=== PATIENT | female | born 1960 | race Caucasian/White ===

== ENCOUNTER → 2021-09-27 15:21 | Outpatient (BNVA) | payer OTHER, SELFPAY | PROVIDERS: Visit Provider Nurse Practitioner Family ==

== ENCOUNTER → 2021-10-31 11:00 | Outpatient (BNVA) | payer MEDICAID, SELFPAY | PROVIDERS: PCP Nurse Practitioner Adult Health; Visit Provider Nurse Practitioner Family | DX: G43.009 Migraine without aura, not intractable, without status migrainosus (principal); G50.1 Atypical facial pain; G47.33 Obstructive sleep apnea (adult) (pediatric); R56.9 Unspecified convulsions | CPT/HCPCS: 99212 ==

== ENCOUNTER → 2021-12-10 08:11 | Outpatient (BNVA) | payer MEDICAID, SELFPAY | PROVIDERS: PCP Nurse Practitioner Adult Health; Visit Provider Nurse Practitioner Family | DX: Z13.89 Encounter for screening for other disorder (principal) ==

== ENCOUNTER → 2022-05-30 07:57 | Outpatient (BNVA) | payer MEDICAID, SELFPAY | PROVIDERS: PCP Nurse Practitioner Adult Health; Visit Provider Psychiatry & Neurology Neurology | DX: G43.709 Chronic migraine without aura, not intractable, without status migrainosus (principal); G43.119 Migraine with aura, intractable, without status migrainosus; G50.1 Atypical facial pain | CPT/HCPCS: 64615; 99211; J0585 ==

== ENCOUNTER → 2022-07-25 15:08 | Outpatient (BNVA) | payer MEDICAID, SELFPAY | PROVIDERS: PCP Nurse Practitioner Adult Health; Visit Provider Nurse Practitioner Family | DX: G43.709 Chronic migraine without aura, not intractable, without status migrainosus (principal); G50.1 Atypical facial pain; G47.33 Obstructive sleep apnea (adult) (pediatric); R56.9 Unspecified convulsions; R76.8 Other specified abnormal immunological findings in serum | CPT/HCPCS: 99212; Q3014 ==

== ENCOUNTER → 2022-09-04 08:55 | Outpatient (BNVA) | payer MEDICAID, SELFPAY | PROVIDERS: PCP Nurse Practitioner Adult Health; Visit Provider Psychiatry & Neurology Neurology | DX: G43.109 Migraine with aura, not intractable, without status migrainosus (principal); G50.1 Atypical facial pain | CPT/HCPCS: 64615; 99211; J0585 ==

== ENCOUNTER → 2022-11-07 15:04 | Outpatient (REF) | payer MEDICAID, SELFPAY | LOC: HO.SL 15:04 | PROVIDERS: PCP Nurse Practitioner Adult Health; Visit Provider Nurse Practitioner Family | DX: G47.33 Obstructive sleep apnea (adult) (pediatric) (principal) | CPT/HCPCS: 95806 ==

== ENCOUNTER → 2022-12-01 10:30 | Outpatient (BNVA) | payer MEDICAID, SELFPAY | PROVIDERS: PCP Nurse Practitioner Adult Health; Visit Provider Psychiatry & Neurology Neurology | DX: G43.709 Chronic migraine without aura, not intractable, without status migrainosus (principal); G50.1 Atypical facial pain | CPT/HCPCS: 64615; 99211; J0585 ==

== ENCOUNTER → 2022-12-08 14:50 | Outpatient (BNVA) | payer MEDICAID, SELFPAY | PROVIDERS: PCP Nurse Practitioner Adult Health; Visit Provider Internal Medicine | DX: G50.1 Atypical facial pain (principal) | CPT/HCPCS: 99202 ==

== ENCOUNTER → 2023-01-16 10:56 | Outpatient (BNVA) | payer OTHER, SELFPAY | PROVIDERS: PCP Nurse Practitioner Adult Health; Visit Provider Internal Medicine | DX: G50.1 Atypical facial pain (principal) | CPT/HCPCS: 99212 ==

== ENCOUNTER → 2023-03-02 13:53 | Outpatient (BNVA) | payer OTHER, SELFPAY | PROVIDERS: PCP Nurse Practitioner Adult Health; Visit Provider Psychiatry & Neurology Neurology | DX: G43.709 Chronic migraine without aura, not intractable, without status migrainosus (principal); G50.1 Atypical facial pain; G43.119 Migraine with aura, intractable, without status migrainosus | CPT/HCPCS: 64615; 99211; J0585 ==

== ENCOUNTER → 2023-03-20 09:39 | Outpatient (BNVA) | payer MEDICAID, SELFPAY | PROVIDERS: PCP Nurse Practitioner Adult Health; Visit Provider Internal Medicine | DX: G43.119 Migraine with aura, intractable, without status migrainosus (principal); R63.4 Abnormal weight loss; G50.1 Atypical facial pain | CPT/HCPCS: 99212 ==

== ENCOUNTER 2023-04-03 11:29 | Outpatient (AMB) | payer MEDICAID, SELFPAY ==
--- NOTE | 2023-04-03 11:29 | MHC.OFFVIS ---
Intake Intake Visit Reasons: discuss options Allergies erythromycin base [ERYTHROMYCIN BASE] Allergy (Unknown, Verified 03/20/23 09:46) SWELLING From COMPAZINE Allergy (Unknown, Uncoded 03/20/23 09:46) EXTREME ANXIETY From WELLBUTRIN Allergy (Unknown, Uncoded 03/20/23 09:46) MOOD CHANGE (RAGE) HPI discuss options HPI Details 62-year-old female presenting today on tele-health visit.. She is going on vacation to the [place] with her sisters. She reports pain in her tooth, cheek bone, and evangelical, which radiates to her head. She states that her pain is triggering her migraine/headache. The patient is currently taking Advil every day with no significant relief. She has had Botox therapy in the past for migraines. She is currently on carbamazepine. She had taken oxycodone, which was prescribed by Dr. Harvey after surgery. She has not tried Tramadol in the past. she is interested in having a backup option for treating pain during her travel should she experience episodes of excruciating pain. She has her SPG block scheduled later this month afte she returns. REPLACED BY [facility] Medical History Abdominal pain, epigastric Anterior neck pain At high risk for breast cancer Attention deficit hyperactivity disorder (ADHD) Benign essential hypertension Bipolar 2 disorder Body dysmorphic disorder Cold sore Facial pain Family history of breast cancer JASMINE (generalized anxiety disorder) Hyperlipidemia Migraines Osteopenia Pain of right hip joint Seizure disorder TMJ arthralgia Urinary hesitancy Surgical History H/O tooth extraction Family History Mother Cancer Breast cancer Family/Other No problems noted. Sister Breast cancer Sister Breast cancer Social History Alcohol intake: current Alcohol intake frequency: holidays/special occasions only Patient Tobacco Use Status: Never used Tobacco Review of Systems Const All systems reviewed & are unremarkable except as noted in HPI and below Results Reviewed Results Reviewed: No imaging is available for review. Assessment & Plan Assessment & Plan (1) Atypical facial pain: Comment: left sided V1, V2 distribution Code(s): G50.1 - Atypical facial pain Plan 1. A one-week script of oxycodone 5 milligrams P.R.N was provided to the patient for her vacation #14. 2. Patient is scheduled for left +/- right sphenopalatine ganglion block in the office once she returns from vacation. Scribed for Dr. Castillo by João Singh, medical library assistant, on 04/03/2023. I, Dr. Castillo, have personally reviewed and agree with the information entered by the scribe. Medications: New oxycodone Partial Fill upon patient request. 5 mg PO BID PRN 14 tabs 0RF pain Telehealth Telehealth Location of provider rendering services: practice address Location of patient: address on file Patient Identification confirmed using: Name, : Yes Telehealth method: voice only Patient verbally consented to treatment: Yes Patient verbally consented to billing insurance company: Yes Patient informed of any privacy concerns related to visit: Yes Minutes spent on Phone/Video with Pt.: 10 Coding Level of Care Code Tele Est Pt Level 3 (97652) Diagnoses Atypical facial pain G50.1
== END 2023-04-03 11:29 | disposition home or self-care (01) ==
LOC: HO.PMC 11:29
PROVIDERS: PCP Nurse Practitioner Adult Health; Visit Provider Internal Medicine
DX: G50.1 Atypical facial pain (principal)
CPT/HCPCS: 99441

== ENCOUNTER → 2023-04-03 11:29 | Outpatient (BNVA) | payer MEDICAID, SELFPAY | PROVIDERS: PCP Nurse Practitioner Adult Health; Visit Provider Internal Medicine ==

== ENCOUNTER 2023-04-17 11:39 | Outpatient (AMB) | payer MEDICAID, OTHER, SELFPAY ==
--- NOTE | 2023-04-17 11:44 | MHC.OFFVIS ---
Intake Vital Signs 04/17/23 11:45 Height 5 ft 3 in Weight 108 lb BMI 19.1 BP 130/60 Blood Pressure Location Lt brachial Position Sitting Respiration 12 Pulse 75 Pulse Source Palpation Pulse Oximetry (%) 97 Oxygen Delivery Method Room Air Intake Visit Reasons: left sphenopalatine ganglion block Allergies erythromycin base [ERYTHROMYCIN BASE] Allergy (Unknown, Verified 04/17/23 11:45) SWELLING From COMPAZINE Allergy (Unknown, Uncoded 04/17/23 11:45) EXTREME ANXIETY From WELLBUTRIN Allergy (Unknown, Uncoded 04/17/23 11:45) MOOD CHANGE (RAGE) Medication List - Last Reconciled 04/17/23 by Araceli Loomis, DRAWER IN STITCH BONDING MACHINE atorvastatin 40 mg PO DAILY carbamazepine ER (Tegretol XR) 200 mg PO BID 90 days clonazepam 0.25 mg PO BEDTIME cyclosporine 0.05% (Restasis) drps ophthalmic (eye) duloxetine (Cymbalta) 30 mg PO .qd famotidine 40 mg PO BEDTIME lamotrigine 200 mg PO BID 90 days onabotulinumtoxinA (Botox) Inject 155 units across forehead scalp and neck; 12 weeks oxycodone 5 mg PO BID PRN sumatriptan succinate 100 mg PO Q2H PRN 21 days sumatriptan succinate 6 mg (0.5 mL) subcut ONCE PRN 30 days verapamil ER 180 mg PO DAILY 90 days HPI left sphenopalatine ganglion block HPI Details 62-year-old female presenting today for a bilateral sphenopalatine ganglion block. Denies any recent cough, cold, infection, fever or other significant changes in medical history since last office visit. [facility] Medical History Abdominal pain, epigastric Anterior neck pain At high risk for breast cancer Attention deficit hyperactivity disorder (ADHD) Benign essential hypertension Bipolar 2 disorder Body dysmorphic disorder Cold sore Facial pain Family history of breast cancer JASMINE (generalized anxiety disorder) Hyperlipidemia Migraines Osteopenia Pain of right hip joint Seizure disorder TMJ arthralgia Urinary hesitancy Surgical History H/O tooth extraction Family History Mother Cancer Breast cancer Family/Other No problems noted. Sister Breast cancer Sister Breast cancer Social History Alcohol intake: current Alcohol intake frequency: holidays/special occasions only Patient Tobacco Use Status: Never used Tobacco Review of Systems Const All systems reviewed & are unremarkable except as noted in HPI and below Physical Exam Vital Signs: Last Vital Signs Pulse 75 04/17/23 11:45 Resp 12 04/17/23 11:45 BP 130/60 04/17/23 11:45 Pulse Ox 97 04/17/23 11:45 Oxygen Delivery Method Room Air 04/17/23 11:45 BMI result Body Mass Index 19.1 General: Appears afebrile. Alert and oriented. Mood and affect appropriate. Follows and participates in conversation appropriately. Respiratory effort is unlabored. Able to transition from sit to stand unassisted. Ambulates with bilaterally normal heel strike and toe off. Office Procedures Nerve Block Details: Sphenopalatine ganglion block, bilateral After obtaining written consent, pre-procedure blood pressure and heart rate were stable and recorded in the nursing record. Standard monitors were applied. The patient was placed in the supine position. We then placed a hollow shaft cotton tipped applicator into the nare. This was advanced posteriorly until contact with the posterior nasopharynx was made. We then injected 1cc of topical lidocaine 4% through the shaft to soak the tip and diffuse to the ganglion. We then left the applicator in place for 20 minutes. The applicator was then removed. The patient tolerated the procedure well and no complications were encountered. Following the procedure the patient's vital signs were stable. The patient was discharged home in good condition with post-procedural instructions. Time Out: Immediately prior to the procedure, the following was verbally confirmed that there is a signed consent form and that the correct patient, planned procedure, site and side are consistent with documentation and that necessary equipment and/or blood products are available prior to the start of the case. Complications: none EBL: none Procedure code (CPT) selection complete Results Reviewed Results Reviewed: No imaging is available for review. Assessment & Plan Assessment & Plan (1) Migraine with aura, intractable, without status migrainosus: Code(s): G43.119 - Migraine with aura, intractable, without status migrainosus (2) Atypical facial pain: Comment: left sided V1, V2 distribution Code(s): G50.1 - Atypical facial pain Plan Patient is status post bilateral sphenopalatine ganglion block. Patient tolerated procedure well and was discharged home in stable condition with discharge instructions. All questions were answered. We will follow-up via telephone or in clinic to assess response to therapy. A follow-up appointment was made during today's visit. Scribed for Dr. Castillo by João Singh, medical data entry clerk, on 04/17/2023. I, Dr. Castillo, have personally reviewed and agree with the information entered by the scribe. Coding Level of Care Code Procedure Only Diagnoses Migraine with aura, intractable, without status migrainosus G43.119 Atypical facial pain G50.1
[2023-04-17 11:45] VITALS: BP 130/60; PULSE 75; RESP 12; O2SAT 97; BMI 19.1
== END 2023-04-17 12:01 | disposition home or self-care (01) ==
PROVIDERS: PCP Nurse Practitioner Adult Health; Visit Provider Internal Medicine
DX: G43.119 Migraine with aura, intractable, without status migrainosus (principal); G50.1 Atypical facial pain
CPT/HCPCS: 64405

== ENCOUNTER → 2023-04-17 11:39 | Outpatient (BNVA) | payer MEDICAID, SELFPAY | PROVIDERS: PCP Nurse Practitioner Adult Health; Visit Provider Internal Medicine | DX: G43.119 Migraine with aura, intractable, without status migrainosus (principal); G50.1 Atypical facial pain | CPT/HCPCS: 64405 ==

== ENCOUNTER 2023-05-15 09:33 | Outpatient (AMB) | payer OTHER, SELFPAY ==
[2023-05-15 09:42] VITALS: BP 128/86; PULSE 82; RESP 14; O2SAT 99; BMI 19.1
--- NOTE | 2023-05-15 09:42 | MHC.OFFVIS ---
Intake Vital Signs 05/15/23 09:42 Height 5 ft 3 in Weight 108 lb BMI 19.1 BP 128/86 Blood Pressure Location Lt brachial Position Sitting Respiration 14 Pulse 82 Pulse Source Pulse Oximeter Pulse Oximetry (%) 99 Oxygen Delivery Method Room Air Intake Visit Reasons: PROCEDURE DISCUSSION Allergies erythromycin base [ERYTHROMYCIN BASE] Allergy (Unknown, Verified 05/15/23 09:44) SWELLING From COMPAZINE Allergy (Unknown, Uncoded 05/15/23 09:44) EXTREME ANXIETY From WELLBUTRIN Allergy (Unknown, Uncoded 05/15/23 09:44) MOOD CHANGE (RAGE) Medication List - Last Reconciled 05/15/23 by Dinorah Lowry LPN atorvastatin 40 mg PO DAILY carbamazepine ER (Tegretol XR) 200 mg PO BID 90 days clonazepam 0.25 mg PO BEDTIME cyclosporine 0.05% (Restasis) drps ophthalmic (eye) duloxetine (Cymbalta) 30 mg PO .qd famotidine 40 mg PO BEDTIME lamotrigine 200 mg PO BID 90 days onabotulinumtoxinA (Botox) Inject 155 units across forehead scalp and neck; 12 weeks oxycodone 5 mg PO BID PRN sumatriptan succinate 100 mg PO Q2H PRN 21 days sumatriptan succinate 6 mg (0.5 mL) subcut ONCE PRN 30 days verapamil ER 180 mg PO DAILY 90 days HPI PROCEDURE DISCUSSION HPI Details 63-year-old female is presenting today for a procedure discussion. She reports multiple episodes of sinus pain and pressure. She also reports pain over the top of her head and occasionally in left side of the face. She is not able to move, work, sleep, sit, or stand because of pain. She is currently taking Advil, which provides relief from odontalgia. She denies lacrimation or rhinorrhea. She was taking half a tab of oxycodone for pain management during vacation. She requests a 1 time script of oxycodone to continue taking well she explores further therapeutic options. Past procedure: 04/17/23: Sphenopalatine ganglion block, bilateral: No relief. [facility] Medical History Abdominal pain, epigastric Anterior neck pain At high risk for breast cancer Attention deficit hyperactivity disorder (ADHD) Benign essential hypertension Bipolar 2 disorder Body dysmorphic disorder Cold sore Facial pain Family history of breast cancer JASMINE (generalized anxiety disorder) Hyperlipidemia Migraines Osteopenia Pain of right hip joint Seizure disorder TMJ arthralgia Urinary hesitancy Surgical History H/O tooth extraction Family History Mother Cancer Breast cancer Family/Other No problems noted. Sister Breast cancer Sister Breast cancer Social History Alcohol intake: current Alcohol intake frequency: holidays/special occasions only Patient Tobacco Use Status: Never used Tobacco Review of Systems Const All systems reviewed & are unremarkable except as noted in HPI and below Physical Exam Vital Signs: Last Vital Signs Pulse 82 05/15/23 09:42 Resp 14 05/15/23 09:42 BP 128/86 05/15/23 09:42 Pulse Ox 99 05/15/23 09:42 Oxygen Delivery Method Room Air 05/15/23 09:42 BMI result Body Mass Index 19.1 General: Appears afebrile. Alert and oriented. Mood and affect appropriate. Visible distress secondary to facial pain. Follows and participates in conversation appropriately. Respiratory effort is unlabored. Able to transition from sit to stand unassisted. Ambulates with bilaterally normal heel strike and toe off. Results Reviewed Results Reviewed: No imaging is available for review. Assessment & Plan Assessment & Plan (1) Trigeminal neuralgia of left side of face: Code(s): G50.0 - Trigeminal neuralgia Plan 63-year-old female with a complex history of facial pain that has not been responsive to conservative management including multiple medications, removal of impacted wisdom teeth in the left upper jaw as well as a trial of sphenopalatine ganglion block. Her pain is mostly in the distribution of V1 and V2, likely secondary to trigeminal neuralgia. I recommended that she seek a consultation with Dr. uRth at [facility]. I provided a referral to her for the same. ? A partial refill of oxycodone 5mg #30 was provided to the patient for pain management.? Scribed for Dr. Castillo by João Singh, medical affairs specialist, on 05/15/2023. I, Dr. Castillo, have personally reviewed and agree with the information entered by the scribe. Orders: Referrals Neurosurgery Referral G50.0 - Trigeminal neuralgia Medications: New oxycodone Partial Fill upon patient request. 5 mg PO BID PRN 30 tabs 0RF pain Coding Level of Care Code Est Pt Level 3 (53916) Diagnoses Trigeminal neuralgia of left side of face G50.0
== END 2023-05-15 09:59 | disposition home or self-care (01) ==
PROVIDERS: PCP Nurse Practitioner Adult Health; Visit Provider Internal Medicine
DX: G50.0 Trigeminal neuralgia (principal)
CPT/HCPCS: 99214

== ENCOUNTER → 2023-05-15 09:33 | Outpatient (BNVA) | payer MEDICAID, SELFPAY | PROVIDERS: PCP Nurse Practitioner Adult Health; Visit Provider Internal Medicine ==

== ENCOUNTER 2023-06-16 14:37 | Outpatient (AMB) | payer OTHER, SELFPAY ==
--- NOTE | 2023-06-16 14:42 | MHC.OFFVIS ---
Intake Vital Signs 06/16/23 14:44 Weight 107 lb 8 oz BP 110/68 Blood Pressure Location Rt brachial Position Sitting Pulse 68 Pulse Source Pulse Oximeter Pulse Oximetry (%) 98 Intake Visit Reasons: Botox (B&B)-confirmed Allergies erythromycin base [ERYTHROMYCIN BASE] Allergy (Unknown, Verified 06/16/23 14:48) SWELLING From COMPAZINE Allergy (Unknown, Uncoded 05/15/23 09:44) EXTREME ANXIETY From WELLBUTRIN Allergy (Unknown, Uncoded 05/15/23 09:44) MOOD CHANGE (RAGE) Medication List - Last Reconciled 06/16/23 by Cally Moody MD atorvastatin 40 mg PO DAILY carbamazepine ER (Tegretol XR) 200 mg PO BID 90 days clonazepam 0.25 mg PO BEDTIME cyclosporine 0.05% (Restasis) drps ophthalmic (eye) duloxetine (Cymbalta) 30 mg PO .qd lamotrigine 200 mg PO BID 90 days onabotulinumtoxinA (Botox) Inject 155 units across forehead scalp and neck; 12 weeks sumatriptan succinate 100 mg PO Q2H PRN 21 days sumatriptan succinate 6 mg (0.5 mL) subcut ONCE PRN 30 days verapamil ER 180 mg PO DAILY 90 days HPI HPI Comments History of Present Illness Details ? 63y/o female comes for treatment of migraines and torticollis with botox. After her botox last time sh ehad head drop. I will avoid injecting cervical paraspinals . ??? Most frequent reported adverse reactions following injection of botox for chronic migraine include neck pain (9%), headache(5%), eyelid ptosis(4%), migraine(4%), muscular weakness(4%), musculuskeletal stiffness(4%), bronchitis(3%), injection site pain (3%), musculoskeletal pain(3%), myalgia(3%), facial paresis(2%), HTN(2%) and muscle spasms(2%) were discussed in detail. ??? Botulinum toxin typeA 200units Lot no [id number] expiration Oct 2025 was diluted with 4 cc of normal saline . ??? Muscles injected- ? Temporalis- 8 sites- 20 units each?? Fronatlis 4 sites Left trapezius- 30 units Right Trapezius 10 units Left levator 50 units Left splenius 25 units Left TMJ Masseter - 25 units ? Total use- 200units ??? PFSH Medical History Anterior neck pain At high risk for breast cancer Abdominal pain, epigastric Facial pain JASMINE (generalized anxiety disorder) Benign essential hypertension Urinary hesitancy Body dysmorphic disorder Cold sore Attention deficit hyperactivity disorder (ADHD) Family history of breast cancer Pain of right hip joint TMJ arthralgia Seizure disorder Osteopenia Migraines Bipolar 2 disorder Hyperlipidemia Surgical History H/O tooth extraction Family History Mother Cancer Breast cancer Family/Other No problems noted. Sister Breast cancer Sister Breast cancer Social History Alcohol intake: current Alcohol intake frequency: holidays/special occasions only Patient Tobacco Use Status: Never used Tobacco Physical Exam Vital Signs: Last Vital Signs Pulse 68 06/16/23 14:44 BP 110/68 06/16/23 14:44 Pulse Ox 98 06/16/23 14:44 Const General: cooperative and no acute distress Orientation/consciousness: patient oriented x3 HEENT Head: Yes normocephalic Resp Effort & Inspection: normal respiratory effort and able to speak in complete sentences Neuro General: patient oriented x3 Cognition (Neuro): normal cognition Psych Appearance: grossly normal Mental Status: mental status grossly normal Speech and movement: Normal speech and movement present Affect: normal affect Attitude: cooperative Thought process: Normal thought process present Thought content: Normal thought content present Insight: Good insight present (Psych) Judgement: Good judgement present (Psych) Office Procedures Botulinum toxin Injection 71691 - Migraine Procedure code (CPT) selection complete Office Meds onabotulinumtoxinA 200 unit solution for injection Performing Provider: Cally Moody MD Performing Location: [facility] Administered by: Cally Moody MD on 06/16/23 15:14 Dose Route Admin Location Dispensed Lot Number Expiration Date [facility] Technical Artist 200 unit subcut 200 units [id number] 10/22/25 1026-9964-11 [employer]OTOX Comments: see hpi Assessment & Plan Assessment & Plan (1) Chronic migraine without aura: Code(s): G43.709 - Chronic migraine without aura, not intractable, without status migrainosus (2) Atypical facial pain: Comment: left sided V1, V2 distribution Code(s): G50.1 - Atypical facial pain (3) Migraine with aura, intractable, without status migrainosus: Code(s): G43.119 - Migraine with aura, intractable, without status migrainosus Plan Patient tolerated the procedure well she will call with any side effects Increase tegretol XR 300mg bid Orders: Orders AMB Botulinum toxin Injection Today G43.709 - Chronic migraine without aura, not intractable, without status migrainosus Coding Level of Care Code Est Pt Level 1 (44365) Diagnoses Chronic migraine without aura G43.709 Atypical facial pain G50.1 Migraine with aura, intractable, without status migrainosus G43.119 CPT Codes Botox Injection - Botox 3: 21894 - Migraine ([id number])
[2023-06-16 14:44] VITALS: BP 110/68; PULSE 68; O2SAT 98
== END 2023-06-16 15:25 | disposition home or self-care (01) ==
PROVIDERS: PCP Nurse Practitioner Adult Health; Visit Provider Psychiatry & Neurology Neurology
DX: G43.709 Chronic migraine without aura, not intractable, without status migrainosus (principal)
CPT/HCPCS: 64615

== ENCOUNTER → 2023-06-16 14:37 | Outpatient (BNVA) | payer OTHER, SELFPAY | PROVIDERS: PCP Nurse Practitioner Adult Health; Visit Provider Psychiatry & Neurology Neurology | DX: G43.709 Chronic migraine without aura, not intractable, without status migrainosus (principal); G43.119 Migraine with aura, intractable, without status migrainosus; G50.1 Atypical facial pain | CPT/HCPCS: 64615; 99211; J0585 ==

== ENCOUNTER 2023-06-20 09:47 | Outpatient (REF) | payer OTHER, SELFPAY ==
[2023-06-20 10:12] LABS: MANUAL DIFF FLAG NO
[2023-06-20 11:02] LABS: Basophils Percent Auto 0.8 % (0-2); Eosinophils Absolute Auto 0.2 X10*3/uL (0.0-0.4); Eosinophils Percent Auto 4.5 % (0-4); Hematocrit 32.8 % (37.0-47.0); Hemoglobin 10.6 g/dl (12.0-16.0); Imm Gran Abs Auto 0.01 X10*3/uL (0.00-0.03); Imm Gran Pct Auto 0.3 % (0.0-0.4); Lymphocytes Absolute Auto 1.7 X10*3/uL (1.2-4.9); Lymphocytes Percent Auto 42.4 % (20-40); Mean Corpuscular HGB Conc 32.3 g/dl (31.0-35.0); Mean Corpuscular Hemoglobin 28.6 pg (27.0-33.0); Mean Corpuscular Volume 88.6 fL (80.0-98.0); Mean Platelet Volume 9.6 fL (9.4-12.3); Monocytes Absolute Auto 0.4 X10*3/uL (0.1-1.2); Neutrophils Absolute Auto 1.6 x10*3/uL (2.0-8.3); Platelet Count 279 X10*3/uL (160-400)
[2023-06-20 11:35] LABS: Rheumatoid Factor < 13.0 IU/mL (<15.0)
[2023-06-20 11:37] LABS: Alanine Aminotransferase 20 U/L (0-31); Albumin Level 4.4 g/dL (3.5-5.0); Alkaline Phosphatase 67 U/L (39-117); Anion Gap 13 (12-20); Aspartate Amino Transferase 19 U/L (5-31); Bilirubin Total 0.3 mg/dL (0.0-1.0); Blood Urea Nitrogen 12 mg/dL (9-16); Calcium 9.1 mg/dL (8.4-10.2); Carbon Dioxide 28 mmol/L (22-29); Chloride 106 mmol/L (96-108); Estimated Glomerular Filt Rate > 60; Glucose Random 75 mg/dL (60-115); Potassium 4.1 mmol/L (3.3-5.1); Sodium 143 mmol/L (135-145); Total Protein 6.7 g/dL (6.5-8.0)
[2023-06-20 13:22] LABS: Carbamazepine Tegretol 5.9 mcg/mL (5.0-12.0)
[2023-06-24 09:12] LABS: Lamotrigine Lamictal 4.1 mcg/mL (2.5-15.0)
[2023-06-24 13:54] LABS: Anti Nuclear Antibody Pattern Nuclear, Nucleolar; Anti Nuclear Antibody Screen POSITIVE (NEGATIVE)
== END 2023-06-20 09:48 | disposition home or self-care (01) ==
LOC: HO.LAB 09:47
PROVIDERS: Visit Provider Nurse Practitioner Family
DX: R76.8 Other specified abnormal immunological findings in serum (principal); G40.909 Epilepsy, unspecified, not intractable, without status epilepticus; Z79.899 Other long term (current) drug therapy
CPT/HCPCS: 36415; 80053; 80156; 80175; 85025; 86038; 86039; 86431

== ENCOUNTER 2023-07-02 14:03 | Outpatient (AMB) | payer OTHER, SELFPAY ==
[2023-07-02 14:14] VITALS: BMI 19.6
--- NOTE | 2023-07-02 14:14 | MHC.AMNUTRGE ---
Intake VS Expanded 07/02/23 14:14 07/06/23 12:23 Height 5 ft 3 in 5 ft 3 in Weight 110 lb 10.753 oz 111 lb BMI 19.6 19.7 Intake Visit Reasons: Abnormal weight loss Allergies erythromycin base [ERYTHROMYCIN BASE] Allergy (Unknown, Verified 06/16/23 14:48) SWELLING From COMPAZINE Allergy (Unknown, Uncoded 05/15/23 09:44) EXTREME ANXIETY From WELLBUTRIN Allergy (Unknown, Uncoded 05/15/23 09:44) MOOD CHANGE (RAGE) HPI Nutrition Presentation Details Pt presents for MNT for abnormal weight loss Pt reports gradual weight loss , wt in 10/2021 at 128 lbs , today at 110 lbs Pt reports she is choosing soft foods /pureed consistency the majority of the time related to having pain when chewing. Pt is followed by neurologist and by pain management. Pt reports most of her protein is mainly from cheese/dairy. She reports not including meat/poultry in the past and would like to continue this pattern. Pt reports being ok with including eggs and fish Pt reports lacking cooking skills, looking for fast meal ideas. Pt acknowledges importance of weight gain. Pt agrees to gradual wt gain, does not want to gain greater than 130 lbs. reports currently choosing soft foods coffee or tea sugar light cream B: cream of wheat with water and heavy cream and adds micronesian yogurt , cinnamon , nothing to drink L: cottage cheese and yogurt , may add a fruit D: madra lentils and quinoa snack : ice cream , smoothies not taking MVI COW-Ypkhyov-Um.Jeor Equation Height 5 ft 3 in Weight 111 lb Resting Metabolic Rate 1022.31 Calculated Activity Level Sedentary Calories Needed to Maintain Weight 1226.77 Diagnosis Nutrition problem #1 underweight As related to (etiology) #1 increased energy needs As evidenced by (sign/symptom) #1 weight loss (17 lbs in 10 months (related to reduced caloric intake from change in diet consistency (solid to puree)) Most Recent Diabetes Results: Creatinine 0.68 mg/dL (0.5-1.4) 06/20/23 Blood Urea Nitrogen 12 mg/dL (9-16) 06/20/23 Sodium 143 mmol/L (135-145) 06/20/23 Potassium 4.1 mmol/L (3.3-5.1) 06/20/23 Chloride 106 mmol/L (96-108) 06/20/23 Carbon Dioxide 28 mmol/L (22-29) 06/20/23 Calcium 9.1 mg/dL (8.4-10.2) 06/20/23 AST 19 U/L (5-31) 06/20/23 ALT 20 U/L (0-31) 06/20/23 Total Protein 6.7 g/dL (6.5-8.0) 06/20/23 Albumin 4.4 g/dL (3.5-5.0) 06/20/23 [facility] Medical History Anterior neck pain At high risk for breast cancer Abdominal pain, epigastric Facial pain JASMINE (generalized anxiety disorder) Benign essential hypertension Urinary hesitancy Body dysmorphic disorder Cold sore Attention deficit hyperactivity disorder (ADHD) Family history of breast cancer Pain of right hip joint TMJ arthralgia Seizure disorder Osteopenia Migraines Bipolar 2 disorder Hyperlipidemia Surgical History H/O tooth extraction Family History Mother Cancer Breast cancer Family/Other No problems noted. Sister Breast cancer Sister Breast cancer Social History Alcohol intake: current Alcohol intake frequency: holidays/special occasions only Patient Tobacco Use Status: Never used Tobacco Assessment & Plan Assessment & Plan (1) Weight loss, unintentional: Code(s): R63.4 - Abnormal weight loss Plan: wt 50 kg Est kcal needs as per MSJ: 1200 + 6927-8980 = 2200- 3200 (40% carb, 30% protein/fat) Est fluid needs as per 25-30 ml/d: 1250 - 1500 Est prot per day as per 1 g/kg bw: 50 Recommend fiber intake : 8-10 g per day and gradually increase to 25-28 g per day for women and 35-38 g for men or as tolerated Recommend sodium intake per day : 2000 mg Educated patient on: ( R = reviewed V = verbalizes understanding N/R = needs review N/A = not applicable Food sources of protein and it role in health : R, V Increasing calories by 250-500 gradually to prevent further weight loss and promote weight gain : R Vitamins and minerals: R Patient Instructions: Increase calories by 250-500 per day by adding protein,healthy fats and complex carbohydrates example : 1 cup of whole milk = 150 calories, 8 g protein 1 tbsp of peanut butter = 100 calories 4 g prot 1/2 cup of soft tofu = 60 calories 5 g of protein 1/2 cup of cottage cheese , 110 shayy , 13 g protein see meal plan ideas emailed Coding Level of Care Code Nutr Indiv Intake (15182) Diagnoses Weight loss, unintentional R63.4 Time Spent (min) 30
[2023-07-06 12:23] VITALS: BMI 19.7
== END 2023-07-02 14:50 | disposition home or self-care (01) ==
PROVIDERS: PCP Nurse Practitioner Adult Health; Visit Provider Dietitian, Registered
DX: R63.4 Abnormal weight loss (principal)

== ENCOUNTER → 2023-07-02 14:03 | Outpatient (BNVA) | payer OTHER, SELFPAY | PROVIDERS: PCP Nurse Practitioner Adult Health; Visit Provider Dietitian, Registered | DX: R63.4 Abnormal weight loss (principal); Z68.1 Body mass index [BMI] 19.9 or less, adult; Z71.3 Dietary counseling and surveillance | CPT/HCPCS: 97802 ==

== ENCOUNTER 2023-07-30 08:29 | Outpatient (AMB) | payer OTHER, SELFPAY ==
--- NOTE | 2023-07-30 08:30 | MHC.OFFVIS ---
Intake Vital Signs 07/30/23 08:31 Height 5 ft 3 in Weight 109 lb 2 oz BMI 19.3 Intake Visit Reasons: follow up/Lvm Intake Note: Patient presents for follow up. Patient states ' been a patient for a along time and I haven't seen her, I have sleep apnea so i need to be revaluted and get a new machine I haven't used 2 years. Allergies erythromycin base [ERYTHROMYCIN BASE] Allergy (Unknown, Verified 07/30/23 08:38) SWELLING From COMPAZINE Allergy (Unknown, Uncoded 07/30/23 08:38) EXTREME ANXIETY From WELLBUTRIN Allergy (Unknown, Uncoded 07/30/23 08:38) MOOD CHANGE (RAGE) [facility] Medical History Anterior neck pain At high risk for breast cancer Abdominal pain, epigastric Facial pain JASMINE (generalized anxiety disorder) Benign essential hypertension Urinary hesitancy Body dysmorphic disorder Cold sore Attention deficit hyperactivity disorder (ADHD) Family history of breast cancer Pain of right hip joint TMJ arthralgia Seizure disorder Osteopenia Migraines Bipolar 2 disorder Hyperlipidemia Surgical History H/O tooth extraction Family History Mother Cancer Breast cancer Family/Other No problems noted. Sister Breast cancer Sister Breast cancer Social History Alcohol intake: current Alcohol intake frequency: holidays/special occasions only Patient Tobacco Use Status: Never used Tobacco Coding
[2023-07-30 08:31] VITALS: BP 118/78; PULSE 94; O2SAT 98; BMI 19.3
--- NOTE | 2023-07-30 08:40 | A.OFFVIS_ITS ---
Intake Vital Signs 07/30/23 08:31 07/30/23 08:42 Height 5 ft 3 in Weight 109 lb 2 oz BMI 19.3 19.3 BP 118/78 Blood Pressure Location Rt brachial Position Sitting Pulse 94 Pulse Source Pulse Oximeter Pulse Oximetry (%) 98 Oxygen Delivery Method Room Air Intake Visit Reasons: follow up/Lvm Intake Note: Patient presents for follow up. Patient states I haven't seen her in 2 years. I have sleep apnea but have not used a machine in 2 years due to a recall on my mac machine. I've lost a lot of weight but I'm seeing a airline transport pilot for it. Allergies erythromycin base [ERYTHROMYCIN BASE] Allergy (Unknown, Verified 07/30/23 08:38) SWELLING From COMPAZINE Allergy (Unknown, Uncoded 07/30/23 08:38) EXTREME ANXIETY From WELLBUTRIN Allergy (Unknown, Uncoded 07/30/23 08:38) MOOD CHANGE (RAGE) Medication List - Last Reconciled 07/30/23 by VINICIUS Crump atorvastatin 40 mg PO DAILY carbamazepine ER (Tegretol XR) 200 mg PO BID 90 days clonazepam 0.25 mg PO BEDTIME cyclosporine 0.05% (Restasis) drps ophthalmic (eye) duloxetine (Cymbalta) 30 mg PO .qd lamotrigine 200 mg PO BID 90 days onabotulinumtoxinA (Botox) Inject 155 units across forehead scalp and neck; 12 weeks sumatriptan succinate 100 mg PO Q2H PRN 21 days sumatriptan succinate 6 mg (0.5 mL) subcut ONCE PRN 30 days verapamil ER 180 mg PO DAILY 90 days HPI HPI Comments History of Present Illness Details 63-yr-old female presents for f/u visit. Pt denies any interval seizure activity. She is compliant w/ Tegretol (now 200mg qam and 300mg qpm) and Lamotrigine. Last Tegretol and Lamotrigine levels were NL. Pt continues to have left facial pain Pt has had a wisdom tooth extraction- in hopes it would lessen the facial pain, but this was not helpful. She also had a sphenopalantine ganglion block which was not helpful. She recently increased her tegretol from 200mg bid to 200mg in am and 300mg qpm with added celebrex bid. She has had a 10 day stretch w/o pain, however just recently again noticing discomfort whenchewing. She has been having less migraines in the past 2 weeks. She does continue to do Botox- she is prone to having a headache in the week following the botox injection. The Sumatriptan is usually effective but not always. The Sumatriptan inj is especially effective for severe migraine. Tylenol can help a mild headache. Recently rechecked VERONICA, as it was previously elevated, and again VERONICA is elevated at 1;320. She would like to resume CPAP. Her most recent HST showed moderate sleep apnea with AHI 17.2/hr w/ O2 sheba 80%. She continues to have snoring, sleep difficulties, nocturia, dry mouth upon awakening, and unrefreshing sleep. She previously did well on CPAP, and only stopped as her ayleen's pap device was recalled. She does not have a working CPAP machine. Last Resulted Lab Tests 06/20/23 10:10 WBC 4.0 L RBC 3.70 L Hgb 10.6 L Hct 32.8 L MCV 88.6 MCH 28.6 MCHC 32.3 RDW 13.0 Plt Count 279 MPV 9.6 Immature Gran % (A uto) 0.3 Neut % (Auto) 41.0 L Lymph % (Auto) 42.4 H [place] % (Auto) 11.0 Eos % (Auto) 4.5 H Baso % (Auto) 0.8 Sodium 143 Potassium 4.1 Chloride 106 Carbon Dioxide 28 Anion Gap 13 BUN 12 Creatinine 0.68 Random Glucose 75 Calcium 9.1 Total Bilirubin 0.3 AST 19 ALT 20 Alkaline Phosphata se 67 Total Protein 6.7 Albumin 4.4 Carbamazepine 5.9 Lamotrigine 4.1 Rheumatoid Factor < 13.0 VERONICA Screen POSITIVE A VERONICA Titer 1:320 H VERONICA Pattern Nuclear, Nucleola r A PFSH Medical History Anterior neck pain At high risk for breast cancer Abdominal pain, epigastric Facial pain JASMINE (generalized anxiety disorder) Benign essential hypertension Urinary hesitancy Body dysmorphic disorder Cold sore Attention deficit hyperactivity disorder (ADHD) Family history of breast cancer Pain of right hip joint TMJ arthralgia Seizure disorder Osteopenia Migraines Bipolar 2 disorder Hyperlipidemia Surgical History H/O tooth extraction Family History Mother Cancer Breast cancer Family/Other No problems noted. Sister Breast cancer Sister Breast cancer Social History Alcohol intake: current Alcohol intake frequency: holidays/special occasions only Patient Tobacco Use Status: Never used Tobacco Review of Systems Const All systems reviewed & are unremarkable except as noted in HPI and below Physical Exam Vital Signs: Last Vital Signs Pulse 94 07/30/23 08:31 BP 118/78 07/30/23 08:31 Pulse Ox 98 07/30/23 08:31 Oxygen Delivery Method Room Air 07/30/23 08:31 BMI result Body Mass Index 19.3 Const General: cooperative and no acute distress Orientation/consciousness: patient oriented x3 HEENT Head: Yes normocephalic Resp Effort & Inspection: normal respiratory effort and able to speak in complete sentences Neuro General: patient oriented x3, gait normal and CN's II-XI intact bilaterally Cognition (Neuro): normal cognition Motor exam (neuro): 5/5 motor strength present throughout Psych Appearance: grossly normal Mental Status: mental status grossly normal Speech and movement: Normal speech and movement present Affect: normal affect Attitude: cooperative Thought process: Normal thought process present Thought content: Normal thought content present Insight: Good insight present (Psych) Judgement: Good judgement present (Psych) Assessment & Plan Assessment & Plan (1) Chronic migraine without aura: Code(s): G43.709 - Chronic migraine without aura, not intractable, without status migrainosus (2) Migraine with aura, intractable, without status migrainosus: Code(s): G43.119 - Migraine with aura, intractable, without status migrainosus (3) Trigeminal neuralgia of left side of face: Code(s): G50.0 - Trigeminal neuralgia (4) Seizures: Comment: petit mal Code(s): R56.9 - Unspecified convulsions (5) Positive VERONICA (antinuclear antibody): Code(s): R76.8 - Other specified abnormal immunological findings in serum (6) Obstructive sleep apnea: Code(s): G47.33 - Obstructive sleep apnea (adult) (pediatric) Plan For left-facial pain- May increase Tegretol ER up to 200mg in am and 400mg qhs. Continue Celebrx. Recheck CBC, CMP, tegreol level in 2 weeks. F/u w/ pain management as scheduled. For chronic migraine prevention: Continue Botox for chronic migraine prevention. Continue Verapil ER 180mg qd. Pt has previously failed migraine prevention trials of Inderal, Nortriptyline, For acute migraine tx: Trial Nurtec ODT 75mg qod prn- note qod order as pt is on verapamil. Continue Sumatriptan oral and inj prn, Benadryl prn. Previous acute trials- Rizatriptan, Ubrogepant- ineffective. For seizures- Continue Tegretol XR as above Continue Lamictal 200mg bid. For mood disorder- F/u with psychiatrist Dr Riojas as scheduled. For h/o + VERONICA- Referal ahs been made to rheumatology consult. For CELIO- Reviewed HST- moderate CELIO. Pt advsied to resume CPAP set at her previous settings of 12 cmH2O.. Orders: Orders Carbamazepine Tegretol Today G40.909 - Epilepsy, unspecified, not intractable, without status epilepticus, R56.9 - Unspecified convulsions Complete Blood Count Auto Diff Today R56.9 - Unspecified convulsions Comprehensive Met. Panel Today R56.9 - Unspecified convulsions Medications: New rimegepant (Nurtec ODT) 75 mg PO Q OTHER DAY 30 days PRN 16 tabs 6RF migraine headache Changed From carbamazepine ER 100 mg PO .qhs To carbamazepine ER (Tegretol XR) at bedtime 100 mg PO DAILY 30 days 30 tabs 6RF Coding Level of Care Code Est Pt Level 4 (12095) Diagnoses Chronic migraine without aura G43.709 Migraine with aura, intractable, without status migrainosus G43.119 Trigeminal neuralgia of left side of face G50.0 Seizures R56.9 Positive VERONICA (antinuclear antibody) R76.8 Obstructive sleep apnea G47.33
[2023-07-30 08:42] VITALS: BMI 19.3
== END 2023-07-30 09:25 | disposition home or self-care (01) ==
PROVIDERS: PCP Nurse Practitioner Adult Health; Visit Provider Nurse Practitioner Family
DX: G43.709 Chronic migraine without aura, not intractable, without status migrainosus (principal); G43.119 Migraine with aura, intractable, without status migrainosus; G50.0 Trigeminal neuralgia; R56.9 Unspecified convulsions; R76.8 Other specified abnormal immunological findings in serum; G47.33 Obstructive sleep apnea (adult) (pediatric)
CPT/HCPCS: 99214

== ENCOUNTER → 2023-07-30 08:29 | Outpatient (BNVA) | payer OTHER, SELFPAY | PROVIDERS: PCP Nurse Practitioner Adult Health; Visit Provider Nurse Practitioner Family ==

== ENCOUNTER 2023-08-19 13:36 | Outpatient (AMB) | payer OTHER, SELFPAY ==
[2023-08-19 13:45] VITALS: BMI 19.5
--- NOTE | 2023-08-19 13:45 | MHC.AMNUTRGE ---
Intake VS Expanded 08/19/23 13:45 Height 5 ft 3 in Weight 110 lb 3.698 oz BMI 19.5 Intake Visit Reasons: monitor weight Allergies erythromycin base [ERYTHROMYCIN BASE] Allergy (Unknown, Verified 07/30/23 08:38) SWELLING From COMPAZINE Allergy (Unknown, Uncoded 07/30/23 08:38) EXTREME ANXIETY From WELLBUTRIN Allergy (Unknown, Uncoded 07/30/23 08:38) MOOD CHANGE (RAGE) HPI Nutrition Presentation Details Pt presents for MNT f/u for unintentional weight loss Pt was 128lbs in 2021 and most recent wt at 110 lbs. Pt is choosing soft foods related to atypical facial pain (Pt is followed by neurologist) , Pt reports working on incorporating protein source sof foods in diet (adding 1 tbsp of powder milk to cereals and to the milk Pt reports she is taking a daily multivitamin Increasing water by adding fruit juice to increase appetite Most Recent Diabetes Results: Creatinine 0.70 mg/dL (0.5-1.4) 08/21/23 Blood Urea Nitrogen 19 mg/dL (9-16) H 08/21/23 Sodium 141 mmol/L (135-145) 08/21/23 Potassium 3.6 mmol/L (3.3-5.1) 08/21/23 Chloride 105 mmol/L (96-108) 08/21/23 Carbon Dioxide 28 mmol/L (22-29) 08/21/23 Calcium 9.4 mg/dL (8.4-10.2) 08/21/23 AST 21 U/L (5-31) 08/21/23 ALT 25 U/L (0-31) 08/21/23 Total Protein 7.3 g/dL (6.5-8.0) 08/21/23 Albumin 4.4 g/dL (3.5-5.0) 08/21/23 [facility] Medical History Anterior neck pain At high risk for breast cancer Abdominal pain, epigastric Facial pain JASMINE (generalized anxiety disorder) Benign essential hypertension Urinary hesitancy Body dysmorphic disorder Cold sore Attention deficit hyperactivity disorder (ADHD) Family history of breast cancer Pain of right hip joint TMJ arthralgia Seizure disorder Osteopenia Migraines Bipolar 2 disorder Hyperlipidemia Surgical History H/O tooth extraction Family History Mother Cancer Breast cancer Family/Other No problems noted. Sister Breast cancer Sister Breast cancer Social History Alcohol intake: current Alcohol intake frequency: holidays/special occasions only Patient Tobacco Use Status: Never used Tobacco Assessment & Plan Assessment & Plan (1) Weight loss, unintentional: Code(s): R63.4 - Abnormal weight loss Plan: wt 50 kg Est kcal needs as per MSJ: 1200 + 5555-2304 = 2200- 3200 (40% carb, 30% protein/fat) Est fluid needs as per 25-30 ml/d: 1250 - 1500 Est prot per day as per 1 g/kg bw: 50 Recommend fiber intake : 8-10 g per day and gradually increase to 25-28 g per day for women and 35-38 g for men or as tolerated Recommend sodium intake per day : 2000 mg Educated patient on: ( R = reviewed V = verbalizes understanding N/R = needs review N/A = not applicable Food sources of protein and it role in health : R, V Increasing calories by 250-500 gradually to prevent further weight loss and promote weight gain : R Vitamins and minerals: R Patient Instructions: -Add oil 1 tsp of oil (avocado, oil, coconut oil) 3 times a day- add to each of your meals -include protein at least 60 g per day along with carbs/vitamin c sources of foods- see list of protein sources Keep hydrated, have juice, milk, juices diluted iwth water Coding Level of Care Code Nutr Indiv Subseq (68124) Diagnoses Weight loss, unintentional R63.4 Time Spent (min) 30
== END 2023-08-19 15:06 | disposition home or self-care (01) ==
PROVIDERS: PCP Nurse Practitioner Adult Health; Visit Provider Dietitian, Registered
DX: R63.4 Abnormal weight loss (principal)

== ENCOUNTER → 2023-08-19 13:36 | Outpatient (BNVA) | payer OTHER, SELFPAY | PROVIDERS: PCP Nurse Practitioner Adult Health; Visit Provider Dietitian, Registered | DX: R63.4 Abnormal weight loss (principal); Z68.1 Body mass index [BMI] 19.9 or less, adult; Z71.3 Dietary counseling and surveillance | CPT/HCPCS: 97803 ==

== ENCOUNTER 2023-08-21 15:35 | Outpatient (REF) | payer OTHER, SELFPAY ==
[2023-08-21 16:03] LABS: MANUAL DIFF FLAG NO
[2023-08-21 16:20] LABS: Basophils Absolute Auto 0.1 X10*3/uL (0.0-0.2); Basophils Percent Auto 0.9 % (0-2); Eosinophils Absolute Auto 0.3 X10*3/uL (0.0-0.4); Eosinophils Percent Auto 4.7 % (0-4); Hemoglobin 11.9 g/dl (12.0-16.0); Imm Gran Abs Auto 0.01 X10*3/uL (0.00-0.03); Imm Gran Pct Auto 0.1 % (0.0-0.4); Lymphocytes Absolute Auto 2.6 X10*3/uL (1.2-4.9); Lymphocytes Percent Auto 37.7 % (20-40); Mean Corpuscular HGB Conc 33.1 g/dl (31.0-35.0); Mean Corpuscular Hemoglobin 29.2 pg (27.0-33.0); Mean Corpuscular Volume 88.5 fL (80.0-98.0); Mean Platelet Volume 9.6 fL (9.4-12.3); Monocytes Absolute Auto 0.6 X10*3/uL (0.1-1.2); Monocytes Percent Auto 8.2 % (2-11); Neutrophils Absolute Auto 3.3 x10*3/uL (2.0-8.3); Neutrophils Percent Auto 48.4 % (45-73); Platelet Count 310 X10*3/uL (160-400); Red Blood Count 4.07 X10*6/uL (4.20-5.50); Red Cell Distribution Width 13.8 % (11.0-16.0); White Blood Count 6.9 X10*3/uL (4.8-10.8)
[2023-08-21 16:43] LABS: Alanine Aminotransferase 25 U/L (0-31); Albumin Level 4.4 g/dL (3.5-5.0); Alkaline Phosphatase 80 U/L (39-117); Anion Gap 12 (12-20); Aspartate Amino Transferase 21 U/L (5-31); Bilirubin Total 0.2 mg/dL (0.0-1.0); Blood Urea Nitrogen 19 mg/dL (9-16); Calcium 9.4 mg/dL (8.4-10.2); Carbon Dioxide 28 mmol/L (22-29); Chloride 105 mmol/L (96-108); Estimated Glomerular Filt Rate > 60; Glucose Random 158 mg/dL (60-115); Potassium 3.6 mmol/L (3.3-5.1); Sodium 141 mmol/L (135-145); Total Protein 7.3 g/dL (6.5-8.0)
[2023-08-21 16:45] LABS: Carbamazepine Tegretol 4.5 mcg/mL (5.0-12.0)
== END 2023-08-21 15:36 | disposition home or self-care (01) ==
LOC: HO.LAB 15:35
PROVIDERS: PCP Nurse Practitioner Adult Health; Visit Provider Nurse Practitioner Family
DX: G40.909 Epilepsy, unspecified, not intractable, without status epilepticus (principal); Z79.899 Other long term (current) drug therapy
CPT/HCPCS: 36415; 80053; 80156; 85025

== ENCOUNTER 2023-09-23 16:08 | Outpatient (REF) | payer OTHER, SELFPAY | END 2023-09-23 16:09 | disposition home or self-care (01) | LOC: HO.LAB 16:08 | PROVIDERS: Visit Provider Nurse Practitioner Family | DX: R63.4 Abnormal weight loss (principal); G40.909 Epilepsy, unspecified, not intractable, without status epilepticus; Z79.899 Other long term (current) drug therapy | CPT/HCPCS: 36415; 80048; 80156; 83036 ==

== ENCOUNTER 2023-09-28 14:59 | Outpatient (AMB) | payer OTHER, SELFPAY ==
--- NOTE | 2023-09-28 15:02 | MHC.OFFVIS ---
Intake Vital Signs 09/28/23 15:07 Height 5 ft 3 in Weight 110 lb BMI 19.5 BP 138/62 Blood Pressure Location Rt brachial Position Sitting Pulse 84 Pulse Source Pulse Oximeter Pulse Oximetry (%) 98 Oxygen Delivery Method Room Air Intake Visit Reasons: Botox (B&B) - Confirmed Allergies erythromycin base [ERYTHROMYCIN BASE] Allergy (Unknown, Verified 09/28/23 15:10) SWELLING From COMPAZINE Allergy (Unknown, Uncoded 07/30/23 08:38) EXTREME ANXIETY From WELLBUTRIN Allergy (Unknown, Uncoded 07/30/23 08:38) MOOD CHANGE (RAGE) Medication List - Last Reconciled 09/28/23 by Cally Moody MD atorvastatin 40 mg PO DAILY buspirone 5 mg PO BID carbamazepine ER (Tegretol XR) 1 tab qama nd 2 tabs qhs orally 2 times a day; 90 days celecoxib (Celebrex) 50 mg PO BID clonazepam 0.25 mg PO BEDTIME cyclosporine 0.05% (Restasis) drps ophthalmic (eye) duloxetine (Cymbalta) 30 mg PO .qd famotidine 10 mg PO DAILY lamotrigine 200 mg PO BID 90 days loratadine (Allergy Relief (loratadine)) 10 mg PO DAILY onabotulinumtoxinA (Botox) Inject 155 units across forehead scalp and neck; 12 weeks sumatriptan succinate 6 mg (0.5 mL) subcut ONCE PRN 30 days sumatriptan succinate 100 mg PO Q2H PRN 21 days verapamil ER 180 mg PO DAILY 90 days HPI HPI Comments History of Present Illness Details ? 63y/o female comes for treatment of migraines and torticollis with botox. After her botox last time she had head drop. I will avoid injecting cervical paraspinals . ??? Most frequent reported adverse reactions following injection of botox for chronic migraine include neck pain (9%), headache(5%), eyelid ptosis(4%), migraine(4%), muscular weakness(4%), musculuskeletal stiffness(4%), bronchitis(3%), injection site pain (3%), musculoskeletal pain(3%), myalgia(3%), facial paresis(2%), HTN(2%) and muscle spasms(2%) were discussed in detail. ??? Botulinum toxin type A 200units Lot no [id number] expiration December 2025 was diluted with 4 cc of normal saline . ??? Muscles injected- ? Temporalis- 8 sites- 20 units each?? procerus-5 units Corrugators 5 units each Left trapezius- 30 units Right Trapezius 10 units Left levator 50 units Left splenius 25 units Left TMJ Masseter - 25 units ? Total use- 200units ??? PFSH Medical History Anterior neck pain At high risk for breast cancer Abdominal pain, epigastric Facial pain JASMINE (generalized anxiety disorder) Benign essential hypertension Urinary hesitancy Body dysmorphic disorder Cold sore Attention deficit hyperactivity disorder (ADHD) Family history of breast cancer Pain of right hip joint TMJ arthralgia Seizure disorder Osteopenia Migraines Bipolar 2 disorder Hyperlipidemia Surgical History H/O tooth extraction Family History Mother Cancer Breast cancer Family/Other No problems noted. Sister Breast cancer Sister Breast cancer Social History Alcohol intake: current Alcohol intake frequency: holidays/special occasions only Patient Tobacco Use Status: Never used Tobacco Physical Exam Vital Signs: Last Vital Signs Pulse 84 09/28/23 15:07 BP 138/62 09/28/23 15:07 Pulse Ox 98 09/28/23 15:07 Oxygen Delivery Method Room Air 09/28/23 15:07 BMI result Body Mass Index 19.5 Const General: cooperative and no acute distress Orientation/consciousness: patient oriented x3 HEENT Head: Yes normocephalic Resp Effort & Inspection: normal respiratory effort and able to speak in complete sentences Neuro General: patient oriented x3 Cognition (Neuro): normal cognition Psych Appearance: grossly normal Mental Status: mental status grossly normal Speech and movement: Normal speech and movement present Affect: normal affect Attitude: cooperative Thought process: Normal thought process present Thought content: Normal thought content present Insight: Good insight present (Psych) Judgement: Good judgement present (Psych) Office Procedures Botulinum toxin Injection 21459 - Migraine Procedure code (CPT) selection complete Office Meds onabotulinumtoxinA 200 unit solution for injection Performing Provider: Cally Moody MD Performing Location: [facility] [place] [facility] Administered by: Cally Moody MD on 09/28/23 16:26 Dose Route Admin Location Dispensed Lot Number Expiration Date [facility] Installation Technician 200 unit IM 200 units [id number] 12/20/25 9997-6249-20 [employer]OTOX Comments: see HPI Assessment & Plan Assessment & Plan (1) Chronic migraine without aura: Code(s): G43.709 - Chronic migraine without aura, not intractable, without status migrainosus (2) Atypical facial pain: Comment: left sided V1, V2 distribution Code(s): G50.1 - Atypical facial pain (3) Migraine with aura, intractable, without status migrainosus: Code(s): G43.119 - Migraine with aura, intractable, without status migrainosus Plan Patient tolerated the procedure well she will call with any side effects Increase tegretol XR 200 mg qam and 400 mg qhs Orders: Orders AMB Botulinum toxin Injection Today G43.709 - Chronic migraine without aura, not intractable, without status migrainosus Medications: Changed From carbamazepine ER (Tegretol XR) 200 mg PO BID 90 days 180 tabs 1RF To carbamazepine ER (Tegretol XR) 1 tab qama nd 2 tabs qhs orally 2 times a day; 270 tabs 1RF 90 days Discontinued carbamazepine ER (Tegretol XR) at bedtime Discontinued Reason: Doctor's Order 100 mg PO DAILY 30 days 30 tabs 6RF Coding Level of Care Code Est Pt Level 1 (24758) Diagnoses Chronic migraine without aura G43.709 Atypical facial pain G50.1 Migraine with aura, intractable, without status migrainosus G43.119 CPT Codes Botox Injection - Botox 3: 51844 - Migraine ([id number])
[2023-09-28 15:07] VITALS: BP 138/62; PULSE 84; O2SAT 98; BMI 19.5
== END 2023-09-28 15:45 | disposition home or self-care (01) ==
PROVIDERS: PCP Nurse Practitioner Adult Health; Visit Provider Psychiatry & Neurology Neurology
DX: G43.119 Migraine with aura, intractable, without status migrainosus (principal)
CPT/HCPCS: 64615

== ENCOUNTER → 2023-09-28 14:59 | Outpatient (BNVA) | payer OTHER, SELFPAY | PROVIDERS: PCP Nurse Practitioner Adult Health; Visit Provider Psychiatry & Neurology Neurology | DX: G43.709 Chronic migraine without aura, not intractable, without status migrainosus (principal); G50.1 Atypical facial pain; G43.119 Migraine with aura, intractable, without status migrainosus | CPT/HCPCS: 64615; 99211; J0585 ==

== ENCOUNTER 2023-10-14 14:08 | Outpatient (REF) | payer OTHER, SELFPAY ==
--- NOTE | ~2023-10-14 | MM_ITS ---
EXAMINATION: BONE DENSITOMETRY CLINICAL INDICATION: Asymptomatic menopausal state. COMPARISON: This is the patient's baseline examination. TECHNIQUE: Using a [employer] DXA system (software version: 14.10) manufactured by [employer], dual-energy x-ray absorptiometry was performed of the lumbar spine and left hip. The images are of good technical quality. Summary results are attached. FINDINGS: LEFT FEMUR, NECK: BMD 0.632 g/cm2, Z-score -1.1, T-score -2.9, osteoporosis. LEFT FEMUR, TOTAL: BMD 0.655 g/cm2, Z-score -1.2, T-score -2.8, osteoporosis. AP SPINE L1-L4: BMD 0.783 g/cm2, Z-score -1.2, T-score -3.3, osteoporosis. IDENTIFIED RISK FACTORS: Anticonvulsant, family history (parent hip fracture), history of fracture (adult), menopause, secondary osteoporosis. HISTORY OF FRACTURE: Femur/hip. MEDICATIONS: Calcium, vitamin D. MM/XR DEXA axial skeleton IMPRESSION: 1. DIAGNOSIS: Severe osteoporosis based on the lowest T-score value of -3.3 in the lumbar spine, and the history of a femur/hip fracture, applying World Health Organization criteria. 2. 10-YEAR FRACTURE RISK PREDICTION, FRAX: According to the guidelines, FRAX calculation should only be performed on patients in the osteopenia bone density category. Therefore, FRAX was not performed on this patient. 3. Treatment Recommendations: NOF guidelines recommend consideration for treatment in postmenopausal women and men age 50 and older presenting with the following: -A hip or vertebral (clinical or morphometric) fracture. -T-score less than or equal to -2.5 at the femoral neck or spine after appropriate evaluation to exclude secondary causes. -Low bone mass at the hip or spine and a 10-year fracture probability by FRAX of greater than or equal to 3% for hip fracture or greater than or equal to 20% for major osteoporotic fracture based on the [place] adapted WHO algorithm. 4. Other Recommendations: All treatment decisions require clinical judgment and consideration of individual patient factors, including patient preferences, comorbidities, previous drug use, risk factors not captured in the FRAX model (e.g. frailty, falls, vitamin D deficiency, increased bone turnover, interval significant decline in bone density) and possible under or overestimation of fracture risk by FRAX. Additional medical evaluation for secondary cause of low bone mineral density may be appropriate. FUTURE SCAN RECOMMENDATION: People with diagnosed cases of osteoporosis or at high risk for fracture should have regular bone mineral density tests. For patients eligible for Medicare, routine testing is allowed once every 2 years. The testing frequency can be increased to one year for patients who have rapidly progressing disease, those who are receiving or discontinuing medical therapy to restore bone mass, or have additional risk factors.
== END 2023-10-14 14:09 | disposition home or self-care (01) ==
LOC: HO.MAMMO 14:08
PROVIDERS: PCP Nurse Practitioner Adult Health; Visit Provider Nurse Practitioner Family
DX: Z13.820 Encounter for screening for osteoporosis (principal); Z78.0 Asymptomatic menopausal state
CPT/HCPCS: 77080

== ENCOUNTER 2023-11-19 15:14 | Outpatient (AMB) | payer OTHER, SELFPAY ==
--- NOTE | 2023-11-19 15:16 | MHC.OFFVIS ---
Intake Vital Signs 11/19/23 15:31 Height 5 ft 3 in Weight 111 lb 15.917 oz BMI 19.8 BP 110/70 Blood Pressure Location Rt brachial Position Sitting Pulse 97 Pulse Source Pulse Oximeter Temp 98.7 F Temp Source Skin Pulse Oximetry (%) 97 Oxygen Delivery Method Room Air Intake Visit Reasons: Abnormal lab Intake Note: New patient, internally referred, presents to office today for consult. Laboratory Aide Required: No Accompanied by: Self / Same As Patient Allergies erythromycin base [ERYTHROMYCIN BASE] Allergy (Unknown, Verified 11/19/23 15:17) SWELLING From COMPAZINE Allergy (Unknown, Uncoded 11/19/23 15:17) EXTREME ANXIETY From WELLBUTRIN Allergy (Unknown, Uncoded 11/19/23 15:17) MOOD CHANGE (RAGE) HPI HPI Comments History of Present Illness Details Ms. Austin 63-year-old female, on referral by the neurologist, presents for initial evaluation of positive VERONICA. Per patient she is being evaluated by neuro for a pain to the right side of her face that radiates to the same side of her skull. She has had this pain over a year. It was 1st thought to be trigeminal neuralgia. During the her workup she was found to have the positive VERONICA and so she was referred for evaluation. She was tried on gabapentin for the facial pain but has since stopped. The patient denies Raynaud's, sores in the mouth and nose, photosensitivity, red warm swollen joints, pericarditis, pleuritis, and other signs and symptoms of lupus. [facility] Medical History (Updated 11/22/23 @ 22:53 by VINICIUS Lora-) Osteoporosis Anterior neck pain At high risk for breast cancer Abdominal pain, epigastric Facial pain JASMINE (generalized anxiety disorder) Benign essential hypertension Urinary hesitancy Body dysmorphic disorder Cold sore Attention deficit hyperactivity disorder (ADHD) Family history of breast cancer Pain of right hip joint TMJ arthralgia Seizure disorder Osteopenia Migraines Bipolar 2 disorder Hyperlipidemia Surgical History H/O tooth extraction Family History (Updated 11/19/23 @ 15:31 by ZACHARIAH Nuñez) Mother Cancer Breast cancer Arthritis Family/Other No problems noted. Sister Breast cancer Arthritis Sister Breast cancer Arthritis Social History (Reviewed 11/19/23 @ 15:24 by SHAQUILLE Nuñez Alcohol intake: current Alcohol intake frequency: holidays/special occasions only Patient Tobacco Use Status: Never used Tobacco Female Reproductive History Menstrual Total pregnancies: 0 Physical Exam Vital Signs: Last Vital Signs Temp 98.7 F 11/19/23 15:31 Pulse 97 11/19/23 15:31 BP 110/70 11/19/23 15:31 Pulse Ox 97 11/19/23 15:31 Oxygen Delivery Method Room Air 11/19/23 15:31 BMI result Body Mass Index 19.8 Vital signs reviewed. Constitutional: Non-toxic appearing. No acute distress. Well-developed and well-nourished. HEENT: Normocephalic and atraumatic. External auditory canals without erythema or edema bilaterally. Dry mucous membranes. No pharyngeal erythema or exudates. Skin: Warm and dry. No rashes or lesions noted. Neck: Full and painless range of motion. No cervical lymphadenopathy. Cardio: Regular rate and rhythm. No murmurs, gallops, or rubs. No lower extremity edema. No JVD. Pulmonary: No respiratory distress. No accessory muscle usage. Scattered expiratory wheezing. Gastrointestinal: Soft, nontender, and nondistended in all 4 quadrants. Normoactive bowel sounds in all 4 quadrants. Genitourinary: No CVA tenderness. Musculoskeletal: Normal range of motion in joints throughout the body. No deformity or other signs of injury. Neuro: Alert and oriented x4. Cranial nerves 2-12 grossly intact. No focal deficits appreciated. Results Reviewed Results Reviewed: Laboratory Tests 06/20/23 08/21/23 10:10 16:00 WBC 6.9 RBC 4.07 L Hgb 11.9 L Hct 36.0 L Creatinine 0.70 AST 21 ALT 25 Alkaline Phosphatase 80 Albumin 4.4 Rheumatoid Factor < 13.0 VERONICA Screen POSITIVE A VERONICA Titer 1:320 H Assessment & Plan Assessment & Plan (1) Positive VERONICA (antinuclear antibody): Code(s): R76.8 - Other specified abnormal immunological findings in serum (2) Osteoporosis: Code(s): M81.0 - Age-related osteoporosis without current pathological fracture Qualifiers: Osteoporosis type: age-related Presence of current pathological fracture: without current pathological fracture Qualified Code(s): M81.0 - Age-related osteoporosis without current pathological fracture (3) Trigeminal neuralgia of left side of face: Code(s): G50.0 - Trigeminal neuralgia Plan #+VERONICA/left facial pain/Neuralgia:After additional review of history, physical examination and analysis of available diagnostics, I do not think that the patient has a connective tissue disease or inflammatory process that underlies her facial pain. However I will obtain additional labs for thyroid evaluation. Upon hearing her description and pattern of the pain I suspect the patient might have zoster sine Herpete or silent shingles . However, during the examination and inquiry, the patient remembers that she had a lesion on her left eyelid that was treated and resolved with valcyclovir when her eye doctor suspected it might be shingles. If the rash post dates the experience of the facial pain, that this might be herpetic neuralgia. The zoster virus can also affect/attack the trigeminal nerve causing trigeminal neuralgia which she suspected to have. She also endorses that at some point she had shingles to her right inner thigh. I have encouraged her to discuss the possibility of the zoster virus with the neurologist. #Osteoporosis: Lowest T-score 3.3. The patient requested during the visit to be treated office for her osteoporosis. I will obtain additional evaluate among things calcium and kidney functions. I will start the PA for Prolia. I discussed possible side effects of Prolia and what the patient can expect to experience within the 1st 2 weeks of Prolia injection. Follow-up in 1 month I spent 70 minutes reviewing history, assessing and evaluating patient, educating patient on possible causes, reviewing treatment options, and charting Orders: Orders Complement C4 11/19/23 R76.8 - Other specified abnormal immunological findings in serum Complete Blood Count Auto Diff 11/19/23 R76.8 - Other specified abnormal immunological findings in serum Comprehensive Met. Panel 11/19/23 R76.8 - Other specified abnormal immunological findings in serum Creatine Kinase Total 11/19/23 R76.8 - Other specified abnormal immunological findings in serum Erythrocyte Sedimentation Rate 11/19/23 R76.8 - Other specified abnormal immunological findings in serum Thyroglobulin Antibodies 11/19/23 R76.8 - Other specified abnormal immunological findings in serum Vitamin D 1,25 dihydroxy 11/19/23 M81.0 - Age-related osteoporosis without current pathological fracture Thyroid Stimulating Hormone 11/19/23 M81.0 - Age-related osteoporosis without current pathological fracture Collagen Type I C-Telopeptide 11/19/23 M81.0 - Age-related osteoporosis without current pathological fracture Collagen Crosslinks NTX 11/19/23 M81.0 - Age-related osteoporosis without current pathological fracture Parathyroid Hormone Intact 11/19/23 M81.0 - Age-related osteoporosis without current pathological fracture VERONICA Reflex Titer and Pattern 11/19/23 R76.8 - Other specified abnormal immunological findings in serum Anti DNA DS Antibody 11/19/23 R76.8 - Other specified abnormal immunological findings in serum Anti Extractable Nuclear Ag 11/19/23 R76.8 - Other specified abnormal immunological findings in serum Complement C3 11/19/23 R76.8 - Other specified abnormal immunological findings in serum C Reactive Protein 11/19/23 R76.8 - Other specified abnormal immunological findings in serum Immunoglobulins,IgG IgA IgM 11/19/23 R76.8 - Other specified abnormal immunological findings in serum Sjogren's Antibodies 11/19/23 R76.8 - Other specified abnormal immunological findings in serum Uric Acid 11/19/23 R76.8 - Other specified abnormal immunological findings in serum UA w Microscopic 11/19/23 R76.8 - Other specified abnormal immunological findings in serum Liver Kidney Microsomal Ab 11/19/23 R76.8 - Other specified abnormal immunological findings in serum Mitochondrial Antibody 11/19/23 R76.8 - Other specified abnormal immunological findings in serum Thyroid Peroxidase Antibodies 11/19/23 R76.8 - Other specified abnormal immunological findings in serum Phosphorus 11/19/23 M81.0 - Age-related osteoporosis without current pathological fracture Albumin Level 11/19/23 M81.0 - Age-related osteoporosis without current pathological fracture Protein Electrophoresis, Serum 11/19/23 M81.0 - Age-related osteoporosis without current pathological fracture Coding Level of Care Code New Pt Level 5 (12179) Diagnoses Positive VERONICA (antinuclear antibody) R76.8 Age-related osteoporosis without current pathological fracture M81.0 Osteoporosis type: age-related Presence of current pathological fracture: without current pathological fracture Trigeminal neuralgia of left side of face G50.0
[2023-11-19 15:31] VITALS: BP 110/70; PULSE 97; TEMP 37.1; O2SAT 97; BMI 19.8
== END 2023-11-19 16:32 | disposition home or self-care (01) ==
PROVIDERS: PCP Nurse Practitioner Adult Health; Visit Provider Nurse Practitioner Family
DX: R76.8 Other specified abnormal immunological findings in serum (principal); G50.0 Trigeminal neuralgia; M81.0 Age-related osteoporosis without current pathological fracture
CPT/HCPCS: 99205

== ENCOUNTER → 2023-11-19 15:14 | Outpatient (BNVA) | payer OTHER, SELFPAY | PROVIDERS: PCP Nurse Practitioner Adult Health; Visit Provider Nurse Practitioner Family ==

== ENCOUNTER 2023-11-25 16:36 | Outpatient (REF) | payer OTHER, SELFPAY ==
[2023-11-25 17:02] LABS: MANUAL DIFF FLAG NO
[2023-11-25 17:33] LABS: Basophils Percent Auto 0.7 % (0-2); Eosinophils Absolute Auto 0.3 X10*3/uL (0.0-0.4); Hematocrit 35.7 % (37.0-47.0); Hemoglobin 11.7 g/dl (12.0-16.0); Imm Gran Abs Auto 0.01 X10*3/uL (0.00-0.03); Imm Gran Pct Auto 0.2 % (0.0-0.4); Lymphocytes Absolute Auto 2.2 X10*3/uL (1.2-4.9); Mean Corpuscular HGB Conc 32.8 g/dl (31.0-35.0); Mean Corpuscular Hemoglobin 29.2 pg (27.0-33.0); Monocytes Absolute Auto 0.5 X10*3/uL (0.1-1.2); Neutrophils Absolute Auto 2.6 x10*3/uL (2.0-8.3); Neutrophils Percent Auto 46.1 % (45-73); Platelet Count 309 X10*3/uL (160-400); Red Blood Count 4.01 X10*6/uL (4.20-5.50); Red Cell Distribution Width 12.8 % (11.0-16.0); White Blood Count 5.6 X10*3/uL (4.8-10.8)
[2023-11-25 17:38] LABS: Appearance Urine Clear; Color Urine Yellow; Glucose Urine UA Negative (Negative); Leukocyte Esterase Urine Negative (Negative); Nitrite Urine Negative (Negative); Specific Gravity - Urine 1.015 (1.005-1.025); Urine Blood Negative (Negative); Urine Ketones Negative (Negative); Urine Protein Negative (Neg-Trace)
[2023-11-25 17:42] LABS: Bacteria Urine None Seen (None Seen); Hyaline Casts Urine 0-2 /LPF (0-2); RBC Urine 0-2 /HPF (0-2); Squamous Epithelial Cell Urine 0-2 /HPF (0-2); WBC Urine 0-5 /HPF (0-5)
[2023-11-25 17:58] LABS: Parathyroid Hormone Intact 37.9 pg/mL (8.7-77.1)
[2023-11-25 18:00] LABS: Alanine Aminotransferase 25 U/L (0-31); Albumin Level 4.6 g/dL (3.5-5.0); Alkaline Phosphatase 72 U/L (39-117); Anion Gap 13 (12-20); Aspartate Amino Transferase 20 U/L (5-31); Bilirubin Total 0.3 mg/dL (0.0-1.0); Blood Urea Nitrogen 14 mg/dL (9-16); C Reactive Protein < 0.10 mg/dL (< or = 0.50); Calcium 9.3 mg/dL (8.4-10.2); Carbon Dioxide 28 mmol/L (22-29); Chloride 99 mmol/L (96-108); Estimated Glomerular Filt Rate > 60; Glucose Random 88 mg/dL (60-115); Phosphorus 4.7 mg/dL (2.7-4.5); Potassium 4.5 mmol/L (3.3-5.1); Sodium 135 mmol/L (135-145); Total Protein 7.2 g/dL (6.5-8.0); Uric Acid 2.6 mg/dL (2.4-5.7)
[2023-11-25 18:12] LABS: Thyroid Stimulating Hormone 1.24 uIU/mL (0.32-4.0)
[2023-11-25 18:17] LABS: Erythrocyte Sedimentation Rate 3 MM/HR (0-20)
[2023-11-26 10:33] LABS: Thyroglobulin Antibodies <1 IU/mL (< or = 1); Thyroid Peroxidase Antibodies <1 IU/mL (<9)
[2023-11-26 13:23] LABS: IgA 114 mg/dL (70-320); IgG 1057 mg/dL (600-1540); IgM 46 mg/dL (50-300)
[2023-11-26 19:57] LABS: Anti DNA DS Antibody 1 IU/mL; Antibody to SS-A Antigen <1.0 NEG AI (<1.0 NEG); Antibody to SS-B Antigen <1.0 NEG AI (<1.0 NEG); SM/Ribonucleoprotein Ab <1.0 NEG AI (<1.0 NEG); Smith Protein <1.0 NEG AI (<1.0 NEG)
[2023-11-27 02:34] LABS: Complement C3 49 mg/dL (83-193)
[2023-11-27 21:34] LABS: Prot Elec - Albumin 4.6 g/dL (3.8-4.8); Prot Elec - Alpha1 0.3 g/dL (0.2-0.3); Prot Elec - Alpha2 0.6 g/dL (0.5-0.9); Prot Elec - Beta 1 0.4 g/dL (0.4-0.6); Prot Elec - Beta 2 0.2 g/dL (0.2-0.5); Prot Elec - Gamma 0.9 g/dL (0.8-1.7); Prot Elec - Total Protein 6.9 g/dL (6.1-8.1)
[2023-11-30 13:04] LABS: Anti Nuclear Antibody Pattern Nuclear, Nucleolar; Anti Nuclear Antibody Screen POSITIVE (NEGATIVE)
[2023-12-01 13:34] LABS: Mitochondrial Antibodies NEGATIVE (NEGATIVE)
[2023-12-02 05:44] LABS: Liver Kidney Microsomal Ab <=20.0 U (<=20.0)
== END 2023-11-25 16:37 | disposition home or self-care (01) ==
LOC: HO.LAB 16:36
PROVIDERS: Nurse Practitioner Family; Visit Provider Nurse Practitioner Family
DX: G40.909 Epilepsy, unspecified, not intractable, without status epilepticus (principal); R76.8 Other specified abnormal immunological findings in serum; M81.0 Age-related osteoporosis without current pathological fracture; Z79.899 Other long term (current) drug therapy
CPT/HCPCS: 36415; 80053; 80156; 81001; 82550; 82784; 83970; 84100; 84165; 84443; 84550; 85025; 85652; 86038; 86039; 86140; 86160; 86225; 86235; 86376; 86381; 86800

== ENCOUNTER 2023-11-26 14:26 | Outpatient (AMB) | payer OTHER, SELFPAY ==
--- NOTE | 2023-11-26 14:26 | MHC.OFFVIS ---
Intake Intake Visit Reasons: 4 mnts f/u [phone] Intake Note: Patient following up for some blood work she had last night. Allergies erythromycin base [ERYTHROMYCIN BASE] Allergy (Unknown, Verified 11/26/23 14:27) SWELLING From COMPAZINE Allergy (Unknown, Uncoded 11/26/23 14:27) EXTREME ANXIETY From WELLBUTRIN Allergy (Unknown, Uncoded 11/26/23 14:27) MOOD CHANGE (RAGE) HPI HPI Comments History of Present Illness Details 63-yr-old female presents for f/u televideo visit via [employer]. Pt feels the increase in the tegretol has been helpful. 11/25/23 Tegretol level 7.0 NL She is having less left sided facial pain. Chewing still triggers the left temporal pain. She does wake up daily with a headache, feels like frontal/nasal sinus congestion and eye discomfort. Can have seasonal allergies. Takes loratadine. Dr Cage has advised her to ? hydroxyzine- in the past caused panic attack. She asks if she does still need to take Verapamil- not sure if it really is helping the migarines. Her BP, however, can be variable- 110/70 but up to 150/60 (in the past yr). Recent eye exam showed left eye corneal abnormality- was tx'd w/ a course of valcyclovir for left corneal abnormality, and started on restais. Per pt, f/u eye exam was normal. Feels the restasis is helpful. She did see rheumatology- results of their recommended lab work-up are still mostly pending. Pt did have question regarding + VERONICA and titer pattern- current VERONICA test is still pending. [facility] Medical History (Updated 11/27/23 @ 08:54 by Mala Marte RN) Osteoporosis Anterior neck pain At high risk for breast cancer Abdominal pain, epigastric Facial pain JASMINE (generalized anxiety disorder) Benign essential hypertension Urinary hesitancy Body dysmorphic disorder Cold sore Attention deficit hyperactivity disorder (ADHD) Family history of breast cancer Pain of right hip joint TMJ arthralgia Seizure disorder Osteopenia Migraines Bipolar 2 disorder Hyperlipidemia Surgical History H/O tooth extraction Family History Mother Cancer Breast cancer Arthritis Family/Other No problems noted. Sister Breast cancer Arthritis Sister Breast cancer Arthritis Social History Alcohol intake: current Alcohol intake frequency: holidays/special occasions only Patient Tobacco Use Status: Never used Tobacco Physical Exam Const General: cooperative and no acute distress Orientation/consciousness: patient oriented x3 Resp Effort & Inspection: normal respiratory effort and able to speak in complete sentences Neuro General: patient oriented x3 Cognition (Neuro): normal cognition Psych Appearance: grossly normal Mental Status: mental status grossly normal Speech and movement: Clear speech present Affect: normal affect Attitude: cooperative Assessment & Plan Assessment & Plan (1) Trigeminal neuralgia of left side of face: Code(s): G50.0 - Trigeminal neuralgia (2) Migraine with aura, intractable, without status migrainosus: Code(s): G43.119 - Migraine with aura, intractable, without status migrainosus (3) Seizures: Comment: petit mal Code(s): R56.9 - Unspecified convulsions (4) Chronic migraine without aura: Code(s): G43.709 - Chronic migraine without aura, not intractable, without status migrainosus Plan ? For left-facial pain- Continue Tegretol ER 200mg in am and 400mg qhs. Recent tegretol level - NL Continue Celebrex. F/u w/ pain management as scheduled. For the morning nasal congestion/migraine s/s/: Trial Zyrtec (certizine) 10mg daily - at bedtime, as can cause drowsiness. Nasal sprays- do saline spray/saline rinse f/b Azelastine nasal spray ? For chronic migraine prevention: Continue Botox for chronic migraine prevention. Continue Verapamil ER 180mg qd- i would not decrease at this time d/t variable BP. Pt has previously failed migraine prevention trials of Inderal, Nortriptyline, ? For acute migraine tx: Trial Nurtec ODT 75mg qod prn- note qod order as pt is on verapamil. Continue Sumatriptan oral and inj prn, Benadryl prn. Previous acute trials- Rizatriptan, Ubrogepant- ineffective. ? For seizures- Continue Tegretol XR as above Continue Lamictal 200mg bid. ? For mood disorder- F/u with psychiatrist Dr Cage as scheduled. ? For h/o + VERONICA- F/u w/ rheumatolgy as scheduled. ? For CELIO- HST- moderate CELIO. CPAP 12 cmH2O- [facility] to [facility] Location of provider rendering services: practice address Location of patient: address on file Patient Identification confirmed using: Name, : Yes Telehealth method: video Patient verbally consented to treatment: Yes Patient verbally consented to billing insurance company: Yes Patient informed of any privacy concerns related to visit: Yes Minutes spent on Phone/Video with Pt.: 35 Coding Level of Care Code Tele Est Pt Level 4 (25226) Diagnoses Trigeminal neuralgia of left side of face G50.0 Migraine with aura, intractable, without status migrainosus G43.119 Seizures R56.9 Chronic migraine without aura G43.709
== END 2023-11-26 15:30 | disposition home or self-care (01) ==
LOC: HO.HSMS 14:26
PROVIDERS: PCP Nurse Practitioner Adult Health; Visit Provider Nurse Practitioner Family
DX: G50.0 Trigeminal neuralgia (principal); G43.119 Migraine with aura, intractable, without status migrainosus; R56.9 Unspecified convulsions; G43.709 Chronic migraine without aura, not intractable, without status migrainosus
CPT/HCPCS: 99214

== ENCOUNTER → 2023-11-26 14:26 | Outpatient (BNVA) | payer OTHER, SELFPAY | PROVIDERS: PCP Nurse Practitioner Adult Health; Visit Provider Nurse Practitioner Family ==

== ENCOUNTER 2023-12-18 15:55 | Outpatient (AMB) | payer OTHER, SELFPAY ==
--- NOTE | 2023-12-18 16:01 | A.OFFVIS_ITS ---
Intake Vital Signs 12/18/23 16:02 Height 5 ft 3 in Weight 112 lb 14.027 oz BMI 20.0 BP 140/80 H Blood Pressure Location Rt brachial Position Sitting Pulse 96 Pulse Source Pulse Oximeter Temp 97.9 F Temp Source Skin Pulse Oximetry (%) 98 Oxygen Delivery Method Room Air Intake Visit Reasons: Osteoporosis/+VERONICA/Prolia Intake Note: Patient last seen 11/19/23 by Alex, presents today for test results. Nailing Machine Feeder Required: No Accompanied by: Sister Allergies erythromycin base [ERYTHROMYCIN BASE] Allergy (Unknown, Verified 12/28/23 15:01) SWELLING From COMPAZINE Allergy (Unknown, Uncoded 12/28/23 15:01) EXTREME ANXIETY From WELLBUTRIN Allergy (Unknown, Uncoded 12/28/23 15:01) MOOD CHANGE (RAGE) HPI HPI Comments History of Present Illness Details Ms. Austin 63-year-old female, accompanied by her sister, returns for follow-up to review results. She continues to follow with neuro for a pain to the right side of her face that radiates to the same side of her skull. She says neuro does not think shingles is the underlying cause. She has clarified that the eye pain for which she was treated with acyclovir, the lesion was on the eye surface and not on the eyelid. History of bipolar mood disorder uses carbamazepine and lamotrigine. 11/19/2023 initial history Ms. Austin 63-year-old female, on referral by the neurologist, presents for initial evaluation of positive VERONICA. Per patient she is being evaluated by neuro for a pain to the right side of her face that radiates to the same side of her skull. She has had this pain over a year. It was 1st thought to be trigeminal neuralgia. During the her workup she was found to have the positive VERONICA and so she was referred for evaluation. She was tried on gabapentin for the facial pain but has since stopped. The patient denies Raynaud's, sores in the mouth and nose, photosensitivity, red warm swollen joints, pericarditis, pleuritis, and other signs and symptoms of lupus. [facility] Medical History (Updated 12/31/23 @ 18:36 by Mckenzie Johnson, OSTOMY CARE NURSE-) Undifferentiated connective tissue disease Low complement measurement Osteoporosis Anterior neck pain At high risk for breast cancer Abdominal pain, epigastric Facial pain JASMINE (generalized anxiety disorder) Benign essential hypertension Urinary hesitancy Body dysmorphic disorder Cold sore Attention deficit hyperactivity disorder (ADHD) Family history of breast cancer Pain of right hip joint TMJ arthralgia Seizure disorder Osteopenia Migraines Bipolar 2 disorder Hyperlipidemia Surgical History H/O tooth extraction Family History Mother Cancer Breast cancer Arthritis Family/Other No problems noted. Sister Breast cancer Arthritis Sister Breast cancer Arthritis Social History Alcohol intake: current Alcohol intake frequency: holidays/special occasions only Patient Tobacco Use Status: Never used Tobacco Review of Systems Const All systems reviewed & are unremarkable except as noted in HPI and below Physical Exam Vital Signs: Last Vital Signs Temp 97.9 F 12/18/23 16:02 Pulse 96 12/18/23 16:02 BP 140/80 H 12/18/23 16:02 Pulse Ox 98 12/18/23 16:02 Oxygen Delivery Method Room Air 12/18/23 16:02 BMI result Body Mass Index 20.0 Vital signs reviewed. Constitutional: Non-toxic appearing. No acute distress. Well-developed and well-nourished. HEENT: Normocephalic and atraumatic. External auditory canals without erythema or edema bilaterally. Dry mucous membranes. No pharyngeal erythema or exudates. Skin: Warm and dry. No rashes or lesions noted. Neck: Full and painless range of motion. No cervical lymphadenopathy. Cardio: Regular rate and rhythm. No murmurs, gallops, or rubs. No lower extremity edema. No JVD. Pulmonary: No respiratory distress. No accessory muscle usage. Scattered expiratory wheezing. Gastrointestinal: Soft, nontender, and nondistended in all 4 quadrants. Normoactive bowel sounds in all 4 quadrants. Genitourinary: No CVA tenderness. Musculoskeletal: Normal range of motion in joints throughout the body. No deformity or other signs of injury. Neuro: Alert and oriented x4. Cranial nerves 2-12 grossly intact. No focal deficits appreciated. Results Reviewed Results Reviewed: 11/25/2023 CBC-RBC 4.01, HGB 11.7, HCT 35.7 Eosinophils 5.0 ESR 3 Creatinine 0.68 CRP normal C3 49 (83), C4 14 (15) IgG IgA normal, IgM 46 (50) Rheumatoid factor negative VERONICA 1:320 nuclear a CAMPBELL is negative 12/19/2023 Osteoporosis labs TSH 1.24 , PTH 37.9 Urine within normal limits Urine creatinine 106 Vitamin-D within normal range,n-telopeptide cross-linked 50, collagen 1 C- telopeptide 388 Assessment & Plan Assessment & Plan (1) Positive VERONICA (antinuclear antibody): Code(s): R76.8 - Other specified abnormal immunological findings in serum (2) Osteoporosis: Code(s): M81.0 - Age-related osteoporosis without current pathological fracture Qualifiers: Osteoporosis type: age-related Presence of current pathological fracture: without current pathological fracture Qualified Code(s): M81.0 - Age- related osteoporosis without current pathological fracture (3) Trigeminal neuralgia of left side of face: Code(s): G50.0 - Trigeminal neuralgia (4) Undifferentiated connective tissue disease: Code(s): M35.9 - Systemic involvement of connective tissue, unspecified Plan #+VERONICA/UCTD:After additional review of history, and analysis of of recent diagnostics, I think the patient may have an undifferentiated connective tissue disease. However I do not think this process underlies her facial pain. She also continues without symptoms of vasculitis. I am determining a case for UCTD because of the high positive VERONICA and low complements, especially C3 at 43. She has no other overt signs and symptoms to support a CTD, but given her low complements, one wonders if this is a drug-induced SLE. Carbamazapine is said to can cause drug-induced lupus (Fitoo et al.), so I will obtain labs for anti-histones to evaluate further. If this returns positive the benefit of taking her lamotrigine likely outweighs the need to stopped the medication for possible secondary drug-induced lupus. Hydroxychloroquine can be considered if this becomes necessary.. #Osteoporosis: Lowest T-score 3.3. The patient was hesitant at this visit to start Prolia because of underlying fair. We discussed at length that this can be beneficial to her bones and will not impact or cause autoimmunity. The patient agrees to try the medication and will make the appointment to have the injection done. #Left facial pain/Neuralgia: She will continue to follow up with neuro. Follow-up in 6 month month I spent 40 minutes reviewing chart, educating patient on labs and implications, reviewing treatment options, and charting. Drug-induced lupus erythematous Sheri Buck Chauhan K. Drug-Induced Lupus Erythematosus. [Updated 2022Dec 22]. In: [employer] [Internet]. [facility]): [employer]; 2023-. Available from: https://www.ncbi.nlm.nih.gov/books/GHJ853961/ Orders: Orders Histone Antibody 12/19/23 R76.8 - Other specified abnormal immunological findings in serum, R79.89 - Other specified abnormal findings of blood chemistry Coding Level of Care Code Est Pt Level 4 (64757) Diagnoses Positive VERONICA (antinuclear antibody) R76.8 Age-related osteoporosis without current pathological fracture M81.0 Osteoporosis type: age-related Presence of current pathological fracture: without current pathological fracture Trigeminal neuralgia of left side of face G50.0 Undifferentiated connective tissue disease M35.9
[2023-12-18 16:02] VITALS: BP 140/80; PULSE 96; TEMP 36.6; O2SAT 98
== END 2023-12-18 17:08 | disposition home or self-care (01) ==
PROVIDERS: PCP Nurse Practitioner Adult Health; Visit Provider Nurse Practitioner Family
DX: R76.8 Other specified abnormal immunological findings in serum (principal); M81.0 Age-related osteoporosis without current pathological fracture; G50.0 Trigeminal neuralgia; M35.89 Other specified systemic involvement of connective tissue
CPT/HCPCS: 99214

== ENCOUNTER → 2023-12-18 15:55 | Outpatient (BNVA) | payer OTHER, SELFPAY | PROVIDERS: PCP Nurse Practitioner Adult Health; Visit Provider Nurse Practitioner Family ==

== ENCOUNTER 2023-12-19 08:50 | Outpatient (REF) | payer OTHER, SELFPAY ==
[2023-12-19 09:53] LABS: Albumin Level 4.4 g/dL (3.5-5.0)
[2023-12-22 16:03] LABS: Arsenic, Blood <3 mcg/L (<23); Lead, Blood 1.5 mcg/dL (<3.5); Mercury, Blood <4 mcg/L (<=10)
[2023-12-23 14:24] LABS: VITAMIN D (1,25 OH) D3 46 pg/mL; Vit D (1,25-Dihydroxy) Total 46 pg/mL (18-72); Vitamin D (1,25 OH) D2 <8 pg/mL
[2023-12-24 13:19] LABS: Histone Antibody 1.4 U (<1.0)
[2023-12-24 23:08] LABS: Collagen Type I C-Telopeptide 388 pg/mL (see note)
[2023-12-25 02:29] LABS: N-Telopeptide 50 (see note); NTXCreaRU 106 mg/dL (20-275)
== END 2023-12-19 08:51 | disposition home or self-care (01) ==
LOC: HO.LAB 08:50
PROVIDERS: Nurse Practitioner Family; Visit Provider Nurse Practitioner Family
DX: G50.1 Atypical facial pain (principal); R63.4 Abnormal weight loss; K21.9 Gastro-esophageal reflux disease without esophagitis; R56.9 Unspecified convulsions; M81.0 Age-related osteoporosis without current pathological fracture; R76.8 Other specified abnormal immunological findings in serum; R79.89 Other specified abnormal findings of blood chemistry; Z77.018 Contact with and (suspected) exposure to other hazardous metals
CPT/HCPCS: 36415; 82040; 82175; 82523; 82652; 83516; 83655; 83825

== ENCOUNTER 2023-12-28 14:58 | Outpatient (AMB) | payer OTHER, SELFPAY ==
--- NOTE | 2023-12-28 15:01 | MHC.OFFVIS ---
Intake Vital Signs 12/28/23 15:02 Height 5 ft 3 in Weight 110 lb BMI 19.5 BP 154/76 H Blood Pressure Location Rt brachial Position Sitting Respiration 17 Pulse 77 Pulse Source Pulse Oximeter Pulse Oximetry (%) 98 Oxygen Delivery Method Room Air Intake Visit Reasons: Botox (B&B)-confirmed-LVM Intake Note: Pt presents to the office for Botox injections. 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 Allergies erythromycin base [ERYTHROMYCIN BASE] Allergy (Unknown, Verified 12/28/23 15:01) SWELLING From COMPAZINE Allergy (Unknown, Uncoded 12/28/23 15:01) EXTREME ANXIETY From WELLBUTRIN Allergy (Unknown, Uncoded 12/28/23 15:01) MOOD CHANGE (RAGE) Medication List - Last Reconciled 12/28/23 by Cally Moody MD atorvastatin 40 mg PO DAILY buspirone 5 mg PO BID carbamazepine ER (Tegretol XR) 1 tab qama nd 2 tabs qhs orally 2 times a day; 90 days celecoxib (Celebrex) 50 mg PO BID clonazepam 0.25 mg PO BEDTIME cyclosporine 0.05% (Restasis) drps ophthalmic (eye) denosumab (Prolia) 60 mg subcut [id number] duloxetine (Cymbalta) 30 mg PO .qd famotidine 10 mg PO DAILY lamotrigine 200 mg PO BID 90 days loratadine (Allergy Relief (loratadine)) 10 mg PO DAILY onabotulinumtoxinA (Botox) Inject 155 units across forehead scalp and neck; 12 weeks sumatriptan succinate 6 mg (0.5 mL) subcut ONCE PRN 30 days sumatriptan succinate 100 mg PO Q2H PRN 21 days verapamil ER 180 mg PO DAILY 90 days HPI HPI Comments History of Present Illness Details ? 63y/o female comes for treatment of migraines and torticollis with botox. After her botox last time she had head drop. I will avoid injecting cervical paraspinals . ??? Most frequent reported adverse reactions following injection of botox for chronic migraine include neck pain (9%), headache(5%), eyelid ptosis(4%), migraine(4%), muscular weakness(4%), musculuskeletal stiffness(4%), bronchitis(3%), injection site pain (3%), musculoskeletal pain(3%), myalgia(3%), facial paresis(2%), HTN(2%) and muscle spasms(2%) were discussed in detail. ??? Botulinum toxin type A 200units Lot no [id number] expiration December 2025 was diluted with 4 cc of normal saline . ??? Muscles injected- ? Temporalis- 8 sites- 20 units each?? procerus-5 units Corrugators 5 units each Left trapezius- 30 units Right Trapezius 10 units Left levator 50 units Left splenius 25 units Left TMJ Masseter - 25 units ? Total use- 200units ??? PFSH Medical History Low complement measurement Osteoporosis Anterior neck pain At high risk for breast cancer Abdominal pain, epigastric Facial pain JASMINE (generalized anxiety disorder) Benign essential hypertension Urinary hesitancy Body dysmorphic disorder Cold sore Attention deficit hyperactivity disorder (ADHD) Family history of breast cancer Pain of right hip joint TMJ arthralgia Seizure disorder Osteopenia Migraines Bipolar 2 disorder Hyperlipidemia Surgical History H/O tooth extraction Family History Mother Cancer Breast cancer Arthritis Family/Other No problems noted. Sister Breast cancer Arthritis Sister Breast cancer Arthritis Social History Alcohol intake: current Alcohol intake frequency: holidays/special occasions only Patient Tobacco Use Status: Never used Tobacco Physical Exam Vital Signs: Last Vital Signs Pulse 77 12/28/23 15:02 Resp 17 12/28/23 15:02 BP 154/76 H 12/28/23 15:02 Pulse Ox 98 12/28/23 15:02 Oxygen Delivery Method Room Air 12/28/23 15:02 BMI result Body Mass Index 19.5 Const General: cooperative and no acute distress Orientation/consciousness: patient oriented x3 HEENT Head: Yes normocephalic Resp Effort & Inspection: normal respiratory effort and able to speak in complete sentences Neuro General: patient oriented x3 Cognition (Neuro): normal cognition Psych Appearance: grossly normal Mental Status: mental status grossly normal Speech and movement: Normal speech and movement present Affect: normal affect Attitude: cooperative Thought process: Normal thought process present Thought content: Normal thought content present Insight: Good insight present (Psych) Judgement: Good judgement present (Psych) Office Procedures Botulinum toxin Injection 35161 - Migraine Procedure code (CPT) selection complete Office Meds onabotulinumtoxinA 200 unit solution for injection Performing Provider: Cally Moody MD Performing Location: [facility] [place] [facility] Administered by: Cally Moody MD on 12/28/23 15:55 Dose Route Admin Location Dispensed Lot Number Expiration Date [facility] 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 unit IM 200 units [id number] 02/19/26 4481-7644-92 ALLERGAN/BOTOX Comments: see hpi Assessment & Plan Assessment & Plan (1) Chronic migraine without aura: Code(s): G43.709 - Chronic migraine without aura, not intractable, without status migrainosus (2) Atypical facial pain: Comment: left sided V1, V2 distribution Code(s): G50.1 - Atypical facial pain (3) Migraine with aura, intractable, without status migrainosus: Code(s): G43.119 - Migraine with aura, intractable, without status migrainosus Plan Patient tolerated the procedure well she will call with any side effects Increase tegretol XR 200 mg qam and 400 mg qhs Orders: Orders AMB Botulinum toxin Injection Today G43.709 - Chronic migraine without aura, not intractable, without status migrainosus, G50.1 - Atypical facial pain Medications: New onabotulinumtoxinA 200 units IM ONCE 1 ea 0RF migraine G43.709 - Chronic migraine without aura, not intractable, without status migrainosus, G50.1 - Atypical facial pain Coding Level of Care Code Est Pt Level 1 (44806) Diagnoses Chronic migraine without aura G43.709 Atypical facial pain G50.1 Migraine with aura, intractable, without status migrainosus G43.119 CPT Codes Botox Injection - Botox 3: 11832 - Migraine ([id number])
[2023-12-28 15:02] VITALS: BP 154/76; PULSE 77; RESP 17; O2SAT 98; BMI 19.5
== END 2023-12-28 15:37 | disposition home or self-care (01) ==
PROVIDERS: PCP Nurse Practitioner Adult Health; Visit Provider Psychiatry & Neurology Neurology
DX: G43.119 Migraine with aura, intractable, without status migrainosus (principal)
CPT/HCPCS: 64615

== ENCOUNTER → 2023-12-28 14:58 | Outpatient (BNVA) | payer OTHER, SELFPAY | PROVIDERS: PCP Nurse Practitioner Adult Health; Visit Provider Psychiatry & Neurology Neurology | DX: G43.E19 Chronic migraine with aura, intractable, without status migrainosus (principal); M43.6 Torticollis; G50.1 Atypical facial pain; Z79.899 Other long term (current) drug therapy | CPT/HCPCS: 64615; 99211; J0585 ==

== ENCOUNTER 2024-04-18 15:35 | Outpatient (AMB) | payer OTHER, SELFPAY ==
--- NOTE | 2024-04-18 15:20 | A.OFFVIS_ITS ---
Vital Signs 04/18/24 15:38 Height 5 ft 3 in Weight 111 lb 4 oz BMI 19.7 BP 134/78 Blood Pressure Location Rt brachial Position Sitting Pulse Oximetry (%) 98 Oxygen Delivery Method Room Air Intake Visit Reasons: Botox - Conf Intake Note: Pt presents for botox Allergies erythromycin base [ERYTHROMYCIN BASE] Allergy (Unknown, Verified 12/28/23 15:01) SWELLING From COMPAZINE Allergy (Unknown, Uncoded 12/28/23 15:01) EXTREME ANXIETY From WELLBUTRIN Allergy (Unknown, Uncoded 12/28/23 15:01) MOOD CHANGE (RAGE) Medication List - Last Reconciled 04/18/24 by Cally Moody MD atorvastatin 40 mg PO DAILY buspirone 5 mg PO BID carbamazepine ER (Tegretol XR) 1 tab qama nd 2 tabs qhs orally 2 times a day; 90 days celecoxib (Celebrex) 50 mg PO BID clonazepam 0.25 mg PO BEDTIME cyclosporine 0.05% (Restasis) drps ophthalmic (eye) denosumab (Prolia) 60 mg subcut [id number] duloxetine (Cymbalta) 30 mg PO .qd famotidine 10 mg PO DAILY lamotrigine 200 mg PO BID 90 days loratadine (Allergy Relief (loratadine)) 10 mg PO DAILY onabotulinumtoxinA (Botox) Inject 155 units across forehead scalp and neck; 12 weeks sumatriptan succinate 6 mg (0.5 mL) subcut ONCE PRN 30 days sumatriptan succinate 100 mg PO Q2H PRN 21 days verapamil ER 180 mg PO DAILY 90 days HPI Comments Details: ? 63y/o female comes for treatment of migraines and torticollis with botox. Patient has CELIO AHI 18 and O2 sheba was 80%.waiting for CPAP ??? Most frequent reported adverse reactions following injection of botox for chronic migraine include neck pain (9%), headache(5%), eyelid ptosis(4%), migraine(4%), muscular weakness(4%), musculuskeletal stiffness(4%), bronchitis(3%), injection site pain (3%), musculoskeletal pain(3%), myalgia(3%), facial paresis(2%), HTN(2%) and muscle spasms(2%) were discussed in detail. ??? Botulinum toxin type A 200units Lot no [id number] expiration April 2026 was diluted with 4 cc of normal saline . ??? Muscles injected- ? Temporalis- 8 sites- 20 units each?? procerus-5 units Corrugators 5 units each Left trapezius- 30 units Right Trapezius 10 units Left levator 50 units Left splenius 25 units Left TMJ Masseter - 25 units ? Total use- 200units ??? PFSH Medical History Chronic migraine without aura, intractable, without status migrainosus Undifferentiated connective tissue disease Low complement measurement Osteoporosis Anterior neck pain At high risk for breast cancer Abdominal pain, epigastric Facial pain JASMINE (generalized anxiety disorder) Benign essential hypertension Urinary hesitancy Body dysmorphic disorder Cold sore Attention deficit hyperactivity disorder (ADHD) Family history of breast cancer Pain of right hip joint TMJ arthralgia Seizure disorder Osteopenia Migraines Bipolar 2 disorder Hyperlipidemia Surgical History H/O tooth extraction Family History Mother Cancer Breast cancer Arthritis Family/Other No problems noted. Sister Breast cancer Arthritis Sister Breast cancer Arthritis Social History Alcohol intake: current Alcohol intake frequency: holidays/special occasions only Patient Tobacco Use Status: Never used Tobacco Physical Exam Const General: cooperative and no acute distress Orientation/consciousness: patient oriented x3 HEENT Head: Yes normocephalic Resp Effort & Inspection: normal respiratory effort and able to speak in complete sentences Neuro General: patient oriented x3 Cognition (Neuro): normal cognition Psych Appearance: grossly normal Mental Status: mental status grossly normal Speech and movement: Normal speech and movement present Affect: normal affect Attitude: cooperative Thought process: Normal thought process present Thought content: Normal thought content present Insight: Good insight present (Psych) Judgement: Good judgement present (Psych) Office Procedures Botulinum toxin Injection 36061 - Migraine Procedure code (CPT) selection complete Office Meds onabotulinumtoxinA 200 unit solution for injection Performing Provider: Cally Moody MD Performing Location: [facility] [place] [facility] Administered by: Cally Moody MD on 04/18/24 16:09 Dose Route Admin Location Dispensed Lot Number Expiration Date [employer] 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 200 units [id number] 04/21/26 6094-1940-73 ALLERGAN/BOTOX Assessment & Plan Assessment & Plan (1) Chronic migraine without aura, intractable, without status migrainosus: Code(s): G43.719 - Chronic migraine without aura, intractable, without status migrainosus Category: Medical (2) Atypical facial pain: Comment: left sided V1, V2 distribution Code(s): G50.1 - Atypical facial pain Category: Medical (3) Migraine with aura, intractable, without status migrainosus: Code(s): G43.119 - Migraine with aura, intractable, without status migrainosus Category: Medical (4) Obstructive sleep apnea: Comment: AHI 18 O2 sheba 80% - tried CPAP 3 times in the past and could not use it . Wanting to try again and consider INSPIRE Code(s): G47.33 - Obstructive sleep apnea (adult) (pediatric) Category: Medical Plan Patient tolerated the procedure well trial AUtoPAP 5-20 and refer to ENT for DISE to evaluate for iNSPIRE. she will call with any side effects tegretol XR 200 mg qam and 400 mg qhs Orders: Orders AMB Botulinum toxin Injection Today G43.719 - Chronic migraine without aura, intractable, without status migrainosus Referrals Ear/Nose/Throat Referral G47.33 - Obstructive sleep apnea (adult) (pediatric) Medications: New onabotulinumtoxinA 200 units subcut ONCE 1 ea 0RF migraine G43.719 - Chronic migraine without aura, intractable, without status migrainosus Scribe Plan - Not visible on output: Reviewed possible medication side effects, including but not limited to drowsiness, dizziness. Coding Level of Care Code Est Pt Level 3 (72864) Diagnoses Chronic migraine without aura, intractable, without status migrainosus G43.719 Atypical facial pain G50.1 Migraine with aura, intractable, without status migrainosus G43.119 Obstructive sleep apnea G47.33 CPT Codes Botox Injection - Botox 3: 43783 - Migraine ([id number])
[2024-04-18 15:38] VITALS: BP 134/78; O2SAT 98; BMI 19.7
== END 2024-04-18 16:09 | disposition home or self-care (01) ==
PROVIDERS: PCP Nurse Practitioner Adult Health; Visit Provider Psychiatry & Neurology Neurology
DX: G43.719 Chronic migraine without aura, intractable, without status migrainosus (principal)
CPT/HCPCS: 64615

== ENCOUNTER → 2024-04-18 15:35 | Outpatient (BNVA) | payer OTHER, SELFPAY | PROVIDERS: PCP Nurse Practitioner Adult Health; Visit Provider Psychiatry & Neurology Neurology | DX: G43.719 Chronic migraine without aura, intractable, without status migrainosus (principal); G43.119 Migraine with aura, intractable, without status migrainosus; G50.1 Atypical facial pain; G47.33 Obstructive sleep apnea (adult) (pediatric) | CPT/HCPCS: 64615; 99211; J0585 ==

== ENCOUNTER 2024-04-29 13:39 | Emergency (ER) | payer OTHER, SELFPAY ==
--- NOTE | ~2024-04-29 | XR_ITS ---
EXAMINATION: XR CHEST 2 VIEW CLINICAL INFORMATION: Chest and back pain COMPARISON: None TECHNIQUE: PA and lateral views of the chest obtained. FINDINGS: The lungs are clear. There are no pleural effusions. The cardiomediastinal silhouette is normal. XR/XR chest 2V IMPRESSION: No acute cardiopulmonary disease.
[2024-04-29 14:18] VITALS: BP 145/68; PULSE 73; RESP 16; TEMP 36.6; O2SAT 98; BMI 19.5
--- NOTE | 2024-04-29 14:22 | ECG_ITS ---
Test Reason : SOB Blood Pressure : / mmHG Vent. Rate : 075 BPM Atrial Rate : 075 BPM P-R Int : 186 ms QRS Dur : 076 ms QT Int : 378 ms P-R-T Axes : 053 037 040 degrees QTc Int : 422 ms Normal sinus rhythm Normal ECG No previous ECGs available Referred By: Generic ED Physician Electronically Signed By:MARÍA CULP MD
--- NOTE | 2024-04-29 14:26 | ED_ITS ---
HPI - Back Pain/Injury General Chief Complaint: Back Pain/Injury Stated Complaint: pain mid back Time Seen by Provider: 04/29/24 16:57 Source: patient Mode of arrival: ambulatory Limitations: no limitations History of Present Illness ED Provider: Dr. Janes King HPI Narrative: 63-year-old female history of GERD, migraines, trigeminal neuralgia, nonspecific connective tissue disorder, obstructive sleep apnea who presents emergency department for evaluation of left-sided back pain that began this morning. She states she was standing in her kitchen waiting for coffee to finish bruising when she had a sudden onset of left scapular pain. She states the pain was 9/10. Pain did radiate to her left chest. The states this is a 1st episode of this type of pain. She denied dyspnea shortness of breath. States the pain was worse with breathing. She denied fever, chills, rhinorrhea, sore throat or cough. She denied nausea or vomiting. The pain did not radiate to her neck, jaw or down her arms. At the time my evaluation she states that her pain was 7/10. Patient is not on hormone replacement therapy, she was gone on no long trips and she has had no swelling of her lower extremities. Patient has never had any DVT or PE. Related Data Home Medications ?Medication ?Instructions ?Recorded ?Confirmed duloxetine 20 mg capsule,delayed 30 mg PO .qd 12/30/21 04/18/24 release (Cymbalta) clonazepam 0.25 mg disintegrating 0.25 mg PO BEDTIME 05/30/22 04/18/24 tablet cyclosporine 0.05 % eye drops in a drp ophthalmic (eye) 03/02/23 04/18/24 dropperette (Restasis) buspirone 5 mg tablet 5 mg PO BID 09/28/23 04/18/24 celecoxib 50 mg capsule (Celebrex) 50 mg PO BID 09/28/23 04/18/24 famotidine 10 mg tablet 10 mg PO DAILY 09/28/23 04/18/24 loratadine 10 mg tablet (Allergy 10 mg PO DAILY 09/28/23 04/18/24 Relief (loratadine)) Previous Rx's ?Medication ?Instructions ?Recorded atorvastatin 40 mg tablet 40 mg PO DAILY #30 tabs 09/27/21 onabotulinumtoxinA 200 unit See Rx Instructions .Route 12/18/21 solution for injection (Botox) .COMPLEX 12 weeks #1 ea lamotrigine 200 mg tablet 200 mg PO BID 90 days #180 tabs 08/19/23 sumatriptan succinate 6 mg/0.5 mL 6 mg (0.5 mL) subcut ONCE PRN 10/06/23 subcutaneous pen injector migraine headache 30 days #5 mL verapamil 180 mg 24 hr 180 mg PO DAILY 90 days #90 caps 10/19/23 capsule,extended release denosumab 60 mg/mL subcutaneous 60 mg subcut [id number] #1 mL 12/01/23 syringe (Prolia) carbamazepine 200 mg See Rx Instructions PO BID 90 days 12/07/23 tablet,extended release,12 hr #270 tabs (Tegretol XR) sumatriptan succinate 100 mg tablet 100 mg PO Q2H PRN migraine 01/08/24 headache 21 days #12 tabs Allergies Allergy/AdvReac Type Severity Reaction Status Date / Time erythromycin base Allergy Unknown SWELLING Verified 04/29/24 14:21 [ERYTHROMYCIN BASE] From COMPAZINE Allergy Unknown EXTREME Uncoded 04/29/24 14:21 ANXIETY From WELLBUTRIN Allergy Unknown MOOD Uncoded 04/29/24 14:21 CHANGE (RAGE) Review of Systems 2 Review of Systems: Yes all other systems are reviewed and are negative [facility] Past Medical History [facility] Narrative: Social history: She denies tobacco, alcohol and drug use Medical History Chronic migraine without aura, intractable, without status migrainosus Undifferentiated connective tissue disease Low complement measurement Osteoporosis Anterior neck pain At high risk for breast cancer Abdominal pain, epigastric Facial pain JASMINE (generalized anxiety disorder) Benign essential hypertension Urinary hesitancy Body dysmorphic disorder Cold sore Attention deficit hyperactivity disorder (ADHD) Family history of breast cancer Pain of right hip joint TMJ arthralgia Seizure disorder Osteopenia Migraines Bipolar 2 disorder Hyperlipidemia Surgical History H/O tooth extraction Family History Family History Mother Cancer Breast cancer Arthritis Family/Other No problems noted. Sister Breast cancer Arthritis Sister Breast cancer Arthritis Social History Social History Alcohol intake: current Alcohol intake frequency: holidays/special occasions only Patient Tobacco Use Status: Never used Tobacco Advance Directives: No Advance Directives Information Provided: No Physical Exam 2 Vital Signs: Vital Signs: Last Vital Signs Temp 98.6 F 04/29/24 17:35 Pulse 74 04/29/24 17:35 Resp 18 04/29/24 17:35 BP 138/66 04/29/24 17:35 Pulse Ox 100 04/29/24 17:35 O2 Del Method Room Air 04/29/24 17:35 BMI result Body Mass Index 19.5 Vital signs were normal Exam: General: Awake, alert in no distress Head: Normocephalic, atraumatic EENT: PERRL, Lids normal, sclera normal, conjunctiva normal, nose normal , ears normal, throat without erythema or exudates Neck: Supple, no adenopathy Lung: breath sounds symmetric, no wheezing, rales or rhonchi Chest: symmetric movement, nontender Heart: regular rate and rhythm, normal S1, S2 no murmurs or rubs Abdomen: soft, non-tender, nondistended, normal bowel sounds Back: no vertebral tenderness, no CVAT, patient does have tenderness palpation of her left scapula Extremities: no deformities, moves all extremities symmetrically Neuro: Awake, alert, oriented, normal speech, cranial nerves intact, moves all extremities symmetrically Psych: Pleasant, cooperative Course Course Course Narrative: This is an RME: Additional HPI, ROS, PE not included below will be deferred to primary provider. RME assessment and note performed by: Catalina Hurtado PA-C This is a 18-er[age]-female, with a hx of HTN, migraine epilepticus, chronic facial pain, who presents to the ER with complaints of left sided back pain which started in her left shoulder blade and radiated forward into her chest. Reports pain worsens with lifting her arm and taking deep breaths. Plan: Labs, EKG, cxr, further ER eval needed Medical Decision Making Medical Decision Making MDM Narrative: 63-year-old female who presents emergency department for evaluation of left scapular pain that came on suddenly this morning while she was standing in her kitchen, pain was initially 9/10 but was 7/10 at the time my evaluation. Patient did change with breathing patient has had no shortness of breath dyspnea. Patient had no fever, chills or cough. Vital signs were normal. Physical examination did reveal tenderness palpation over the left scapula. Differential diagnosis: ?Includes but is not limited to bronchitis, pneumonia, pleurisy, pulmonary embolism, myocardial infarction, myocardial ischemia, anemia, electrolyte abnormalities Course: My interpretation patient's laboratory evaluation as follows: WBCs low 4300- similar low values in the past. Normocytic anemia with an H&H of 12 and 35. CMP was normal. Troponin was below detectable limits. Lipase was negative. COVID, influenza and RSV were negative. Chest x-ray was unremarkable. At this time I suspect the patient's pain is secondary to pleurisy and I did discuss this with her. Patient does have a nonspecific connective tissue disorder and this may be the cause of her pleurisy. The patient does take celecoxib twice a day and Tylenol. I advised her to continue taking these medications. She was given printed and verbal instructions on pleurisy and discharged home. Admission/Observation Consideration of admission/observation: Escalation of care including admission/observation considered Lab Data MDM Lab Attestation statement: I reviewed the patient's lab results. 04/29/24 14:37 04/29/24 14:37 Labs: Lab Results 04/29/24 Range/Units 14:37 WBC 4.3 L (4.8-10.8) X10*3/uL RBC 3.95 L (4.20-5.50) X10*6/uL Hgb 12.0 (12.0-16.0) g/dl Hct 35.0 L (37.0-47.0) % MCV 88.6 (80.0-98.0) fL MCH 30.4 (27.0-33.0) pg MCHC 34.3 (31.0-35.0) g/dl RDW 12.5 (11.0-16.0) % Plt Count 275 (160-400) X10*3/uL MPV 8.8 L (9.4-12.3) fL Immature Gran % (Auto) 0.2 (0.0-0.4) % Neut % (Auto) 44.8 L (45-73) % Lymph % (Auto) 38.6 (20-40) % Levy % (Auto) 11.2 H (2-11) % Eos % (Auto) 4.0 (0-4) % Baso % (Auto) 1.2 (0-2) % Lymph # (Auto) 1.7 (1.2-4.9) X10*3/uL Levy # (Auto) 0.5 (0.1-1.2) X10*3/uL Eos # (Auto) 0.2 (0.0-0.4) X10*3/uL Baso # (Auto) 0.1 (0.0-0.2) X10*3/uL Abs Immat Gran (auto) 0.01 (0.00-0.03) X10*3/uL Absolute Neuts (auto) 1.9 L (2.0-8.3) x10*3/uL Absolute Nucleated RBC 0.000 (0.0-0.012) X10*3/uL Nucleated RBC % (auto) 0.0 (0.0-0.2) /100WBC PT 11.5 (11.1-13.3) SEC INR 0.9 (0.9-1.1) Sodium 137 (135-145) mmol/L Potassium 4.1 (3.3-5.1) mmol/L Chloride 103 (96-108) mmol/L Carbon Dioxide 28 (22-29) mmol/L Anion Gap 10 L (12-20) BUN 12 (9-16) mg/dL Creatinine 0.75 (0.5-1.4) mg/dL Estim Creat Clear Calc 58.8 Estimated GFR > 60 Random Glucose 98 (60-115) mg/dL Calcium 9.1 (8.4-10.2) mg/dL Magnesium 2.1 (1.6-2.6) mg/dL Total Bilirubin 0.4 (0.0-1.0) mg/dL Direct Bilirubin 0.1 (0.0-0.5) mg/dL AST 18 (5-31) U/L ALT 21 (0-31) U/L Alkaline Phosphatase 72 (39-117) U/L Troponin I High Sens < 2.7 (<3.5-17.0) ng/L Total Protein 6.9 (6.5-8.0) g/dL Albumin 4.4 (3.5-5.0) g/dL Lipase 31 (8-78) U/L Influenza Type A (PCR) NEGATIVE (Negative) Influenza Type B (PCR) NEGATIVE (Negative) RSV RNA Qual (PCR) NEGATIVE (Negative) SARS-CoV-2 RNA (RT-PCR) NEGATIVE (Negative) Independent Interpretation I performed an independent interpretation of an: Plain X-Ray Interpretation: My independent interpretation patient's 12 EKG done at 14:26 hours is as follows: Normal sinus rhythm rate of 75, normal [place] interval, QRS duration QTC interval, no ST segment elevation, no ST segment depression, flat T-wave in lead 3, this is a normal EKG Radiology Impression Discussion of test interpretation with radiology: I have reviewed the radiologist's reading. Radiologist Impression: XR chest 2V IMPRESSION: No acute cardiopulmonary disease. Dictated By: Alton Lee MD Chronic Conditions Patient?s care impacted by: Other (Nonspecific connective tissue disorder) Discharge Plan Discharge Clinical Impression: Pleurisy Patient Disposition: Home, Self-Care Instructions: Pleurisy (ED) Additional Instructions: Your blood work was consistent with your previous values, you are slightly anemic in your white blood cell count is slightly low. This is not related to your symptoms. Your EKG was normal Your chest x-ray was normal Your troponin (marker of heart damage) was below detectable limits which is reassuring. Your exam was also unremarkable pain. Your symptoms are consistent with pleuritic chest pain (pleurisy). Given your normal evaluation, I do not have a clear cause for your pleurisy but it is most likely caused by inflammation of the lining of the lung caused by a virus. Continue taking your Celebrex and Tylenol as prescribed by your provider. Follow-up with your doctor in 2 days. Please return to the emergency department if your symptoms get worse or if you develop any symptoms that are concerning to you. Prescriptions: No Action Botox 200 unit recon soln See Rx Instructions .ROUTE .COMPLEX 84 Days Qty: 1 3RF Rx Instructions: Inject 155 units across forehead scalp and neck; lamotrigine 200 mg tablet 200 mg PO BID 90 Days Qty: 180 2RF sumatriptan succinate 6 mg/0.5 mL pen injector 6 mg subcut ONCE PRN (Reason: migraine headache) 30 Days Qty: 5 6RF Rx Instructions: may repeat in 1 hr. Do not take w/in 24 hrs of Sumatriptan tablet. verapamil 180 mg capsule,ext rel. pellets 24 hr 180 mg PO DAILY 90 Days Qty: 90 1RF Prolia 60 mg/mL syringe 60 mg subcut [id number] Qty: 1 4RF carbamazepine [Tegretol XR] 200 mg tablet extended release 12 hr See Rx Instructions PO BID 90 Days Qty: 270 1RF Rx Instructions: 1 tab qama nd 2 tabs qhs orally 2 times a day; sumatriptan succinate 100 mg tablet 100 mg PO Q2H PRN (Reason: migraine headache) 21 Days Qty: 12 6RF Rx Instructions: max 2 tabs per day or 4 tabs per week atorvastatin 40 mg tablet 40 mg PO DAILY Qty: 30 0RF duloxetine [Cymbalta] 20 mg capsule,delayed release(DR/EC) 30 mg PO .qd clonazepam 0.25 mg tablet,disintegrating 0.25 mg PO BEDTIME Rx Instructions: administer 30 minutes before bedtime cyclosporine [Restasis] 0.05 % dropperette ophthalmic (eye) buspirone 5 mg tablet 5 mg PO BID celecoxib [Celebrex] 50 mg capsule 50 mg PO BID famotidine 10 mg tablet 10 mg PO DAILY loratadine [Allergy Relief (loratadine)] 10 mg tablet 10 mg PO DAILY Interventions: ED Discharge Assessment Last Done: 04/29/24 17:35 Discharge Date/Time: 04/29/24 17:36 Print Language: Serbian
[2024-04-29 14:42] LABS: MANUAL DIFF FLAG NO
[2024-04-29 14:44] LABS: Basophils Absolute Auto 0.1 X10*3/uL (0.0-0.2); Basophils Percent Auto 1.2 % (0-2); Eosinophils Absolute Auto 0.2 X10*3/uL (0.0-0.4); Imm Gran Abs Auto 0.01 X10*3/uL (0.00-0.03); Imm Gran Pct Auto 0.2 % (0.0-0.4); Lymphocytes Absolute Auto 1.7 X10*3/uL (1.2-4.9); Lymphocytes Percent Auto 38.6 % (20-40); Mean Corpuscular HGB Conc 34.3 g/dl (31.0-35.0); Mean Corpuscular Hemoglobin 30.4 pg (27.0-33.0); Mean Corpuscular Volume 88.6 fL (80.0-98.0); Mean Platelet Volume 8.8 fL (9.4-12.3); Monocytes Absolute Auto 0.5 X10*3/uL (0.1-1.2); Monocytes Percent Auto 11.2 % (2-11); Neutrophils Absolute Auto 1.9 x10*3/uL (2.0-8.3); Neutrophils Percent Auto 44.8 % (45-73); Platelet Count 275 X10*3/uL (160-400); Red Blood Count 3.95 X10*6/uL (4.20-5.50); Red Cell Distribution Width 12.5 % (11.0-16.0); White Blood Count 4.3 X10*3/uL (4.8-10.8)
[2024-04-29 14:48] LABS: INTERNATIONAL NORM RATIO 0.9 (0.9-1.1); Prothrombin Time 11.5 SEC (11.1-13.3)
[2024-04-29 15:03] LABS: Alanine Aminotransferase 21 U/L (0-31); Albumin Level 4.4 g/dL (3.5-5.0); Alkaline Phosphatase 72 U/L (39-117); Anion Gap 10 (12-20); Aspartate Amino Transferase 18 U/L (5-31); Bilirubin Direct 0.1 mg/dL (0.0-0.5); Bilirubin Total 0.4 mg/dL (0.0-1.0); Blood Urea Nitrogen 12 mg/dL (9-16); Calcium 9.1 mg/dL (8.4-10.2); Carbon Dioxide 28 mmol/L (22-29); Chloride 103 mmol/L (96-108); Creatinine Clr Calc Pharmacy 58.8; Estimated Glomerular Filt Rate > 60; Glucose Random 98 mg/dL (60-115); Lipase 31 U/L (8-78); Magnesium 2.1 mg/dL (1.6-2.6); Potassium 4.1 mmol/L (3.3-5.1); Sodium 137 mmol/L (135-145); Total Protein 6.9 g/dL (6.5-8.0)
[2024-04-29 15:11] LABS: Troponin-I High Sensitivity < 2.7 ng/L (<3.5-17.0)
[2024-04-29 15:20] LABS: Influenza A PCR NEGATIVE (Negative); Influenza B PCR NEGATIVE (Negative); Resp Syncy Virus RNA Qual PCR NEGATIVE (Negative); SARS COV2 PCR INHOUSE NEGATIVE (Negative)
--- OUTSIDE RECORDS SUMMARY | 2024-04-29 16:13 | XMS_ITS | Continuity of Care Document ---
Author Organization [facility] ter Address [address] [place] [address]- Care Team Providers Care Rug Hooker Hand Name Role Phone Kary JARAMILLO, Jayleen Arriaza Primary Care Physician [phone] Encounter [facility] Date(s): 11/09/19 - 11/09/[address] [address]- [facility] Attending Physician: Jayleen Preston NP, I Allergies, Adverse Reactions, Alerts Substance Reaction Severity Status erythromycin Active Wellbutrin Active Topamax Active Compazine Active Medications Imitrex 25 mg oral tablet 1 tablet = 25 mg, By Mouth, Daily, PRN for migraine headache, may repeat dose after 2 hours up to amaximum of 2, # 18 tablet, 0 Refills, Maintenance, 04/11/19 14:32:33 EDT, Tablet Start Date: 04/11/19 Status: Ordered LaMICtal 200 mg oral tablet 1 tablet = 200 mg, By Mouth, 2 times a day, # 180 tablet, 0 Refills, Maintenance, 04/11/19 14:31:08EDT, Tablet Start Date: 04/11/19 Status: Ordered Lexapro 20 mg oral tablet 1 tablet = 20 mg, By Mouth, Daily, # 90 tablet, 0 Refills, Maintenance, 04/11/19 14:30:52 EDT, Tablet Start Date: 04/11/19 Status: Ordered Lipitor 20 mg oral tablet 1 tablet = 20 mg, By Mouth, Daily, # 30 tablet, 0 Refills, Maintenance, 04/11/19 14:31:49 EDT, Tablet Start Date: 04/11/19 Status: Ordered TEGretol 200 mg oral tablet 200 mg, 1, tablet, By Mouth, 4 times a day, Refills 0, Maintenance, 04/11/19 14:31:31 EDT Start Date: 04/11/19 Status: Ordered Verapamil Tablet By Mouth, 3 times a day, Refills 0, Maintenance, 04/11/19 14:31:58 EDT Start Date: 04/11/19 Status: Ordered
--- OUTSIDE RECORDS SUMMARY | 2024-04-29 16:13 | XMS_ITS | Continuity of Care Document ---
Author Organization [facility] Address [address] [place] [address]- Care Team Providers Care Lap Winder Name Role Phone Kary JARAMILLO, Jayleen I Primary Care Physician [phone] Encounter [facility] Date(s): 05/27/22 - 07/19/22 [facility] [address] [place] [address]- Attending Physician: Elsie Mcghee MD Admitting Physician: Ara Troy MD Referring Physician: Ara Troy MD Allergies, Adverse Reactions, Alerts Substance Reaction Severity Status erythromycin Active Wellbutrin Active Topamax Active Compazine Active Medications Carafate 1 gm oral tablet 1 Gm, 1, tablet, By Mouth, 3 times a day before meals and bedtime, Refills 0, Maintenance, 05/27/2214:57:00 EDT, Partial fill upon patient request if the prescription is for a schedule II opioid drug. Start Date: 05/27/22 Status: Ordered CeleBREX 100 mg oral capsule 1 capsule = 100 mg, By Mouth, 2 times a day, PRN for pain, 0 Refills, Maintenance, 05/27/22 14:57:00 EDT, Capsule, Partial fill upon patient request if the prescription is for a schedule II opioid drug. Start Date: 05/27/22 Status: Ordered Famotidine 0 Refills, Maintenance, 05/27/22 14:57:00 EDT, Partial fill upon patient request if the prescription is for a schedule II opioid drug. Start Date: 05/27/22 Status: Ordered Imitrex 25 mg oral tablet 1 tablet [...] 14:31:08EDT, Tablet Start Date: 04/11/19 Status: Ordered Lipitor 20 mg oral tablet 1 tablet = 20 mg, By Mouth, Daily, # 30 tablet, 0 Refills, Maintenance, 04/11/19 14:31:49 EDT, Tablet Start Date: 04/11/19 Status: Ordered Mapap Arthritis Pain 650 mg oral tablet, extended release 2 tablet = 1,300 mg, By Mouth, Every 8 hours, PRN as needed for fever, # 100 tablet, 0 Refills, Maintenance, 05/27/22 14:56:00 EDT, ER Tablet, Partial fill upon patient request if the prescription isfor a schedule II opioid drug. Start Date: 05/27/22 Status: Ordered Omeprazole By Mouth, Daily, 0 Refills, Maintenance, 05/27/22 14:56:00 EDT, Partial fill upon patient request if the prescription is for a schedule II opioid drug. Start Date: 05/27/22 Status: Ordered TEGretol 200 mg oral tablet 200 mg, 1, tablet, By Mouth, 4 times a day, Refills 0, Maintenance, 04/11/19 14:31:31 EDT Start Date: 04/11/19 Status: Ordered Verapamil Tablet By Mouth, 3 times a day, Refills 0, Maintenance, 04/11/19 14:31:58 EDT Start Date: 04/11/19 Status: Ordered Problem List Condition Confirmation Course Effective Dates Status [facility] Atypical facial pain Confirmed Active Patient Care team information Personnel Name: Jayleen Preston NP, I Address: Address: [address] [place] [address], [place] [address]
--- OUTSIDE RECORDS SUMMARY | 2024-04-29 16:13 | XMS_ITS | Continuity of Care Document ---
Author Organization [facility] Address [address] [place] [address]- Care Team Providers Care Journal Clerk Name Role Phone Kary JARAMILLO, Jayleen I Primary Care Physician [phone] Encounter [facility] [place] Date(s): 06/19/22 - 07/19/22 [facility] [address] [place] [address]- Attending Physician: Quan Chang Admitting Physician: Admtr, Quan Referring Physician: Admtr, Ar8 Allergies, Adverse Reactions, Alerts Substance Reaction Severity [...] List Condition Confirmation Course Effective Dates Status [facility] Atypical facial pain Confirmed Active Patient Care team information Personnel Name: Jayleen Preston NP, I Address: Address: [address] [place] [address], [place] [address]
--- OUTSIDE RECORDS SUMMARY | 2024-04-29 16:13 | XMS_ITS ---
Author Organization [facility] Address [address] [address] Care Team Providers Care Clinical Trial Assistant Name Role Phone Ro Pulido NP Primary Care Provider MARY Self Unavailable [phone] REASON FOR VISIT Refill script please Medications Medication SIG (Take, Route, Fr equency, Duration) Notes Start Date End Date Status busPIRone HCl 5 MG 1 tablet Orally Twic e a day for 90 days 08/18/2023 Active Encounters Encounter Location Date Provider Diagnosis [facility] [employer] [address] [address] 09/23/2023 MARY ROSE Generalized anxiety disorder F41.1 Assessments Encounter Date Diagnosis (ICD Code) Assessment Notes Treat ment Notes Treatment Clinical Notes 09/23/2023 Generalized anxiety disorder (ICD-10 - F41.1) Plan Of Treatment Medication Medication Name Sig Start Date Stop Date Notes busPIRone HCl 5 MG 1 tablet Orally Twice a day for 90 days 08/18/2023 Next Appt Details Provider Name:MARY PARRY [facility], 08/08/2024 01:30:00 PM, [address] [place] [address], [place] [address], [place], [address], Progress Notes * Elian SILVAOB:1960 (63 yo F)Acc No.[id number]:09/23/2023 Patient:?ARTISQuintinGeovanna :1960???Age:63 Y???Sex:Female Address:[address] [place] [address], [address], [place], [place], * Refills? Refill busPIRone HCl Tablet, 5 MG, Orally, 180 Tablet, 1 tablet, Twice a day, 90 days, Refills=1 * true * Date:? Generated for Chuck jeronimo/Zachery/Francisco Javier on:?04/29/2024 04:12 PM EDT
--- OUTSIDE RECORDS SUMMARY | 2024-04-29 16:13 | XMS_ITS | Patient Health Record ---
Author Organization [facility] Address [address] [facility] [address] [place] [id number] Care Team Providers Care Chain Mortiser Operator Name Role Phone Ashok JARAMILLO, Ro Primary Care Provider MARY Self Unavailable [phone] Allergies Allergen (clinical drug ingredient) Drug/Non Drug Allergy documented on EMR Reaction Allergy Type Onset Date Status Wellbutrin Unknown Drug Allergy Active Compazine Unknown Drug Allergy Active erythromycin Erythromycin Unknown Drug Allergy A ctive Reason For Referral No Information Medications Medication SIG (Take, Route, Frequency, Duration) Notes Start Date End Date Status busPIRone HCl 5 MG 1 tablet Orally Twic e a day for 90 days Active DULoxetine HCl 30 MG TAKE 1 CAPSULE BY MOUTH ONCE DAILY for 90 Active Celecoxib 100 MG 1 capsule with food Orally twice a day for 30 days as needed Active Restasis 0.05 % 1 drop into affected eye Ophthalmic Twice a day Active clonazePAM 0.5 MG 1/4-1/2 tablet Orall y Once a day for 30 days Active carBAMazepine 200 MG 1 tablet Orally Twi ce a day Active Famotidine 20 MG 1 tablet at bedtime as needed Orally Once a day Active ZyrTEC 10 MG 0.5 tablet Orally On ce a day Active clonazePAM 0.5 MG /4-1/2 tablet Orall y Once a day for 30 days prn 02/23/2024 Active Atorvastatin Calcium 40 MG 1 tablet Oral ly Once a day for 30 day(s) Active SUMAtriptan Succinate 100 MG 1 tablet at least 2 hours between doses as needed Orally Twice a day Active LaMICtal 200 MG 1 tablet Orally twic e a day Active Verapamil HCl ER 180 MG 1 capsule Orally Once a day for 30 day(s) Active Tylenol 325 MG 1 tablet as needed Orally every 4 hrs as needed Active Social History Tobacco Use: Social History Observation Description Date Details (start date - stop date) Never Smoker NA - NA Tobacco Use/Smoking Question Answer Notes Are you a nonsmoker Tobacco use other than smoking: Question Answer Notes Are you an other tobacco user? No Problems Problem Type SNOMED Code ICD Code Onset Dates Problem Status W/U Status Risk Notes Problem [id number] Generalized anxiety disorder (F41.1) Active confirmed Problem 91698087 Mood disorder (F39) Active confirmed Problem Epilepsy (41427718) Epilepsy (G40.909) Active confirmed Problem Migraine (98744057) Migraine (G43.909) Active confirmed Problem 904833328 Migraine without aura and without status migrainosus, not intractable (G43.009) Active confirmed Problem Sleep apnea (03660763) Sleep apnea (G47.30) Active confirmed Problem Posttraumatic stress disorder (80475087) PTSD (post-traumatic stress disorder) (F43.10) Active confirmed Problem Attention deficit hyperactivity disorder (846725780) ADHD (attention deficit hyperactivity disorder) (F90.9) Active confirmed Problem 08840489 Obstructive slee p apnea (G47.33) Active confirmed Problem Stomach ulcer (403438041) Stomach ulcer (K25.9) Active confirmed Problem Hyperlipidaemia (26135699) Hyperlipemia (E78.5) Active confirmed Problem Depressed bipolar I disorder (52912882) Bipolar depression (F31.30) Active confirmed Problem 34797952 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) Active confirmed Problem 505159093 Attention defici t disorder (ADD) in adult (F98.8) Active confirmed Problem Age-related osteoporosis (389377764) Osteoporosis, unspecified osteoporosis type, unspecified pathological fracture presence (M81.0) Active confirmed Vital Signs Height 63 in 03/22/2024 Weight 110 lbs 03/22/2024 BMI 19.48 kg/m2 03/22/2024 Encounters Encounter Location Date Provider Diagnosis [facility] [address] [address] 08/18/2023 MARY ROSE Mood disorder F39 ; PTSD (post-traumatic stress disorder) F43.10 ; Migraine without aura and without status migrainosus, not intractable G43.009 ; Nonintractable generalized idiopathic epilepsy without status epilepticus G40.309 ; Obstructive sleep apnea G47.33 ; Attention deficit disorder (ADD) in adult F98.8 and Generalized anxiety disorder F41.[address] [address] 12/01/2023 MARY DEGRUSH Mood disorder F39 ; PTSD (post-traumatic stress disorder) F43.10 ; Migraine without aura and without status migrainosus, not intractable G43.009 ; Nonintractable generalized idiopathic epilepsy without status epilepticus G40.309 ; Obstructive sleep apnea G47.33 ; Attention deficit disorder (ADD) in adult F98.8 and Generalized anxiety disorder F41.[address] [address] 03/22/2024 MARY DEGRUSH Mood disorder F39 ; PTSD (post-traumatic stress disorder) F43.10 ; Migraine without aura and without status migrainosus, not intractable G43.009 ; Nonintractable generalized idiopathic epilepsy without status epilepticus G40.309 ; Obstructive sleep apnea G47.33 ; Attention deficit disorder (ADD) in adult F98.8 and Generalized anxiety disorder F41.[address] [address] 09/23/2023 MARY DEGRUSH Generalized anxiety disorder F41.1 Assessments Encounter Date Diagnosis (ICD Code) Assessment Notes Treat ment Notes Treatment Clinical Notes 08/18/2023 Mood disorder (ICD-10 - F39) Mood better on duloxetine 30mg once daily, will continue. 09/23/2023 Generalized anxiety disorder (ICD-10 - F41.1) 12/01/2023 Mood disorder (ICD-10 - F39) Mood better on duloxetine 30mg once daily, will continue. 03/22/2024 Mood disorder (ICD-10 - F39) Mood better on duloxetine 30mg once daily, will continue. 03/22/2024 PTSD (post-traumatic stress disorder) (ICD-10 - F43.10) 12/01/2023 PTSD (post-traumatic stress disorder) (ICD-10 - F43.10) 08/18/2023 PTSD (post-traumatic stress disorder) (ICD-10 - F43.10) 08/18/2023 Migraine without aura and without status migrainosus, not intractable (ICD-10 - G43.009) botox was started and she is getting results- will advise she continue. 12/01/2023 Migraine without aura and without status migrainosus, not intractable (ICD-10 - G43.009) continued management with her primary neurologic provider in [facility] 03/22/2024 Migraine without aura and without status migrainosus, not intractable (ICD-10 - G43.009) continued management with her primary neurologic provider in [facility] 12/01/2023 Nonintractable generalized idiopathic epilepsy without status epilepticus (ICD-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 03/22/2024 Nonintractable generalized idiopathic epilepsy without status epilepticus (ICD-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 08/18/2023 Nonintractable generalized idiopathic epilepsy without status epilepticus (ICD-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 08/18/2023 Obstructive sleep apnea (ICD-10 - G47.33) Agree wtih treatment for AHI 17, if she can tolerate the treatment. 12/01/2023 Obstructive sleep apnea (ICD-10 - G47.33) Agree wtih treatment for AHI 17, if she can tolerate the treatment. 03/22/2024 Obstructive sleep apnea (ICD-10 - G47.33) Agree wtih treatment for AHI 17, if she can tolerate the treatment. 03/22/2024 Attention deficit disorder (ADD) in adult (ICD-10 - F98.8) Notably, her headaches worsened on atomoxetine. Will not try another stimulant until she has resolved the concerns with the CPAP/sleep apnea, will follow up with the sleep study, and will need VS (BP/HR) before considering a stimulant. 12/01/2023 Attention deficit disorder (ADD) in adult (ICD-10 - F98.8) Notably, her headaches worsened on atomoxetine. Will not try another stimulant until she has resolved the concerns with the CPAP/sleep apnea, will follow up with the sleep study, and will need VS (BP/HR) before considering a stimulant. 08/18/2023 Attention deficit disorder (ADD) in adult (ICD-10 - F98.8) Notably, her headaches worsened on this med, so will stop atomoxetine. Will not try another stimulant until she has resolved the concerns with the CPAP/sleep apnea, will follow up with the sleep study, and will need VS (BP/HR) before considering a stimulant. 08/18/2023 Generalized anxiety disorder (ICD-10 - F41.1) START buspirone 5mg twice daily Better with clonazepam, will switch to the normal pill and she will cut it to get the dose she desires. Also, will add buspirone- notably carbamazepine increases metabolism of buspirone so may need to increase dose to see full effects, she is aware, discussed risks, benefits, alternatives and she can participate in informed consent. 12/01/2023 Generalized anxiety disorder (ICD-10 - F41.1) buspirone 5mg twice daily using clonazepam rarely, and getting a great response for depression and anxiety with low dose buspirone- will continue. 03/22/2024 Generalized anxiety disorder (ICD-10 - F41.1) buspirone 5mg twice daily using clonazepam rarely, and getting a great response for depression and anxiety with low dose buspirone- will continue. 08/18/2023 Other Neuro I spent a total of 30 minutes on the present encounter, which includes preparing for the encounter, obtaining history, performing examination, reviewing diagnostic data, ordering medications/testing /procedures and other care coordination, referring to and communicating with other health landcare officer, documenting clinical information in the record, counseling, providing instructions and answering the patient's questions. The patient understands and agrees with the plan of care outlined. This is a telehealth visit that was performed with the originating site at patient's home and the distant site at physician's home. Verbal consent to participate in interactive audio/video visit was obtained as noted above. This particular visit occurred during the 2019 COVID19 outbreak. I discussed with the patient the nature of our telehealth visits, that: I would evaluate the patient and recommend diagnostics and treatments based on my assessment; Our sessions are not being recorded and that personal health information is protected; Our team would provide follow up care in person if/when the patient needs it. This note was generated with voice recognition software. Please excuse any errors which may have been overlooked during review. Sometimes these errors may affect the content or meaning of a given sentence. If any questions, please contact the ENVIRONMENTAL HEALTH SPECIALIST office at [phone]. 12/01/2023 Other Neuro I spent a total of 30 minutes on the present encounter, which includes preparing for the encounter, obtaining history, performing examination, reviewing diagnostic data, ordering medications/testing /procedures and other care coordination, referring to and communicating with other health landcare officer, documenting clinical information in the record, counseling, providing instructions and answering the patient's questions. The patient understands and agrees with the plan of care outlined. This is a telehealth visit that was performed with the originating site at patient's HOME and the distant site at physician's office. Verbal consent to participate in interactive audio/video visit was obtained as noted above. I discussed with the patient the nature of our telehealth visits, that: I would evaluate the patient and recommend diagnostics and treatments based on my assessment; Our sessions are not being recorded and that personal health information is protected; Our team would provide follow up care in person if/when the patient needs it. This note was generated with voice recognition software. Please excuse any errors which may have been overlooked during review. Sometimes these errors may affect the content or meaning of a given sentence. If any questions, please contact the ENVIRONMENTAL HEALTH SPECIALIST office at [phone]. 03/22/2024 Other Neuro I spent a total of 30 minutes on the present encounter, which includes preparing for the encounter, obtaining history, performing examination, reviewing diagnostic data, ordering medications/testing /procedures and other care coordination, referring to and communicating with other health landcare officer, documenting clinical information in the record, counseling, providing instructions and answering the patient's questions. The patient understands and agrees with the plan of care outlined. This is a telehealth visit that was performed with the originating site at patient's HOME and the distant site at physician's office. Verbal consent to participate in interactive audio/video visit was obtained as noted above. I discussed with the patient the nature of our telehealth visits, that: I would evaluate the patient and recommend diagnostics and treatments based on my assessment; Our sessions are not being recorded and that personal health information is protected; Our team would provide follow up care in person if/when the patient needs it. This note was generated with voice recognition software. Please excuse any errors which may have been overlooked during review. Sometimes these errors may affect the content or meaning of a given sentence. If any questions, please contact the ENVIRONMENTAL HEALTH SPECIALIST office at [phone]. Plan Of Treatment Next Appt Details Provider Name:[facility], 08/08/2024 01:30:00 PM, [address] [place] [address], [place] [address], [place], [address], Insurance Providers Payer Name Payer Address Payer Phone Subscriber Number Group Number Insured Name Patient Relationship to Insured Coverage Start Date Coverage End Date [employer] TERRI Eason [address] [address] [place], [place] [id number] [phone] [id number] Geovanna Silva Self - patient is the insured Medical (General) History Medical History History ICD Code ADHD (attention deficit hyperactivity di sorder) F90.9 Migraine G43.909 Sleep apnea G47.30 Bipolar depression F31.30 PTSD (post-traumatic stress disorder) F4 3.10 Hyperlipemia E78.5 Epilepsy G40.909 Stomach ulcer K25.9 Osteoporosis, unspecified os teoporosis type, unspecified pathological fracture presence M81.0 Surgical History Surgery Date(Month/Year) broken hip and femur 2008 Hospitalization History Reason Date(Month/Year) head injury surgery related
--- OUTSIDE RECORDS SUMMARY | 2024-04-29 16:13 | XMS_ITS | Continuity of Care Document ---
Author Organization [facility] Address [address] [facility], [address] Floor, [address] [place] [address]- Care Team Providers Care Slip Cover Operator Name Role Phone Kary JARAMILLO, Jayleen Arriaza Primary Care Physician [phone] Encounter [facility] Date(s): 03/09/23 - 04/08/23 [facility] [address], [address], [address] [place] [address]- Allergies, Adverse Reactions, Alerts Substance Reaction Severity [...] List Condition Confirmation Course Effective Dates Status [facility] Informant Atypical facial pain Confirmed Active Patient Care team information Care Team Personnel Name: Jayleen Preston NP, I Position: Reference Physician Member Role: PCP Address: Address: [address] [place] [address]- Care Team Related Persons Name: CROW WISDOM Address: [address] [place] [address] Name: ARLYN TORIBIO Address: [address] [place] [address]
--- OUTSIDE RECORDS SUMMARY | 2024-04-29 16:13 | XMS_ITS | Continuity of Care Document ---
Author Organization [facility] Address [address] [place] [address]- Care Team Providers Care Pig Caster Name Role Phone Kary JARAMILLO, Jayleen I Primary Care Physician [phone] Encounter [facility] Date(s): 04/23/22 - 07/04/22 [facility] [address] [place] [address]- Attending Physician: Ara Troy MD Admitting Physician: Ara Troy MD Referring Physician: Pastora Carnes Allergies, Adverse Reactions, Alerts Substance Reaction Severity [...] List Condition Confirmation Course Effective Dates Status [facility] Informant Atypical facial pain Confirmed Active Patient Care team information Personnel Name: Jayleen Preston NP, I Address: Address: [address] [place] [address], [place] [address]
--- OUTSIDE RECORDS SUMMARY | 2024-04-29 16:13 | XMS_ITS ---
Author Organization [facility], [facility] Address [address] [address] Care Team Providers Care Leadlighter Name Role Phone oR Pulido NP Primary Care Provider MARY Self Unavailable [phone] Allergies Allergen (clinical drug ingredient) Drug/Non Drug Allergy documented on EMR Reaction Allergy Type Onset Date Status Wellbutrin Unknown Drug Allergy Active Compazine Unknown Drug Allergy Active erythromycin Erythromycin Unknown Drug Allergy A ctive REASON FOR VISIT [phone] Doxy Migraines, ADHD Medications Medication SIG (Take, Route, Frequency, Duration) Notes Start Date End Date Status busPIRone HCl 5 MG 1 tablet Orally Twic e a day for 90 days Active clonazePAM 0.5 MG 1/4-1/2 tablet Orall y Once a day for 30 days Active carBAMazepine 200 MG 1 tablet Orally Twi ce a day Active Famotidine 20 MG 1 tablet at bedtime as needed Orally Once a day Active ZyrTEC 10 MG 0.5 tablet Orally On ce a day Active DULoxetine HCl 30 MG 1 capsule Orally On ce a day for 90 days Active clonazePAM 0.5 MG 1/4-1/2 tablet Orall y Once a day for 30 days prn 02/23/2024 Active DULoxetine HCl 30 MG TAKE 1 CAPSULE BY MOUTH ONCE DAILY for 90 Active Atorvastatin Calcium 40 MG 1 tablet Oral ly Once a day for 30 day(s) Active SUMAtriptan Succinate 100 MG 1 tablet at least 2 hours between doses as needed Orally Twice a day Active Celecoxib 100 MG 1 capsule with food Orally twice a day for 30 days as needed Active Restasis 0.05 % 1 drop into affected eye Ophthalmic Twice a day Active LaMICtal 200 MG [...] Are you an other tobacco user? No Vital Signs Height 63 in 03/22/2024 Weight 110 lbs 03/22/2024 BMI 19.48 kg/m2 03/22/2024 Encounters Encounter Location Date Provider Diagnosis [address] [address] 03/22/2024 MARY ROSE Mood disorder F39 ; PTSD (post-traumatic stress disorder) F43.10 ; Migraine without aura and without status migrainosus, not intractable G43.009 ; Nonintractable generalized idiopathic epilepsy without status epilepticus G40.309 ; Obstructive sleep apnea G47.33 ; Attention deficit disorder (ADD) in adult F98.8 and Generalized anxiety disorder F41.1 Assessments Encounter Date Diagnosis (ICD Code) Assessment Notes Treat ment Notes Treatment Clinical Notes 03/22/2024 Mood disorder (ICD-10 - F39) Mood better on duloxetine 30mg once daily, will continue. 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 03/22/2024 Obstructive sleep apnea (ICD-10 - G47.33) Agree [facility] for AHI 17, if she can tolerate the treatment. 03/22/2024 Attention deficit disorder (ADD) in adult (ICD-10 - F98.8) Notably, her headaches worsened on atomoxetine. Will not try another stimulant until she has resolved the concerns with the CPAP/sleep apnea, will follow up with the sleep study, and will need VS (BP/HR) before considering a stimulant. 03/22/2024 Generalized anxiety disorder (ICD-10 - F41.1) buspirone 5mg twice daily using clonazepam rarely, and getting a great response for depression and anxiety with low dose buspirone- will continue. 03/22/2024 Other Neuro I spent a total of 30 minutes on the present encounter, which includes preparing for the encounter, obtaining history, performing examination, reviewing diagnostic data, ordering medications/testing /procedures and other care coordination, referring to and communicating with other health home health care case manager, documenting clinical information in the record, counseling, [...] sentence. If any questions, please contact the [facility] office at [phone]. Plan Of Treatment Medication Medication Name Sig Start Date Stop Date Notes busPIRone HCl 5 MG 1 tablet Orally Twic e a day for 90 days clonazePAM 0.5 MG 1/4-1/2 tablet Orall y Once a day for 30 days DULoxetine HCl 30 MG 1 capsule Orally On ce a day for 90 days Treatment Notes Assessment Notes Generalized anxiety disorder buspirone 5 mg twice daily Next Appt Details Follow Up: 4-5 mos F2F, Reas on: Provider Name:MARY PARRY [facility], 08/08/2024 01:30:00 PM, [address] [place] [address], [place] [address], [place], [address], Progress Notes * Elian SILVAOB:1960 (63 yo F)Acc No.[id number]:03/22/2024 Patient:Geovanna BLANCHARD Provider:?MARY ROSE D.O :1960???Age:63 Y???Sex:Female D ate:03/22/2024 Address:[address] [place] [id number] Pcp:Michela BEACH Subjective: * Chief Complaints: * ???[phone] Doxy Migrain es, ADHD * HPI: ???Interim History:? Geovanna is a 63 yo woman with a complicated past neuropsychiatric history (remote epilepsy, recent episodes of unclear etiology if PNES vs epilepsy, CELIO, migraines, mood disorder and attention deficit)- presenting for med management Todays visit is over video due to COVID Geovanna presents for follow up today. She notes her atypical facial pain and migraines remain to be an issue,but she is managing with soft foods, avoiding chewing hard things, and working wtih her neurologist PA out in [facility]. She continues to have fatigue in the AM, trying to work wtih her CPAP treatment and find a fit that works for her. REgarding her mood, She is doing very well- is now in therapy, finds this very helpful, and feels her med regimen is working for her as well. Anxiety is down, no signs of depression recently, less tearful, and more empowered to take care of herself and her own treatment.? From prior visit- Geovanna was referred by Megan Carnes in [facility] from neurology. She notes she has a number of difficulties, listed below- Bipolar II- dx in the past based on brief elevation in mood after startigng an antidepressant, but no clear kavya. She notes she has struggled with depression symptoms for many years, worsened considerably in the past few years after losing her job. Describes low mood, tearfulness, low motivation, trouble focusing, trouble sleeping. PTSD- she notes a hx of prior trauma, and a difficult childhood growing up. No current nightmares or other characteristic symptoms but has had them in the past. Epilepsy- hx of remote epilepsy, under good control for many years, but recently in 2019 she had episodes of alteration in consciousness with other strange symptoms- unclear if these were breaktrhough episodes or non-epileptic. They have since resolved. CELIO- using her mask and trying to tolerate it currently. Migraines- managed by her [employer] MEd trials- lexapro, methylphenidate, zoloft possibly? now duloxetine Has never tried- other SNRI's Outside records- reviewed intake packet and had discussed with outside providers previously. ?*?Prior Medication trials include- .? * ROS:?*SS ROS:?Headache?denies.?Eye Pain?denies.?Vertigo?denies.?Lightheadedness?denies.?Blurred Vision?denies.?Fever?denies.?Chills?denies.?Nausea?denies.?Hearing Difficulty?denies.?Swallowing Difficulty?denies.?Speech Difficulty?denies.?Tinnitus?denies.?Chest Pain?denies.?Shortness of Breath?denies.?Dizziness?denies.?Palpitations?denies.?Abdominal Pain?denies.?Diarhea?denies.?Constipation?denies.?Numbness?denies.?Tingling?carlton es.?W eakness?denies.?Bladder/Bowel Dysfunction?denies.?Dysuria?denies.?Anxiety or Depression?admits, see HPI.?Hallucinations?denies.?Delusions?denies.?Recent Falls?denies.?Fine Motor Skills?OK.?*Psychiatry:?AUDITORY/VISUAL HALLUCINATIONS?denies .?DELUSIONS?denies.?EATING DISORDER?denies.?LOSS OF APPETITE?denies.?MENTAL OR PHYSICAL ABUSE?denies.?SUBSTANCE ABUSE?denies.?SUICIDAL THOUGHTS?denies.?All other 11 systems are?negative .? * Medical History:? * Surgical History:?broken hip and femur 2008 * Hospitalization/Major Diagno stic Procedure:?surgery related head injury * Family History:?Father: dece ased.?Mother: , breast cancer lung cancer hyperlipidemia.?6 sister(s) . .? Sister.. breast cancer in her sisters, PTSD, anxiety mother depression, father alcoholic. * Social History:?Tobacco Use:?Tobacco Use/Smoking?Are you a?nonsmoker.?Tobacco use other than smoking?Are you an other tobacco user??No.?Drugs/Alcohol:?Caffeine?Intake:?1-2 cups per day.?Do you smoke marijuana?: Denies. Do you drink alcohol?: rare. ???lives alone, sisters nearby. 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 not using alcohol, no illicits, not a smoker. * Medications:?TakingbusPIRone HCl 5 MG Tablet 1 tablet Orally Twice a day ZyrTEC 10 MG Tablet Chewable 0.5 tablet Orally Once a day Famotidine 20 MG Tablet 1 tablet at bedtime as needed Orally Once a day carBAMazepine 200 MG Tablet 1 tablet Orally Twice a day Restasis 0.05 % Emulsion 1 drop into affected eye Ophthalmic Twice a day Celecoxib 100 MG Capsule 1 capsule with food Orally twice a day , Notes to Pharmacist: as neededTylenol 325 MG Tablet 1 tablet as needed Orally every 4 hrs , Notes to Pharmacist: as neededVerapamil HCl ER 180 MG Capsule Extended Release 24 Hour 1 capsule Orally Once a day LaMICtal 200 MG Tablet 1 tablet Orally twice a day SUMAtriptan Succinate 100 MG Tablet 1 tablet at least 2 hours between doses as needed Orally Twice a day Atorvastatin Calcium 40 MG Tablet 1 tablet Orally Once a day DULoxetine HCl 30 MG Capsule Delayed Release Particles TAKE 1 CAPSULE BY MOUTH ONCE DAILY clonazePAM 0.5 MG Tablet 1/4-1/2 tablet Orally Once a day , Notes to Pharmacist: prnMedication List reviewed and reconciled with the patientTaking busPIRone HCl 5 MG Tablet 1 tablet Orally Twice a day Taking ZyrTEC 10 MG Tablet Chewable 0.5 tablet Orally Once a day Taking Famotidine 20 MG Tablet 1 tablet at bedtime as needed Orally Once a day Taking carBAMazepine 200 MG Tablet 1 tablet Orally Twice a day Taking Restasis 0.05 % Emulsion 1 drop into affected eye Ophthalmic Twice a day Taking Celecoxib 100 MG Capsule 1 capsule with food Orally twice a day , Notes to Pharmacist: as neededTaking Tylenol 325 MG Tablet 1 tablet as needed Orally every 4 hrs , Notes to Pharmacist: as neededTaking Verapamil HCl ER 180 MG Capsule Extended Release 24 Hour 1 capsule Orally Once a day Taking LaMICtal 200 MG Tablet 1 tablet Orally twice a day Taking SUMAtriptan Succinate 100 MG Tablet 1 tablet at least 2 hours between doses as needed Orally Twice a day Taking Atorvastatin Calcium 40 MG Tablet 1 tablet Orally Once a day Taking DULoxetine HCl 30 MG Capsule Delayed Release Particles TAKE 1 CAPSULE BY MOUTH ONCE DAILY Taking clonazePAM 0.5 MG Tablet 1/4-1/2 tablet Orally Once a day , Notes to Pharmacist: prnMedication List reviewed and reconciled with the patient * Allergies:?WellbutrinCompazi neErythromycinno[Allergies Verified] Objective: * Vitals:?Wt:110lbs, BMI:19.48 Index, Ht: 63 in, Pain scale:01-10, Ht-cm: 160.02 cm, Wt-k.9 kg. * Examination: ???General Examination: ?GENERAL APPEARANCE:?in no acute distress, well developed, well nourished.?HEAD:?normocephalic, atraumatic.?EARS:?normal.?NOSE:?nares patent, no lesions.?ORAL CAVITY:?normal, good dentition, mucosa moist, palate normal, tongue in midline.?THROAT:?normal, no erythema, no exudate, tonsils normal, uvula midline.?NECK/THYROID:?normal, neck supple, full range of motion.?SKIN:?normal, no rashes, no suspicious lesions, warm and dry.?EXTREMITIES:?no clubbing, cyanosis, or edema.?NEUROLOGIC:?Cognition: alert, oriented to person, place, time and situation, gives appropriate short term and shelter personal history, speech fluent with no aphasic errors noted, CN's:EOMI, face symmetrical, tongue midline, palate rises equally, hearing grossly intact B/L, Motor: using arms equally on screen, no tremors noted remainder of exam deferred due to video today .?PSYCH:?Mental status: Pt seen and examined on their own at home. Dressed appropriately for the weather and situation, grooming intact. Affect was upbeat and future oriented today, mood described as doing really well! . Speech was fluent, without neologisms or flight of ideas noted. Thought process was logical and goal oriented, though content notable for concerns about her head/face pain, but devoid of thoughts of wanting to harm themselves or others, no delusions, hallucinations or kavya noted. Judgement and insight were intact and appropriate for participation in informed consent and treatment on an outpatient basis..? Assessment: * Assessment: 1.?Mood disorder - F39 (Prim melissa)?2.?PTSD (post-traumatic stress disorder) - F43.10?3.?Migraine without aura and without status migrainosus, not intractable - G43.009?4. Nonintractable generalized idiopathic epilepsy without status epilepticus - G40.309?5.?Obstructive sleep apnea - G47.33?6.?Attention deficit disorder (ADD) in adult - F98.8?7.?Generalized anxiety disorder - F41.1? Plan: * Treatment: 2.?Migraine without aura and without status migrainosus, not intractable? Clinical Notes: continued management with her primary neurologic provider in [facility]?? 3.?Nonintractable generalize d idiopathic epilepsy without status epilepticus? Clinical Notes: No recent episode, and diagnosis is epilepsy vs non epileptic episodes- will monitor.?? 4.?Obstructive sleep apnea? Clinical Notes: Agree [facility] treatment for AHI 17, if she can tolerate the treatment.?? 5.?Attention deficit disorde r (ADD) in adult? Clinical Notes: Notably, her headaches worsened on atomoxetine. Will not try another stimulant until she has resolved the concerns with the CPAP/sleep apnea, will follow up with the sleep study, and will need VS (BP/HR) before considering a stimulant. ?? 6.?Generalized anxiety disor jennifer? Continue clonazePAM Tablet, 0.5 MG, 1/4-1/2 tablet, Orally, Once a day, 30 days, 15, Refills 2;?Continue busPIRone HCl Tablet, 5 MG, 1 tablet, Orally, Twice a day, 90 days, 180 Tablet, Refills 2.?? Notes: buspirone 5mg twice daily?? Clinical Notes: using clonazepam rarely, and getting a great response for depression and anxiety with low dose buspirone- will continue. ?? 7.?Others? Clinical Notes: Neuro I spent a total of 30 minutes on the present encounter, which includes preparing for the encounter, obtaining history, performing examination, reviewing diagnostic data, ordering medications/testing/procedures and other care coordination, referring to and communicating with other health home health care case manager, documenting clinical information in the record, counseling, [...] sentence. If any questions, please contact the [facility] office at [phone]. ?? * Procedure Codes:? * Follow Up:?4-5 mos F2F * * Sign off status: Completed true * Provider:?MARY ROSE D.O Date:?0 03/22/2024 Generated for Chuck jeronimo/Zachery/Jazzitting on:?04/29/2024 04:12 PM EDT History and Physical Notes * HPI (History of Present Illness) Category Sub-Category Detail Notes Interim History * Prior Medication trials include- Examination Category Sub-Category Detail Notes General Examination GENERAL APPEARANCE: in no ac alem distress, well developed, well nourished HEAD: normocephalic, atrau matic EARS: normal NOSE: nares patent, no les ions THROAT: normal, no erythema, no exudate, tonsils normal, uvula midline NECK/THYROID: normal, neck supple, full range of motion HEART: LUNGS: NEUROLOGIC: Cognition: alert, or iented to person, place, time and situation, gives appropriate short term and shelter personal history, speech fluent with no aphasic errors noted,CN's:EOMI, face symmetrical, tongue midline, palate rises equally, hearing grossly intact B/L,Motor: using arms equally on screen, no tremors notedremainder of exam deferred due to video today SKIN: normal, no rashes, n o suspicious lesions, warm and dry EXTREMITIES: no clubbing, cyanosi s, or edema PSYCH: Mental status: Pt se en and examined on their own at home. Dressed appropriately for the weather and situation, grooming intact. Affect was upbeat and future oriented today, mood described as doing really well! . Speech was fluent, without neologisms or flight of ideas noted. Thought process was logical and goal oriented, though content notable for concerns about her head/face pain, but devoid of thoughts of wanting to harm themselves or others, no delusions, hallucinations or kavya noted. Judgement and insight were intact and appropriate for participation in informed consent and treatment on an outpatient basis. ORAL CAVITY: normal, good dentiti on, mucosa moist, palate normal, tongue in midline PODIATRIC:
--- OUTSIDE RECORDS SUMMARY | 2024-04-29 16:13 | XMS_ITS ---
Author Organization [facility] [email or web address] [place], [facility] Address [address] [address] Care Team Providers Care Speeder Hand Name Role Phone Ro Pulido NP Primary Care Provider MARY Self Unavailable [phone] Allergies Allergen (clinical drug ingredient) Drug/Non Drug Allergy documented on EMR Reaction Allergy Type Onset Date Status Wellbutrin Unknown Drug Allergy Active Compazine Unknown Drug Allergy Active erythromycin Erythromycin Unknown Drug Allergy A ctive REASON FOR VISIT [phone] Doxy Migraines, ADHD Medications Medication SIG (Take, Route, Frequency, Duration) Notes Start Date End Date Status Atorvastatin Calcium 40 MG 1 tablet Oral ly Once a day for 30 day(s) Active DULoxetine HCl 30 MG TAKE 1 CAPSULE BY MOUTH ONCE DAILY for 90 Active busPIRone HCl 5 MG 1 tablet Orally Twic e a day for 90 days Active clonazePAM 0.5 MG 1/4-1/2 tablet Orall y Once a day for 30 days 12/01/2023 Active DULoxetine HCl 30 MG 1 capsule Orally On ce a day for 90 days Active SUMAtriptan Succinate 100 MG 1 tablet at least 2 hours between doses as needed Orally Twice a day Active LaMICtal 200 MG 1 tablet Orally twic e a day Active Verapamil HCl ER 180 MG 1 capsule Orally Once a day for 30 day(s) Active Tylenol 325 MG 1 tablet as needed Orally every 4 hrs as needed Active Celecoxib 100 MG 1 capsule with food Orally twice a day for 30 days as needed Active carBAMazepine 200 MG 200mg in AM and 300 mg in PM Orally Twice a day Active Famotidine 20 MG 1 tablet at bedtime as needed Orally Once a day Active ZyrTEC 10 MG 1 tablet Orally Once a day Active Restasis 0.05 % 1 drop into affected eye Ophthalmic Twice a day Active Social History Tobacco Use: Social History Observation Description Date Details (start date - stop date) Never Smoker NA - NA Tobacco Use/Smoking Question Answer Notes Are you a nonsmoker Tobacco use other than smoking: Question Answer Notes Are you an other tobacco user? 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 12/01/2023 PTSD (post-traumatic stress disorder) (ICD-10 - F43.10) 12/01/2023 Migraine without aura and without status migrainosus, not intractable (ICD-10 - G43.009) continued management with her primary neurologic provider in [facility] 12/01/2023 Nonintractable generalized idiopathic epilepsy without status epilepticus (ICD-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 12/01/2023 Obstructive sleep apnea (ICD-10 - G47.33) Agree [facility] treatment for AHI 17, if she can tolerate the treatment. 12/01/2023 Attention deficit disorder (ADD) in adult (ICD-10 - F98.8) Notably, her headaches worsened on atomoxetine. Will not try another stimulant until she has resolved the concerns with the CPAP/sleep apnea, will follow up with the sleep study, and will need VS (BP/HR) before considering a stimulant. 12/01/2023 Generalized anxiety disorder (ICD-10 - F41.1) buspirone 5mg twice daily using clonazepam rarely, and getting a great response for depression and anxiety with low dose buspirone- will continue. 12/01/2023 Other Neuro I spent a total of 30 minutes on the present encounter, which includes preparing for the encounter, obtaining history, performing examination, reviewing diagnostic data, ordering medications/testing /procedures and other care coordination, referring to and communicating with other health direct care professional, documenting clinical information in the record, counseling, [...] sentence. If any questions, please contact the RESIST COATER DEVELOPER office at [phone]. Plan Of Treatment Medication Medication Name Sig Start Date Stop Date Notes busPIRone HCl 5 MG 1 tablet Orally Twic e a day for 90 days clonazePAM 0.5 MG /4-1/2 tablet Orall y Once a day for 30 days 12/01/2023 DULoxetine HCl 30 MG 1 capsule Orally On ce a day for 90 days Treatment Notes Assessment Notes Generalized anxiety disorder buspirone 5 mg twice daily Next Appt Details Follow Up: 3-4 mos video ok, Reason: Provider Name:[facility], 08/08/2024 01:30:00 PM, [address] [place] [address], [address], [place], [address], Progress Notes * Elian SILVAOB:1960 (63 yo F)Acc No.[id number]:12/01/2023 Patient:?Geovanna SILVA Provider:?MARY ROSE D.O :1960???Age:63 Y???Sex:Female D ate:12/01/2023 Address:[address] [place] [address], [address]-[phone] Pcp:Michela Preston NPC Subjective: * Chief Complaints: * ???[phone] Doxy Migrain es, ADHD * HPI: ???Interim [...] pain and migraines remain to be an issue, facial pain was triggered recently for about 3 weeks after doing more intense chewing, now better that she has gone back to her prior soft diet. Managing wellw ith increased water intake and exercise daily. Prior visit reviewed her seeking CPAP treatment, did not review that today. REgarding her mood, She notes since adding buspirone she is 70% better. She notes she is feeling overall better, less depression, less constant worry about , and notably has been eating better and gained 3lbs and is feeling better about her general health and wellness. Did not review her body concerns in greater detail today. Not worrying about constantly- able to rationalize better about her own health and the health of her sisters. Motivated, upbeat and looking forward to spring. No SE noted with buspirone.? From prior visit- Geovanna was referred by Megan Carnes in [facility] from neurology. She notes she has a [...] tolerate it currently. Migraines- managed by her ORAL SURGERY ASSISTANT MEd trials- lexapro, methylphenidate, zoloft possibly? now [...] History:? 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 not using alcohol, no illicits, not a smoker. * Medications:?TakingZyrTEC 10 MG Tablet Chewable 1 tablet Orally Once a day Famotidine 20 MG Tablet 1 tablet at bedtime as needed Orally Once a day carBAMazepine 200 MG Tablet 200mg in AM and 300mg in PM Orally Twice a day Restasis 0.05 % [...] Tablet 1 tablet Orally Once a day busPIRone HCl 5 MG Tablet 1 tablet Orally Twice a day DULoxetine HCl 30 MG Capsule Delayed Release Particles TAKE 1 CAPSULE BY MOUTH ONCE DAILY Taking ZyrTEC 10 MG Tablet Chewable 1 tablet Orally Once a day Taking Famotidine 20 MG Tablet 1 tablet at bedtime as needed Orally Once a day Taking carBAMazepine 200 MG Tablet 200mg in AM and 300mg in PM Orally Twice a day Taking Restasis 0.05 [...] 1 tablet Orally Once a day Taking busPIRone HCl 5 MG Tablet 1 tablet Orally Twice a day Taking DULoxetine HCl 30 MG Capsule Delayed Release Particles TAKE 1 CAPSULE BY MOUTH ONCE DAILY Not-Taking/PRNclonazePAM 0.5 MG Tablet 09/24-2 tablet Orally Once a day Not-Taking/PRN clonazePAM 0.5 MG Tablet 09/24-2 tablet Orally Once a day DiscontinuedLoratadine 10 MG Tablet 1 tablet Orally Once a day SUMAtriptan Succinate 6 MG/0.5ML Solution as directed Subcutaneous Omeprazole 20 MG Capsule Delayed Release 1 capsule 30 minutes before morning meal Orally twice a day Medication List reviewed and reconciled with the patientDiscontinued Loratadine 10 MG Tablet 1 tablet Orally Once a day Discontinued SUMAtriptan Succinate 6 MG/0.5ML Solution as directed Subcutaneous Discontinued Omeprazole 20 MG Capsule Delayed Release 1 capsule 30 minutes before morning meal Orally twice a day Medication List reviewed and reconciled with the patient * Allergies:?WellbutrinCompazi neErythromycinno[Allergies Verified] Objective: * Vitals:?Wt:108lbs, BMI:19.13 Index, Ht: 63 in, Pain scale:01-10, Ht-cm: 160.02 cm, Wt-k.99 kg. * Examination: ???General Examination: ?GENERAL APPEARANCE:?in [...] and situation, gives appropriate short term and group home personal history, speech fluent with no aphasic [...] and future oriented today, mood described as overall better! . Speech was fluent, without neologisms or [...] management with her primary neurologic provider in [facility]?? 3.?Nonintractable generalize d idiopathic epilepsy without status epilepticus? Clinical Notes: No recent episode, and diagnosis is epilepsy vs non epileptic episodes- will monitor.?? 4.?Obstructive sleep apnea? Clinical Notes: Agree [facility] treatment for AHI 17, if she can [...] referring to and communicating with other health direct care professional, documenting clinical information in the record, counseling, [...] sentence. If any questions, please contact the RESIST COATER DEVELOPER office at [phone]. ?? * Procedure Codes:? 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 . Speech was fluent, without neologisms or [...]
[2024-04-29 16:34] VITALS: BP 138/66; PULSE 74; RESP 18; TEMP 37; O2SAT 100
[2024-04-29 17:35] VITALS: BP 138/66; PULSE 74; RESP 18; TEMP 37; O2SAT 100
== END 2024-04-29 17:36 | disposition home or self-care (01) ==
PROVIDERS: Physician Assistant Medical; Emergency Provider Emergency Medicine Emergency Medical Services; PCP Nurse Practitioner Family
DX: R09.1 Pleurisy (principal); R07.9 Chest pain, unspecified; I10 Essential (primary) hypertension; E78.5 Hyperlipidemia, unspecified; Z79.02 Long term (current) use of antithrombotics/antiplatelets; Z79.899 Other long term (current) drug therapy; Z03.818 Encounter for observation for suspected exposure to other biological agents ruled out
CPT/HCPCS: 0241U; 71046; 80048; 80076; 83690; 83735; 84484; 85025; 85610; 93005; 99283

== ENCOUNTER → 2024-04-29 14:22 | Outpatient (BNV) | payer OTHER, SELFPAY | PROVIDERS: Emergency Provider Emergency Medicine Emergency Medical Services; PCP Nurse Practitioner Family; Visit Provider Internal Medicine Cardiovascular Disease | DX: R06.02 Shortness of breath (principal) | CPT/HCPCS: 93010 ==

== ENCOUNTER 2024-05-17 15:04 | Outpatient (AMB) | payer OTHER, SELFPAY ==
--- NOTE | 2024-05-17 15:59 | AM.OFFVISNUR ---
Intake Visit Reasons: Osteoporosis/prolia injection Allergies erythromycin base [ERYTHROMYCIN BASE] Allergy (Unknown, Verified 04/29/24 14:21) SWELLING From COMPAZINE Allergy (Unknown, Uncoded 04/29/24 14:21) EXTREME ANXIETY From WELLBUTRIN Allergy (Unknown, Uncoded 04/29/24 14:21) MOOD CHANGE (RAGE) Office Meds Prolia 60 mg/mL subcutaneous syringe Performing Provider: Alesia Denton MD Performing Location: [facility] Administered by: Justa De La Vega RN on 05/17/24 15:59 Dose Route Admin Location Dispensed Lot Number Expiration Date NDC Foreclosure Field Inspector 60 mg subcut right upper arm 1 mL [id number] 07/21/26 84522-191-37 AMGEN Comments: Dr. Denton reviewed labs and approved to proceed with injection. Pt brought this medication from home. Pt confirms has been refrigerating this since she received from the pharmacy on 05/09. Verified this with Puja Cha Director of inpatient pharmacy that this was okay to give. Consent form signed by patient. Pt tolerated injection well. Observed for 20 minutes following injection without incident. Pt aware to watch out for site reactions and call with any symptoms. Assessment & Plan Assessment & Plan Orders: Orders AMB Denosumab Injection Patient Supplied Today M81.0 - Age-related osteoporosis without current pathological fracture Medications: New Prolia (denosumab) 60 mg subcut ONCE 1 mL 0RF NS M81.0 - Age-related osteoporosis without current pathological fracture
== END 2024-05-17 15:57 | disposition home or self-care (01) ==
PROVIDERS: PCP Nurse Practitioner Family; Visit Provider Student in an Organized Health Care Education/Training Program
DX: M81.0 Age-related osteoporosis without current pathological fracture (principal)

== ENCOUNTER → 2024-05-17 15:04 | Outpatient (BNVA) | payer OTHER, SELFPAY | PROVIDERS: PCP Nurse Practitioner Family; Visit Provider Student in an Organized Health Care Education/Training Program | DX: M81.0 Age-related osteoporosis without current pathological fracture (principal) | CPT/HCPCS: 96372; J0897 ==

== ENCOUNTER 2024-06-21 09:03 | Outpatient (AMB) | payer OTHER, SELFPAY ==
--- NOTE | 2024-06-21 09:11 | A.OFFVIS_ITS ---
Vital Signs 06/21/24 09:13 Height 5 ft 3 in Weight 113 lb 1.554 oz BMI 20.0 BP 138/80 Blood Pressure Location Lt brachial Position Sitting Pulse 88 Pulse Source Pulse Oximeter Pulse Oximetry (%) 98 Oxygen Delivery Method Room Air Intake Visit Reasons: +VERONICA/Low Complements/CM Intake Note: Patient presents today for +VERONICA, low complements. Allergies erythromycin base [ERYTHROMYCIN BASE] Allergy (Unknown, Verified 06/21/24 09:14) SWELLING From COMPAZINE Allergy (Unknown, Uncoded 06/21/24 09:14) EXTREME ANXIETY From WELLBUTRIN Allergy (Unknown, Uncoded 06/21/24 09:14) MOOD CHANGE (RAGE) Medication List - Last Reconciled 06/21/24 by Gertrude Lawson MD atorvastatin 40 mg PO DAILY buspirone 5 mg PO BID carbamazepine ER (Tegretol XR) 1 tab qama nd 2 tabs qhs orally 2 times a day; 90 days celecoxib (Celebrex) 50 mg PO BID clonazepam 0.25 mg PO BEDTIME cyclosporine 0.05% (Restasis) drps ophthalmic (eye) denosumab (Prolia) 60 mg subcut [id number] duloxetine (Cymbalta) 30 mg PO .qd famotidine 10 mg PO DAILY lamotrigine 200 mg PO BID 90 days loratadine (Allergy Relief (loratadine)) 10 mg PO DAILY onabotulinumtoxinA (Botox) Inject 155 units across forehead scalp and neck; 12 weeks sumatriptan succinate 6 mg (0.5 mL) subcut ONCE PRN 30 days sumatriptan succinate 100 mg PO Q2H PRN verapamil ER 180 mg PO DAILY 90 days HPI Comments Details: Patient is a 64-year-old female who is here to follow-up positive VERONICA Interval History: Patient last seen 11/2023. At that time had no signs or symptoms concerning of autoimmune disease. Given a diagnosis of undifferentiated connective tissue disease based on positive VERONICA and low complements. No other signs or symptoms of connective tissue disease. Today patient reports she is well no complaints. No oral/nasal ulcers no prolonged morning stiffness no alopecia no Raynaud's, no photosensitivity, no rashes, no VTEs Rheumatology History: Referred by the neurologist, presents for initial evaluation of positive VERONICA. Undergoing evaluated by neuro for a pain to the right side of her face that radiates to the same side of her skull for over a year. It was 1st thought to be trigeminal neuralgia. During the her workup she was found to have the positive VERONICA and so she was referred for evaluation. She was tried on gabapentin for the facial pain but has since stopped. Denies Raynaud's, sores in the mouth and nose, photosensitivity, red warm s wollen joints, pericarditis, pleuritis, and other signs and symptoms of lupus. VERONICA 1 in 320 and C3 on C4 low without any other signs or symptoms concerning for connective tissue disease. No recurrent losses. Medication History: - [facility] Medical History Chronic migraine without aura, intractable, without status migrainosus Undifferentiated connective tissue disease Low complement measurement Osteoporosis Anterior neck pain At high risk for breast cancer Abdominal pain, epigastric Facial pain JASMINE (generalized anxiety disorder) Benign essential hypertension Urinary hesitancy Body dysmorphic disorder Cold sore Attention deficit hyperactivity disorder (ADHD) Family history of breast cancer Pain of right hip joint TMJ arthralgia Seizure disorder Osteopenia Migraines Bipolar 2 disorder Hyperlipidemia Surgical History H/O tooth extraction Family History Mother Cancer Breast cancer Arthritis Family/Other No problems noted. Sister Breast cancer Arthritis Sister Breast cancer Arthritis Social History Alcohol intake: current Alcohol intake frequency: holidays/special occasions only Patient Tobacco Use Status: Never used Tobacco Review of Systems Const Details: Review of Systems Constitutional: Denies fever, chills, weight loss ENT: Denies vision changes, eye pain or eye redness, dental caries, dry mouth GI: Denies nausea, vomiting, diarrhea, abdominal pain, change in BM Pulm: Denies SOB, LOCKE, hemoptysis, wheezing Cards: Denies chest pain, palpitations Skin: Denies Raynaud's, rash, nail changes, photosensitivity, CHILLING HOOD OPERATOR: Denies headaches, weakness, paresthesias, recurrent falls MSK: Denies joint swelling, muscle weakness, bone pain All other systems reviewed and are unremarkable except noted above Review of Symptoms Physical Exam Vital Signs: Last Vital Signs Pulse 88 10/01/24 09:13 BP 138/80 06/21/24 09:13 Pulse Ox 98 06/21/24 09:13 Oxygen Delivery Method Room Air 06/21/24 09:13 BMI result Body Mass Index 20.0 Const Other: Physical Examination Patient well appearing and in no apparent painful distress Able to rise from chair without support. ?Gait normal. Constitutional: ?Mucous membranes pink and moist patient alert and cooperative HEENT: ?Conjunctiva and sclera clear. ?Pupils equal round and reactive to light. ?No lymphadenopathy. ?Normal dentition. Resp: ?Normal respiratory effort and able to speak in complete sentences. ?Clear to auscultation bilaterally. ?No crackles, rales, rhonchi, wheezes heard. Cards: ?Regular rate and rhythm. ?S1 and S2 heard no murmurs. ?Radial pulses intact bilaterally MSK: ?No deformity, swelling, abnormalities noted to bilateral hands. ?No evidence of synovitis. ?Able to move all joints with full range of motion, without limitation. Results Reviewed Results Reviewed: Laboratory Tests 11/25/23 04/29/24 17:00 14:37 WBC 5.6 4.3 L RBC 4.01 L 3.95 L Hgb 11.7 L 12.0 Plt Count 309 275 Sodium 137 Potassium 4.1 Chloride 103 Carbon Dioxide 28 BUN 12 Creatinine 0.75 VERONICA Screen POSITIVE A VERONICA Titer 1:320 H VERONICA Pattern Nuclear, Nucleolar A Complement C3 49 L Complement C4 14 L Results and imaging reviewed. Assessment & Plan Assessment & Plan (1) Undifferentiated connective tissue disease: Code(s): M35.9 - Systemic involvement of connective tissue, unspecified Category: Medical Plan: #Positive VERONICA and low complements Positive VERONICA and low complements without any other signs or symptoms concerning for connective tissue disease. Would not give her a formal diagnosis of undifferentiated connective tissue disease because that would require some symptoms. Carbamazepine can cause drug-induced lupus however less likely to cause complement deficiencies (Neva MACKEY, Del Norma M, Adrian D, Linda Nicholson. Drug- induced lupus erythematosus. Arch Dermatol Res. 2009 Sep;301(1):99-105. doi: 10.1007/k60635-491-8415-6. Epub 2007Jun 07. PMID: [id number].) Given her high VERONICA titers we will still monitor her every 6 months for development of symptoms. Patient is aware of symptoms to look out for. (2) Low complement measurement: Code(s): R79.89 - Other specified abnormal findings of blood chemistry Category: Medical Plan: No complement will continue to monitor. Plan I spent 35 minutes reviewing the record and labs, seeing the patient, discussing the treatment plan and documenting in the medical record Orders: Orders Histone Antibody Today M35.9 - Systemic involvement of connective tissue, unspecified, R79.89 - Other specified abnormal findings of blood chemistry Anti DNA DS Antibody Today M35.9 - Systemic involvement of connective tissue, unspecified, R79.89 - Other specified abnormal findings of blood chemistry Complement C4 Today M35.9 - Systemic involvement of connective tissue, unspecified, R79.89 - Other specified abnormal findings of blood chemistry Protein Creatinine Ratio, Ur Today M35.9 - Systemic involvement of connective tissue, unspecified, R79.89 - Other specified abnormal findings of blood chemistry UA w Microscopic Today M35.9 - Systemic involvement of connective tissue, unspecified, R79.89 - Other specified abnormal findings of blood chemistry Complement C3 Today M35.9 - Systemic involvement of connective tissue, unspecified, R79.89 - Other specified abnormal findings of blood chemistry C Reactive Protein Today M35.9 - Systemic involvement of connective tissue, unspecified, R79.89 - Other specified abnormal findings of blood chemistry Erythrocyte Sedimentation Rate Today M35.9 - Systemic involvement of connective tissue, unspecified, R79.89 - Other specified abnormal findings of blood chemistry Complete Blood Count Auto Diff Today M35.9 - Systemic involvement of connective tissue, unspecified, R79.89 - Other specified abnormal findings of blood chemistry Comprehensive Met. Panel Today M35.9 - Systemic involvement of connective tissue, unspecified, R79.89 - Other specified abnormal findings of blood chemistry Coding Level of Care Code Est Pt Level 3 (67551) Diagnoses Undifferentiated connective tissue disease M35.9 Low complement measurement R79.89
[2024-06-21 09:13] VITALS: BP 138/80; PULSE 88; O2SAT 98
== END 2024-06-21 10:06 | disposition home or self-care (01) ==
PROVIDERS: PCP Nurse Practitioner Family; Visit Provider Student in an Organized Health Care Education/Training Program
DX: M35.89 Other specified systemic involvement of connective tissue (principal); R79.89 Other specified abnormal findings of blood chemistry
CPT/HCPCS: 99214

== ENCOUNTER → 2024-06-21 09:03 | Outpatient (BNVA) | payer OTHER, SELFPAY | PROVIDERS: PCP Nurse Practitioner Family; Visit Provider Student in an Organized Health Care Education/Training Program ==

== ENCOUNTER 2024-06-21 10:16 | Outpatient (REF) | payer OTHER, SELFPAY ==
[2024-06-21 11:03] LABS: MANUAL DIFF FLAG NO
[2024-06-21 11:11] LABS: Appearance Urine Clear; Color Urine Dark Yellow; Glucose Urine UA Negative (Negative); Leukocyte Esterase Urine Negative (Negative); Nitrite Urine Negative (Negative); PH 6.5 (5.0-9.0); Specific Gravity - Urine >= 1.030 (1.005-1.025); Urine Blood Negative (Negative); Urine Ketones Trace mg/dL (Negative); Urine Protein Trace mg/dL (Neg-Trace)
[2024-06-21 11:15] LABS: Bacteria Urine None Seen (None Seen); Hyaline Casts Urine 0-2 /LPF (0-2); RBC Urine 0-2 /HPF (0-2); Squamous Epithelial Cell Urine 0-2 /HPF (0-2); WBC Urine 0-5 /HPF (0-5)
[2024-06-21 11:23] LABS: Basophils Absolute Auto 0.1 X10*3/uL (0.0-0.2); Basophils Percent Auto 1.2 % (0-2); Eosinophils Absolute Auto 0.2 X10*3/uL (0.0-0.4); Eosinophils Percent Auto 5.3 % (0-4); Hematocrit 36.6 % (37.0-47.0); Hemoglobin 11.7 g/dl (12.0-16.0); Imm Gran Abs Auto 0.01 X10*3/uL (0.00-0.03); Imm Gran Pct Auto 0.2 % (0.0-0.4); Lymphocytes Absolute Auto 1.5 X10*3/uL (1.2-4.9); Lymphocytes Percent Auto 35.3 % (20-40); Mean Corpuscular Hemoglobin 29.2 pg (27.0-33.0); Mean Corpuscular Volume 91.3 fL (80.0-98.0); Mean Platelet Volume 9.2 fL (9.4-12.3); Monocytes Absolute Auto 0.5 X10*3/uL (0.1-1.2); Monocytes Percent Auto 11.8 % (2-11); Neutrophils Percent Auto 46.2 % (45-73); Platelet Count 297 X10*3/uL (160-400); Red Blood Count 4.01 X10*6/uL (4.20-5.50); Red Cell Distribution Width 12.7 % (11.0-16.0); White Blood Count 4.3 X10*3/uL (4.8-10.8)
[2024-06-21 11:28] LABS: Alanine Aminotransferase 22 U/L (0-31); Albumin Level 4.4 g/dL (3.5-5.0); Alkaline Phosphatase 65 U/L (39-117); Anion Gap 9 (12-20); Aspartate Amino Transferase 20 U/L (5-31); Bilirubin Total 0.4 mg/dL (0.0-1.0); Blood Urea Nitrogen 18 mg/dL (9-16); C Reactive Protein < 0.10 mg/dL (< or = 0.50); Calcium 8.7 mg/dL (8.4-10.2); Carbon Dioxide 27 mmol/L (22-29); Chloride 109 mmol/L (96-108); Estimated Glomerular Filt Rate > 60; Glucose Random 93 mg/dL (60-115); Potassium 4.2 mmol/L (3.3-5.1); Sodium 141 mmol/L (135-145); Total Protein 6.9 g/dL (6.5-8.0)
[2024-06-21 11:52] LABS: Creatinine Urine 161.69 mg/dL; Protein/Creatinine Ratio, Ur 0.19 (<0.2); Total Protein Urine Random 31 mg/dL (<12)
[2024-06-21 12:00] LABS: Erythrocyte Sedimentation Rate 4 MM/HR (0-20)
[2024-06-22 12:32] LABS: Complement C3 91 mg/dL (83-193)
[2024-06-22 22:43] LABS: Anti DNA DS Antibody 1 IU/mL
[2024-06-28 05:44] LABS: Histone Antibody 1.6 U (<1.0)
== END 2024-06-21 10:17 | disposition home or self-care (01) ==
LOC: HO.10HDL 10:16
PROVIDERS: Visit Provider Student in an Organized Health Care Education/Training Program
DX: M35.9 Systemic involvement of connective tissue, unspecified (principal); R79.89 Other specified abnormal findings of blood chemistry
CPT/HCPCS: 36415; 80053; 81001; 82570; 83516; 84156; 85025; 85652; 86140; 86160; 86225

== ENCOUNTER 2024-07-11 21:11 | Emergency (ER) | payer OTHER, SELFPAY ==
--- NOTE | 2024-07-11 | ECG_ITS ---
Test Reason : palpitations Blood Pressure : / mmHG Vent. Rate : 086 BPM Atrial Rate : 086 BPM P-R Int : 144 ms QRS Dur : 072 ms QT Int : 364 ms P-R-T Axes : 052 037 049 degrees QTc Int : 435 ms Sinus rhythm with Premature atrial complexes Otherwise normal ECG When compared with ECG of 29-APR-2024 14:26, Premature atrial complexes are now Present Referred By: Generic ED Physician Electronically Signed By:Margarito Vences
[2024-07-11 21:19] VITALS: BP 154/71; PULSE 80; RESP 18; TEMP 36.3; O2SAT 96; BMI 19.5
[2024-07-11 21:37] LABS: MANUAL DIFF FLAG NO
[2024-07-11 21:42] LABS: Basophils Absolute Auto 0.1 X10*3/uL (0.0-0.2); Basophils Percent Auto 0.9 % (0-2); Eosinophils Absolute Auto 0.3 X10*3/uL (0.0-0.4); Eosinophils Percent Auto 5.1 % (0-4); Hematocrit 32.9 % (37.0-47.0); Hemoglobin 11.3 g/dl (12.0-16.0); Imm Gran Abs Auto 0.01 X10*3/uL (0.00-0.03); Imm Gran Pct Auto 0.2 % (0.0-0.4); Lymphocytes Absolute Auto 2.3 X10*3/uL (1.2-4.9); Lymphocytes Percent Auto 42.4 % (20-40); Mean Corpuscular HGB Conc 34.3 g/dl (31.0-35.0); Mean Corpuscular Hemoglobin 30.3 pg (27.0-33.0); Mean Corpuscular Volume 88.2 fL (80.0-98.0); Mean Platelet Volume 9.2 fL (9.4-12.3); Monocytes Absolute Auto 0.5 X10*3/uL (0.1-1.2); Monocytes Percent Auto 9.8 % (2-11); Neutrophils Absolute Auto 2.3 x10*3/uL (2.0-8.3); Neutrophils Percent Auto 41.6 % (45-73); Platelet Count 301 X10*3/uL (160-400); Red Blood Count 3.73 X10*6/uL (4.20-5.50); Red Cell Distribution Width 12.8 % (11.0-16.0); White Blood Count 5.5 X10*3/uL (4.8-10.8)
[2024-07-11 21:53] LABS: Alanine Aminotransferase 23 U/L (0-31); Albumin Level 4.3 g/dL (3.5-5.0); Alkaline Phosphatase 68 U/L (39-117); Anion Gap 11 (12-20); Aspartate Amino Transferase 22 U/L (5-31); Bilirubin Total 0.3 mg/dL (0.0-1.0); Blood Urea Nitrogen 17 mg/dL (9-16); Calcium 9.4 mg/dL (8.4-10.2); Carbon Dioxide 27 mmol/L (22-29); Chloride 107 mmol/L (96-108); Creatinine Clr Calc Pharmacy 63.2; Estimated Glomerular Filt Rate > 60; Glucose Random 103 mg/dL (60-115); Potassium 3.7 mmol/L (3.3-5.1); Sodium 141 mmol/L (135-145); Total Protein 6.5 g/dL (6.5-8.0)
[2024-07-11 22:01] LABS: Troponin-I High Sensitivity < 2.7 ng/L (<3.5-17.0)
--- NOTE | 2024-07-12 00:51 | ED.ARRPALP ---
HPI - Arrhythmia/Palpitations General Chief Complaint: Arrhythmia/Palpitations Stated Complaint: irragular heart beat? Time Seen by Provider: 07/12/24 00:23 Source: patient Mode of arrival: ambulatory Limitations: no limitations History of Present Illness ED Provider: gabriel MERCHANT narrative: Patient with no known significant cardiac history since a.m. noticed skipping heartbeats off and on with no nausea no vomiting no chest pain no shortness a breath no dizziness no passing out episode. No history of similar episodes in the past Related Data Home Medications ?Medication ?Instructions ?Recorded ?Confirmed duloxetine 20 mg capsule,delayed 30 mg PO .qd 12/30/21 06/21/24 release (Cymbalta) clonazepam 0.25 mg disintegrating 0.25 mg PO BEDTIME 05/30/22 06/21/24 tablet cyclosporine 0.05 % eye drops in a drp ophthalmic (eye) 03/02/23 06/21/24 dropperette (Restasis) buspirone 5 mg tablet 5 mg PO BID 09/28/23 06/21/24 celecoxib 50 mg capsule (Celebrex) 50 mg PO BID 09/28/23 06/21/24 famotidine 10 mg tablet 10 mg PO DAILY 09/28/23 06/21/24 loratadine 10 mg tablet (Allergy 10 mg PO DAILY 09/28/23 06/21/24 Relief (loratadine)) Previous Rx's ?Medication ?Instructions ?Recorded atorvastatin 40 mg tablet 40 mg PO DAILY #30 tabs 09/27/21 onabotulinumtoxinA 200 unit See Rx Instructions .Route 12/18/21 solution for injection (Botox) .COMPLEX 12 weeks #1 ea sumatriptan succinate 6 mg/0.5 mL 6 mg (0.5 mL) subcut ONCE PRN 10/06/23 subcutaneous pen injector migraine headache 30 days #5 mL verapamil 180 mg 24 hr 180 mg PO DAILY 90 days #90 caps 10/19/23 capsule,extended release denosumab 60 mg/mL subcutaneous 60 mg subcut R4LYGEIN #1 mL 12/01/23 syringe (Prolia) carbamazepine 200 mg See Rx Instructions PO BID 90 days 12/07/23 tablet,extended release,12 hr #270 tabs (Tegretol XR) sumatriptan succinate 100 mg tablet 100 mg PO Q2H PRN for migraine #12 05/26/24 tabs lamotrigine 200 mg tablet 200 mg PO BID 90 days #180 tabs 07/01/24 Allergies Allergy/AdvReac Type Severity Reaction Status Date / Time erythromycin base Allergy Unknown SWELLING Verified 07/11/24 21:22 [ERYTHROMYCIN BASE] From COMPAZINE Allergy Unknown EXTREME Uncoded 07/11/24 21:22 ANXIETY From WELLBUTRIN Allergy Unknown MOOD Uncoded 07/11/24 21:22 CHANGE (RAGE) Review of Systems Review of Systems: Yes all other systems are reviewed and are negative [facility] Past Medical History Medical History Chronic migraine without aura, intractable, without status migrainosus Undifferentiated connective tissue disease Low complement measurement Osteoporosis Anterior neck pain At high risk for breast cancer Abdominal pain, epigastric Facial pain JASMINE (generalized anxiety disorder) Benign essential hypertension Urinary hesitancy Body dysmorphic disorder Cold sore Attention deficit hyperactivity disorder (ADHD) Family history of breast cancer Pain of right hip joint TMJ arthralgia Seizure disorder Osteopenia Migraines Bipolar 2 disorder Hyperlipidemia Surgical History H/O tooth extraction Family History Family History Mother Cancer Breast cancer Arthritis Family/Other No problems noted. Sister Breast cancer Arthritis Sister Breast cancer Arthritis Social History Social History Alcohol intake: current Alcohol intake frequency: holidays/special occasions only Patient Tobacco Use Status: Never used Tobacco Advance Directives: No Advance Directives Information Provided: Yes Do you have a plan to hurt others: No Plan Physical Exam Vital Signs: Vital Signs: Last Vital Signs Temp 97.4 F 07/11/24 21:19 Pulse 80 07/11/24 21:19 Resp 18 07/11/24 21:19 BP 154/71 H 07/11/24 21:19 Pulse Ox 96 07/11/24 21:19 BMI result Body Mass Index 19.5 Appearance: Alert. Oriented X3. No acute distress. Eyes: PERRLA, No Nystagmus ENT: Pharynx normal. Oral Mucosa moist Neck: Normal inspection. Neck supple. CVS: Normal heart rate and rhythm. Pulses normal. Respiratory: No respiratory distress. Equal air entry bilateral, no wheezing/rales/rhonchi Abdomen: Soft and nontender. Bowel sounds are present, no mass palpable, no CVA tenderness Skin: Skin warm and dry. Normal skin color. Normal skin turgor. Extremities: No lower extremity edema. No calf tenderness Neuro: Oriented X 3. No motor deficit. No sensory deficit.No cerebellar signs , cranial nerves II-XII intact Medical Decision Making Medical Decision Making [facility] Narrative: Patient has occasional PACs during stay in the ER secured entrance monitor shows normal sinus rhythm labs were stable will discharge patient home Differential Diagnosis Differential Diagnoses: The differential diagnosis associated with the presentation includes PACs/AFib/atrial flutter/SVT Lab Data [facility] Lab Attestation statement: I reviewed the patient's lab results. 07/11/24 21:32 07/11/24 21:32 Labs: Lab Results 07/11/24 Range/Units 21:32 WBC 5.5 (4.8-10.8) X10*3/uL RBC 3.73 L (4.20-5.50) X10*6/uL Hgb 11.3 L (12.0-16.0) g/dl Hct 32.9 L (37.0-47.0) % MCV 88.2 (80.0-98.0) fL MCH 30.3 (27.0-33.0) pg MCHC 34.3 (31.0-35.0) g/dl RDW 12.8 (11.0-16.0) % Plt Count 301 (160-400) X10*3/uL MPV 9.2 L (9.4-12.3) fL Immature Gran % (Auto) 0.2 (0.0-0.4) % Neut % (Auto) 41.6 L (45-73) % Lymph % (Auto) 42.4 H (20-40) % [place] % (Auto) 9.8 (2-11) % Eos % (Auto) 5.1 H (0-4) % Baso % (Auto) 0.9 (0-2) % Lymph # (Auto) 2.3 (1.2-4.9) X10*3/uL [place] # (Auto) 0.5 (0.1-1.2) X10*3/uL Eos # (Auto) 0.3 (0.0-0.4) X10*3/uL Baso # (Auto) 0.1 (0.0-0.2) X10*3/uL Abs Immat Gran (auto) 0.01 (0.00-0.03) X10*3/uL Absolute Neuts (auto) 2.3 (2.0-8.3) x10*3/uL Absolute Nucleated RBC 0.000 (0.0-0.012) X10*3/uL Nucleated RBC % (auto) 0.0 (0.0-0.2) /100WBC Sodium 141 (135-145) mmol/L Potassium 3.7 (3.3-5.1) mmol/L Chloride 107 (96-108) mmol/L Carbon Dioxide 27 (22-29) mmol/L Anion Gap 11 L (12-20) BUN 17 H (9-16) mg/dL Creatinine 0.69 (0.5-1.4) mg/dL Estim Creat Clear Calc 63.2 Estimated GFR > 60 Random Glucose 103 (60-115) mg/dL Calcium 9.4 D (8.4-10.2) mg/dL Total Bilirubin 0.3 (0.0-1.0) mg/dL AST 22 (5-31) U/L ALT 23 (0-31) U/L Alkaline Phosphatase 68 (39-117) U/L Troponin I High Sens < 2.7 (<3.5-17.0) ng/L Total Protein 6.5 (6.5-8.0) g/dL Albumin 4.3 (3.5-5.0) g/dL Independent Interpretation I performed an independent interpretation of an: EKG Interpretation: Normal sinus rhythm heart rate 86 beats per minute normal interval normal axis occasional PACs no acute STT wave changes no acute ischemia Discharge Plan Discharge Clinical Impression: Heart palpitations Patient Disposition: Home, Self-Care Instructions: Premature Atrial Contractions (ED) Additional Instructions: Palpitation is likely from premature heartbeats which is a benign condition Decreased caffeine intake Report to the ER/PCP if you have runs of irregular heartbeat/passing out episode Prescriptions: No Action Botox 200 unit recon soln See Rx Instructions .ROUTE .COMPLEX 84 Days Qty: 1 3RF Rx Instructions: Inject 155 units across forehead scalp and neck; sumatriptan succinate 6 mg/0.5 mL pen injector 6 mg subcut ONCE PRN (Reason: migraine headache) 30 Days Qty: 5 6RF Rx Instructions: may repeat in 1 hr. Do not take w/in 24 hrs of Sumatriptan tablet. verapamil 180 mg capsule,ext rel. pellets 24 hr 180 mg PO DAILY 90 Days Qty: 90 1RF Prolia 60 mg/mL syringe 60 mg subcut [id number] Qty: 1 4RF carbamazepine [Tegretol XR] 200 mg tablet extended release 12 hr See Rx Instructions PO BID 90 Days Qty: 270 1RF Rx Instructions: 1 tab qama nd 2 tabs qhs orally 2 times a day; sumatriptan succinate 100 mg tablet 100 mg PO Q2H PRN (Reason: for migraine) Qty: 12 6RF lamotrigine 200 mg tablet 200 mg PO BID 90 Days Qty: 180 2RF atorvastatin 40 mg tablet 40 mg PO DAILY Qty: 30 0RF duloxetine [Cymbalta] 20 mg capsule,delayed release(DR/EC) 30 mg PO .qd clonazepam 0.25 mg tablet,disintegrating 0.25 mg PO BEDTIME Rx Instructions: administer 30 minutes before bedtime cyclosporine [Restasis] 0.05 % dropperette ophthalmic (eye) buspirone 5 mg tablet 5 mg PO BID celecoxib [Celebrex] 50 mg capsule 50 mg PO BID famotidine 10 mg tablet 10 mg PO DAILY loratadine [Allergy Relief (loratadine)] 10 mg tablet 10 mg PO DAILY Print Language: Sammarinese
[2024-07-12 01:23] VITALS: BP 157/51; PULSE 77; RESP 14; TEMP 36.9; O2SAT 97
[2024-07-12 01:28] VITALS: BP 157/51; PULSE 77; RESP 14; TEMP 36.9; O2SAT 97
== END 2024-07-12 01:28 | disposition home or self-care (01) ==
PROVIDERS: Emergency Provider Internal Medicine; PCP Nurse Practitioner Family
DX: R00.2 Palpitations (principal); I10 Essential (primary) hypertension; G40.909 Epilepsy, unspecified, not intractable, without status epilepticus
CPT/HCPCS: 36415; 80053; 84484; 85025; 93005; 99283; 99284

== ENCOUNTER → 2024-07-11 21:21 | Outpatient (BNV) | payer OTHER, SELFPAY | PROVIDERS: Emergency Provider Internal Medicine; PCP Nurse Practitioner Family; Visit Provider Internal Medicine Cardiovascular Disease | DX: R00.2 Palpitations (principal); I49.1 Atrial premature depolarization | CPT/HCPCS: 93010 ==

== ENCOUNTER 2024-07-25 11:00 | Outpatient (AMB) | payer OTHER, SELFPAY ==
--- NOTE | 2024-07-25 11:07 | A.OFFVIS_ITS ---
Vital Signs 07/25/24 11:07 Height 5 ft 3 in Intake Visit Reasons: BOTOX- Intake Note: Patient presents for botox Allergies erythromycin base [ERYTHROMYCIN BASE] Allergy (Unknown, Verified 07/25/24 11:13) SWELLING From COMPAZINE Allergy (Unknown, Uncoded 07/25/24 11:13) EXTREME ANXIETY From WELLBUTRIN Allergy (Unknown, Uncoded 07/25/24 11:13) MOOD CHANGE (RAGE) HPI Comments Details: ? 64y/o female comes for treatment of migraines and torticollis with botox. Patient has CELIO AHI 18 and O2 sheba was 80%.waiting for CPAP ??? Most frequent reported adverse reactions following injection of botox for chronic migraine include neck pain (9%), headache(5%), eyelid ptosis(4%), migraine(4%), muscular weakness(4%), musculuskeletal stiffness(4%), bronchitis(3%), injection site pain (3%), musculoskeletal pain(3%), myalgia(3%), facial paresis(2%), HTN(2%) and muscle spasms(2%) were discussed in detail. ??? Botulinum toxin type A 200units Lot no [id number] expiration Oct 2026 was diluted with 4 cc of normal saline . ??? Muscles injected- ? Temporalis- 8 sites- 20 units each?? procerus-5 units Corrugators 5 units each Left trapezius- 30 units Right Trapezius 10 units Left levator 50 units Left splenius 25 units Left TMJ Masseter - 20 units Tito frontalis 5 units each ? Total use- 200units ??? PFSH Medical History Chronic migraine without aura, intractable, without status migrainosus Undifferentiated connective tissue disease Low complement measurement Osteoporosis Anterior neck pain At high risk for breast cancer Abdominal pain, epigastric Facial pain JASMINE (generalized anxiety disorder) Benign essential hypertension Urinary hesitancy Body dysmorphic disorder Cold sore Attention deficit hyperactivity disorder (ADHD) Family history of breast cancer Pain of right hip joint TMJ arthralgia Seizure disorder Osteopenia Migraines Bipolar 2 disorder Hyperlipidemia Surgical History H/O tooth extraction Family History Mother Cancer Breast cancer Arthritis Family/Other No problems noted. Sister Breast cancer Arthritis Sister Breast cancer Arthritis Social History Alcohol intake: current Alcohol intake frequency: holidays/special occasions only Patient Tobacco Use Status: Never used Tobacco Physical Exam Const General: cooperative and no acute distress Orientation/consciousness: patient oriented x3 HEENT Head: Yes normocephalic Resp Effort & Inspection: normal respiratory effort and able to speak in complete sentences Neuro General: patient oriented x3 Cognition (Neuro): normal cognition Psych Appearance: grossly normal Mental Status: mental status grossly normal Speech and movement: Normal speech and movement present Affect: normal affect Attitude: cooperative Thought process: Normal thought process present Thought content: Normal thought content present Insight: Good insight present (Psych) Judgement: Good judgement present (Psych) Office Procedures Botulinum toxin Injection 62823 - Migraine Procedure code (CPT) selection complete Office Meds onabotulinumtoxinA 200 unit solution for injection Performing Provider: Cally Moody MD Performing Location: [facility] [place] [facility] Administered by: Cally Moody MD on 07/25/24 11:45 Dose Route Admin Location Dispensed Lot Number Expiration Date [facility] Product Marketing Engineer 200 unit subcut 200 units [id number] 10/22/26 3984-1084-26 ALLERGAN/BOTOX Comments: see HPI Assessment & Plan Assessment & Plan (1) Chronic migraine without aura, intractable, without status migrainosus: Code(s): G43.719 - Chronic migraine without aura, intractable, without status migrainosus Category: Medical (2) Atypical facial pain: Comment: left sided V1, V2 distribution Code(s): G50.1 - Atypical facial pain Category: Medical (3) Migraine with aura, intractable, without status migrainosus: Code(s): G43.119 - Migraine with aura, intractable, without status migrainosus Category: Medical (4) Obstructive sleep apnea: Comment: AHI 18 O2 sheba 80% - tried CPAP 3 times in the past and could not use it . Wanting to try again and consider INSPIRE Code(s): G47.33 - Obstructive sleep apnea (adult) (pediatric) Category: Medical Plan Patient tolerated the procedure well trial AUtoPAP 5-20 and refer to ENT for DISE to evaluate for iNSPIRE. she will call with any side effects tegretol XR 200 mg qam and 400 mg qhs Orders: Orders AMB Botulinum toxin Injection Today G43.719 - Chronic migraine without aura, intractable, without status migrainosus Medications: New onabotulinumtoxinA 200 units subcut ONCE 1 ea 0RF migraine G43.719 - Chronic migraine without aura, intractable, without status migrainosus Scribe Plan - Not visible on output: Reviewed possible medication side effects, including but not limited to drowsiness, dizziness. Coding Level of Care Code Est Pt Level 1 (59009) Diagnoses Chronic migraine without aura, intractable, without status migrainosus G43.719 Atypical facial pain G50.1 Migraine with aura, intractable, without status migrainosus G43.119 Obstructive sleep apnea G47.33 CPT Codes Botox Injection - Botox 3: 36653 - Migraine ([id number])
== END 2024-07-25 11:35 | disposition home or self-care (01) ==
LOC: HO.HSMS 11:00
PROVIDERS: PCP Nurse Practitioner Family; Visit Provider Psychiatry & Neurology Neurology
DX: G43.E19 Chronic migraine with aura, intractable, without status migrainosus (principal)
CPT/HCPCS: 64615

== ENCOUNTER → 2024-07-25 11:00 | Outpatient (BNVA) | payer OTHER, SELFPAY | PROVIDERS: PCP Nurse Practitioner Family; Visit Provider Psychiatry & Neurology Neurology | DX: G43.E19 Chronic migraine with aura, intractable, without status migrainosus (principal); G50.1 Atypical facial pain; G47.33 Obstructive sleep apnea (adult) (pediatric) | CPT/HCPCS: 64615; 99211; J0585 ==

== ENCOUNTER 2024-07-27 07:25 | Outpatient (REF) | payer OTHER, SELFPAY ==
[2024-07-27 07:53] LABS: MANUAL DIFF FLAG NO
[2024-07-27 08:05] LABS: Eosinophils Absolute Auto 0.2 X10*3/uL (0.0-0.4); Eosinophils Percent Auto 5.1 % (0-4); Hematocrit 33.5 % (37.0-47.0); Hemoglobin 11.4 g/dl (12.0-16.0); Imm Gran Abs Auto 0.01 X10*3/uL (0.00-0.03); Imm Gran Pct Auto 0.2 % (0.0-0.4); Lymphocytes Absolute Auto 1.5 X10*3/uL (1.2-4.9); Lymphocytes Percent Auto 36.5 % (20-40); Mean Corpuscular Hemoglobin 29.8 pg (27.0-33.0); Mean Corpuscular Volume 87.5 fL (80.0-98.0); Mean Platelet Volume 9.2 fL (9.4-12.3); Monocytes Absolute Auto 0.5 X10*3/uL (0.1-1.2); Monocytes Percent Auto 12.3 % (2-11); Neutrophils Absolute Auto 1.8 x10*3/uL (2.0-8.3); Neutrophils Percent Auto 44.9 % (45-73); Platelet Count 306 X10*3/uL (160-400); Red Blood Count 3.83 X10*6/uL (4.20-5.50); White Blood Count 4.1 X10*3/uL (4.8-10.8)
[2024-07-27 08:24] LABS: Carbamazepine Tegretol 5.6 mcg/mL (5.0-12.0)
[2024-07-27 08:26] LABS: Alanine Aminotransferase 34 U/L (0-31); Albumin Level 4.3 g/dL (3.5-5.0); Alkaline Phosphatase 64 U/L (39-117); Anion Gap 12 (12-20); Aspartate Amino Transferase 27 U/L (5-31); Bilirubin Total 0.4 mg/dL (0.0-1.0); Blood Urea Nitrogen 12 mg/dL (9-16); Calcium 8.6 mg/dL (8.4-10.2); Carbon Dioxide 25 mmol/L (22-29); Chloride 107 mmol/L (96-108); Cholesterol 225 mg/dL (<200); Estimated Glomerular Filt Rate > 60; Glucose Random 105 mg/dL (60-115); HDL Cholesterol 67 mg/dL (>40); LDL Cholesterol Calculated 139 mg/dL (<100); Potassium 3.9 mmol/L (3.3-5.1); Sodium 140 mmol/L (135-145); Total Protein 6.9 g/dL (6.5-8.0); Triglycerides 99 mg/dL (<150)
[2024-08-01 03:44] LABS: Lamotrigine Lamictal 4.1 mcg/mL (2.5-15.0)
== END 2024-07-27 07:26 | disposition home or self-care (01) ==
LOC: HO.LAB 07:25
PROVIDERS: PCP Nurse Practitioner Family; Visit Provider Family Medicine
DX: Z13.9 Encounter for screening, unspecified (principal); G40.909 Epilepsy, unspecified, not intractable, without status epilepticus
CPT/HCPCS: 36415; 80053; 80061; 80156; 80175; 85025

== ENCOUNTER 2024-08-14 13:15 | Emergency (ER) | payer OTHER, SELFPAY ==
--- NOTE | ~2024-08-14 | CT_ITS ---
EXAMINATION: CT HEAD WITHOUT CONTRAST CT CERVICAL SPINE WITHOUT CONTRAST CLINICAL INFORMATION: Fall. Head strike. Headache. COMPARISON: Brain MRI from 12/04/2021. TECHNIQUE: Contiguous axial imaging was performed from the skull base to vertex without intravenous administration of contrast. Contiguous axial imaging was performed from the upper chest through the skull base without intravenous administration of contrast. Coronal and sagittal reformats were obtained at the acquisition workstation. This CT examination was performed using dose optimization techniques as appropriate, variously including the following: *Automated exposure control. *Adjustment of mA and/or kV according to patient size (this includes techniques or standardized protocols for targeted exams where dose is matched to indication/reason for exam; i.e. extremities or head). *Use of iterative reconstruction technique. DLP: 866 mGy-cm FINDINGS: Head: There is no evidence of acute intracranial hemorrhage or edematous territorial infarction. Burleson-white matter differentiation is preserved. A few foci of hypoattenuation in the periventricular and deep white matter are consistent with mild microangiopathy. The ventricles are normal in morphology and size. No evidence for obstructive hydrocephalus. No abnormal mass effect or midline shift. No extra-axial fluid collections. Moderate subgaleal hematoma along the right aspect of the frontal bone, measuring up to 0.5 cm in depth. No associated acute osseous abnormalities. Mild mucosal thickening of the paranasal sinuses. The mastoid air cells and middle ear cavities are clear. Moderate to advanced degenerative arthropathy of the temporomandibular joints. Cervical Spine: The atlantooccipital and atlantoaxial articulations remain well aligned. Moderate degenerative arthropathy of the atlantodental articulation. Mild degenerative stepwise anterolistheses of C3-C5. Straightening of the normal cervical lordosis. Otherwise, there is anatomic alignment of the vertebral bodies and posterior elements. No evidence of acute fracture or subluxation. The vertebral body heights are maintained. Advanced degenerative disc disease from C5-C7. Facet and uncovertebral joint arthropathy leads to osseous encroachment on the neural foramina from C3-C7. There is no prevertebral soft tissue swelling. There is a 1.8 cm heterogeneous nodule along the inferior pole the left thyroid lobe. The remaining cervical soft tissues are within normal limits. The lung apices demonstrate no abnormalities. CT/CT cervical spine wo IV con IMPRESSION: 1. No evidence of acute intracranial hemorrhage or edematous territorial infarction. Mild underlying microangiopathy. 2. No evidence of acute fracture or traumatic subluxation of the cervical spine. Moderate multilevel degenerative spondyloarthropathy of the cervical spine. 3. Right frontal scalp hematoma. No associated osseous abnormalities. 4. There is a 1.8 cm heterogeneous nodule along the inferior pole the left thyroid lobe. Recommend further characterization with thyroid ultrasound. Electronically signed by: Ronen Sanon DO 08/14/2024 03:21 PM UMAIR FELIX
[2024-08-14 13:28] VITALS: BP 154/67; PULSE 88; RESP 16; TEMP 37.2; O2SAT 98; BMI 19.5
--- NOTE | 2024-08-14 13:29 | ED_ITS ---
HPI - Fall General Chief Complaint: Fall Stated Complaint: fall head inj Time Seen by Provider: 08/14/24 14:19 Source: patient and family Mode of arrival: ambulatory Limitations: no limitations History of Present Illness ED Provider: DR. Smith HPI Narrative: a 64-year-old female brought in with his family after she sustained a fall earlier today causing head injury, patient tripped and felt on asphalt sidewalk, patient tried to break the fall with both hands and knees, patient is still hurt her right forehead, no LOC patient became dizzy for few seconds been symptoms resolved, currently patient has no blurry vision, no nausea, no vomiting, no headache, no neck pain, no weakness, no numbness, small bruises on left hand and bilateral knees with no deformity or pain. Not taking anticoagulation. Related Data Home Medications ?Medication ?Instructions ?Recorded ?Confirmed duloxetine 20 mg capsule,delayed 30 mg PO .qd 12/30/21 06/21/24 release (Cymbalta) clonazepam 0.25 mg disintegrating 0.25 mg PO BEDTIME 05/30/22 06/21/24 tablet cyclosporine 0.05 % eye drops in a drp ophthalmic (eye) 03/02/23 06/21/24 dropperette (Restasis) buspirone 5 mg tablet 5 mg PO BID 09/28/23 06/21/24 celecoxib 50 mg capsule (Celebrex) 50 mg PO BID 09/28/23 06/21/24 famotidine 10 mg tablet 10 mg PO DAILY 09/28/23 06/21/24 loratadine 10 mg tablet (Allergy 10 mg PO DAILY 09/28/23 06/21/24 Relief (loratadine)) Previous Rx's ?Medication ?Instructions ?Recorded atorvastatin 40 mg tablet 40 mg PO DAILY #30 tabs 09/27/21 onabotulinumtoxinA 200 unit See Rx Instructions .Route 12/18/21 solution for injection (Botox) .COMPLEX 12 weeks #1 ea sumatriptan succinate 6 mg/0.5 mL 6 mg (0.5 mL) subcut ONCE PRN 10/06/23 subcutaneous pen injector migraine headache 30 days #5 mL denosumab 60 mg/mL subcutaneous 60 mg subcut [id number] #1 mL 12/01/23 syringe (Prolia) sumatriptan succinate 100 mg tablet 100 mg PO Q2H PRN for migraine #12 05/26/24 tabs lamotrigine 200 mg tablet 200 mg PO BID 90 days #180 tabs 07/01/24 carbamazepine 200 mg See Rx Instructions PO .COMPLEX 07/19/24 tablet,extended release,12 hr #270 tabs verapamil 180 mg 24 hr 180 mg PO DAILY #90 caps 07/19/24 capsule,extended release Allergies Allergy/AdvReac Type Severity Reaction Status Date / Time erythromycin base Allergy Unknown SWELLING Verified 08/14/24 13:33 [ERYTHROMYCIN BASE] From COMPAZINE Allergy Unknown EXTREME Uncoded 07/25/24 11:13 ANXIETY From WELLBUTRIN Allergy Unknown MOOD Uncoded 07/25/24 11:13 CHANGE (RAGE) Review of Systems Review of Systems: All other systems are reviewed and are negative Constitutional: Reports as per HPI and Reports no additional constitutional complaints Eyes: Reports as per HPI and Reports no additional eye complaints Reports system reviewed and no additional complaints, except as documented Cardiovascular: Reports as per HPI and Reports no additional cardiovascular complaints Respiratory: Reports as per HPI and Reports no additional respiratory complaints Gastrointestinal: Reports as per HPI and Reports no additional gastrointestinal complaints Genitourinary: Reports no additional female genitourinary complaints Musculoskeletal: Reports no additional musculoskeletal complaints Skin/Breast: Reports system reviewed and no additional complaints, except as docu Psychiatric: Reports no additional psychiatric complaints Endocrine: Reports no additional endocrine complaints Hematologic/Lymphatic: Reports no additional hematologic/lymphatic complaints Allergic/Immunologic: Reports no additional allergic/immunologic complaints Reports system reviewed and no additional complaints, except as documented and Reports Abnormal speech present [facility] Past Medical History Medical History Chronic migraine without aura, intractable, without status migrainosus Undifferentiated connective tissue disease Low complement measurement Osteoporosis Anterior neck pain At high risk for breast cancer Abdominal pain, epigastric Facial pain JASMINE (generalized anxiety disorder) Benign essential hypertension Urinary hesitancy Body dysmorphic disorder Cold sore Attention deficit hyperactivity disorder (ADHD) Family history of breast cancer Pain of right hip joint TMJ arthralgia Seizure disorder Osteopenia Migraines Bipolar 2 disorder Hyperlipidemia Surgical History H/O tooth extraction Family History Family History Mother Cancer Breast cancer Arthritis Family/Other No problems noted. Sister Breast cancer Arthritis Sister Breast cancer Arthritis Social History Social History Alcohol intake: current Alcohol intake frequency: holidays/special occasions only Patient Tobacco Use Status: Never used Tobacco Advance Directives: No Advance Directives Information Provided: No Physical Exam Vital Signs: Vital Signs: Last Vital Signs Temp 99 F 08/14/24 13:28 Pulse 88 08/14/24 13:28 Resp 16 08/14/24 13:28 BP 154/67 H 08/14/24 13:28 Pulse Ox 98 08/14/24 13:28 O2 Del Method Room Air 08/14/24 13:28 BMI result Body Mass Index 19.5 Vital signs have been reviewed and appear to be correct. Blood pressure elevated. Heart rate normal. Respiratory rate normal. Temperature normal. Oxygen saturation normal. Appearance: GCS of 15, Alert. Oriented X3. No acute distress. Head: Normal external exam. Normocephalic. small ecchymosis on the right forehead area, no step-off, no fracture,No Espino signs noted. No raccoon eyes noted Eyes: PERRLA. EOMI. Conjunctiva and sclera normal. Eyelids normal. ENT: TM's Normal. Pharynx normal. Uvula midline. Moist mucous membranes. No trismus noted. No drooling noted. No muffled voice noted. Neck: Normal inspection. Neck supple. FROM. No adenopathy. Thyroid Normal. No meningeal signs. No neck mass noted. CVS: Normal heart rate and rhythm. Heart sound normal. No murmurs noted. Pulses normal throughout. Respiratory: No respiratory distress. Painless inspiration. Breath sounds normal. No wheezes/rales/rhonchi noted. Chest nontender. No accessory muscle usage noted or decreased air movement noted. Abdomen: Soft and nontender. Bowel sounds normal in all 4 quadrants. No distention noted. No organomegaly noted. No visible injury noted. Back: No CVA tenderness. Full range of motion noted. Skin: Skin warm and dry. Normal skin color. Normal skin turgor. No rashes/lesions/lacerations noted. Extremities: No lower extremity edema. Extremities exhibit normal range of motion. Extremities nontender. Neuro: Mental status: Normal attention, orientation, memory, and affect. Cranial nerves: Pupils are equal, round and reactive to light, EOMI, visual waite are fall, face is symmetric, facial sensations are normal. Motor examination normal muscle tone, strength to 4 extremities. DTR are +2, planter's are flexor. Sensory exam; normal coordination, no ataxia, gait stable. Cerebellar exam: Yhjjia-gz-dvdv and gfoi-sq-ajoc is normal. Extrapyramidal system: No tremors, no rigidity with normal facial expressions. Pronator drift not present Course Course Course Narrative: This is a rapid medical exam. Deferred additional HPI, ROS, PE to primary provider. 64 yo female with history of seizures, HLD, depression, migraines, anxiety. Patient had trip and fall hitting head on the ground. +abrasion on head. No LOC. NO AC therapy. Here c/o complaints of dizziness, nausea, head pressure. Went to urgent care and referred in to the ER for Ct scan. Will order Ct scan/ct cervical spine. MOJGAN Donahue APRN Reevaluation(s) Reevaluation #1: closed head injury, normal neuro exam, GCS of 15, CT head and neck are unremarkable for acute injury, 1.8 mm left thyroid nodule patient was instructed to follow-up with PCP for further evaluation. Time: 16:00 Medical Decision Making Differential Diagnosis Differential Diagnoses: The differential diagnosis associated with the presentation includes ( Intracranial bleed, cervical spine injury, extremities injury, chest injury, abdominal injury, back injury.) Admission/Observation Consideration of admission/observation: Escalation of care including admission/observation considered Independent Interpretation I performed an independent interpretation of an: CT Scan ( Head, cervical spine CT: No acute pathology.) Radiology Impression Discussion of test interpretation with radiology: I have reviewed the radiologist's reading. Discharge Plan Discharge Clinical Impression: Closed head injury, Forehead contusion, Contusion of hand, left, Left thyroid nodule Patient Disposition: Home, Self-Care Instructions: Head Injury (ED), Contusion in Adults (ED) Additional Instructions: follow-up with your PCP for further evaluation of left thyroid nodule. Prescriptions: No Action Botox 200 unit recon soln See Rx Instructions .ROUTE .COMPLEX 84 Days Qty: 1 3RF Rx Instructions: Inject 155 units across forehead scalp and neck; sumatriptan succinate 6 mg/0.5 mL pen injector 6 mg subcut ONCE PRN (Reason: migraine headache) 30 Days Qty: 5 6RF Rx Instructions: may repeat in 1 hr. Do not take w/in 24 hrs of Sumatriptan tablet. Prolia 60 mg/mL syringe 60 mg subcut [id number] Qty: 1 4RF sumatriptan succinate 100 mg tablet 100 mg PO Q2H PRN (Reason: for migraine) Qty: 12 6RF lamotrigine 200 mg tablet 200 mg PO BID 90 Days Qty: 180 2RF carbamazepine 200 mg tablet extended release 12 hr See Rx Instructions PO .COMPLEX Qty: 270 1RF Rx Instructions: 1 tab qam and 2 tabs qhs orally; verapamil 180 mg capsule,ext rel. pellets 24 hr 180 mg PO DAILY Qty: 90 1RF atorvastatin 40 mg tablet 40 mg PO DAILY Qty: 30 0RF duloxetine [Cymbalta] 20 mg capsule,delayed release(DR/EC) 30 mg PO .qd clonazepam 0.25 mg tablet,disintegrating 0.25 mg PO BEDTIME Rx Instructions: administer 30 minutes before bedtime cyclosporine [Restasis] 0.05 % dropperette ophthalmic (eye) buspirone 5 mg tablet 5 mg PO BID celecoxib [Celebrex] 50 mg capsule 50 mg PO BID famotidine 10 mg tablet 10 mg PO DAILY loratadine [Allergy Relief (loratadine)] 10 mg tablet 10 mg PO DAILY Print Language: Chinese
[2024-08-14 15:43] VITALS: BP 154/67; PULSE 88; RESP 16; TEMP 37.2; O2SAT 98
== END 2024-08-14 15:44 | disposition home or self-care (01) ==
PROVIDERS: Emergency Provider Emergency Medicine; PCP Nurse Practitioner Family
DX: S00.93XA Contusion of unspecified part of head, initial encounter (principal); S60.222A Contusion of left hand, initial encounter; S00.83XA Contusion of other part of head, initial encounter; E04.1 Nontoxic single thyroid nodule; W01.0XXA Fall on same level from slipping, tripping and stumbling without subsequent striking against object, initial encounter; Y93.89 Activity, other specified; Y92.89 Other specified places as the place of occurrence of the external cause; Y99.8 Other external cause status
CPT/HCPCS: 70450; 72125; 99282; 99283

== ENCOUNTER 2024-11-05 10:56 | Outpatient (REF) | payer OTHER, SELFPAY ==
--- OUTSIDE RECORDS SUMMARY | 2024-11-05 11:00 | XMS_ITS ---
Author Organization [facility] [employer], [facility] Address [address] [address] Care Team Providers Care Community Affairs Director Name Role Phone Ro Pulido NP Primary Care Provider MARY Self Unavailable [phone] Allergies Allergen (clinical drug ingredient) Drug/Non Drug Allergy documented on EMR Reaction Allergy Type Onset Date Status Wellbutrin Unknown Drug Allergy Active Compazine Unknown Drug Allergy Active erythromycin Erythromycin Unknown Drug Allergy A ctive REASON FOR VISIT [phone] Doxy Migraines, ADHD Medications Medication SIG (Take, [...] Are you an other tobacco user? No Section Notes: lives alone, sisters nearby. 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 not using alcohol, no illicits, not a smoker Problems Problem Type SNOMED Code ICD Code Onset Dates Problem Status W/U Status Risk Notes Problem Age-related osteoporosis ([id number]) Osteoporosis, unspecified osteoporosis type, unspecified pathological fracture presence (M81.0) Active confirmed Vital Signs Height 63 in 12/01/2023 Weight 108 lbs 12/01/2023 BMI 19.13 kg/m2 12/01/2023 Encounters Encounter Location Date Provider Diagnosis [address] [address] 12/01/2023 MARY ROSE Mood disorder F39 ; PTSD (post-traumatic stress disorder) F43.10 ; Migraine without aura and without status migrainosus, not intractable G43.009 ; 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 12/01/2023 PTSD (post-traumatic stress disorder) (ICD-10 - F43.10) 12/01/2023 Migraine without aura and without status migrainosus, not intractable (ICD-10 - G43.009) continued management with her primary neurologic provider in [facility] 12/01/2023 Nonintractable generalized idiopathic epilepsy without status epilepticus (ICD-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 12/01/2023 Obstructive sleep apnea (ICD-10 - G47.33) Agree [facility] treatment for AHI 17, if she [...] history, performing examination, reviewing diagnostic data, ordering medications/testi ng/procedures and other care coordination, referring to and communicating with other health resident care associate, documenting clinical information in the record, counseling, [...] sentence. If any questions, please contact the [facility] office at [phone]. Plan Of Treatment Medication Medication Name Sig [...] mos video ok, Reason: Provider Name:MARY PARRY [facility], 12/21/2024 09:00:00 AM, [address] [facility], [address], [place], [address], Progress Notes * Jolie SILVAeDOB:1960 (63 yo F)Acc No.[id number]:12/01/2023 Patient:?Geovanna SILVA Provider:?MARY ROSE D.O :1960???Age:63 Y???Sex:Female D ate:12/01/2023 Address:[address] [place] [address] Pcp:Michela BEACH Subjective: * Chief Complaints: * ???[phone] Doxy Migrain es, ADHD * HPI: ???Interim [...] Geovanna was referred by Megan Carnes in [facility] from neurology. She notes she has a [...] tolerate it currently. Migraines- managed by her [employer] MEd trials- lexapro, methylphenidate, zoloft possibly? 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 3.?Nonintractable generalize d idiopathic epilepsy without status epilepticus? Clinical Notes: No recent episode, and diagnosis is epilepsy vs non epileptic episodes- will monitor.?? 4.?Obstructive sleep apnea? Clinical Notes: Agree wtih treatment for AHI 17, if [...] disor jennifer? Continue clonazePAM Tablet, 0.5 MG, /4-1/2 tablet, Orally, Once a day, 30 days, [...] referring to and communicating with other health resident care associate, documenting clinical information in the record, counseling, [...] sentence. If any questions, please contact the [facility] office at [phone]. ?? * Procedure Codes:? * Follow Up:?3-4 mos video ok * * Sign off status: Completed true * Provider:?MARY ROSE D.O Date:?0 12/01/2023 Generated for Chuck jeronimo/Zachery/Jazzitting on:?11/05/2024 11:00 AM EST History and Physical Notes * HPI (History of Present Illness) Category Sub-Category Detail Notes Category Not es Interim History * Prior Medication trials i nclude- Examination Category Sub-Category Detail Notes Category Not es General Examination GENERAL APPEARANCE: in no ac alem distress, well developed, well nourished HEAD: normocephalic, atrau matic EARS: normal NOSE: nares patent, no les ions THROAT: normal, no erythema, no exudate, tonsils normal, uvula midline NECK/THYROID: normal, neck supple, full range of motion HEART: LUNGS: NEUROLOGIC: Cognition: alert, or iented to person, place, time and situation, gives appropriate short term and penitentiary personal history, speech fluent with no aphasic [...]
--- OUTSIDE RECORDS SUMMARY | 2024-11-05 11:00 | XMS_ITS ---
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 03/22/2024 PTSD (post-traumatic stress disorder) (ICD-10 - F43.10) 03/22/2024 Migraine without aura and without status migrainosus, not intractable (ICD-10 - G43.009) continued management with her primary neurologic provider in [facility] 03/22/2024 Nonintractable generalized idiopathic epilepsy without status epilepticus (ICD-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 03/22/2024 Obstructive sleep apnea (ICD-10 - G47.33) Agree [facility] treatment for AHI 17, if she can [...] referring to and communicating with other health youth care professional, documenting clinical information in the [...] sentence. If any questions, please contact the [facility] office at [phone]. Plan Of Treatment Medication Medication Name Sig [...] Next Appt Details Follow Up: 4-5 mos F2F Reas on: Provider Name:MARY PARRY [facility], 12/21/2024 09:00:00 AM, [address] [place] [address], [address], [place], [address], Progress Notes * Jolie SILVAeDOB:1960 (63 yo F)Acc No.[id number]:03/22/2024 Patient:Geovanna BLANCHARD Provider:?MARY ROSE D.O :1960???Age:63 Y???Sex:Female D ate:03/22/2024 Address:[address] [place] [address], [id number] Pcp:Michela BEACH Subjective: * Chief Complaints: * ???[phone] Doxy Migrain es, ADHD * HPI: ???Interim [...] working wtih her neurologist PA out in [facility]. She continues to have fatigue in the [...] Geovanna was referred by Megan Carnes in [facility] from neurology. She notes she has a [...] tolerate it currently. Migraines- managed by her [employer] MEd trials- lexapro, methylphenidate, zoloft possibly? 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?? 3.?Nonintractable generalize d idiopathic epilepsy without status epilepticus? Clinical Notes: No recent episode, and diagnosis is epilepsy vs non epileptic episodes- will monitor.?? 4.?Obstructive sleep apnea? Clinical Notes: Agree [facility] treatment for AHI 17, if she can [...] referring to and communicating with other health youth care professional, documenting clinical information in the [...] sentence. If any questions, please contact the [facility] office at [phone]. ?? * Procedure Codes:? * Follow Up:?4-5 mos F2F * * Sign off status: Completed true * Provider:?MARY ROSE D.O Date:?0 03/22/2024 Generated for Chuck jeronimo/Zachery/Jazzitting on:?11/05/2024 11:00 AM [...] and situation, gives appropriate short term and retirement personal history, speech fluent with no aphasic [...]
--- OUTSIDE RECORDS SUMMARY | 2024-11-05 11:00 | XMS_ITS | Data Portability ---
Author Organization [facility], , [facility] Address [address] [place] [address] Assessment No assessment recorded. Plan of Treatment Reminders Order Date Submit Date Provider Last Modified By Organization Details Last Modified Time Details Appointments None record ed. Lab None record ed. Referral None record ed. Procedures None record ed. Surgeries None record ed. Imaging None record ed. Medication Orders None record ed. Patient TargetsNo targets recorded. Patient InstructionsNo instructions recorded. Reason for Referral None Reported. Procedures Surgical History Date Name Laterality Status Provider Name and Address Organization Details Recorded Time 6 Locke - Colonoscopy completed Jer Locke MD [address] [place] [address], [id number], [facility] 12/07/2015 10:22:09 Imaging Results None recorded. Procedure Notes None recorded. Medical Equipment None Reported. Medications Name Sig Start Date Stop Date Status Note LastModified by Organization Details LastModified Time atorvastatin 40 mg tablet active Not Available Not Available Not Available lamotrigine 200 mg tablet active Not Available Not Availabl e Not Available sumatriptan 100 mg tablet TAKE 1 TABLET AT MIGRAINE ONSET. MAY REPEAT X 1 IN 1 HOUR IF PAIN PERSIST BY MOUTH active Not Available Not Available No t Available lorazepam 0.5 mg tablet active Not Available Not Available No t Available baclofen 10 mg tablet active Not Available Not Available No t Available methylprednis olone 4 mg tablets in a dose pack active Not Available Not Available No t Available fluticasone propionate 50 mcg/actuation nasal spray,suspens ion active Not Available Not Available Not Available amoxicillin 875 mg-potassium clavulanate 125 mg tablet active Not Available Not Availabl e Not Available sumatriptan 6 mg/0.5 mL subcutaneous pen injector USE 1 INJECTION NEEDED FOR MIGRAINE MAY REPEAT IN 1 HOUR IF NEEDED TO LAST 30 DAYS active Not Available Not Available No t Available escitalopram 20 mg tablet active Not Available Not Available Not Available carbamazepine ER 200 mg capsule,exten ded release [id number] active Not Available Not Available N ot Available Vitals None Recorded Social History None recorded. Functional Status None recorded. Mental Status None recorded. Family History Nothing Reported. Medical History No medical history recorded. Gynecological HistoryNo gynecological history recorded. Obstetrics History GPAL:G 0 P 0 0 0 0 Past Encounters Encounter ID Performer Location Encounter Start Date Encounter Closed Date Diagnosis/Indication Diagnosis SNOMED-CT Code Diagnosis ICD10 Code Diagnosis Note [id number] Marivel Quigley [facility], [address] [address] 12/07/2015 08:24:51 12/07/2015 13:29:29 Health Concerns Section Related Observation LastModified by Organization Detai ls LastModified Time None Recorded Concern Status LastModified by Organization Details LastModified Time None Recorded Advance Directives Directive None Recorded Payers Encounter Date Sequence Insurance Name Policy Number Policy Grande Covered Member ID Grande Member ID Guarantor Name 12/07/2015 1 [facility] PREFERRED (PPO) [id number] [facility] [id number] [facility] OBGyn Episode No OBEpisode recorded.
--- OUTSIDE RECORDS SUMMARY | 2024-11-05 11:01 | XMS_ITS | Data Portability ---
Author Organization [place] - [facility], Allergy Address [address] [address] Care Team Providers Care Pie Bottomer Name Role Phone BETTY MASCORRO Referring Provider [phone] Assessment Encounter Date Assessment Date Assessment LastModified by Organization Details LastModified Time 06/13/2024 06/13/2024 At this point she is interested in considering an inspire procedure as well as treatment for her left facial pain and possible trigeminal neuralgia. I have suggested a CT of the sinuses without contrast to rule out chronic sinusitis. I have suggested she get a referral to Dr. Pettit for possible surgical intervention. In the meantime we will also set her up to see Dr. Pedro for discussion about the inspire procedure doris Not available 06/13/2024 11:20:15 Plan of Treatment Reminders Order Date Submit Date Provider Last Modified By Organization Details Last Modified Time Details Appointments None recorded. Lab None recorded. Referral None recorded. Procedures None recorded. Surgeries None recorded. Imaging CT, maxillofac ial, w/o contrast 2023 024 [place] [facility], [address] [facility], [facility] [address], [place], [address], 08:52:12 Medication Orders None recorded. Patient TargetsNo targets recorded. Patient InstructionsNo instructions recorded. Reason for Referral None Reported. Results Created Date Observation Date Name Description Value Unit Range Abnormal Flag Note LastModifiedBy Organization Detail LastModifiedTime 06/13/20 24 sleep study , diagn ostic (PROC ) No observ ation record ed. [facility] [address] [place], [address], 06/13/2024 11:52:31 06/16/20 24 06/15/2024 CT, maxil lofac ial, w/o contr ast No observ ation record ed. [facility] [address] [facility] [address], [place], [address], 06/19/2024 08:32:35 06/17/20 24 06/15/2024 CT, maxil lofac ial, w/o contr ast No observ ation record ed. [place] [facility] [address] [facility] [address], [place], [address], 06/19/2024 08:33:00 Result Notes None recorded. 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; Note: Date Diagnosed : 04/03/2021 10:36 AM (G50.1) Not Available [facility] 4 02:50:24 Migraine 44921598 Active 2020 Other migraine, not intractab le, without status migrainos us; Note: Date Diagnosed : 04/03/2021 10:36 AM (G43.809) Not Available [facility] 4 02:50:24 Chronic rhinitis 63307148 Active 2023 ZEUS MARIO MD [address] [facility],[place] [address], [place], [address] , [place] - [facility] 4 11:16:22 Obstructi ve sleep apnea syndrome 48225047 Active 2023 ZEUS MARIO MD [address] [facility] [address], [place], [address] , [place] - [facility] 4 11:16:27 Left trigemina l neuralgia 84802893733 548903 Active 2023 ZEUS MARIO MD [address] [facility],[place] [address], [place], [address] , [place] - [facility] 4 11:16:32 Chronic sinusitis 39306669 Active 2023 ZEUS MARIO MD [address] [facility],[place] [address], [place], [address] , [place] - [facility] 11:16:41 Problem Notes None recorded. Procedures Surgical History None recorded. Imaging Results Imaging Date Name Status LastModified by Organiz ation Details LastModified Time 06/13/2024 sleep study, diagnostic (PROC) completed [facility] [address] [place], [address], 06/13/2024 11:52:31 06/15/2024 CT, maxillofacial, w/o contrast completed [place] [facility] [address], [address], 06/19/2024 08:32:35 06/15/2024 CT, maxillofacial, w/o contrast completed [facility] [address], [address], 06/19/2024 08:33:00 Procedure Notes None recorded. Medical Equipment None Reported. Allergies Allergen ID Allergen Name Allergen Category Reaction Reaction Severity Criticality Documentation Date Start Date Code Code System Note Provider Name and Address Organization Details Recorded Time 366859 Wellbutri n medicatio n other Not available Not available 02/02/2024 93835 RxNorm React ion: Unkno wn; Not Available [facility] 4 01:16:12 500130 erythromy paul medicatio n other Not available Not available 02/02/2024 4053 RxNorm React ion: Unkno wn; Not Available [facility] 4 01:16:13 Medications Name Sig Start Date Stop Date Status Note LastModified by Organization Details LastModified Time celecoxib 200 mg capsule active Not Available Not Available Not Available atorvastat in 40 mg tablet active Medication ID: [id number] Bra nd Name: atorvastat in Send Method: E-Prescrib ed Subs Allowed: subs OK Special Instructio n: TAKE 1 TABLET BY MOUTH EVERY DAY Medica tionGenerbuffy cName: atorvastat in Not Available Not Available Not Available buspirone 5 mg tablet active Not Available Not Available Not Available Vitamin B-2 100 mg tablet active Medication ID: [id number] Bra nd Name: Vitamin B-2 Send Method: E-Prescrib ed Subs Allowed: subs OK Special Instructio n: TAKE 2 TABLETS BY MOUTH TWICE A DAY Medica tionGeneri cName: Vitamin B-2 Not Available Not Available Not Available lamotrigin e 200 mg tablet active Not Available Not Available Not Available sumatripta n 100 mg tablet active Not Available Not Available Not Available carbamazep ine ER 100 mg tablet,ext ended release,12 hr active Not Available Not Available Not Available famotidine 40 mg tablet active Not Available Not Available Not Available clonazepam 0.5 mg tablet active Not Available Not Available Not Available valacyclov ir 500 mg tablet active Not Available Not Available Not Available verapamil ER 180 mg 24 hr capsule,ex tended release active Not Available Not Available Not Available carbamazep ine ER 200 mg tablet,ext ended release,12 hr active Not Available Not Available Not Available gabapentin 300 mg capsule TAKE 1 CAPSULE BY MOUTH DAILY AT BEDTIME active Not Available Not Available No t Available omeprazole 20 mg capsule,de layed release active Not Available Not Available Not Available sumatripta n 6 mg/0.5 mL subcutaneo us pen injector active Not Available Not Available Not Available Restasis 0.05 % eye drops in a dropperett e active Not Available Not Available Not Available duloxetine 20 mg capsule,de layed release active Medication ID: [id number] Bra nd Name: duloxetine Send Method: E-Prescrib ed Subs Allowed: subs OK Special Instructio n: TAKE 2 CAPSULES BY MOUTH EVERY DAY Medica tionGeneri cName: duloxetine Not Available Not Available Not Available duloxetine 30 mg capsule,de layed release active Not Available Not Available Not Available Prolia 60 mg/mL subcutaneo us syringe active Not Available Not Available N ot Available Vitals Date Recorded Body height Body mass index (BMI) Body weight Provider Name and Address Organization Details Last Updated DateTime 06/13/2024 160.02 cm 19.5 kg/m2 79151.16 g Renetta Wynnangela [place] - [facility] 06/13/2024 11:04:21 Social History None recorded. Functional Status None recorded. Mental Status None recorded. Family History Nothing Reported. Medical History No medical history recorded. Gynecological HistoryNo gynecological history recorded. Obstetrics History GPAL:G 0 P 0 0 0 0 Past Encounters Encounter ID Performer Location Encounter Start Date Encounter Closed Date Diagnosis/Indication Diagnosis SNOMED-CT Code Diagnosis ICD10 Code Diagnosis Note [id number] ZEUS MARIO MD [facility] [address] [place] [address] 06/13/2024 10:55:04 06/13/2024 11:21:51 Chronic rhinitis 34957192 J31.0 Obstructiv e sleep apnea syndrome 46540150 G47.33 Left trige candy neuralgia 0604187068 7209296 G50.0 Chronic sinusitis 233685 00 J32.9 Health Concerns Section Related Observation LastModified by Organization Detai ls LastModified Time None Recorded Concern Status LastModified by Organization Details LastModified Time None Recorded Advance Directives Directive None Recorded Payers Encounter Date Sequence Insurance Name Policy Number Policy Grande Covered Member ID Grande Member ID Guarantor Name 06/13/2024 1 [employer] [facility] [id number] [employer] [facility] [id number] [facility] Notes Date Note Type Note Provider Name and Address Organization Details Recorded Time 06/13/2024 text/html hx of migraine and CELIO. Reports AHI 18/hr. However recent PSG shows RDI 9.8/hr. 3 attempts at CPAP since 2017 and none since recall in 2020. Hx of trigeminal neuralgia and facial pain limiting use of something on her faceReports neg MRI over 2 years ago and normal dental scan 18 months ago. Has chronic left facial pain ZEUS ONEIL MD [address] [facility],[place] [address], [place], [address], [place] - [facility] 06/13/2024 11:24:26 OBGyn Episode No OBEpisode recorded.
--- OUTSIDE RECORDS SUMMARY | 2024-11-05 11:01 | XMS_ITS | Continuity of Care Document ---
Author Organization [facility] Address [address] [place] [address] Phone Care Team Providers Care Reference Test Clerk Name Role Phone Patt Saul PA-C Unavailable Unavailab le Allergies, Adverse Reactions, Alerts Substance Reaction Status Criticality topiramate Active No Information BUPROPION HCL Active No Information erythromycin base Active No Informa tion PROCHLORPERAZINE MALEATE Active No Information PROCHLORPERAZINE EDISYLATE Active N o Information Medications Medication Instructions Dosage Effective Dates (start - stop) Status Comments Abilify 2 mg Tab - Active Nasonex 50 mcg/Actuation [place] spray 2 by Nasal route every day 2.00 - Active Lexapro 20 mg Tab take 1 tablet (20MG) by ORAL route every day 20 MG - Active Lamictal 200 mg Tab take 1 tablet (200MG ) by ORAL route every day 200 MG - Active Carbatrol 200 mg 12 hr Cap take 2 capsule (400MG) by ORAL route 2 times every day 400 MG - Active Imitrex 100 mg Tab take 1 tablet (100MG ) by ORAL route once with fluids as early as possible after the onset of a migraine attack;may repeat after 2 hours if headache returns, not to exceed 200mgin 24hrs 100 MG - Active Procedures Procedure Date Percut Allergy Skin Test Intradermal Skin Test Office/Outpatient Visit, Est CT MAXILLOFACIAL W/O DYE Office Consultation Nasal Endoscopy, Dx Advance Directives Directive Yes / No Effective Date File Name Resuscitation Not Answered N/A N/A Life Support Not Answered N/A N/A Intubation Not Answered N/A N/A Antibiotics Not Answered N/A N/A IV Fluid Support Not Answered N/A N/A Tube Feed Not Answered N/A N/A Other Directive N/A N/A WARNING:The information contained in this section is historical and is provided for information only and does not constitute a legal document or any assurance that the information is still accurate. Please verify the information with the cam of the legal document before using it for clinical purposes. Encounters Encounter Description Practice Location Reason(s) For Visit Diagnoses Date Provider Providers Copied on Encounter [facility], [address] [place] [address], [address] [place] [address] , tel:[phone] Allergy No Information [address] [place] [address], [address] [place] [address] , . tel:[phone] Referring Provider: MD Delfino Jeronimo, [address], [place], [address]. tel:[phone] Office/Outpat ient Visit, [facility], [address] [place] [address], [address] [place] [address] , tel:[phone] [address] [place] sinusitis/ allergies (chief complaint) Acute SinusitisAllergic RhinitisTurbinate HypertrophyMigrain eMigraine [address] [place] [address], [address] [place] [address] , . tel:[phone] Specialist: Andrei Rainey [facility] [address], [place], [address]. tel:[phone] Provider: MD Delfino Jeronimo, [address], [place], [address]. tel:[phone] [facility], [address] [place] [address], [address] [place] [address] , tel:[phone] No Information [address] [place] [address], [address] [place] [address] , . tel: [phone] Office Consultation [facility], [address] [facility], [place], [place], [id number] , tel: [phone] [place] sinus infection, chronic (chief complaint) Acute SinusitisAllergic RhinitisTurbinate HypertrophyAcute SinusitisTurbinate HypertrophyAllergi c Rhinitis [address] [facility], [place], [id number] , . tel: [phone] Specialist: Andrei Rainey [facility] [address], [place], [address]. tel:[phone] Family History Family Member Type Diagnosis Age At Onset Mother Problem (finding) Family history of chronic obstructive lung disease Mother Problem (finding) Family history of malignant neoplasm of breast in first degree relative Payers Payer name Insurance type Covered alliance party ID Authoremiliana huerta(s) [facility] [id number] Social History Type Description Quantity Date Captured Comments Alcohol Use Details Unknown Caffeine Use Details Unknown Tobacco Use Status No Information Smoking Status No Information Sex Female Chief Complaint And Reason For Visit No Information Reason For Referral Reason For Referral No Information History Of Present Illness Encounter Date Complaint History Of Prese nt Illness No Information Functional Status Date Functional Assessmen t No Information Instructions Date Instruction Additional Infor mation No Information Assessments Type Assessment Date No Information Patient Care Teams Name Effective Dates (start - stop) Status Members No Information
--- OUTSIDE RECORDS SUMMARY | 2024-11-05 11:01 | XMS_ITS ---
Author Organization [facility], [facility] Address [address] [place] [address] Care Team Providers Care Textile Bag Sewer Name Role Phone Ro Pulido NP Primary Care Provider MARY Self Unavailable [phone] REASON FOR VISIT In office f/u Migraines, ADHD Encounters Encounter Location Date Provider Diagnosis [address] [address] 08/08/2024 MARY ROSE Plan Of Treatment Next Appt Details Provider Name:MARY PARRY [facility], 12/21/2024 09:00:00 AM, [address] [place] [address], [address], [address], Progress Notes * Jolie SILVAeDOB:1960 (64 yo F)Acc No.[id number]:08/08/2024 Progress Notes Patient:?SHIRA Geovanna Provider:?MARY ROSE D.O :1960???Age:64 Y???Sex:Female D ate:08/08/2024 Address:[address] [place] [address] [place] [address] Pcp:Ro Pulido NP Subjective: * Chief Complaints: * ???1. In office f/u Migraine s, ADHD. * Medical History:? Objective: * Vitals:? Assessment: Plan: * Treatment: * * Electronic signature of KRISTEL ROSE DO on 11/05/2024 at 11:00 AM EST Sign off status: Pending * Provider:?MARY ROSE D.O Date:?1 10/08/2023 Generated for Chuck jeronimo/Zachery/Jazzitting on:?11/05/2024 11:00 AM EST
--- OUTSIDE RECORDS SUMMARY | 2024-11-05 11:01 | XMS_ITS | Patient Health Record ---
Author Organization [facility] Address [address] [place] [address] Care Team Providers Care Novelty Chain Maker Name Role Phone Ashok JARAMILLO, Ro Primary Care Provider MARY Self Unavailable [phone] Allergies Allergen (clinical drug ingredient) Drug/Non Drug Allergy documented on EMR Reaction Allergy Type Onset Date Status Wellbutrin Unknown Drug Allergy Active Compazine Unknown Drug Allergy Active erythromycin Erythromycin Unknown Drug Allergy A ctive Reason For Referral No Information Medications Medication SIG (Take, Route, Frequency, Duration) Notes Start Date End Date Status DULoxetine HCl 30 MG TAKE 1 CAPSULE BY MOUTH ONCE DAILY for 90 Active clonazePAM 0.5 MG TAKE 4-1/2 A TABLE T (0.125-0.25MG) BY MOUTH EVERY DAY FOR 30 DAYS for 30 08/17/2024 Active busPIRone HCl 5 MG TAKE 1 TABLET BY TONY TH TWICE A DAY. 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 not using alcohol, no illicits, not a smoker lives alone, sisters nearby. 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 not using alcohol, no illicits, not a smoker lives alone, sisters nearby. 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 not using alcohol, no illicits, not a smoker lives alone, sisters nearby. 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 not using alcohol, no illicits, not a smoker lives alone, sisters nearby. 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 not using alcohol, no illicits, not a smoker lives alone, sisters nearby. 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 not using alcohol, no illicits, not a smoker lives alone, sisters nearby. 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 not using alcohol, no illicits, not a smoker lives alone, sisters nearby. 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 not using alcohol, no illicits, not a smoker lives alone, sisters nearby. 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 not using alcohol, no illicits, not a smoker lives alone, sisters nearby. 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 not using alcohol, no illicits, not a smoker lives alone, sisters nearby. 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 not using alcohol, no illicits, not a smoker lives alone, sisters nearby. 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 not using alcohol, no illicits, not a smoker lives alone, sisters nearby. 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 not using alcohol, no illicits, not a smoker lives alone, sisters nearby. 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 not using alcohol, no illicits, not a smoker lives alone, sisters nearby. 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 not using alcohol, no illicits, not a smoker lives alone, sisters nearby. 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 not using alcohol, no illicits, not a smoker lives alone, sisters nearby. 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 not using alcohol, no illicits, not a smoker lives alone, sisters nearby. 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 not using alcohol, no illicits, not a smoker Problems Problem Type SNOMED Code ICD Code Onset Dates Problem Status W/U Status Risk Notes Problem [id number] Generalized anxiety disorder (F41.1) Active confirmed Problem 05064686 Mood disorder (F39) Active confirmed Problem Epilepsy (34410616) Epilepsy (G40.909) Active confirmed Problem Migraine (06296053) Migraine (G43.909) Active confirmed Problem 729833334 Migraine without aura and without status migrainosus, not intractable (G43.009) Active confirmed Problem Sleep apnea (01498709) Sleep apnea (G47.30) Active confirmed Problem Posttraumatic stress disorder (61886671) PTSD (post-traumatic stress disorder) (F43.10) Active confirmed Problem Attention deficit hyperactivity disorder (952347099) ADHD (attention deficit hyperactivity disorder) (F90.9) Active confirmed Problem 29895459 Obstructive slee p apnea (G47.33) Active confirmed Problem Stomach ulcer (938828126) Stomach ulcer (K25.9) Active confirmed Problem Hyperlipidaemia (63871972) Hyperlipemia (E78.5) Active confirmed Problem Depressed bipolar I disorder (07684595) Bipolar depression (F31.30) Active confirmed Problem 45840398 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) Active confirmed Problem 379917275 Attention defici t disorder (ADD) in adult (F98.8) Active confirmed Problem Age-related osteoporosis (117892834) Osteoporosis, unspecified osteoporosis type, unspecified pathological fracture presence (M81.0) Active confirmed Vital Signs Height 63 in 03/22/2024 Weight 110 lbs 03/22/2024 BMI 19.48 kg/m2 03/22/2024 Encounters Encounter Location Date Provider Diagnosis [facility] [address] [address] 12/01/2023 MARY DEGRUSH Mood disorder F39 ; PTSD (post-traumatic stress disorder) F43.10 ; Migraine without aura and without status migrainosus, not intractable G43.009 ; Nonintractable generalized idiopathic epilepsy without status epilepticus G40.309 ; Obstructive sleep apnea G47.33 ; Attention deficit disorder (ADD) in adult F98.8 and Generalized anxiety disorder F41.1 [facility] [address] [address] 03/22/2024 MARY DEGRUSH Mood disorder F39 ; [...] management with her primary neurologic provider in [facility] 03/22/2024 Migraine without aura and without status migrainosus, not intractable (ICD-10 - G43.009) continued management with her primary neurologic provider in [facility] 12/01/2023 Nonintractable generalized idiopathic epilepsy without [...] referring to and communicating with other health healthcare network pricing consultant, documenting clinical information in the record, counseling, [...] sentence. If any questions, please contact the SENIOR SOFTWARE TESTER office at [phone]. 03/22/2024 Other Neuro I spent a total of 30 minutes on the present encounter, which includes preparing for the encounter, obtaining history, performing examination, reviewing diagnostic data, ordering medications/testi ng/procedures and other care coordination, referring to and communicating with other health healthcare network pricing consultant, documenting clinical information in the record, counseling, [...] sentence. If any questions, please contact the SENIOR SOFTWARE TESTER office at [phone]. Plan Of Treatment Next Appt Details Provider Name:MARY PARRY [facility], 12/21/2024 09:00:00 AM, [address], [address], [place], [address], Insurance Providers Payer Name Payer Address Payer Phone Subscriber Number Group Number Insured Name Patient Relationship to Insured Coverage Start Date Coverage End Date [employer] ADM OF TERRI Arndt [address] [address] [place], [place] [id number] [phone] [id number] Geovanna Silva Self - patient is the [...]
[2024-11-05 11:17] LABS: Anion Gap 12 (12-20); Blood Urea Nitrogen 17 mg/dL (9-16); Carbon Dioxide 25 mmol/L (22-29); Chloride 110 mmol/L (96-108); Estimated Glomerular Filt Rate > 60; Glucose Random 87 mg/dL (60-115); Potassium 4.3 mmol/L (3.3-5.1); Sodium 143 mmol/L (135-145)
[2024-11-10 01:12] LABS: Vitamin D 25-OH, D2 <4 ng/mL; Vitamin D 25-OH, D3 52 ng/mL; Vitamin D 25-OH, Total 52 ng/mL (30-100)
== END 2024-11-05 10:57 | disposition home or self-care (01) ==
LOC: HO.LAB 10:56
PROVIDERS: PCP Nurse Practitioner Family; Visit Provider Student in an Organized Health Care Education/Training Program
DX: M81.0 Age-related osteoporosis without current pathological fracture (principal)
CPT/HCPCS: 36415; 80048; 82306

== ENCOUNTER 2024-11-11 11:01 | Outpatient (AMB) | payer OTHER, SELFPAY ==
--- NOTE | 2024-11-11 11:02 | A.OFFVIS_ITS ---
Vital Signs 11/11/24 11:03 Height 5 ft 3 in Weight 115 lb BMI 20.4 BP 122/82 Blood Pressure Location Rt brachial Position Sitting Intake Visit Reasons: Botox Intake Note: Patient presents for botox injection. pharmacy supplied Allergies erythromycin base [ERYTHROMYCIN BASE] Allergy (Unknown, Verified 11/11/24 11:07) SWELLING From COMPAZINE Allergy (Unknown, Uncoded 11/11/24 11:07) EXTREME ANXIETY From WELLBUTRIN Allergy (Unknown, Uncoded 11/11/24 11:07) MOOD CHANGE (RAGE) Medication List - Last Reconciled 11/11/24 by Cally Moody MD atorvastatin 40 mg PO DAILY buspirone 5 mg PO BID carbamazepine ER 1 tab qam and 2 tabs qhs orally; celecoxib (Celebrex) 50 mg PO BID clonazepam 0.25 mg PO BEDTIME cyclosporine 0.05% (Restasis) drps ophthalmic (eye) denosumab (Prolia) 60 mg subcut [id number] duloxetine (Cymbalta) 30 mg PO .qd famotidine 10 mg PO DAILY lamotrigine 200 mg PO BID 90 days loratadine (Allergy Relief (loratadine)) 10 mg PO DAILY onabotulinumtoxinA (Botox) Inject 155 units across forehead scalp and neck; 12 weeks rimegepant (Nurtec ODT) 75 mg PO ONCE PRN 30 days MDD 1 sumatriptan succinate 6 mg (0.5 mL) subcut ONCE PRN 30 days sumatriptan succinate 100 mg PO Q2H PRN verapamil ER 180 mg PO DAILY HPI Comments Details: ? 64y/o female comes for treatment of migraines and torticollis with botox. Patient has CELIO AHI 18 and O2 sheba was 80%.waiting for CPAP ??? Most frequent reported adverse reactions following injection of botox for chronic migraine include neck pain (9%), headache(5%), eyelid ptosis(4%), migraine(4%), muscular weakness(4%), musculuskeletal stiffness(4%), bronchitis(3%), injection site pain (3%), musculoskeletal pain(3%), myalgia(3%), facial paresis(2%), HTN(2%) and muscle spasms(2%) were discussed in detail. ??? Botulinum toxin type A 200units Lot no [id number] expiration November 2026 was diluted with 4 cc of normal saline . ??? Muscles injected- ? Temporalis- 8 sites- 20 units each?? procerus-5 units Corrugators 5 units each Left trapezius- 30 units Right Trapezius 10 units Left levator 50 units Left splenius 25 units Left TMJ Masseter - 20 units Tito frontalis 5 units each ? Total use- 200units ??? PFSH Medical History Chronic migraine without aura, intractable, without status migrainosus Undifferentiated connective tissue disease Low complement measurement Osteoporosis Anterior neck pain At high risk for breast cancer Abdominal pain, epigastric Facial pain JASMINE (generalized anxiety disorder) Benign essential hypertension Urinary hesitancy Body dysmorphic disorder Cold sore Attention deficit hyperactivity disorder (ADHD) Family history of breast cancer Pain of right hip joint TMJ arthralgia Seizure disorder Osteopenia Migraines Bipolar 2 disorder Hyperlipidemia Surgical History H/O tooth extraction Family History Mother Cancer Breast cancer Arthritis Family/Other No problems noted. Sister Breast cancer Arthritis Sister Breast cancer Arthritis Social History Alcohol intake: current Alcohol intake frequency: holidays/special occasions only Patient Tobacco Use Status: Never used Tobacco Physical Exam Vital Signs: Last Vital Signs BP 122/82 11/11/24 11:03 BMI result Body Mass Index 20.4 Const General: cooperative and no acute distress Orientation/consciousness: patient oriented x3 HEENT Head: Yes normocephalic Resp Effort & Inspection: normal respiratory effort and able to speak in complete sentences Neuro General: patient oriented x3 Cognition (Neuro): normal cognition Psych Appearance: grossly normal Mental Status: mental status grossly normal Speech and movement: Normal speech and movement present Affect: normal affect Attitude: cooperative Thought process: Normal thought process present Thought content: Normal thought content present Insight: Good insight present (Psych) Judgement: Good judgement present (Psych) Office Procedures Botulinum toxin Injection 82340 - Migraine Procedure code (CPT) selection complete Office Meds onabotulinumtoxinA 200 unit solution for injection Performing Provider: Cally Moody MD Performing Location: [facility] Administered by: Cally Moody MD on 11/11/24 12:33 Dose Route Admin Location Dispensed Lot Number Expiration Date [facility] [place]NOTE 2] Business English Instructor 200 unit subcut 200 units [id number] ALLERGAN/BOTOX Comments: see hpi Assessment & Plan Assessment & Plan (1) Chronic migraine without aura, intractable, without status migrainosus: Code(s): G43.719 - Chronic migraine without aura, intractable, without status migrainosus Category: Medical (2) Atypical facial pain: Comment: left sided V1, V2 distribution Code(s): G50.1 - Atypical facial pain Category: Medical (3) Migraine with aura, intractable, without status migrainosus: Code(s): G43.119 - Migraine with aura, intractable, without status migrainosus Category: Medical (4) Obstructive sleep apnea: Comment: AHI 18 O2 sheba 80% - tried CPAP 3 times in the past and could not use it . Wanting to try again and consider INSPIRE Code(s): G47.33 - Obstructive sleep apnea (adult) (pediatric) Category: Medical Plan Patient tolerated the procedure well ENT for DISE to evaluate for iNSPIRE. she will call with any side effects tegretol XR 200 mg qam and 400 mg qhs Orders: Orders AMB Botulinum toxin Injection Today G43.719 - Chronic migraine without aura, intractable, without status migrainosus Medications: New onabotulinumtoxinA 200 units subcut ONCE 1 ea 0RF migraine G43.719 - Chronic migraine without aura, intractable, without status migrainosus Scribe Plan - Not visible on output: Reviewed possible medication side effects, including but not limited to drowsiness, dizziness. Coding Level of Care Code Est Pt Level 1 (02022) Diagnoses Chronic migraine without aura, intractable, without status migrainosus G43.719 Atypical facial pain G50.1 Migraine with aura, intractable, without status migrainosus G43.119 Obstructive sleep apnea G47.33 CPT Codes Botox Injection - Botox 3: 18155 - Migraine ([id number])
[2024-11-11 11:03] VITALS: BP 122/82; BMI 20.4
--- OUTSIDE RECORDS SUMMARY | 2024-11-11 12:07 | XMS_ITS | Data Portability ---
Author Organization [facility], , [facility] Address [address] [place] [address] Assessment No assessment recorded. Plan of Treatment [...] Locke - Colonoscopy completed Jer Locke MD [address] [place] [address], [address], [facility] 12/07/2015 10:22:09 Imaging Results None recorded. Procedure [...] carbamazepine ER 200 mg capsule,exten ded release [id number] active Not Available Not Available N ot [...] SNOMED-CT Code Diagnosis ICD10 Code Diagnosis Note [id number] Marivel Quigley [facility], [address] [address] 12/07/2015 08:24:51 12/07/2015 13:29:29 Health Concerns Section Related Observation LastModified by Organization Detai ls LastModified Time None Recorded Concern Status LastModified by Organization Details LastModified Time None Recorded Advance Directives Directive None Recorded Payers Encounter Date Sequence Insurance Name Policy Number Policy Grande Covered Member ID Grande Member ID Guarantor Name 12/07/2015 [address] [facility] BLUE CARE ELECT PREFERRED (PPO) [id number] [facility] [id number] [facility] OBGyn Episode No OBEpisode recorded.
--- OUTSIDE RECORDS SUMMARY | 2024-11-11 12:07 | XMS_ITS ---
Author Organization [facility], [facility] Address [address] [address] Care Team Providers Care Butadiene Compressor Operator Name Role Phone Ro Pulido NP Primary Care Provider MARY Self Unavailable [phone] Allergies Allergen (clinical drug ingredient) Drug/Non Drug Allergy documented on EMR Reaction Allergy Type Onset Date Status Wellbutrin Unknown Drug Allergy Active Compazine Unknown Drug Allergy Active erythromycin Erythromycin Unknown Drug Allergy A ctive REASON FOR VISIT [phone] Doxy Migraines, ADHD Medications Medication SIG (Take, [...] 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 not using alcohol, no illicits, not a smoker Vital Signs Weight 110 lbs 03/22/2024 BMI 19.48 kg/m2 03/22/2024 Height 63 in 03/22/2024 Encounters Encounter Location Date Provider Diagnosis [address] [address] 03/22/2024 MARY ROSE Mood disorder F39 ; [...] Obstructive sleep apnea (ICD-10 - G47.33) Agree [facility] for AHI 17, if she can [...] referring to and communicating with other health hospice care sales consultant, documenting clinical information in the record, [...] sentence. If any questions, please contact the DIRECTOR MARKET INTELLIGENCE office at [phone]. Plan Of Treatment Medication Medication Name Sig [...] mos F2F Reas on: Provider Name:MARY PARRY [facility], 12/21/2024 09:00:00 AM, [address] [place] [address], [address], [place], [address], Progress Notes * Jolie SILVAeDOB:1960 (63 yo F)Acc No.[id number]:03/22/2024 Patient:Geovanna BLANCHARD Provider:?MARY ROSE D.O :1960???Age:63 Y???Sex:Female D ate:03/22/2024 Address:[address] [place] [address] [place], [id number] Pcp:Michela BEACH Subjective: * Chief Complaints: * ???[phone] Doxy Migrain es, ADHD * HPI: ???Interim [...] Geovanna was referred by Megan Carnes in [facility] from neurology. She notes she has [...] tolerate it currently. Migraines- managed by her [employer] MEd trials- lexapro, methylphenidate, zoloft possibly? 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 4.?Obstructive sleep apnea? Clinical Notes: Agree [facility] treatment for AHI 17, if she can [...] referring to and communicating with other health hospice care sales consultant, documenting clinical information in the record, [...] sentence. If any questions, please contact the DIRECTOR MARKET INTELLIGENCE office at [phone]. ?? * Procedure Codes:? * Follow Up:?4-5 mos F2F * * Sign off status: Completed true * Provider:?MARY ROSE D.O Date:?0 03/22/2024 Generated for Chuck jeronimo/Zachery/Jazzitting on:?11/11/2024 12:07 PM EST History and Physical Notes * HPI [...]
--- OUTSIDE RECORDS SUMMARY | 2024-11-11 12:08 | XMS_ITS | Data Portability ---
Author Organization [place] - [facility], Allergy Address [address] [address] Care Team Providers Care Rn Case Management Name Role Phone BETTY MASCORRO Referring Provider [phone] Assessment Encounter Date Assessment Date Assessment LastModified [...] CT, maxillofac ial, w/o contrast 2023 024 [place] [place], [address] [facility], [facility] [address], [place], [address], 08:52:12 Medication Orders None recorded. Patient TargetsNo targets recorded. Patient InstructionsNo instructions recorded. Reason for Referral None Reported. Results Created Date Observation Date Name Description Value Unit Range Abnormal Flag Note LastModifiedBy Organization Detail LastModifiedTime 06/13/20 24 sleep study , diagn ostic (PROC ) No observ ation record ed. [facility] [address] [place], [address], 06/13/2024 11:52:31 06/16/20 24 06/15/2024 CT, maxil lofac ial, w/o contr ast No observ ation record ed. ALCIR[facility] [place] [address] [facility] [address], [place], [address], 06/19/2024 08:32:35 06/17/20 24 06/15/2024 CT, maxil lofac ial, w/o contr ast No observ ation record ed. [facility] [place] [address] [facility] [address], [place], [address], 06/19/2024 08:33:00 Result Notes None recorded. Problems Name Problem SNOMED Code Status Onset Date Resolution Date Notes Provider Name and Address Organization Details Recorded Time Impacted tooth 138829705 Active 2020 Impacted teeth; Note: Date Diagnosed : 04/03/2021 10:36 AM (K01.1) Not Available [facility] 4 02:50:25 Atypical facial pain 45933198 Active 2020 Atypical facial pain; Note: Date Diagnosed : 04/03/2021 10:36 AM (G50.1) Not Available [facility] 4 02:50:24 Migraine 21712851 Active 2020 Other migraine, not intractab le, without status migrainos us; Note: Date Diagnosed : 04/03/2021 10:36 AM (G43.809) Not Available [facility] 4 02:50:24 Chronic rhinitis 51984141 Active 2023 ZEUS MARIO MD [address] [facility],[place] [address], [place], [address] , [place] - [facility] 4 11:16:22 Obstructi ve sleep apnea syndrome 21090761 Active 2023 ZEUS MARIO MD 100 [facility] [address], [place], [address] , [place] - [facility] 4 11:16:27 Left trigemina l neuralgia 59457788300 010209 Active 2023 ZEUS MARIO MD 100 [facility],[place] [address], [place], [address] , [place] - [facility] 4 11:16:32 Chronic sinusitis 64554622 Active 2023 ZEUS MARIO MD 100 [facility],[place] [address], [place], [address] , [place] - [facility] 11:16:41 Problem Notes None recorded. Procedures Surgical History None recorded. Imaging Results Imaging Date Name Status LastModified by Organiz ation Details LastModified Time 06/13/2024 sleep study, diagnostic (PROC) completed [facility] [address] [place], [address], 06/13/2024 11:52:31 06/15/2024 CT, maxillofacial, w/o contrast completed [facility] [place] [address], [address], 06/19/2024 08:32:35 06/15/2024 CT, maxillofacial, w/o contrast completed [facility] [place] [address], [address], 06/19/2024 08:33:00 Procedure Notes None recorded. Medical Equipment None Reported. Allergies Allergen ID Allergen Name Allergen Category Reaction Reaction Severity Criticality Documentation Date Start Date Code Code System Note Provider Name and Address Organization Details Recorded Time 485786 Wellbutri n medicatio n other Not available Not available 02/02/2024 85742 RxNorm React ion: Unkno wn; Not Available [facility] 4 01:16:12 251807 erythromy paul medicatio n other Not available Not available 02/02/2024 4053 RxNorm React ion: Unkno wn; Not Available [facility] 4 01:16:13 Medications Name Sig Start Date Stop Date Status Note LastModified by Organization Details LastModified Time celecoxib 200 mg capsule active Not Available Not Available Not Available atorvastat in 40 mg tablet active Medication ID: [id number] Bra nd Name: atorvastat in Send Method: E-Prescrib ed Subs Allowed: subs OK Special Instructio n: TAKE 1 TABLET BY MOUTH EVERY DAY Medica tionGenerbuffy cName: atorvastat in Not Available Not Available Not Available buspirone 5 mg tablet active Not Available Not Available Not Available Vitamin B-2 100 mg tablet active Medication ID: [id number] Bra nd Name: Vitamin B-2 Send Method: [...] mg capsule,de layed release active Medication ID: [id number] Bra nd Name: duloxetine Send Method: E-Prescrib [...] Updated DateTime 06/13/2024 160.02 cm 19.5 kg/m2 54113.16 g Renetta Wynnangela [place] - [facility] 06/13/2024 11:04:21 Social History None recorded. Functional Status None recorded. Mental Status None recorded. Family History Nothing Reported. Medical History No medical history recorded. Gynecological HistoryNo gynecological history recorded. Obstetrics History GPAL:G 0 P 0 0 0 0 Past Encounters Encounter ID Performer Location Encounter Start Date Encounter Closed Date Diagnosis/Indication Diagnosis SNOMED-CT Code Diagnosis ICD10 Code Diagnosis Note [id number] ZEUS MARIO MD [facility] [address] [place] [address] 06/13/2024 10:55:04 06/13/2024 11:21:51 Chronic rhinitis 59477791 J31.0 Obstructiv e sleep apnea syndrome 78249786 G47.33 Left trige candy neuralgia 3199693016 5762861 G50.0 Chronic sinusitis 844826 00 J32.9 Health Concerns Section Related Observation LastModified by Organization Detai ls LastModified Time None Recorded Concern Status LastModified by Organization Details LastModified Time None Recorded Advance Directives Directive None Recorded Payers Encounter Date Sequence Insurance Name Policy Number Policy Grande Covered Member ID Grande Member ID Guarantor Name 06/13/2024 1 [employer]UE [employer] [facility] [id number] [facility] [id number] [facility] Notes Date Note Type Note Provider Name [...] left facial pain ZEUS ONEIL MD 100 [facility],[place] [address], [place], [address], [place] - [facility] 06/13/2024 11:24:26 OBGyn Episode No OBEpisode recorded.
--- OUTSIDE RECORDS SUMMARY | 2024-11-11 12:08 | XMS_ITS ---
Author Organization [facility] Address [address] [place] [address] Care Team Providers Care Solid Waste Facility Operator Name Role Phone Ro Pulido NP Primary Care Provider MARY Self Unavailable [phone] REASON FOR VISIT In office f/u Migraines, ADHD Encounters Encounter Location Date Provider Diagnosis [address] [address] 08/08/2024 MARY ROSE Plan Of Treatment Next Appt Details Provider Name:MARY PARRY [facility], 12/21/2024 09:00:00 AM, [address] [place] [address], [address], [address], Progress Notes * Jolie SILVAeDOB:1960 (64 yo F)Acc No.[id number]:08/08/2024 Progress Notes Patient:?SHIRA Geovanna Provider:?MARY ROSE D.O :1960???Age:64 Y???Sex:Female D ate:08/08/2024 Address:[address] [place] [address] [place] [address] Pcp:Ro Pulido NP Subjective: * Chief Complaints: * ???1. In office f/u Migraine s, ADHD. * Medical History:? Objective: * Vitals:? Assessment: Plan: * Treatment: * * Electronic signature of KRISTEL ROSE DO on 11/11/2024 at 12:08 PM EST Sign off status: Pending * Provider:?MARY ROSE D.O Date:?1 10/08/2023 Generated for Chuck jeronimo/Zachery/Jazzitting on:?11/11/2024 12:08 PM EST
--- OUTSIDE RECORDS SUMMARY | 2024-11-11 12:08 | XMS_ITS ---
Author Organization [facility] [employer], [facility] Address [address] [address] Care Team Providers Care Care Program Resident Name Role Phone oR Pulido NP Primary Care Provider MARY Self Unavailable [phone] Allergies Allergen (clinical drug ingredient) Drug/Non Drug Allergy documented on EMR Reaction Allergy Type Onset Date Status Wellbutrin Unknown Drug Allergy Active Compazine Unknown Drug Allergy Active erythromycin Erythromycin Unknown Drug Allergy A ctive REASON FOR VISIT [phone] Doxy Migraines, ADHD Medications Medication SIG (Take, [...] 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 not using alcohol, no illicits, not a smoker Problems Problem Type SNOMED Code ICD Code Onset Dates Problem Status W/U Status Risk Notes Problem Age-related osteoporosis (231772508) Osteoporosis, unspecified osteoporosis type, unspecified pathological fracture presence (M81.0) Active confirmed Vital Signs Weight 108 lbs 12/01/2023 BMI 19.13 kg/m2 12/01/2023 Height 63 in 12/01/2023 Encounters Encounter Location Date Provider Diagnosis [address] [address] 12/01/2023 MARY ROSE Mood disorder F39 ; [...] management with her primary neurologic provider in [facility] 12/01/2023 Nonintractable generalized idiopathic epilepsy without status epilepticus (ICD-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 12/01/2023 Obstructive sleep apnea (ICD-10 - G47.33) Agree [facility] treatment for AHI 17, if she can [...] to and communicating with other health healthcare management consultant, documenting clinical information in the record, [...] sentence. If any questions, please contact the AGRICULTURE TECHNICIAN office at [phone]. Plan Of Treatment Medication Medication Name Sig [...] mos video ok, Reason: Provider Name:MARY PARRY [facility], 12/21/2024 09:00:00 AM, [address] [facility], [address], [place], [address], Progress Notes * Jolie SILVAeDOB:1960 (63 yo F)Acc No.[id number]:12/01/2023 Patient:?Geovanna SILVA Provider:?MARY ROSE D.O :1960???Age:63 Y???Sex:Female D ate:12/01/2023 Address:[address] [place] [address] Pcp:Michela BEACH Subjective: * Chief Complaints: * ???[phone] Doxy Migrain es, ADHD * HPI: ???Interim [...] tolerate it currently. Migraines- managed by her SERVICE UNIT OPERATOR [employer] MEd trials- lexapro, methylphenidate, zoloft possibly? 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 not using alcohol, no illicits, not a [...] and situation, gives appropriate short term and termite treater helper personal history, speech fluent with no aphasic [...] management with her primary neurologic provider in [facility]?? 3.?Nonintractable generalize d idiopathic epilepsy without [...] to and communicating with other health healthcare management consultant, documenting clinical information in the record, [...] sentence. If any questions, please contact the AGRICULTURE TECHNICIAN office at [phone]. ?? * Procedure Codes:? * Follow Up:?3-4 mos video ok * * Sign off status: Completed true * Provider:?MARY ROSE D.O Date:?0 12/01/2023 Generated for Chuck jeronimo/Zachery/Jazzitting on:?11/11/2024 12:07 PM [...] and situation, gives appropriate short term and alf personal history, speech fluent with no aphasic [...]
--- OUTSIDE RECORDS SUMMARY | 2024-11-11 12:09 | XMS_ITS | Continuity of Care Document ---
Author Organization [facility] Address [address] [place] [address] Phone Care Team Providers Care Rn Staff Name Role Phone Patt Saul PA-C Unavailable Unavailab le Allergies, Adverse Reactions, Alerts Substance Reaction Status Criticality topiramate Active No Information BUPROPION HCL Active No Information erythromycin base Active No Informa tion PROCHLORPERAZINE MALEATE Active No Information PROCHLORPERAZINE EDISYLATE Active N o Information Medications Medication Instructions Dosage Effective Dates (start - stop) Status Comments Abilify 2 mg Tab - Active Nasonex 50 mcg/Actuation Saxis spray 2 by Nasal route every day [...] Diagnoses Date Provider Providers Copied on Encounter [facility], [address] [place] [address], [address] [place] [address] , tel:[phone] Allergy No Information [address] [place] [address], [address] [place] [address] , . tel:[phone] Referring Provider: MD Delfino Jeronimo, [address], [place], [address]. tel:[phone] Office/Outpat ient Visit, [facility], [address] [place] [address], [address] [place] [address] , tel:[phone] [address] sinusitis/ allergies (chief complaint) Acute SinusitisAllergic RhinitisTurbinate HypertrophyMigrain eMigraine [address] [place] [address], [address] [place] [address] , . tel:[phone] Specialist: Andrei Rainey [facility] [address], [place], [address]. tel:[phone] Provider: MD Delfino Jeronimo, [address], [place], [address]. tel:[phone] [facility], [address] [place] [address], [address] [place] [address] , tel:[phone] No Information [address] [place] [address], [address] [place] [address] , . tel: [phone] Office Consultation [facility], [address] [facility], [place], [place], [id number] , tel: [phone] [address] sinus infection, chronic (chief complaint) Acute SinusitisAllergic RhinitisTurbinate HypertrophyAcute SinusitisTurbinate HypertrophyAllergi c Rhinitis [address] [facility], [place], [place], [id number] , . tel: [phone] Specialist: Andrei Rainey [facility] [address], [place], [address]. tel:[phone] Family History Family Member Type Diagnosis Age At Onset Mother Problem (finding) Family history of chronic obstructive lung disease Mother Problem (finding) Family history of malignant neoplasm of breast in first degree relative Payers Payer name Insurance type Covered constitution party ID Authoremiliana huerta(s) [facility] [id number] Social History Type Description Quantity Date Captured [...]
--- OUTSIDE RECORDS SUMMARY | 2024-11-11 12:09 | XMS_ITS | Patient Health Record ---
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 not using alcohol, no illicits, not a smoker lives alone, sisters nearby. 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 not using alcohol, no illicits, not a smoker lives alone, sisters nearby. 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 not using alcohol, no illicits, not a smoker lives alone, sisters nearby. 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 not using alcohol, no illicits, not a smoker lives alone, sisters nearby. 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 not using alcohol, no illicits, not a smoker lives alone, sisters nearby. 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 not using alcohol, no illicits, not a smoker lives alone, sisters nearby. 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 not using alcohol, no illicits, not a smoker lives alone, sisters nearby. 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 not using alcohol, no illicits, not a smoker lives alone, sisters nearby. 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 not using alcohol, no illicits, not a smoker lives alone, sisters nearby. 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 not using alcohol, no illicits, not a smoker lives alone, sisters nearby. 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 not using alcohol, no illicits, not a smoker lives alone, sisters nearby. 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 not using alcohol, no illicits, not a smoker lives alone, sisters nearby. 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 not using alcohol, no illicits, not a smoker lives alone, sisters nearby. 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 not using alcohol, no illicits, not a smoker lives alone, sisters nearby. 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 not using alcohol, no illicits, not a smoker lives alone, sisters nearby. 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 not using alcohol, no illicits, not a smoker lives alone, sisters nearby. 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 not using alcohol, no illicits, not a smoker lives alone, sisters nearby. 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 not using alcohol, no illicits, not a smoker Problems Problem Type SNOMED Code ICD Code Onset Dates Problem Status W/U Status Risk Notes Problem 69113855 Generalized anxiety disorder (F41.1) Active confirmed Problem 55159090 Mood disorder (F39) Active confirmed Problem Epilepsy (69317438) Epilepsy (G40.909) Active confirmed Problem Migraine (49153029) Migraine (G43.909) Active confirmed Problem 872549661 Migraine without aura and without status migrainosus, not intractable (G43.009) Active confirmed Problem Sleep apnea (70952771) Sleep apnea (G47.30) Active confirmed Problem Posttraumatic stress disorder (86735869) PTSD (post-traumatic stress disorder) (F43.10) Active confirmed Problem Attention deficit hyperactivity disorder (835326440) ADHD (attention deficit hyperactivity disorder) (F90.9) Active confirmed Problem 48995777 Obstructive slee p apnea (G47.33) Active confirmed Problem Stomach ulcer (220067296) Stomach ulcer (K25.9) Active confirmed Problem Hyperlipidaemia (70138985) Hyperlipemia (E78.5) Active confirmed Problem Depressed bipolar I disorder (88167358) Bipolar depression (F31.30) Active confirmed Problem 79044131 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) Active confirmed Problem 581989984 Attention defici t disorder (ADD) in adult (F98.8) Active confirmed Problem Age-related osteoporosis (440531806) Osteoporosis, unspecified osteoporosis type, unspecified pathological fracture presence (M81.0) Active confirmed Vital Signs Height 63 in 03/22/2024 Weight 110 lbs 03/22/2024 BMI 19.48 kg/m2 03/22/2024 Encounters Encounter Location Date Provider Diagnosis [facility], [facility] [employer] [address] [address] 12/01/2023 MARY DEGRUSH Mood disorder F39 ; PTSD (post-traumatic stress disorder) F43.10 ; Migraine without aura and without status migrainosus, not intractable G43.009 ; Nonintractable generalized idiopathic epilepsy without status epilepticus G40.309 ; Obstructive sleep apnea G47.33 ; Attention deficit disorder (ADD) in adult F98.8 and Generalized anxiety disorder F41.1 Formerly [facility], [facility] [place] [address] [address] 03/22/2024 MARY DEGRUSH Mood disorder F39 ; [...] duloxetine 30mg once daily, will continue. 12/01/2023 Mood disorder (ICD-10 - F39) Mood better on duloxetine 30mg once daily, will continue. 12/01/2023 PTSD (post-traumatic stress disorder) (ICD-10 - F43.10) 03/22/2024 PTSD (post-traumatic stress disorder) (ICD-10 - F43.10) 03/22/2024 Migraine without aura and without status migrainosus, not intractable (ICD-10 - G43.009) continued management with her primary neurologic provider in [facility] 12/01/2023 Migraine without aura and without status migrainosus, not intractable (ICD-10 - G43.009) continued management with her primary neurologic provider in [facility] 12/01/2023 Nonintractable generalized idiopathic epilepsy [...] VS (BP/HR) before considering a stimulant. 03/22/2024 Attention deficit disorder (ADD) in adult [...] with low dose buspirone- will continue. 12/01/2023 Generalized anxiety disorder (ICD-10 - F41.1) [...] referring to and communicating with other health rn intensive care unit, documenting clinical information in the record, counseling, [...] sentence. If any questions, please contact the VP SCIENTIFIC office at [phone]. 03/22/2024 Other Neuro I spent a total of 30 minutes on the present encounter, which includes preparing for the encounter, obtaining history, performing examination, reviewing diagnostic data, ordering medications/testi ng/procedures and other care coordination, referring to and communicating with other health rn intensive care unit, documenting clinical information in the record, counseling, [...] sentence. If any questions, please contact the VP SCIENTIFIC office at [phone]. Plan Of Treatment Next Appt Details Provider Name:MARY PARRY [facility], 12/21/2024 09:00:00 AM, [address] [facility], [address], [place], [address], Insurance Providers Payer Name Payer Address Payer Phone Subscriber Number Group Number Insured Name Patient Relationship to Insured Coverage Start Date Coverage End Date BLUE [employer] [place] [address] [address] [place], [place] [id number] Geovanna Silva Self - patient is the [...]
== END 2024-11-11 11:50 | disposition home or self-care (01) ==
PROVIDERS: PCP Nurse Practitioner Family; Visit Provider Psychiatry & Neurology Neurology
DX: G43.719 Chronic migraine without aura, intractable, without status migrainosus (principal)
CPT/HCPCS: 64615

== ENCOUNTER → 2024-11-11 11:01 | Outpatient (BNVA) | payer OTHER, SELFPAY | PROVIDERS: PCP Nurse Practitioner Family; Visit Provider Psychiatry & Neurology Neurology | DX: G43.E19 Chronic migraine with aura, intractable, without status migrainosus (principal); G50.1 Atypical facial pain; G47.33 Obstructive sleep apnea (adult) (pediatric) | CPT/HCPCS: 64615; 99211; J0585 ==

== ENCOUNTER 2024-11-18 15:02 | Outpatient (AMB) | payer OTHER, SELFPAY ==
--- NOTE | 2024-11-18 15:13 | A.OFFVIS_ITS ---
Intake Visit Reasons: prolia Intake Note: Patient presents for Prolia. Allergies erythromycin base [ERYTHROMYCIN BASE] Allergy (Unknown, Verified 11/11/24 11:07) SWELLING From COMPAZINE Allergy (Unknown, Uncoded 11/11/24 11:07) EXTREME ANXIETY From WELLBUTRIN Allergy (Unknown, Uncoded 11/11/24 11:07) MOOD CHANGE (RAGE) HPI Comments Details: Patient is a 64-year-old female with hyperlipidemia, polyarticular osteoarthritis and chronic migraine without aura, undifferentiated connective tissue disease and osteoporosis here today for Prolia injection [facility] Medical History Chronic migraine without aura, intractable, without status migrainosus Undifferentiated connective tissue disease Low complement measurement Osteoporosis Anterior neck pain At high risk for breast cancer Abdominal pain, epigastric Facial pain JASMINE (generalized anxiety disorder) Benign essential hypertension Urinary hesitancy Body dysmorphic disorder Cold sore Attention deficit hyperactivity disorder (ADHD) Family history of breast cancer Pain of right hip joint TMJ arthralgia Seizure disorder Osteopenia Migraines Bipolar 2 disorder Hyperlipidemia Surgical History H/O tooth extraction Family History Mother Cancer Breast cancer Arthritis Family/Other No problems noted. Sister Breast cancer Arthritis Sister Breast cancer Arthritis Social History Alcohol intake: current Alcohol intake frequency: holidays/special occasions only Patient Tobacco Use Status: Never used Tobacco Review of Systems Const Details: Review of Systems Constitutional: Denies fever, chills, weight loss ENT: Denies vision changes, eye pain or eye redness, dental caries, dry mouth GI: Denies nausea, vomiting, diarrhea, abdominal pain, change in BM Pulm: Denies SOB, LOCKE, hemoptysis, wheezing Cards: Denies chest pain, palpitations Skin: Denies Raynaud's, rash, nail changes, photosensitivity, MARKETING INTELLIGENCE MANAGER: Denies headaches, weakness, paresthesias, recurrent falls MSK: as per HPI All other systems reviewed and are unremarkable except noted above Physical Exam Const General: cooperative and no acute distress Office Meds Prolia 60 mg/mL subcutaneous syringe Performing Provider: Gertrude Lawson MD Performing Location: [facility] Administered by: Mariah Guido RN on 11/18/24 15:03 Dose Route Admin Location Dispensed Lot Number Expiration Date [facility] Research Animal Attendant 60 mg subcut left electronic commerce specialist upper arm 1 mL [id number] 04/20/27 27634-078-28 [employer] Comments: Patient arrived for Prolia (denosumab) 60 mg/mL injection. Se denies any adverse reaction from previous injection. She was reminded to monitor injection site reaction and/or s/s of anaphylaxis. Should she experience any adverse reaction she is aware that she should seek immediate medical attention. Prolia 60 mg/mL administered in left posterior upper arm. No adverse reaction noted during observation time. Patient tolerated the injection well. Follow up appointment given for 05/17/25 at 3 PM. It was a pleasure participating in this patient's care. Assessment & Plan Assessment & Plan (1) Osteoporosis: Code(s): M81.0 - Age-related osteoporosis without current pathological fracture Category: Medical Qualifiers: Osteoporosis type: age-related Presence of current pathological fracture: without current pathological fracture Qualified Code(s): M81.0 - Age- related osteoporosis without current pathological fracture Plan: Patient with osteoporosis here today for her Prolia injection Plan I spent 10 minutes reviewing the record and labs, taking a history, examining the patient, discussing the treatment plan and documenting in the medical record Orders: Orders AMB Denosumab Injection Practice Supplied Today M81.0 - Age-related osteoporosis without current pathological fracture Coding Level of Care Code Est Pt Level 2 (61519) Diagnoses Age-related osteoporosis without current pathological fracture M81.0 Osteoporosis type: age-related Presence of current pathological fracture: without current pathological fracture
--- OUTSIDE RECORDS SUMMARY | 2024-11-18 17:12 | XMS_ITS ---
Author Organization [facility] [employer], [facility] Address [address] [address] Care Team Providers Care Human Geography Faculty Member Name Role Phone Ro Pulido NP Primary Care Provider MARY Self Unavailable [phone] Allergies Allergen (clinical drug ingredient) Drug/Non Drug Allergy documented on EMR Reaction Allergy Type Onset Date Status Wellbutrin Unknown Drug Allergy Active Compazine Unknown Drug Allergy Active erythromycin Erythromycin Unknown Drug Allergy A ctive REASON FOR VISIT [phone] Doxy Migraines, ADHD Medications Medication SIG (Take, [...] 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 not using alcohol, no illicits, not a smoker Problems Problem Type SNOMED Code ICD Code Onset Dates Problem Status W/U Status Risk Notes Problem Age-related osteoporosis (916521463) Osteoporosis, unspecified osteoporosis type, unspecified pathological fracture presence (M81.0) Active confirmed Vital Signs Height 63 in 12/01/2023 Weight 108 lbs 12/01/2023 BMI 19.13 kg/m2 12/01/2023 Encounters Encounter Location Date Provider Diagnosis [address] [address] 12/01/2023 MARY ROSE Mood disorder F39 ; [...] management with her primary neurologic provider in [facility] 12/01/2023 Nonintractable generalized idiopathic epilepsy without status epilepticus (ICD-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 12/01/2023 Obstructive sleep apnea (ICD-10 - G47.33) Agree [facility] treatment for AHI 17, if she [...] sentence. If any questions, please contact the BOND ANALYST office at [phone]. Plan Of Treatment Medication Medication Name Sig [...] video ok, Reason: Provider Name:MARY PARRY [facility], 12/21/2024 09:00:00 AM, [address] [facility], [address], [place], [address], Progress Notes * Jolie SILVAeDOB:1960 (63 yo F)Acc No.[id number]:12/01/2023 Patient:?Geovanna SILVA Provider:?MARY ROSE D.O :1960???Age:63 Y???Sex:Female D ate:12/01/2023 Address:[address] [place] [address] Pcp:Michela BEACH Subjective: * Chief Complaints: * ???[phone] Doxy Migrain es, ADHD * HPI: ???Interim [...] was referred by Megan Carnes in [facility] from neurology. She notes she has [...] tolerate it currently. Migraines- managed by her OVEN DRIER TENDER MEd trials- lexapro, methylphenidate, zoloft possibly? 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 not using alcohol, no illicits, not [...] and situation, gives appropriate short term and general manager oracle data cloud personal history, speech fluent with no aphasic [...] management with her primary neurologic provider in [facility]?? 3.?Nonintractable generalize d idiopathic epilepsy without status [...] sentence. If any questions, please contact the BOND ANALYST office at [phone]. ?? * Procedure Codes:? * Follow Up:?3-4 mos video ok * * Sign off status: Completed true * Provider:?MARY ROSE D.O Date:?0 12/01/2023 Generated for Chuck jeronimo/Zachery/Jazzitting on:?11/18/2024 05:12 PM EST History and Physical Notes * [...] and situation, gives appropriate short term and mcfp personal history, speech fluent with no aphasic [...]
--- OUTSIDE RECORDS SUMMARY | 2024-11-18 17:12 | XMS_ITS | Data Portability ---
Author Organization [facility], , [facility] Address [address] [place] [address] Assessment No assessment recorded. Plan of Treatment [...] Locke - Colonoscopy completed Jer Locke MD [address] [place] [address], [address], [facility] 12/07/2015 10:22:09 Imaging Results None recorded. Procedure [...] carbamazepine ER 200 mg capsule,exten ded release [id number] active Not Available Not Available N ot [...] SNOMED-CT Code Diagnosis ICD10 Code Diagnosis Note [id number] Marivel Quigley [facility], [address] [address] 12/07/2015 08:24:51 12/07/2015 13:29:29 Health Concerns Section Related Observation LastModified by Organization Detai ls LastModified Time None Recorded Concern Status LastModified by Organization Details LastModified Time None Recorded Advance Directives Directive None Recorded Payers Encounter Date Sequence Insurance Name Policy Number Policy Grande Covered Member ID Grande Member ID Guarantor Name 12/07/2015 1 [employer] [facility] BLUE CARE ELECT PREFERRED (PPO) [id number] [facility] [id number] [facility] OBGyn Episode No OBEpisode recorded.
--- OUTSIDE RECORDS SUMMARY | 2024-11-18 17:13 | XMS_ITS ---
Author Organization [facility], [facility] Address [address] [place] [address] Care Team Providers Care Winery Cellar Hand Name Role Phone Ro Pulido NP Primary Care Provider MARY Self Unavailable [phone] REASON FOR VISIT In office f/u Migraines, ADHD Encounters Encounter Location Date Provider Diagnosis [address] [address] 08/08/2024 MARY ROSE Plan Of Treatment Next Appt Details Provider Name:MARY PARRY [facility], 12/21/2024 09:00:00 AM, [address] [place] [address], [address], [address], Progress Notes * Jolie SILVAeDOB:1960 (64 yo F)Acc No.[id number]:08/08/2024 Progress Notes Patient:?SHIRA Geovanna Provider:?MARY ROSE D.O :1960???Age:64 Y???Sex:Female D ate:08/08/2024 Address:[address] [place] [address] [place] [address] Pcp:Ro Pulido NP Subjective: * Chief Complaints: * ???1. In office f/u Migraine s, ADHD. * Medical History:? Objective: * Vitals:? Assessment: Plan: * Treatment: * * Electronic signature of KRISTEL ROSE DO on 11/18/2024 at 05:12 PM EST Sign off status: Pending * Provider:?MARY ROSE D.O Date:?1 10/08/2023 Generated for Chuck jeronimo/Zachery/Jazzitting on:?11/18/2024 05:12 PM EST
--- OUTSIDE RECORDS SUMMARY | 2024-11-18 17:13 | XMS_ITS ---
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 03/22/2024 Obstructive sleep apnea (ICD-10 - G47.33) Agree [facility] treatment for AHI 17, if she [...] referring to and communicating with other health manager home healthcare, documenting clinical information in the record, counseling, [...] sentence. If any questions, please contact the EDUCATION TECHNICIAN office at [phone]. Plan Of Treatment Medication Medication Name Sig [...] mos F2F Reas on: Provider Name:MARY PARRY [facility], 12/21/2024 09:00:00 AM, [address] [place] [address], [address], [place], [address], Progress Notes * Jolie SILVAeDOB:1960 (63 yo F)Acc No.[id number]:03/22/2024 Patient:Geovanna BLANCHARD Provider:?MARY ROSE D.O :1960???Age:63 Y???Sex:Female D ate:03/22/2024 Address:[address] [place] [address], [place] Pcp:Michela BEACH Subjective: * Chief Complaints: * ???[phone] Doxy Migrain es, ADHD * HPI: ???Interim [...] working wtih her neurologist PA out in [facility]. She continues to have fatigue in the [...] Geovanna was referred by Megan Carnes in [facility] from neurology. She notes she has a [...] tolerate it currently. Migraines- managed by her HOT SEALING MACHINE OPERATOR MEd trials- lexapro, methylphenidate, zoloft possibly? 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 not using alcohol, no illicits, not a [...] and situation, gives appropriate short term and director long term care personal history, speech fluent with no aphasic [...] management with her primary neurologic provider in [facility]?? 3.?Nonintractable generalize d idiopathic epilepsy without status epilepticus? Clinical Notes: No recent episode, and diagnosis is epilepsy vs non epileptic episodes- will monitor.?? 4.?Obstructive sleep apnea? Clinical Notes: Agree [facility] treatment for AHI 17, if she [...] referring to and communicating with other health manager home healthcare, documenting clinical information in the record, counseling, [...] sentence. If any questions, please contact the EDUCATION TECHNICIAN office at [phone]. ?? * Procedure Codes:? * Follow Up:?4-5 mos F2F * * Sign off status: Completed true * Provider:?MARY ROSE D.O Date:?0 03/22/2024 Generated for Chuck jeronimo/Zachery/Jazzitting on:?11/18/2024 05:12 PM [...]
--- OUTSIDE RECORDS SUMMARY | 2024-11-18 17:13 | XMS_ITS | Data Portability ---
Author Organization [place] [facility], Allergy Address [address] [address] Care Team Providers Care Ham Stringer Name Role Phone BETTY MASCORRO Referring Provider Assessment Encounter Date Assessment Date Assessment LastModified [...] Organization Details Last Modified Time Details Appointments Establish ed 15 2024 11:00A M IVA PEDRO MD Not available Not available Not available Lab None recorded. Referral None recorded. Procedures None recorded. Surgeries None recorded. Imaging CT, maxillofa cial, w/o contrast 2023 024 ALCIRA [facility] [place], [address] [facility], [facility] [address], [place], [address], 06/16/2024 08:52:12 Medication Orders None recorded. Patient TargetsNo targets recorded. Patient InstructionsNo instructions recorded. Reason for Referral None Reported. Results Created Date Observation Date Name Description Value Unit Range Abnormal Flag Note LastModifiedBy Organization Detail LastModifiedTime 06/13/20 24 sleep study , diagn ostic (PROC ) No observ ation record ed. [facility] [address] , [place], [address], 06/13/2024 11:52:31 06/16/20 24 06/15/2024 CT, maxil lofac ial, w/o contr ast No observ ation record ed. [facility]AL[facility]A [facility] [place] [address], [place], [address], 06/19/2024 08:32:35 06/17/20 24 06/15/2024 CT, maxil lofac ial, w/o contr ast No observ ation record ed. [facility]AL[facility] [place] [address] [facility] [address], [place], [address], 06/19/2024 08:33:00 Result Notes None recorded. 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; Note: Date Diagnosed : 04/03/2021 10:36 AM (G50.1) Not Available [facility] 4 02:50:24 Migraine 15666513 Active 2020 Other migraine, not intractab le, without status migrainos us; Note: Date Diagnosed : 04/03/2021 10:36 AM (G43.809) Not Available [facility] 4 02:50:24 Chronic rhinitis 29468340 Active 2023 ZEUS MARIO MD [address] [place], [place] [address] [place], [address] , [facility] 4 11:16:22 Obstructi ve sleep apnea syndrome 35604665 Active 2023 ZEUS MARIO MD [address] [place] [address],[place] [address], [address] , [facility] [place] 4 11:16:27 Left trigemina l neuralgia 14505947450 552148 Active 2023 ZEUS MARIO MD [address] [facility], [place], [address] , [place] [facility] 4 11:16:32 Chronic sinusitis 90385746 Active 2023 ZEUS MARIO MD 100 [facility], [place], [address] , [place] [facility] [place] 4 11:16:41 Problem Notes None recorded. Procedures Surgical History None recorded. Imaging Results Imaging Date Name Status LastModified by [facility] Details LastModified Time 06/13/2024 sleep study, diagnostic (PROC) completed [facility] [address] [place], [address], 06/13/2024 11:52:31 06/15/2024 CT, maxillofacial, w/o contrast completed [facility] [place] [address], [address], 06/19/2024 08:32:35 06/15/2024 CT, maxillofacial, w/o contrast completed [facility] [place] [address], [address], 06/19/2024 08:33:00 Procedure Notes None recorded. Medical Equipment None Reported. Allergies Allergen ID Allergen Name Allergen Category Reaction Reaction Severity Criticality Documentation Date Start Date Code Code System Note Provider Name and Address Organization Details Recorded Time 947899 Wellbutri n medicatio n other Not available Not available 02/02/2024 86307 RxNorm React ion: Unkno wn; Not Available [facility] 4 01:16:12 422042 erythromy paul medicatio n other Not available Not available 02/02/2024 4053 RxNorm React ion: Unkno wn; Not Available [facility] 4 01:16:13 Medications Name Sig Start Date Stop Date Status Note LastModified by Organization Details LastModified Time celecoxib 200 mg capsule active Not Available Not Available Not Available atorvastat in 40 mg tablet active Medication ID: [id number] Soheila nd Name: atorvastat in Send Method: E-Prescrib ed Subs Allowed: subs OK Special Instructio n: TAKE 1 TABLET BY MOUTH EVERY DAY Medica tionGeneri cName: atorvastat in Not Available Not Available Not Available buspirone 5 mg tablet active Not Available Not Available Not Available Vitamin B-2 100 mg tablet active Medication ID: [id number] Bra nd Name: Vitamin B-2 Send Method: [...] mg capsule,de layed release active Medication ID: [id number] Bra nd Name: duloxetine Send Method: E-Prescrib [...] Updated DateTime 06/13/2024 160.02 cm 19.5 kg/m2 20736.16 g Renetta Gonzalez [place] [facility] 06/13/2024 11:04:21 Social History None recorded. Functional Status None recorded. Mental Status None recorded. Family History Nothing Reported. Medical History No medical history recorded. Gynecological HistoryNo gynecological history recorded. Obstetrics History GPAL:G 0 P 0 0 0 0 Past Encounters Encounter ID Performer Location Encounter Start Date Encounter Closed Date Diagnosis/Indication Diagnosis SNOMED-CT Code Diagnosis ICD10 Code Diagnosis Note [id number] ZEUS MARIO MD [facility] [address] [address] 06/13/2024 10:55:04 06/13/2024 11:21:51 Chronic rhinitis 12673530 J31.0 Obstructiv e sleep apnea syndrome 95481206 G47.33 Left trige candy neuralgia 2191427114 9831584 G50.0 Chronic sinusitis 431615 00 J32.9 Health Concerns Section Related Observation LastModified by Organization Detai ls LastModified Time None Recorded Concern Status LastModified by Organization Details LastModified Time None Recorded Advance Directives Directive None Recorded Payers Encounter Date Sequence Insurance Name Policy Number Policy Grande Covered Member ID Grande Member ID Guarantor Name 06/13/2024 1 [employer] [place] [id number] Geovanna Silva [id number] Geovanna Silva Notes Date Note Type Note Provider Name and Address Organization Details Recorded Time 06/13/2024 text/html hx of migraine and CELIO. Reports AHI 18/hr. However recent PSG shows RDI 9.8/hr. 3 attempts at CPAP since 2016 and none since recall in 2020. Hx of trigeminal neuralgia and facial pain limiting use of something on her faceReports neg MRI over 2 years ago and normal dental scan 18 months ago. Has chronic left facial pain ZEUS ONEIL MD [address] [place] [address],[address], [address], [place] [facility] 06/13/2024 11:24:26 OBGyn Episode No OBEpisode recorded.
--- OUTSIDE RECORDS SUMMARY | 2024-11-18 17:13 | XMS_ITS | Patient Health Record ---
Author Organization [employer] 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 not using alcohol, no illicits, not a smoker lives alone, sisters nearby. 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 not using alcohol, no illicits, not a smoker lives alone, sisters nearby. 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 not using alcohol, no illicits, not a smoker lives alone, sisters nearby. 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 not using alcohol, no illicits, not a smoker lives alone, sisters nearby. 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 not using alcohol, no illicits, not a smoker lives alone, sisters nearby. 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 not using alcohol, no illicits, not a smoker lives alone, sisters nearby. 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 not using alcohol, no illicits, not a smoker lives alone, sisters nearby. 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 not using alcohol, no illicits, not a smoker lives alone, sisters nearby. 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 not using alcohol, no illicits, not a smoker lives alone, sisters nearby. 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 not using alcohol, no illicits, not a smoker lives alone, sisters nearby. 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 not using alcohol, no illicits, not a smoker lives alone, sisters nearby. 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 not using alcohol, no illicits, not a smoker lives alone, sisters nearby. 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 not using alcohol, no illicits, not a smoker lives alone, sisters nearby. 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 not using alcohol, no illicits, not a smoker lives alone, sisters nearby. 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 not using alcohol, no illicits, not a smoker lives alone, sisters nearby. 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 not using alcohol, no illicits, not a smoker lives alone, sisters nearby. 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 not using alcohol, no illicits, not a smoker lives alone, sisters nearby. 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 not using alcohol, no illicits, not a smoker Problems Problem Type SNOMED Code ICD Code Onset Dates Problem Status W/U Status Risk Notes Problem 85353638 Generalized anxiety disorder (F41.1) Active confirmed Problem 94454463 Mood disorder (F39) Active confirmed Problem Epilepsy (09701662) Epilepsy (G40.909) Active confirmed Problem Migraine (71086827) Migraine (G43.909) Active confirmed Problem 658045959 Migraine without aura and without status migrainosus, not intractable (G43.009) Active confirmed Problem Sleep apnea (31271565) Sleep apnea (G47.30) Active confirmed Problem Posttraumatic stress disorder (44302684) PTSD (post-traumatic stress disorder) (F43.10) Active confirmed Problem Attention deficit hyperactivity disorder (117585716) ADHD (attention deficit hyperactivity disorder) (F90.9) Active confirmed Problem 48716064 Obstructive slee p apnea (G47.33) Active confirmed Problem Stomach ulcer (601218205) Stomach ulcer (K25.9) Active confirmed Problem Hyperlipidaemia (51871374) Hyperlipemia (E78.5) Active confirmed Problem Depressed bipolar I disorder (41716936) Bipolar depression (F31.30) Active confirmed Problem 10029053 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) Active confirmed Problem 553945796 Attention defici t disorder (ADD) in adult (F98.8) Active confirmed Problem Age-related osteoporosis (055552976) Osteoporosis, unspecified osteoporosis type, unspecified pathological fracture presence (M81.0) Active confirmed Vital Signs Height 63 in 03/22/2024 Weight 110 lbs 03/22/2024 BMI 19.48 kg/m2 03/22/2024 Encounters Encounter Location Date Provider Diagnosis [facility] [address] [phone] 12/01/2023 MARY DEGRUSH Mood disorder F39 ; PTSD (post-traumatic stress disorder) F43.10 ; Migraine without aura and without status migrainosus, not intractable G43.009 ; Nonintractable generalized idiopathic epilepsy without status epilepticus G40.309 ; Obstructive sleep apnea G47.33 ; Attention deficit disorder (ADD) in adult F98.8 and Generalized anxiety disorder F41.1 [facility] [address] [address] 03/22/2024 MARY DEGRUSH Mood disorder F39 ; [...] provider in [facility] 03/22/2024 Migraine without aura and without status migrainosus, not intractable (ICD-10 - G43.009) continued management with her primary neurologic provider in [facility] 03/22/2024 Nonintractable generalized idiopathic epilepsy without status epilepticus (ICD-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 12/01/2023 Nonintractable generalized idiopathic epilepsy without status [...] to and communicating with other health rn primary care, documenting clinical information in the record, counseling, [...] sentence. If any questions, please contact the TRANSMISSION DESIGN ENGINEER office at [phone]. 03/22/2024 Other Neuro I spent a total of 30 minutes on the present encounter, which includes preparing for the encounter, obtaining history, performing examination, reviewing diagnostic data, ordering medications/testi ng/procedures and other care coordination, referring to and communicating with other health rn primary care, documenting clinical information in the record, counseling, [...] sentence. If any questions, please contact the TRANSMISSION DESIGN ENGINEER office at [phone]. Plan Of Treatment Next Appt Details Provider Name:MARY PARRY [facility], 12/21/2024 09:00:00 AM, [address] [facility], [address], [place], [address], Insurance Providers Payer Name Payer Address Payer Phone Subscriber Number Group Number Insured Name Patient Relationship to Insured Coverage Start Date Coverage End Date [employer] [employer] [place] [address] [address] [place], [place] [id number] [phone] [id number] Geovanna Silva Self - patient is the [...]
== END 2024-11-18 15:35 | disposition home or self-care (01) ==
PROVIDERS: PCP Nurse Practitioner Family
DX: M81.0 Age-related osteoporosis without current pathological fracture (principal)
CPT/HCPCS: 99212

== ENCOUNTER → 2024-11-18 15:02 | Outpatient (BNVA) | payer OTHER, SELFPAY | PROVIDERS: PCP Nurse Practitioner Family | DX: M81.0 Age-related osteoporosis without current pathological fracture (principal) | CPT/HCPCS: 96372; J0897 ==

== ENCOUNTER 2025-02-14 09:50 | Outpatient (AMB) | payer OTHER, SELFPAY ==
[2025-02-14 10:11] VITALS: BP 120/78; PULSE 71; O2SAT 97; BMI 20.5
--- NOTE | 2025-02-14 10:11 | MHC.OFFVIS ---
Vital Signs 02/14/25 10:11 Height 5 ft 3 in Weight 116 lb BMI 20.5 BP 120/78 Blood Pressure Location Lt brachial Position Sitting Pulse 71 Pulse Source Pulse Oximeter Pulse Oximetry (%) 97 Oxygen Delivery Method Room Air Intake Visit Reasons: Follow Up Intake Note: Patient presents follow up for migraines/CELIO. 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 Accompanied by: Self / Same As Patient Allergies erythromycin base [ERYTHROMYCIN BASE] Allergy (Unknown, Verified 02/14/25 10:14) SWELLING From COMPAZINE Allergy (Unknown, Uncoded 11/11/24 11:07) EXTREME ANXIETY From WELLBUTRIN Allergy (Unknown, Uncoded 11/11/24 11:07) MOOD CHANGE (RAGE) Medication List - Last Reconciled 02/14/25 by VINICIUS Crump atorvastatin 40 mg PO DAILY buspirone 5 mg PO BID carbamazepine ER 1 tab qam and 2 tabs qhs orally; celecoxib (Celebrex) 50 mg PO BID clonazepam 0.25 mg PO BEDTIME cyclosporine 0.05% (Restasis) drps ophthalmic (eye) denosumab (Prolia) 60 mg subcut [id number] duloxetine (Cymbalta) 30 mg PO .qd famotidine 10 mg PO DAILY lamotrigine 200 mg PO BID 90 days onabotulinumtoxinA (Botox) Inject 155 units across forehead scalp and neck; 12 weeks sumatriptan succinate 100 mg PO Q2H PRN sumatriptan succinate 6 mg (0.5 mL) subcut ONCE PRN 30 days verapamil ER 180 mg PO DAILY HPI Comments Details: 64-yr-old female presents for f/u of migraine, atypical facial pain, seizure d/o, CELIO. Pt reports her facial pain symptoms have improved, though she is not exactly sure why. This pain was preventing her from eating harder foods. Now just occasional bout s of this pain. And overall, she is now able to eat better. Pt is compliant with her tegretol. She does feel that celebrex 50mg bid- has been helpful. She states her migraines are overall better. She is having some morning headaches. She denies any seizure episodes. Occasionally wakes up feeling dizzy. She is feeling symptomatic from her CELIO- am headaches, sometimes waking up dizziness. Her last sleep study, showed AHI 17/hr. We had written a new CPAP order in Oct, however pt did not receive as she was also referred for an Inspire evaluation, which she did have w/ Dr Pedro- however she did not feel this was a good tx for her. She is hoping to restart PAP tx. In the meantime, she is using mouth tape. She now has her sisters old Resmed AirSense 10 for her- SN [id number]. She continues to see Dr Cage for mood. [facility] Medical History Chronic migraine without aura, intractable, without status migrainosus Undifferentiated connective tissue disease Low complement measurement Osteoporosis Anterior neck pain At high risk for breast cancer Abdominal pain, epigastric Facial pain JASMINE (generalized anxiety disorder) Benign essential hypertension Urinary hesitancy Body dysmorphic disorder Cold sore Attention deficit hyperactivity disorder (ADHD) Family history of breast cancer Pain of right hip joint TMJ arthralgia Seizure disorder Osteopenia Migraines Bipolar 2 disorder Hyperlipidemia Surgical History H/O tooth extraction Family History Mother Cancer Breast cancer Arthritis Family/Other No problems noted. Sister Breast cancer Arthritis Sister Breast cancer Arthritis Social History Alcohol intake: current Alcohol intake frequency: holidays/special occasions only Patient Tobacco Use Status: Never used Tobacco Physical Exam Vital Signs: Last Vital Signs Pulse 71 02/14/25 10:11 BP 120/78 02/14/25 10:11 Pulse Ox 97 02/14/25 10:11 Oxygen Delivery Method Room Air 02/14/25 10:11 BMI result Body Mass Index 20.5 Const General: cooperative and no acute distress Orientation/consciousness: patient oriented x3 Resp Effort & Inspection: normal respiratory effort and able to speak in complete sentences Neuro General: patient oriented x3 Cognition (Neuro): normal cognition Psych Appearance: grossly normal Mental Status: mental status grossly normal Speech and movement: Clear speech present Affect: normal affect Attitude: cooperative Assessment & Plan Assessment & Plan (1) Trigeminal neuralgia of left side of face: Code(s): G50.0 - Trigeminal neuralgia Category: Medical (2) Migraine with aura, intractable, without status migrainosus: Code(s): G43.119 - Migraine with aura, intractable, without status migrainosus Category: Medical (3) Seizures: Comment: petit mal Code(s): R56.9 - Unspecified convulsions Category: Medical (4) Chronic migraine without aura: Code(s): G43.709 - Chronic migraine without aura, not intractable, without status migrainosus Category: Medical Qualifiers: Status migrainosus presence: without status migrainosus Intractability: not intractable Qualified Code(s): G43.709 - Chronic migraine without aura, not intractable, without status migrainosus (5) Obstructive sleep apnea: Comment: AHI 18 O2 sheba 80% - Code(s): G47.33 - Obstructive sleep apnea (adult) (pediatric) Category: Medical Plan ? For left-facial pain- Continue Tegretol ER 200mg in am and 400mg qhs. July 2024 tegretol level - NL Check CBC, CMP, Tegretol level Continue Celebrex. F/u w/ pain management as scheduled. ? For chronic migraine prevention: Continue Botox for chronic migraine prevention. Continue Verapamil ER 180mg qd- i would not decrease at this time d/t variable BP. Pt has previously failed migraine prevention trials of Inderal, Nortriptyline, ? For acute migraine tx: Patient has stopped Nurtec- ineffective. Continue Sumatriptan oral and inj prn, Benadryl prn. Previous acute trials- Rizatriptan, Ubrogepant- ineffective. Nurtec ineffective. ? For seizures- Continue Tegretol XR as above Continue Lamictal 200mg bid. Check CBC, CMP, Tegretol level, lamotrigine level. ? For mood disorder- F/u with psychiatrist Dr Cage as scheduled. ? For h/o + VERONICA, osteoporosis: Follow-up with rheumatology as scheduled. ? For CELIO- HST- moderate CELIO. Patient had inspire consult with Dr. Gallegos, her she has decided not to proceed with inspire therapy at this time. Thus, patient is advised to start APAP 5-20 cm H2O. Patient may use her sisters CPAP machine. New PAP therapy order written- we will sent [facility]. Previous PAP settings was- CPAP 12 cmH2O. Will follow-up upon review of above and patient to follow-up in clinic in 6 months or sooner prn. Orders: Orders Comprehensive Met. Panel Today R56.9 - Unspecified convulsions Lamotrigine Lamictal Today R56.9 - Unspecified convulsions Complete Blood Count Auto Diff Today R56.9 - Unspecified convulsions Carbamazepine Tegretol Today G40.909 - Epilepsy, unspecified, not intractable, without status epilepticus, R56.9 - Unspecified convulsions Medications: Refilled sumatriptan succinate 100 mg PO Q2H PRN 12 tabs 6RF for migraine verapamil ER 180 mg PO DAILY 90 caps 1RF carbamazepine ER 1 tab qam and 2 tabs qhs orally; 270 tabs 1RF Coding Level of Care Code Est Pt Level 4 (17731) Complex EM visit Add On G2211 Diagnoses Trigeminal neuralgia of left side of face G50.0 Migraine with aura, intractable, without status migrainosus G43.119 Seizures R56.9 Chronic migraine without aura without status migrainosus, not intractable G43.709 Status migrainosus presence: without status migrainosus Intractability: not intractable Obstructive sleep apnea G47.33
--- OUTSIDE RECORDS SUMMARY | 2025-02-14 10:27 | XMS_ITS | Continuity of Care Document ---
Author Organization [facility] Address [address] [place] [phone] Phone Care Team Providers Care Cognos Developer Name Role Phone Patt Saul PA-C Unavailable Unavailab le Allergies, Adverse Reactions, Alerts Substance Reaction Status Criticality topiramate Active No Information BUPROPION HCL Active No Information erythromycin base Active No Informa tion PROCHLORPERAZINE MALEATE Active No Information PROCHLORPERAZINE EDISYLATE Active N o Information Medications Medication Instructions Dosage Effective Dates (start - stop) Status Comments Abilify 2 mg Tab - Active Nasonex 50 mcg/Actuation [place] spray 2 by Nasal route every day 2.00 - Active Imitrex 100 mg Tab take 1 tablet (100MG ) by ORAL route once with fluids as early as possible after the onset of a migraine attack;may repeat after 2 hours if headache returns, not to exceed 200mgin 24hrs 100 MG - Active Carbatrol 200 mg 12 hr Cap take 2 capsule (400MG) by ORAL route 2 times every day 400 MG - Active Lamictal 200 mg Tab take 1 tablet (200MG ) by ORAL route every day 200 MG - Active Lexapro 20 mg Tab take 1 tablet (20MG) by ORAL route every day 20 MG - Active Procedures Procedure Date Percut [...] Diagnoses Date Provider Providers Copied on Encounter [facility], [address] [place] [address], [address] [place] [address] , tel:[phone] Allergy No Information [address] [place] [address], [address] [place] [address] , . tel:[phone] Referring Provider: MD Delfino Jeronimo, [address], [place], [address]. tel:[phone] Office/Outpat ient Visit, [facility], [address] [place] [address], [address] [place] [address] , tel:[phone] [address] sinusitis/ allergies (chief complaint) Acute SinusitisAllergic RhinitisTurbinate HypertrophyMigrain eMigraine [address] [place] [address], [address] [place] [address] , . tel:[phone] Specialist: Andrei Rainey [facility] [address], [place], [address]. tel:[phone] Provider: MD Delfino Jeronimo, [address], [place], [address]. tel:[phone] [facility], [address] [place] [address], [address] [place] [address] , tel:[phone] No Information [address] [place] [address], [address] [place] [address] , . tel: [phone] Office Consultation [facility], [address] [facility], [place], [place], [id number] , tel: [phone] [address] sinus infection, chronic (chief complaint) Acute SinusitisAllergic RhinitisTurbinate HypertrophyAcute SinusitisTurbinate HypertrophyAllergi c Rhinitis [address] [facility], [place], [place], [id number] , . tel: [phone] Specialist: Andrei Rainey [facility] [address], [place], [address]. tel:[phone] Family History Family Member Type Diagnosis Age At Onset Mother Problem (finding) Family history of chronic obstructive lung disease Mother Problem (finding) Family history of malignant neoplasm of breast in first degree relative Payers Payer name Insurance type Covered republican ID Authoremiliana huerta(s) [facility] [id number] Social History Type Description Quantity Date Captured [...]
== END 2025-02-14 11:24 | disposition home or self-care (01) ==
LOC: HO.HSMS 09:50
PROVIDERS: PCP Nurse Practitioner Family; Visit Provider Nurse Practitioner Family
DX: G50.0 Trigeminal neuralgia (principal); G43.119 Migraine with aura, intractable, without status migrainosus; R56.9 Unspecified convulsions; G43.709 Chronic migraine without aura, not intractable, without status migrainosus; G47.33 Obstructive sleep apnea (adult) (pediatric)
CPT/HCPCS: 99214

== ENCOUNTER → 2025-02-14 09:50 | Outpatient (BNVA) | payer OTHER, SELFPAY | PROVIDERS: PCP Nurse Practitioner Family; Visit Provider Nurse Practitioner Family ==

== ENCOUNTER 2025-02-24 11:56 | Outpatient (AMB) | payer OTHER, SELFPAY ==
[2025-02-24 12:00] VITALS: BP 140/80; PULSE 84; O2SAT 97; BMI 20.5
--- NOTE | 2025-02-24 12:00 | A.OFFVIS_ITS ---
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: No Accompanied by: Self / Same As Patient Allergies erythromycin base [ERYTHROMYCIN BASE] Allergy (Unknown, Verified 02/24/25 12:00) SWELLING From COMPAZINE Allergy (Unknown, Uncoded 11/11/24 11:07) EXTREME ANXIETY From WELLBUTRIN Allergy (Unknown, Uncoded 11/11/24 11:07) MOOD CHANGE (RAGE) Medication List - Last Reconciled 02/24/25 by Cally Moody MD atorvastatin 40 mg PO DAILY buspirone 5 mg PO BID carbamazepine ER 1 tab qam and 2 tabs qhs orally; celecoxib (Celebrex) 50 mg PO BID clonazepam 0.25 mg PO BEDTIME cyclosporine 0.05% (Restasis) drps ophthalmic (eye) denosumab (Prolia) 60 mg subcut [id number] duloxetine (Cymbalta) 30 mg PO .qd famotidine 10 mg PO DAILY lamotrigine 200 mg PO BID 90 days onabotulinumtoxinA (Botox) Inject 155 units across forehead scalp and neck; 12 weeks sumatriptan succinate 100 mg PO Q2H PRN sumatriptan succinate 6 mg (0.5 mL) subcut ONCE PRN 30 days verapamil ER 180 mg PO DAILY HPI Comments Details: ? 64y/o female comes for treatment of migraines and torticollis with botox. Patient has CELIO AHI 18 and O2 sheba was 80%.waiting for CPAP ??? Most frequent reported adverse reactions following injection of botox for chronic migraine include neck pain (9%), headache(5%), eyelid ptosis(4%), migraine(4%), muscular weakness(4%), musculuskeletal stiffness(4%), bronchitis(3%), injection site pain (3%), musculoskeletal pain(3%), myalgia(3%), facial paresis(2%), HTN(2%) and muscle spasms(2%) were discussed in detail. ??? Botulinum toxin type A 200units Lot no [id number] expiration November 2026 was diluted with 4 cc of normal saline . ??? Muscles injected- ? Temporalis- 8 sites- 20 units each?? procerus-5 units Corrugators 5 units each Left trapezius- 30 units Right Trapezius 10 units Left levator 50 units Left splenius 25 units Left TMJ Masseter - 20 units Tito frontalis 5 units each ? Total use- 200units ??? PFSH Medical History Chronic migraine without aura, intractable, without status migrainosus Undifferentiated connective tissue disease Low complement measurement Osteoporosis Anterior neck pain At high risk for breast cancer Abdominal pain, epigastric Facial pain JASMINE (generalized anxiety disorder) Benign essential hypertension Urinary hesitancy Body dysmorphic disorder Cold sore Attention deficit hyperactivity disorder (ADHD) Family history of breast cancer Pain of right hip joint TMJ arthralgia Seizure disorder Osteopenia Migraines Bipolar 2 disorder Hyperlipidemia Surgical History H/O tooth extraction Family History Mother Cancer Breast cancer Arthritis Family/Other No problems noted. Sister Breast cancer Arthritis Sister Breast cancer Arthritis Social History Alcohol intake: current Alcohol intake frequency: holidays/special occasions only Patient Tobacco Use Status: Never used Tobacco Physical Exam Vital Signs: Last Vital Signs Pulse 84 02/24/25 12:00 BP 140/80 H 02/24/25 12:00 Pulse Ox 97 02/24/25 12:00 Oxygen Delivery Method Room Air 02/24/25 12:00 BMI result Body Mass Index 20.5 Const General: cooperative and no acute distress Orientation/consciousness: patient oriented x3 HEENT Head: Yes normocephalic Resp Effort & Inspection: normal respiratory effort and able to speak in complete sentences Neuro General: patient oriented x3 Cognition (Neuro): normal cognition Psych Appearance: grossly normal Mental Status: mental status grossly normal Speech and movement: Normal speech and movement present Affect: normal affect Attitude: cooperative Thought process: Normal thought process present Thought content: Normal thought content present Insight: Good insight present (Psych) Judgement: Good judgement present (Psych) Office Procedures Botulinum toxin Injection 19245 - Migraine Procedure code (CPT) selection complete Office Meds onabotulinumtoxinA 200 unit solution for injection Performing Provider: Cally Moody MD Performing Location: [facility] Administered by: Cally Moody MD on 02/24/25 12:51 2 Dose Route Admin Location Dispensed Lot Number Expiration Date [facility] Overhead Crane Operator 200 unit subcut 200 units [id number] ALLERGAN/BOTOX Assessment & Plan Assessment & Plan (1) Chronic migraine without aura, intractable, without status migrainosus: Code(s): G43.719 - Chronic migraine without aura, intractable, without status migrainosus Category: Medical (2) Atypical facial pain: Comment: left sided V1, V2 distribution Code(s): G50.1 - Atypical facial pain Category: Medical (3) Migraine with aura, intractable, without status migrainosus: Code(s): G43.119 - Migraine with aura, intractable, without status migrainosus Category: Medical (4) Obstructive sleep apnea: Comment: AHI 18 O2 sheba 80% - Code(s): G47.33 - Obstructive sleep apnea (adult) (pediatric) Category: Medical Plan Patient tolerated the procedure well ENT for DISE to evaluate for iNSPIRE. she will call with any side effects tegretol XR 200 mg qam and 400 mg qhs Orders: Orders AMB Botulinum toxin Injection Today G43.719 - Chronic migraine without aura, intractable, without status migrainosus Medications: New onabotulinumtoxinA 200 units subcut ONCE 1 ea 0RF Migraine G43.719 - Chronic migraine without aura, intractable, without status migrainosus Scribe Plan - Not visible on output: Reviewed possible medication side effects, including but not limited to drowsiness, dizziness. Coding Level of Care Code Est Pt Level 1 (85916) Diagnoses Chronic migraine without aura, intractable, without status migrainosus G43.719 Atypical facial pain G50.1 Migraine with aura, intractable, without status migrainosus G43.119 Obstructive sleep apnea G47.33 CPT Codes Botox Injection - Botox 3: 37331 - Migraine ([id number])
--- OUTSIDE RECORDS SUMMARY | 2025-02-24 12:28 | XMS_ITS | Data Portability ---
Author Organization [facility], , [facility] Address [address] [place] [address] Assessment No assessment recorded. Plan of Treatment [...] Locke - Colonoscopy completed Jer Locke MD [address] [place] [address], [phone], [facility] [place] 12/07/2015 10:22:09 Imaging Results None recorded. Procedure [...] carbamazepine ER 200 mg capsule,exten ded release [id number] active Not Available Not Available N ot [...] SNOMED-CT Code Diagnosis ICD10 Code Diagnosis Note [id number] Jer Locke MD [facility], [address] [address] 12/07/2015 08:24:51 12/07/2015 13:29:29 Health Concerns Section Related Observation LastModified by Organization Detai ls LastModified Time None Recorded Concern Status LastModified by Organization Details LastModified Time None Recorded Advance Directives Directive None Recorded Payers Encounter Date Sequence Insurance Name Policy Number Policy Grande Covered Member ID Grande Member ID Guarantor Name 12/07/2015 1 [facility]: BLUE CARE ELECT PREFERRED (PPO) [id number] [facility] [id number] [facility] OBGyn Episode No OBEpisode recorded.
[2025-02-24 12:36] VITALS: BP 132/88
== END 2025-02-24 12:36 | disposition home or self-care (01) ==
LOC: HO.HSMS 11:56
PROVIDERS: PCP Nurse Practitioner Family; Visit Provider Psychiatry & Neurology Neurology
DX: G43.719 Chronic migraine without aura, intractable, without status migrainosus (principal)
CPT/HCPCS: 64615

== ENCOUNTER → 2025-02-24 11:56 | Outpatient (BNVA) | payer OTHER, SELFPAY | PROVIDERS: PCP Nurse Practitioner Family; Visit Provider Psychiatry & Neurology Neurology | DX: G43.119 Migraine with aura, intractable, without status migrainosus (principal); M43.6 Torticollis; G50.1 Atypical facial pain; G47.33 Obstructive sleep apnea (adult) (pediatric) | CPT/HCPCS: 64615; 99211; J0585 ==

== ENCOUNTER 2025-08-29 15:55 | Outpatient (AMB) | payer OTHER, SELFPAY ==
--- OUTSIDE RECORDS SUMMARY | 2024-08-08 08:30 | XMS_ITS ---
Author Organization [facility], [facility] Address [address] [place] [id number] Care Team Providers Care Information Coordinator Name Role Phone Ashok JARAMILLO, Ro Primary Care Provider MARY Self Unavailable [phone] REASON FOR VISIT In office f/u Migraines, ADHD Encounters Encounter Location Date Provider Diagnosis [address] [address] 08/08/2024 MARY ROSE Plan Of Treatment No Information Progress Notes * Jolie SILVAeDOB:1960 (65 yo F)Acc No.[id number]:08/08/2024 Progress Notes Patient: Geovanna CAMPO Provider: Delfino ROSE D.O :1960 A ge:64 Y S ex:Female Date:08/08/2024 Address:[address] [place], [place] [id number] Pcp:Ro Pulido NP Subjective: * Chief Complaints: * 1 . In office f/u Migraines, ADHD. * Medical History: Objective: * Vitals: Assessment: Plan: * Treatment: * * Electronic signature of KRISTEL ROSE DO on 08/29/2025 at 10:41 PM EST Sign off status: Pending * Provider: Delfino ROSE D.O Date: 10/08/2023 Generated for Elmai phani/Faemily/eTransmitting on: 10/30/2024 10:41 PM EST
--- OUTSIDE RECORDS SUMMARY | 2025-05-26 09:00 | XMS_ITS ---
Author Organization [facility] [employer], [facility] Address [address] [place] [address] Care Team Providers Care Electromechanical Assembly Technician Name Role Phone Ashok JARAMILLO, Ro Primary Care Provider MARY Self Unavailable [phone] REASON FOR VISIT In office (per ED) f/u migraines, bipolar disorder Encounters Encounter Location Date Provider Diagnosis [facility] [address] [address] 05/26/2025 MARY ROSE Plan Of Treatment No Information Progress Notes * Jolie SILVAeDOB:1960 (65 yo F)Acc No.[id number]:05/26/2025 Progress Notes Patient: Geovanna CAMPO Provider: Delfino ROSE D.O :1960 A ge:65 Y S ex:Female Date:05/26/2025 Address:[address] [place] [address] [address] [place], [place] Pcp:Ro Pulido NP Subjective: * Chief Complaints: * 1 . In office (per ED) f/u migraines, bipolar disorder. * Medical History: Objective: * Vitals: Assessment: Plan: * Treatment: * * Electronic signature of KRISTEL ROSE DO on 08/29/2025 at 10:41 PM EST Sign off status: Pending * Provider: Delfino ROSE D.O Date: 0 05/26/2025 Generated for Printi ng/Faxing/eTransmitting on: 1 10/30/2024 10:41 PM EST
[2025-08-29 15:52] VITALS: BP 138/80; PULSE 80; O2SAT 97
--- NOTE | 2025-08-29 15:52 | A.OFFVIS_ITS ---
Vital Signs 08/29/25 15:52 Height 5 ft 3 in BP 138/80 Blood Pressure Location Rt brachial Position Sitting Pulse 80 Pulse Source Pulse Oximeter Pulse Oximetry (%) 97 Oxygen Delivery Method Room Air Intake Visit Reasons: Botox Intake Note: Botox 200 Undercoater Required: No Accompanied by: Self / Same As Patient Allergies erythromycin base (ERYTHROMYCIN BASE) Allergy (Unknown, Verified 08/29/25 15:52) SWELLING From COMPAZINE Allergy (Unknown, Uncoded 11/11/24 11:07) EXTREME ANXIETY From WELLBUTRIN Allergy (Unknown, Uncoded 11/11/24 11:07) MOOD CHANGE (RAGE) Medication List - Last Reconciled 08/29/25 by Cally Moody MD atorvastatin 40 mg PO DAILY carbamazepine ER 1 tab qam and 2 tabs qhs orally; celecoxib (Celebrex) 50 mg PO BID clonazepam 0.25 mg PO BEDTIME cyclosporine 0.05% (Restasis) drps ophthalmic (eye) denosumab (Prolia) 60 mg subcut [id number] duloxetine (Cymbalta) 30 mg PO .qd famotidine 10 mg PO DAILY lamotrigine 200 mg PO BID 90 days onabotulinumtoxinA (Botox) Inject 155 units across forehead scalp and neck; 12 weeks sumatriptan succinate 100 mg PO Q2H PRN sumatriptan succinate 6 mg (0.5 mL) subcut ONCE PRN 30 days verapamil ER 180 mg PO DAILY HPI Comments Details: ? 64y/o female comes for treatment of migraines and torticollis with botox. Patient has CELIO AHI 18 and O2 sheba was 80%.waiting for CPAP ??? Most frequent reported adverse reactions following injection of botox for chronic migraine include neck pain (9%), headache(5%), eyelid ptosis(4%), migraine(4%), muscular weakness(4%), musculuskeletal stiffness(4%), bronchitis(3%), injection site pain (3%), musculoskeletal pain(3%), myalgia(3%), facial paresis(2%), HTN(2%) and muscle spasms(2%) were discussed in detail. ??? Botulinum toxin type A 200units Lot no [id number] expiration November 2027 was diluted with 4 cc of normal saline . ??? Muscles injected- ? Temporalis- 8 sites- 20 units each?? procerus-5 units Corrugators 5 units each Left trapezius- 30 units Right Trapezius 10 units Left levator 50 units Left splenius 25 units Left TMJ Masseter - 20 units Tito frontalis 5 units each ? Total use- 200units ??? PFSH Medical History Chronic migraine without aura, intractable, without status migrainosus Undifferentiated connective tissue disease Low complement measurement Osteoporosis Anterior neck pain At high risk for breast cancer Abdominal pain, epigastric Facial pain JASMINE (generalized anxiety disorder) Benign essential hypertension Urinary hesitancy Body dysmorphic disorder Cold sore Attention deficit hyperactivity disorder (ADHD) Family history of breast cancer Pain of right hip joint TMJ arthralgia Seizure disorder Osteopenia Migraines Bipolar 2 disorder Hyperlipidemia Surgical History H/O tooth extraction Family History Mother Cancer Breast cancer Arthritis Family/Other No problems noted. Sister Breast cancer Arthritis Sister Breast cancer Arthritis Social History Alcohol intake: current Alcohol intake frequency: holidays/special occasions o nly Patient Tobacco Use Status: Never used Tobacco Physical Exam Const General: cooperative and no acute distress Orientation/consciousness: patient oriented x3 HEENT Head: Yes normocephalic Resp Effort & Inspection: normal respiratory effort and able to speak in complete sentences Neuro General: patient oriented x3 Cognition (Neuro): normal cognition Psych Appearance: grossly normal Mental Status: mental status grossly normal Speech and movement: Normal speech and movement present Affect: normal affect Attitude: cooperative Thought process: Normal thought process present Thought content: Normal thought content present Insight: Good insight present (Psych) Judgement: Good judgement present (Psych) Office Procedures Botulinum toxin Injection 74070 - Migraine Procedure code (CPT) selection complete Office Meds onabotulinumtoxinA 200 unit solution for injection Performing Provider: Cally Moody MD Performing Location: [facility] [place] [facility] Administered by: Cally Moody MD on 08/29/25 16:19 Dose Route Admin Location Dispensed Lot Number Expiration Date [facility] [place] Channel Machine Operator 200 unit subcut 200 units [id number] ALLERGAN /BOTOX Total Dispensed Waste 200 units 0 % Assessment & Plan Assessment & Plan (1) Chronic migraine without aura, intractable, without status migrainosus: Code(s): G43.719 - Chronic migraine without aura, intractable, without status migrainosus Category: Medical (2) Atypical facial pain: Comment: left sided V1, V2 distribution Code(s): G50.1 - Atypical facial pain Category: Medical (3) Migraine with aura, intractable, without status migrainosus: Code(s): G43.119 - Migraine with aura, intractable, without status migrainosus Category: Medical (4) Obstructive sleep apnea: Comment: AHI 18 O2 sheba 80% - Code(s): G47.33 - Obstructive sleep apnea (adult) (pediatric) Category: Medical Plan Patient tolerated the procedure well she will call with any side effects tegretol XR 200 mg qam and 400 mg qhs \Consider repating MR Brain Orders: Orders AMB Botulinum toxin Injection Today G43.719 - Chronic migraine without aura, intractable, without status migrainosus Scribe Plan - Not visible on output: Reviewed possible medication side effects, including but not limited to drowsiness, dizziness. Coding Level of Care Code Est Pt Level 1 (15717) Diagnoses Chronic migraine without aura, intractable, without status migrainosus G43.719 Atypical facial pain G50.1 Migraine with aura, intractable, without status migrainosus G43.119 Obstructive sleep apnea G47.33 CPT Codes Botox Injection - Botox 3: 06358 - Migraine ([id number])
--- OUTSIDE RECORDS SUMMARY | 2025-08-29 22:40 | XMS_ITS | Encounter Summary ---
Author Organization [facility] Address [address] [place] [address] Phone Care Team Providers Care Palliative Senior Np Name Role Phone Jayleen Preston CNP Unavailable Haley Ybarra MD Unavailable Andrew Courtney MD Unavailable Jayleen Preston CNP Primary Care Provider [phone] iTmi Otoole DO Unavailable Melanie Cortez RN Unavailable Ro Pulido PAYROLL REPRESENTATIVE Primary Care Provider Encounter Details Date Type Department Care Team (Late st Contact Info) Description 10/29/2022 Procedure Pass [facility], Ct Scan - [facility] [address] [place] [address] Social History Tobacco Use Types Packs/Day Years Used Date Smoking Tobacco: Never Smokeless Tobacco: Never Alcohol Use Standard Drinks/Week Comments Not Currently 0 (1 standard drink = 0.6 oz pur e alcohol) 1 drink/ week Comments No Sex and Gender Information Value Date Recorded Sex Assigned at Female 01/02/2019 12:06 PM EDT Legal Sex Female 4:30 PM EST Gender Identity Female 01/02/2019 12:06 PM EDT Sexual Orientation Straight 02/09/2020 12 :44 AM EDT 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 Job 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 Not on file Not on file documented as of this encounter Plan of Treatment Upcoming Encounters Date Type Department Care Team (Late st Contact Info) Description 10/11/2025 12:00 PM EST Office Visit [facility] [address] [place] [address] Karis Salgado MD [address] [address] [email or web address] documented as of this encounter Visit Diagnoses Not on filedocumented in this encounter Additional Health Concerns Infection Onset Date Last Indicated Resolved Time CoV-Risk Comment:Per Ambulatory Triage Form 11/18/2022 11/18/202211/18 9:29 AM EST CoV-Presumed 11/18/2022 11/18/2022 12/09/2022 1:22 AM EDT documented as of this encounter Care Teams Palliative Senior Np Relationship Specialty Start Date End Date Jayleen Preston CNP [address] [address] PCP - General Family Medicine 04/17/19 07/12/23 Ro Pulido CNP 234 [facility] 7 [place] [address] PCP - General Nurse Practitioner 07/13/23 Jayleen Preston CNP [address] [address] Historical LMR Provider 07/07/17 Haley Ybarra MD 234 [facility] 7 [place] [address] [email or web address] Historical LMR Provider 07/07/17 Andrew Courtney MD 234 [facility] [address] [place] [address] [email or web address] Historical LMR Provider 07/07/17 Timi Otoole DO [address] [place] [address], [address] [place] [address] [email or web address] Insurance Assigned Provider 07/27/22 05/30/23 Melanie Cortez, SUE [address] [place] [address] [email or web address] PHCM Cab Station AttendantAdjunct Faculty Instructor 02/19/23 03/19/23 documented as of this encounter Additional Source Comments The information contained in this document represents components of the legal health record. It is not the complete legal health record.[facility]
--- OUTSIDE RECORDS SUMMARY | 2025-08-29 22:40 | XMS_ITS | Encounter Summary ---
Author Organization [facility] Address [address] [place] [address] Phone Care Team Providers Care Warm In Name Role Phone Diane Diaz NP Unavailable Timi Otoole DO Unavailable Sommer Hill NP Unavailable Jayleen Preston AIRPORT OPERATIONS MANAGER Unavailable [phone] Yusuf Day DO Unavailable [phone] Jose Courtney MD Unavailable Candida Ryan MD Unavailable [phone] Haley Ybarra MD Unavailable Andrew Courtney MD Unavailable Jayleen Preston AIRPORT OPERATIONS MANAGER Primary Care Provider [phone] Timi Otoole DO Unavailable Melanie Cortez RN Unavailable Ro Pulido AIRPORT OPERATIONS MANAGER Primary Care Provider Encounter Details Date Type Department Care Team (Late st Contact Info) Description 11/21/2020 Ancillary Orders [facility] [address] [place] [address] Jayleen Preston, AIRPORT OPERATIONS MANAGER 15 [facility], [address] [place] [address] [email or web address] Breast screening Social History Tobacco Use Types Packs/Day Years Used Date Smoking Tobacco: Never Smokeless Tobacco: Never Alcohol Use Standard Drinks/Week Comments Yes 0 (1 standard drink = 0.6 oz pur e alcohol) 1 drink/ week Comments No Sex and Gender Information Value Date Recorded Sex Assigned at Female 01/02/2019 12:06 PM EDT Legal Sex Female 4:30 PM EST Gender Identity Female 01/02/2019 12:06 PM EDT Sexual Orientation Straight 02/09/2020 12 :44 AM EDT 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 Not on file Not on file documented as of this encounter Plan of Treatment Upcoming Encounters Date Type Department Care Team (Late st Contact Info) Description 10/11/2025 12:00 PM EST Office Visit [facility] [address] [place] [address] Karis Salgado MD [address] [place] [address] [email or web address] documented as of this encounter Results * BI MAMMOGRAM SCREENING WITH TOMOSYNTHESIS WITH CAD (BILATERAL) (04/04/2021 1:50 PM EDT) Anatomical Region Laterality Modality Breast Left, Breast Right, Breast Bilateral Bila teral Mammography 04/04/2021 2:16 PM EDT Impressions 04/04/2021 2:20 PM EDT No mammographic signs of malignancy. Annual screening is recommended. BI-RADS CATEGORY: 2 - Benign finding. DENSITY: The breast tissue is heterogeneously dense, which could obscure a lesion on mammography. Narrative 04/04/2021 2:20 PM EDT Bilateral mammography is performed in conjunction with computed aided detection. 3-D tomography along with 2-D C view imaging was also performed. Comparison made to previous dated as far back as 06/30/2014 and as recent as 09/08/2019. No suspicious masses, areas of architectural distortion or suspicious microcalcifications. A few diffuse bilateral calcifications and bilateral skin calcifications are stable. Procedure Note Chriss Hernandez MD - 04/04/2021 Bilateral mammography is performed in conjunction with computed aideddetection. 3-D tomography along with 2-D C view imaging was alsoperformed. Comparison made to previous dated as far back as 06/30/2014 andas recent as 09/08/2019. No suspicious masses, areas of architectural distortion or suspiciousmicrocalcifications. A few diffuse bilateral calcifications and bilateralskin calcifications are stable. IMPRESSION: No mammographic signs of malignancy. Annual screening is recommended. BI-RADS CATEGORY: 2 - Benign finding. DENSITY: The breast tissue is heterogeneously dense, which could obscurea lesion on mammography. Jayleen Preston CNP IMG MG EXAMS Final Resu lt documented in this encounter Visit Diagnoses Diagnosis Breast screening Breast screening, unspecified Breast screening Breast screening, unspecified documented in this encounter Additional Health Concerns Infection Onset Date Last Indicated Resolved Time CoV-Risk 12/13/2021 12/13/2021 12/24/2021 1:23 AM EDT CoV-Risk Comment:Per Ambulatory Triage Form 11/18/2022 11/18/202211/18 9:29 AM EST CoV-Presumed 11/18/2022 11/18/2022 12/09/2022 1:22 AM EDT documented as of this encounter Care Teams Warm In Relationship Specialty Start Date End Date Jayleen Preston CNP 15 [facility], 2nd [place] [address] [email or web address] PCP - General Family Medicine 04/17/19 07/12/23 Ro Pulido CNP [address] [place] [address], [address] [place] [address] PCP - General Nurse Practitioner 07/13/23 Diane Diaz HOME CARE AND HOME HEALTH AIDES TEACHER [address] [place] [address] Historical LMR Provider 07/07/17 2 Timi Otoole DO [address] [place] [address] 7 [place] [address] [email or web address] Historical LMR Provider 07/07/17 09/28/21 Sommer Hill, ELLA [address] [place] [address] Historical LMR Provider 07/07/17 2 Jayleen Preston CNP [address] [place] [address], [address] [place] [address] [email or web address] Historical LMR Provider 07/07/17 Yusuf Day DO [address] [place] [address] [facility], [place] [address] Historical LMR Provider 07/07/17 09/28/21 Jose Courtney MD [address] [place] [address] [address] [place] [address] [email or web address] Historical LMR Provider 07/07/17 09/28/21 Candida Ryan MD [address] [place] [address] 7 [place] [address] [email or web address] Historical LMR Provider 07/07/17 09/28/21 Haley Ybarra MD [address] [place] [address] 7 [place] [address] [email or web address] Historical LMR Provider 07/07/17 Andrew Courtney MD [address] [place], [place] [address] [place] [address] [email or web address] Historical LMR Provider 07/07/17 Timi Otoole DO [address] [place] [address], [address] [place] [address] [email or web address] Insurance Assigned Provider 07/27/22 05/30/23 Melanie Cortez, RN [address] [place] [address] [email or web address] PHCM BrainerDogger 02/19/23 03/19/23 documented as of this encounter Additional Source Comments The information contained in this document represents components of the legal health record. It is not the complete legal health record.[facility]
--- OUTSIDE RECORDS SUMMARY | 2025-08-29 22:40 | XMS_ITS | Encounter Summary ---
Author Organization [facility] Address [address] [facility] [address] [place] [address] Phone Care Team Providers Care Senior Systems Administrator Name Role Phone Jayleen Preston CNP Unavailable Haley Ybarra MD Unavailable Andrew Courtney MD Unavailable Ro Pulido CNP Primary Care Provider Encounter Details Date Type Department Care Team (Latest Contact Info) Description 12/26/2024 Transcribe Orders Virtual Department [address] [place] [address] Ro Pulido CNP [address] [facility], [address] [place], [place] [id number] [email or web address] Breast screening (Primary Dx) Social History Tobacco Use Types Packs/Day Years Used Date Smoking Tobacco: Never Smokeless Tobacco: Never Alcohol Use Standard Drinks/Week Comments Not Currently 0 (1 standard drink = 0.6 oz pur e alcohol) rare Child or Family Care Answer Date Record ed Do you have problems with on e of the following making it difficult for you to work, study, or receive health care? No 10/08/2023 Education Answer Date Recorded Are you interested in help w ith more adult education (for example, completing high school, GED, job training, learning the Lithuanian language, technical skills, or developing parenting skills)? No 10/08/2023 Are you concerned about learning? Not on file 10/08/2023 No 10/08/2023 Yes 10/08/2023 Food Answer Date Recorded Within the past 6 months we worried whether our food would run out before we got money to buy more. Never True 10/08/2023 Within the past 6 months the food we bought just didn't last and we didn't have enough money to get more. Never True Residential Stability Answer Date Recor ded What is your housing situation today? I have kristi sing 10/08/2023 How many times have you move d in the past 12 months? Zero (I did not move) 10/08/2023 Paying for Meds Answer Date Recorded Do you have trouble paying for medicines? No 10/08/2023 Paying Utility Bills Answer Date Record ed Do you have trouble paying your heating or elect ricity bill? No 10/08/2023 Transportation Answer Date Recorded Has the lack of transportati on kept you from medical appointments or from getting medications? No 10/08/2023 Digital Access Answer Date Recorded No 10/08/2023 Yes 10/08/2023 Do you have reliable internet access at home? Ye s 10/08/2023 Do you have a device (e.g., phone, tablet, computer) with a working camera? Yes 10/08/2023 Intimate Partner Violence Answer Date R ecorded Denied Basic Needs Not on file 08/06/2023 In the past 12 months have y ou been in a relationship with a person who hurts, threatens, or tries to control you? No 08/06/2023 Worried food would run out Not on file 08/06 In the past 12 months have y ou been in a relationship with a person who hurts, threatens, or tries to control you? 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 Not on file Not on file documented as of this encounter Plan of Treatment Upcoming Encounters Date Type Department Care Team (Late st Contact Info) Description 10/11/2025 12:00 PM EST Office Visit [facility] [address] [place] [address] Karis Salgado MD [address] [address] [email or web address] documented as of this encounter Results * BI MAMMOGRAM SCREENING WITH TOMOSYNTHESIS WITH CAD (BILATERAL) (07/18/2025 10:09 AM EDT) Anatomical Region Laterality Modality Breast Left, Breast Right, Breast Bilateral Bila teral Mammography 07/18/2025 4:43 PM EDT Impressions 07/18/2025 4:44 PM EDT No mammographic evidence of malignancy in either breast. Annual screening mammography is recommended. BI-RADS 1 NEGATIVE The patient will be notified of the results and recommendations. Narrative 07/18/2025 4:44 PM EDT BI MAMMOGRAM SCREENING WITH TOMOSYNTHESIS WITH CAD (BILATERAL) Additional patient information: Screening. COMPARISON: Comparison is made with relevant prior imaging. Breast composition: The breasts are heterogeneously dense, which may obscure small masses. FINDINGS: No abnormal masses, suspicious calcifications, or other significant findings are identified mammographically in either breast. Procedure Note Izabella Mora MD - 07/18/2025 BI MAMMOGRAM SCREENING WITH TOMOSYNTHESIS WITH CAD (BILATERAL) Additional patient information: Screening. COMPARISON: Comparison is made with relevant prior imaging. Breast composition: The breasts are heterogeneously dense, which mayobscure small masses. FINDINGS: No abnormal masses, suspicious calcifications, or other significantfindings are identified mammographically in either breast. IMPRESSION: No mammographic evidence of malignancy in either breast. Annual screening mammography is recommended. BI-RADS 1 NEGATIVE The patient will be notified of the results and recommendations. Ro Pulido RN PROVIDER RELATIONS IMG MG EXAMS Final Result documented in this encounter Visit Diagnoses Diagnosis Breast screening- Primary Breast screening, unspecified Breast screening Breast screening, unspecified documented in this encounter Additional Health Concerns Assessment Noted Time PHQ-2 Depression Total Score: 0 10/14/19 24 7:41 PM EST documented as of this encounter Care Teams Senior Systems Administrator Relationship Specialty Start Date End Date Ro Pulido BAILEE [address] [facility], [address] [place] [address] [email or web address] PCP - General Nurse Practitioner 07/13/23 Jayleen Preston CNP [address] [facility], 2nd [place] [address] [email or web address] Historical LMR Provider 07/07/17 Haley Ybarra MD [address] [place] [address], [address] [place] [address] [email or web address] Historical LMR Provider 07/07/17 Andrew Courtney MD [address] [place] [address] [address] [place] [address] [email or web address] Historical LMR Provider 07/07/17 documented as of this encounter Additional Source Comments The information contained in this document represents components of the legal health record. It is not the complete legal health record.[facility]
--- OUTSIDE RECORDS SUMMARY | 2025-08-29 22:40 | XMS_ITS | Data Portability ---
Author Organization [place] [facility] Address [address] [address] Care Team Providers Care Banking Services Advisor Name Role Phone BETTY MASCORRO Referring Provider [...] inspire procedure [email or web address] Not available 06/13/2024 11:20:15 12/20/2024 12/20/2024 Review of sleep study shows patient has moderate to severe obstructive sleep apnea. Further screening to assess candidacy for the inspire hypoglossal nerve stimulator with a drug-induced sleep endoscopy was offered. This examination is performed under anesthesia to help stimulate the onset of obstructive sleep apnea events. This will be monitored with a small camera in the back of the nose. Occasionally it is determined that the pattern of collapse in their pharynx would not be helped by the inspire hypoglossal nerve stimulator implant and it is appropriate to screen for these patients to avoid unnecessary surgical procedures. Risks of this procedure beyond the anesthesia medications that are given include possible bleeding from the nose where the instruments are passed. No new prescriptions are needed after the procedure. We will review results with a telehealth call approximately 1 week after the procedure. [email or web address] Not available 12/20/2024 12:06:09 Plan of Treatment Reminders Order Date Submit Date Provider Last Modified By Organization Details Last Modified Time Details Appointments None recorded. Lab None recorded. Referral None recorded. Procedures drug-induc ed sleep endoscopy (SURG) 2024 025 [email or web address] Not available 5 16:06:43 Surgeries [address] recorded. Imaging CT, maxillofac ial, w/o contrast 2023 024 [facility] [place], [address] [facility], [place], [address], 08:52:12 Medication Orders None recorded. Patient TargetsNo targets recorded. Patient InstructionsNo instructions recorded. Reason for Referral None Reported. Results Created Date Observation Date Name Description Value Unit Range Abnormal Flag Note LastModifiedBy Organization Detail LastModifiedTime 06/13/20 sleep study , diagn ostic (PROC ) No observ ation record ed. [facility] [address] [facility], [place], [address], 06/13/2024 11:52:31 06/16/20 24 06/15/2024 CT, maxil lofac ial, w/o contr ast No observ ation record ed. [facility] [place] [address], [place], [address], 06/19/2024 08:32:35 06/17/20 24 06/15/2024 CT, maxil lofac ial, w/o contr ast No observ ation record ed. [facility] [place] [address], [place], [address], 06/19/2024 08:33:00 12/21/1911/09/2022 sleep study , diagn ostic (PROC ) No observ ation record ed. [facility] (Medical Records) [address] [place], [address], 12/22/2024 23:03:00 Result Notes None recorded. 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; Note: Date Diagnosed : 04/03/2021 10:36 AM (G50.1) Not Available [facility] 4 02:50:24 Migraine 23866142 Active 2020 Other migraine, not intractab le, without status migrainos ; Note: Date Diagnosed : 04/03/2021 10:36 AM (G43.809) Not Available [facility] 4 02:50:24 Chronic rhinitis 28935042 Active 2023 ZEUS MARIO MD [address] [place] [address], [place], [address] , [place] [facility] 4 11:16:22 Obstructi ve sleep apnea syndrome 64113515 Active 2023 IVA PEDRO MD [address] [place] [address], [place], [address] , [facility] - [facility] 5 21:41:25 Left trigemina l neuralgia 39798817486 557062 Active 2023 ZEUS MARIO MD [address] [place] [address], [place], [address] , [facility] 4 11:16:32 Chronic sinusitis 53493567 Active 2023 ZEUS MARIO MD [address] [place], [place] [address] [place], [address] , [facility] 4 11:16:41 Problem Notes None recorded. Procedures Surgical History Date Name Laterality Status Provider Name and Address Organization Details Recorded Time 12/20/2024 FOL_DP completed IVA PEDRO MD [address] [place] [address],[place] [address], [place], [address], [facility] - [facility] 12/20/2024 12:05:10 Imaging Results None recorded. Procedure Notes None recorded. Medical Equipment None Reported. Allergies Allergen ID Allergen Name Allergen Category Reaction Reaction Severity Criticality Documentation Date Start Date Code Code System Note Provider Name and Address Organization Details Recorded Time 985873 Wellbutri n medicatio n other Not available Not available 02/02/2024 37244 RxNorm React ion: Unkno wn; Not Available [facility] 4 01:16:12 529193 erythromy paul medicatio n other Not available Not available 02/02/2024 4053 RxNorm React ion: Unkno wn; Not Available [facility] 4 01:16:13 599107 Compazine medicatio n Not available Not available Not available 12/20/202428186 6 RxNorm KEELEY TOMI garcia, [place] - [facility] 5 11:13:10 Medications Name Sig Start Date Stop Date Status Note LastModified by Organization Details LastModified Time celecoxib 200 mg capsule active Not Available Not Available Not Available atorvasta tin 40 mg tablet active Medicati on ID: [id number] B rand Name: atorvast atin Sen d Method: E-Prescr ibed Sub s Allowed: subs OK Speci al Instruct ion: TAKE 1 TABLET BY MOUTH EVERY DAY Medi cationGe nericNam e: atorvast atin Not Available Not Available Not Available buspirone 5 mg tablet active Not Available Not Available Not Available Vitamin B-2 100 mg tablet active Medicati on ID: [id number] B rand Name: Vitamin B-2 Send Method: E-Prescr ibed Sub s Allowed: subs OK Speci al Instruct ion: TAKE 2 TABLETS BY MOUTH TWICE A DAY Medi cationGe nericNam e: Vitamin B-2 Not Available Not Available Not Available lamotrigi ne 200 mg tablet 12/20 completed Not Available Not Available Not Available sumatript an 100 mg tablet active Not Available Not Available Not Available carbamaze pine ER 100 mg tablet,ex tended release,1 2 hr 12/20 completed Not Available Not Available Not Available famotidin e 40 mg tablet active Not Available Not Available Not Available clonazepa m 0.5 mg tablet active Not Available Not Available Not Available valacyclo vir 500 mg tablet 12/20 completed Not Available Not Available Not Available verapamil ER 180 mg 24 hr capsule,e xtended release active Not Available Not Available Not Available carbamaze pine ER 200 mg tablet,ex tended release,1 2 hr active Not Available Not Available Not Available gabapenti n 300 mg capsule TAKE 1 CAPSULE BY MOUTH DAILY AT BEDTIME 12/20 completed Not Available Not Available Not Available omeprazol e 20 mg capsule,d elayed release 12/20 completed Not Available Not Available Not Available sumatript an 6 mg/0.5 mL subcutane ous pen injector active Not Available Not Available Not Available Restasis 0.05 % eye drops in a dropperet te active Not Available Not Available Not Available duloxetin e 20 mg capsule,d elayed release 12/20 completed Medicati on ID: [id number] B rand Name: duloxeti ne Send Method: E-Prescr ibed Sub s Allowed: subs OK Speci al Instruct ion: TAKE 2 CAPSULES BY MOUTH EVERY DAY [facility] nericNam e: duloxeti ne Not Available Not Available Not Available duloxetin e 30 mg capsule,d elayed release active Not Available Not Available Not Available lamotrigi ne active Not Available Not Available Not Available Prolia 60 mg/mL subcutane ous syringe active Not Available Not Available Not Available D3-5000 125 mcg (5,000 unit) capsule Take by oral route. active Not Available Not Available No t Available Vitals Date Recorded Body height Body mass index (BMI) Body weight Provider Name and Address Organization Details Last Updated DateTime 12/20/2024 160.02 cm 19.8 kg/m2 92545.35 g KEELEY KRISHNA [facility] 12/20/2024 11:12:58 Date Recorded Body height Body mass index (BMI) Body weight Provider Name and Address Organization Details Last Updated DateTime 06/13/2024 160.02 cm 19.5 kg/m2 51380.16 g Renetta Gonzalez [facility] 06/13/2024 11:04:21 Social History None recorded. Functional Status None recorded. Mental Status None recorded. Family History Nothing Reported. Medical History No medical history recorded. Gynecological HistoryNo gynecological history recorded. Obstetrics History GPAL:G 0 P 0 0 0 0 Past Encounters Encounter ID Performer Location Encounter Start Date Encounter Closed Date Diagnosis/Indication Diagnosis SNOMED-CT Code Diagnosis ICD10 Code Diagnosis IMO Codes Diagnosis Note [id number] ZEUS MARIO MD [facility] [address] [address] 06/13/2024 10:55:04 06/13/2024 11:21:51 Chronic rhinitis 56017593 J31.0 Obstructiv e sleep apnea syndrome 03698227 G47.33 Left trige candy neuralgia 6713045027 3081291 G50.0 Chronic sinusitis 230413 00 J32.9 [id number] IVA PEDRO MD [facility] [address] [address] 12/20/2024 10:51:12 12/20/2024 12:11:25 Obstructive sleep apnea syndrome 89868747 G47.33 AHI 18, sleep center [facility] ommended to try the oral appliance which may be helpful for her low moderate [facility] Health Concerns Section Related Observation LastModified by Organization Detai ls LastModified Time None Recorded Concern Status LastModified by Organization Details LastModified Time None Recorded Advance Directives Directive None Recorded Payers Insurance Date Sequence Insurance Name Policy Number Policy Grande Covered Member ID Grande Member ID Guarantor Name 03/21/2025 1 [employer]UE [employer]IT [employer] OF [facility] [id number] [facility] [id number] Notes Date Note Type Note Provider Name [...] chronic left facial pain ZEUS ONEIL MD [address] [place] [address], [address], [facility] 06/13/2024 11:24:26 12/20/2024 text/html ROS as noted in the HPI [facility] 11/08/2022 [facility] [place], Dr. Paez 20.2AHI 18Central and mixed none recordedCPAP trial, 3 attempts at CPAP since 2016 and none since recall in 2020. Hx of Migraine, trigeminal neuralgia and facial pain limiting use of something on her faceReports neg MRI over 2 years ago and normal dental scan 18 months ago. Has chronic left facial painfeels some better control when sleep upright PV 06/13/24 Jimi - referred to Dr Pettit for trigeminal neuralgia workup IVA PEDRO MD [address] [place] [address], [address], [facility] 12/20/2024 12:10:09 OBGyn Episode No OBEpisode recorded.
--- OUTSIDE RECORDS SUMMARY | 2025-08-29 22:40 | XMS_ITS | Encounter Summary ---
Author Organization [facility] Address [address] [facility] [address] [place] [address] Phone Care Team Providers Care Metallic Yarn Slitting Machine Operator Name Role Phone Jayleen Preston CNP Unavailable Haley Ybarra MD Unavailable [phone] Andrew Courtney MD Unavailable Ro Pulido CNP Primary Care Provider Encounter Details Date Type Department Care Team (Late st Contact Info) Description 12/26/2024 Procedure Pass [facility], [facility] [address] [place] [address] Social History Tobacco Use Types Packs/Day Years Used Date Smoking Tobacco: Never Smokeless Tobacco: Never Alcohol Use Standard Drinks/Week Comments Yes 0 (1 standard drink = 0.6 oz pur e alcohol) Maybe 2-3 drinks/month Child or Family Care Answer Date Record ed Do you have problems with on e of the following making it difficult for you to work, study, or receive health care? No 10/08/2023 Education Answer Date Recorded Are you interested in help w ith more adult education (for example, completing high school, GED, job training, learning the Emirati language, technical skills, or developing parenting skills)? 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 on file Not on file Not on file documented as of this encounter Plan of Treatment Upcoming Encounters Date Type Department Care Team (Late st Contact Info) Description 10/11/2025 12:00 PM EST Office Visit [facility] [address] [place] [address] Karis Salgado MD [address] [address] documented as of this encounter Visit Diagnoses Not on filedocumented in this encounter Additional Health Concerns Assessment Noted Time PHQ-2 Depression Total Score: 0 10/14/19 24 7:41 PM EST documented as of this encounter Care Teams Metallic Yarn Slitting Machine Operator Relationship Specialty Start Date End Date Ro Pulido CNP [address] [facility] 7 [place] [address] [email or web address] PCP - General Nurse Practitioner 07/13/23 Jayleen Preston CNP [address] [address] [email or web address] Historical LMR Provider 07/07/17 Haley Ybarra MD [address] [place] [address] 7 [place] [address] [email or web address] Historical LMR Provider 07/07/17 Andrew Courtney MD [address] [place], [place] [address] [place] [address] [email or web address] Historical LMR Provider 07/07/17 documented as of this encounter Additional Source Comments The information contained in this document represents components of the legal health record. It is not the complete legal health record.[facility]
--- OUTSIDE RECORDS SUMMARY | 2025-08-29 22:40 | XMS_ITS | Patient Health Record ---
Author Organization [employer] [facility] Address [address] [place] [address] Care Team Providers Care Radiation Protection Engineer Name Role Phone Ashok JARAMILLO, Ro Primary Care Provider MARY Self Unavailable [phone] Allergies Allergen (clinical drug ingredient) Drug/Non Drug Allergy documented on EMR Reaction Allergy Type Onset Date Status Wellbutrin Unknown Drug Allergy Active Compazine Unknown Drug Allergy Active erythromycin Erythromycin Unknown Drug Allergy A ctive Reason For Referral No Information Medications Medication SIG (Take, Route, Frequency, Duration) Notes Start Date End Date Status Famotidine 20 MG 1 tablet at bedtime as needed Orally Once a day Active clonazePAM 0.5 MG TAKE /4-1/2 A TABLE T (0.125-0.25MG) BY MOUTH EVERY DAY; Duration: 30 04/19/2025 Active Tylenol 325 MG 1 tablet as needed Orally every 4 hrs as needed Active Celecoxib 100 MG 1 capsule with food Orally twice a day; Duration: 30 days as needed Active DULoxetine HCl 30 MG TAKE 1 CAPSULE BY MOUTH ONCE DAILY; Duration: 90 Active Restasis 0.05 % 1 drop into affected eye Ophthalmic Twice a day Active carBAMazepine 200 MG 1 tablet Orally Twi ce a day Active Prolia 60 MG/ML Subcutaneous; Duration: 180 Days Active Atorvastatin Calcium 40 MG 1 tablet Oral ly Once a day; Duration: 30 day(s) Active SUMAtriptan Succinate 100 MG 1 tablet at least 2 hours between doses as needed Orally Twice a day Active LaMICtal 200 MG 1 tablet Orally twic e a day Active Verapamil HCl ER 180 MG 1 capsule Orally Once a day; Duration: 30 day(s) Active busPIRone HCl 10 MG 1 tablet Orally Twic e a day; Duration: 90 days Active ZyrTEC 10 MG 0.5 tablet Orally On ce a day Active busPIRone HCl 5 MG TAKE 1 TABLET BY TONY TH TWICE A DAY.; Duration: 90 Active Social History Tobacco Use: Social History [...] 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 not using alcohol, no illicits, not a smoker lives alone, sisters nearby. 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 not using alcohol, no illicits, not a smoker lives alone, sisters nearby. 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 not using alcohol, no illicits, not a smoker lives alone, sisters nearby. 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 not using alcohol, no illicits, not a smoker lives alone, sisters nearby. 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 not using alcohol, no illicits, not a smoker lives alone, sisters nearby. 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 not using alcohol, no illicits, not a smoker lives alone, sisters nearby. 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 not using alcohol, no illicits, not a smoker lives alone, sisters nearby. 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 not using alcohol, no illicits, not a smoker lives alone, sisters nearby. 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 not using alcohol, no illicits, not a smoker lives alone, sisters nearby. 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 not using alcohol, no illicits, not a smoker lives alone, sisters nearby. 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 not using alcohol, no illicits, not a smoker lives alone, sisters nearby. 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 not using alcohol, no illicits, not a smoker lives alone, sisters nearby. 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 not using alcohol, no illicits, not a smoker lives alone, sisters nearby. 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 not using alcohol, no illicits, not a smoker lives alone, sisters nearby. 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 not using alcohol, no illicits, not a smoker lives alone, sisters nearby. 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 not using alcohol, no illicits, not a smoker lives alone, sisters nearby. 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 not using alcohol, no illicits, not a smoker lives alone, sisters nearby. 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 not using alcohol, no illicits, not a smoker lives alone, sisters nearby. 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 not using alcohol, no illicits, not a smoker Problems Problem Type SNOMED Code ICD Code Onset Dates Problem Status W/U Status Risk Notes Problem Generalized anxiety disorder (87878901) Generalized anxiety disorder (F41.1) Active confirmed Problem Mood disorder (33653006) Mood disorder (F39) Active confirmed Problem Epilepsy (32269873) Epilepsy (G40.909) Active confirmed Problem Migraine (17715745) Migraine (G43.909) Active confirmed Problem Migraine without aura, not refractory (995497755) Migraine without aura and without status migrainosus, not intractable (G43.009) Active confirmed Problem Sleep apnea (88141856) Sleep apnea (G47.30) Active confirmed Problem Posttraumatic stress disorder (90706167) PTSD (post-traumatic stress disorder) (F43.10) Active confirmed Problem Attention deficit hyperactivity disorder (542544640) ADHD (attention deficit hyperactivity disorder) (F90.9) Active confirmed Problem Obstructive sleep apnea (21431029) Obstructive sleep apnea (G47.33) Active confirmed Problem Stomach ulcer (120822447) Stomach ulcer (K25.9) Active confirmed Problem Hyperlipidaemia (57715826) Hyperlipemia (E78.5) Active confirmed Problem Depressed bipolar I disorder (81646038) Bipolar depression (F31.30) Active confirmed Problem Idiopathic generalized epilepsy (disorder) (81697816) 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) Active confirmed Problem Adult attention deficit hyperactivity disorder (disorder) (499864301) Attention deficit disorder (ADD) in adult (F98.8) Active confirmed Problem Age-related osteoporosis (935303538) Osteoporosis, unspecified osteoporosis type, unspecified pathological fracture presence (M81.0) Active confirmed Vital Signs Height 63 in 12/21/2024 Weight 112 lbs 12/21/2024 BMI 19.84 kg/m2 12/21/2024 Encounters Encounter Location Date Provider Diagnosis [facility] [address] [address] 12/21/2024 MARY ROSE Mood disorder F39 ; PTSD (post-traumatic stress disorder) F43.10 ; Migraine without aura and without status migrainosus, not intractable G43.009 ; Nonintractable generalized idiopathic epilepsy without status epilepticus G40.309 ; Obstructive sleep apnea G47.33 ; Attention deficit disorder (ADD) in adult F98.8 and Generalized anxiety disorder F41.1 [facility] [address] [address] 12/21/2024 MARY ROSE Assessments Encounter Date Diagnosis (ICD Code) Assessment Notes Treatment Notes Treatment Clinical Notes Section Notes 12/21/2024 Mood disorder (ICD-10 - F39) Mood better on duloxetine 30mg once daily, will continue. 12/21/2024 PTSD (post-traumatic stress disorder) (ICD-10 - F43.10) 12/21/2024 Migraine without aura and without status migrainosus, not intractable (ICD-10 - G43.009) continued management with her primary neurologic provider in [facility] 12/21/2024 Nonintractable generalized idiopathic epilepsy without status epilepticus (ICD-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 12/21/2024 Obstructive sleep apnea (ICD-10 - G47.33) Agree [facility] treatment for AHI 17, if she can tolerate the treatment. 12/21/2024 Attention deficit disorder (ADD) in adult (ICD-10 - F98.8) Notably, her headaches worsened on atomoxetine. Will not try another stimulant until she has resolved the concerns with the CPAP/sleep apnea, will follow up with the sleep study, and will need VS (BP/HR) before considering a stimulant. 12/21/2024 Generalized anxiety disorder (ICD-10 - F41.1) buspirone INCREASE to 10mg twice daily using clonazepam rarely, and getting a great response for depression and anxiety with low dose buspirone- will continue. 12/21/2024 Other Neuro I spent a total of 30 minutes on the present encounter, which includes preparing for the encounter, obtaining history, performing examination, reviewing diagnostic data, ordering medications/testi ng/procedures and other care coordination, referring to and communicating with other health critical care registered nurse, documenting clinical information in the record, counseling, [...] sentence. If any questions, please contact the TELEPHONE CLEANER office at [phone]. Plan Of Treatment No Information Insurance Providers Payer Name Payer Address Payer Phone Subscriber Number Group Number Insured Name Patient Relationship to Insured Coverage Start Date Coverage End Date [employer] ADM OF TERRI RINCON [id number] [place], [place] [id number] Shira Geovanna Self - patient is the insured Medical (General) History Medical History History ICD Code ADHD (attention deficit hyperactivity di sorder) F90.9 Migraine G43.909 Sleep apnea G47.30 Bipolar depression F31.30 PTSD (post-traumatic stress disorder) F4 3.10 Hyperlipemia E78.5 Epilepsy G40.909 Stomach ulcer K25.9 Osteoporosis, unspecified os teoporosis type, unspecified pathological fracture presence M81.0 PAC's Pleurisy Surgical History Surgery Date(Month/Year) broken hip and femur 2008 Hospitalization History Reason Date(Month/Year) PAC's pleuritic pain head injury (fell and hit R frontal region no LOC but went to ED and had workup jul 2024) surgery related
--- OUTSIDE RECORDS SUMMARY | 2025-08-29 22:40 | XMS_ITS | Encounter Summary ---
Author Organization [facility] Address [address] [place] [address] [place] [address] Phone Care Team Providers Care Pouncer Name Role Phone Jayleen Preston CNP Unavailable Haley Ybarra MD Unavailable Andrew Courtney MD Unavailable Ro Pulido ELECTRONIC HEALTH RECORDS SPECIALIST Primary Care Provider Encounter Details Date Type Department Care Team (Late st Contact Info) Description 02/24/2025 Telephone Flores [facility] [address] [place], [place] [phone] Kwabena Jeter [place] [phone] [place] [address] [email or web address] Social History Tobacco Use Types Packs/Day Years [...] 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 Not on file Not on file documented as of this encounter Plan of Treatment Upcoming Encounters Date Type Department Care Team (Late st Contact Info) Description 10/11/2025 12:00 PM EST Office Visit [facility] [address] [place] [address] Karis Salgado MD [address] [address] documented as of this encounter Visit Diagnoses Not on filedocumented in this encounter Additional Health Concerns Assessment Noted Time PHQ-2 Depression Total Score: 0 10/14/19 24 7:41 PM EST documented as of this encounter Care Teams Pouncer Relationship Specialty Start Date End Date Ro Pulido CNP [address] [place] [address] [address] [place] [address] PCP - General Nurse Practitioner 07/13/23 Jayleen Preston CNP [address] [address] Historical LMR Provider 07/07/17 Haley Ybarra MD [address] [place] [address] 7 [place] [address] Historical LMR Provider 07/07/17 Andrew Courtney MD [address] [place] [address] [address] [place] [address] [email or web address] Historical LMR Provider 07/07/17 documented as of this encounter Additional Source Comments The information contained in this document represents components of the legal health record. It is not the complete legal health record.[facility]
--- OUTSIDE RECORDS SUMMARY | 2025-08-29 22:41 | XMS_ITS | Encounter Summary ---
Author Organization [facility] Address [address] [place] [address] Phone Care Team Providers Care Varnishing Unit Tool Setter Name Role Phone Jayleen Preston CNP Unavailable [phone] Haley Ybarra MD Unavailable Andrew Courtney MD Unavailable Ro Pulido CNP Primary Care Provider Encounter Details Date Type Department Care Team (Latest Contact Info) Description 08/28/2023 Transcribe Orders Virtual Department [address] [place] [address] Ro Pulido CNP [address] [facility] [place], [place] [phone] [email or web address] Breast screening (Primary Dx) Social History Tobacco Use Types Packs/Day Years Used Date Smoking Tobacco: Never Smokeless Tobacco: Never Alcohol Use Standard Drinks/Week Comments Not Currently 0 (1 standard drink = 0.6 oz pur e alcohol) rare Education Answer Date Recorded Are you interested in more education? Not on johnny e 01/16/2023 Are you concerned about learning? Not on file 01/16/2023 No 01/16/2023 No 01/16/2023 Digital Access Answer Date Recorded No 02/11/2023 No 02/11/2023 Reliable internet access at home? Not on file 02/11/2023 Device with a working camera? 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 on file documented as of this encounter Plan of Treatment Upcoming Encounters Date Type Department Care Team (Late st Contact Info) Description 10/11/2025 12:00 PM EST Office Visit [facility] [address] [place] [address] [place] [address] Karis Salgado MD [address] [place] [address] [email or web address] documented as of this encounter Results * BI MAMMOGRAM SCREENING WITH TOMOSYNTHESIS WITH CAD (BILATERAL) (10/08/2023 2:43 PM EST) Anatomical Region Laterality Modality Breast Left, Breast Right, Breast Bilateral Bila teral Mammography 10/15/2023 4:24 PM EST Impressions 10/15/2023 4:28 PM EST No mammographic evidence of malignancy in either breast. Annual screening mammography is recommended. BI-RADS CATEGORY: 2 - Benign finding. The patient will be notified of the results and recommendations. Narrative 10/15/2023 4:28 PM EST BI MAMMOGRAM SCREENING WITH TOMOSYNTHESIS WITH CAD (BILATERAL) Additional patient information: Screening. COMPARISON: Comparison is made with relevant prior imaging. Breast composition: The breast tissue is heterogeneously dense, which could obscure a lesion on mammography. FINDINGS: Previous surgical biopsy in both breasts. No abnormal masses, suspicious calcifications, or other significant findings are identified mammographically in either breast. Procedure Note Evaristo [place] MD - 10/15/2023 BI MAMMOGRAM SCREENING WITH TOMOSYNTHESIS WITH CAD (BILATERAL) Additional patient information: Screening. COMPARISON: Comparison is made with relevant prior imaging. Breast composition: The breast tissue is heterogeneously dense, whichcould obscure a lesion on mammography. FINDINGS: Previous surgical biopsy in both breasts. No abnormal masses, suspicious calcifications, or other significantfindings are identified mammographically in either breast. IMPRESSION: No mammographic evidence of malignancy in either breast. Annual screening mammography is recommended. BI-RADS CATEGORY: 2 - Benign finding. The patient will be notified of the results and recommendations. Ro Pulido YEAST PUMPER IMG MG EXAMS Final Result documented in this encounter Visit Diagnoses Diagnosis Breast screening- Primary Breast screening, unspecified Breast screening Breast screening, unspecified documented in this encounter Additional Health Concerns Assessment Noted Time PHQ-2 Depression Total Score: 2 08/06/20 23 2:00 PM EST documented as of this encounter Care Teams Varnishing Unit Tool Setter Relationship Specialty Start Date End Date Ro Pulido CNP [address] [place] [address] [email or web address] PCP - General Nurse Practitioner 07/13/23 Jayleen Preston CNP [address] [facility], 2[address] [place] [address] [email or web address] Historical LMR Provider 07/07/17 Haley Ybarra MD [address] [place] [address] 7 [place] [address] [email or web address] Historical LMR Provider 07/07/17 Andrew Courtney MD [address] [place] [address] [address] [place] [address] [email or web address] Historical LMR Provider 07/07/17 documented as of this encounter Additional Source Comments The information contained in this document represents components of the legal health record. It is not the complete legal health record.[facility]
--- OUTSIDE RECORDS SUMMARY | 2025-08-29 22:41 | XMS_ITS | Encounter Summary ---
Author Organization [facility] Address [address] [place] [address] Phone Care Team Providers Care Crm Architect Name Role Phone Jayleen Preston CNP Unavailable Haley Ybarra MD Unavailable Andrew Courtney MD Unavailable Jayleen Preston STONE FINISHER Primary Care Provider [phone] Timi Otoole DO Unavailable Melanie Cortez RN Unavailable Ro Pulido STONE FINISHER Primary Care Provider Encounter Details Date Type Department Care Team (Late st Contact Info) Description 06/19/2022 Procedure Pass [employer] [employer] [facility] [address] [place] [address] Social History Tobacco Use Types Packs/Day Years [...] 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 on file Not on file documented as of this encounter Plan of Treatment Upcoming Encounters Date Type Department Care Team (Late st Contact Info) Description 10/11/2025 12:00 PM EST Office Visit [facility] [address] [place] [address] Karis Salgado MD [address] [address] documented as of this encounter Visit Diagnoses Not on filedocumented in this encounter Additional Health Concerns Infection Onset Date Last Indicated Resolved Time CoV-Risk Comment:Per Ambulatory Triage Form 11/18/2022 11/18/202211/18 9:29 AM EST CoV-Presumed 11/18/2022 11/18/2022 12/09/2022 1:22 AM EDT documented as of this encounter Care Teams Crm Architect Relationship Specialty Start Date End Date Jayleen Preston CNP [address] [address] PCP - General Family Medicine 04/17/19 07/12/23 Ro Pulido CNP [address] [facility] [address] [place] [address] PCP - General Nurse Practitioner 07/13/23 Jayleen Preston CNP [address] [address] Historical LMR Provider 07/07/17 Haley Ybarra MD [address] [facility] 7 [place] [address] [email or web address] Historical LMR Provider 07/07/17 Andrew Courtney MD [address] [facility] [address] [place] [address] [email or web address] Historical LMR Provider 07/07/17 Timi Otoole DO [address] [place] [address] [address] [place] [address] [email or web address] Insurance Assigned Provider 07/27/22 05/30/23 Melanie Cortez, SUE [address] [place] [address] [email or web address] PHCM Nursing AdministratorCoal Wheeler 02/19/23 03/19/23 documented as of this encounter Additional Source Comments The information contained in this document represents components of the legal health record. It is not the complete legal health record.[facility]
--- OUTSIDE RECORDS SUMMARY | 2025-08-29 22:41 | XMS_ITS | Clinical Summary ---
Author Organization [facility] Address [address] [address] Phone Care Team Providers Care Documentation Clerk Name Role Phone Jayleen Preston CNP Unavailable Haley Ybarra MD Unavailable [phone] Andrew Courtney MD Unavailable [phone] Ro Pulido [facility] Primary Care Provider Allergies Active Allergy Reactions Criticality Noted Date Comments Compazine (Prochlorperazine) Other (See Comments) Medium 02/19/2016 Anxiety Erythromycin Swelling High 02/19/2016 Face and throat Wellbutrin (Bupropion Hcl) Mental Status Change Medium 02/19/2016 rage Medications verapamil (VERELAN PM) 180 MG 24 hr capsule Take 180 mg by mouth daily. Active SUMAtriptan (IMITREX) 100 MG tabletIndications :Migraine TAKE 1 TAB AT ONSET OF SYMPTOMS, MAY REPEAT DOSE 1 TIME 2 HOURS LATER IF NEEDED 9 tablet 1 019 Active lamoTRIgine (LAMICTAL) 200 MG tabletIndications :Bipolar disorder TAKE 1 TABLET BY MOUTH TWICE A DAY 180 tablet 019 Active DULoxetine (CYMBALTA) 30 MG capsule Take 30 mg by mouth daily. 021 Active SUMAtriptan succinate (IMITREX) 6 mg/0.5 mL PnIj INJECT SUBCUTANEOUSLY AT ONSET OF SEVERE MIGRAINE, MAY REPEAT IN 1-2 HOURS PA NEEDED 022 Active clonazePAM (KLONOPIN) 0.5 MG tablet /4-/2 TABLET ORALLY ONCE A DAY 30 DAYS 022 Active RESTASIS 0.05 % suspension 1 drop 2 (two) times a day. 023 Active busPIRone (BUSPAR) 5 MG tablet Take 5 mg by mouth 2 (two) times a day. Active carBAMazepine (TEGRETOL XR) 200 MG 12 hr tablet Take 200 mg by mouth 2 (two) times a day. Active PROLIA 60 mg/mL Syrg subcutaneous syringe Inject 60 mg under the skin every 6 (six) months. 024 Active omeprazole (PRILOSEC) 40 MG capsule TAKE 1 CAPSULE (40 MG TOTAL) BY MOUTH DAILY. 30 capsule 3 025 Active Additional Information Patient not taking.Reported on 06/09/2025 famotidine (PEPCID) 40 MG tablet 025 Active botulinum toxin type A (BOTOX) 100 unit SolR by See Administration Instructions route. Active atorvastatin (LIPITOR) 40 MG tabletIndications :Mixed hyperlipidemia TAKE ONE (1) TABLET BY MOUTH EVERY DAY 90 tablet 025 Active celecoxib (CELEBREX) 200 MG capsule TAKE ONE (1) CAPSULE BY MOUTH TWICE DAILY 180 capsule 025 Active celecoxib (CELEBREX) 200 MG capsule TAKE ONE (1) CAPSULE BY MOUTH TWICE DAILY 180 capsule 025 2024 Discontinued atorvastatin (LIPITOR) 40 MG tabletIndications :Mixed hyperlipidemia TAKE ONE (1) TABLET BY MOUTH EVERY DAY 90 tablet 025 2024 Discontinued Active Problems Problem Noted Date Diagnosed Date Chest pressure 02/10/2025 Assessment & Plan (02/10/2025 10:00 AM EDT): Geovanna presents for 2-3 weeks of chest pressure. Not worsened by exercise. EKG obtained showing sinus rhythm, no ST or T wave changes. She is quite concerned this could be cardiac, we agreed to proceed with stress test. I have recommended we change from famotidine to omeprazole to rule out this could be a symptoms of GERD given chronic NSAID use. Educated on medication administration, benefits, risks, and side effects profile. She is agreeable to this plan. Discussed symptoms to seek emergency care for. Palpitations 07/13/2024 Assessment & Plan (07/13/2024 3:55 PM EDT): Geovanna presents with concerns of episode of palpations/irregular feeling rhythm. She reports odd sensation across chest but denies pain or discomfort. EKG obtained today, NSR with no ST or T wave abnormalities. I have recommended a 48 hr Holter monitor. She is agreeable to this. Discussed considering cardiology referral in future if 48 Holter unrevealing. Will follow up regarding these results. She will go for her lab work this week. Positive VERONICA (antinuclear antibody) 08/07/2023 Assessment & Plan (04/14/2024 9:13 PM EDT): Diagnosed by [facility] [place] as undifferentiated connective tissue disorder. She reports that electronic induction hardener has not left the practice, she will plan to follow- up with new electronic induction hardener there. Assessment & Plan (08/07/2023 2:25 PM EST): Patient with positive VERONICA- 1:320- 05/2023. She has an appointment scheduled with [facility] [place]. Thyroid nodule 11/13/2022 Overview (12/04/2022): Incidentally found on neck CT UL 2022 left 1.5 cm TR3 nodule. FU UL recommended at 1, 3 and 5 years. FNA if grows > 2.5 cm Assessment & Plan (10/06/2024 5:29 PM EST): Tirads 3 nodule, stable on recent ultrasound. No compressive symptoms. It is very unlikely it is causing discomfort in neck given the location of discomfort which is in mid-upper neck, above the thyroid & nodule is at the lower pole. Reviewed ddx & evaluation of thyroid nodules. Will call for recent TFTs. Assessment & Plan (10/15/2023 4:21 PM EST): Due for ultrasound 11/3022- she will schedule this. Anterior neck pain 10/29/2022 Assessment & Plan (10/29/2022 2:54 PM EST): The pain is located in the left anterior neck/submandibular area. This certainly could be referred from her face pain, although the area of her neck that hurts the most is below the distribution area of the trigeminal nerve I have ordered a CT of the neck to evaluate it further At high risk for breast cancer 06/23/2022 Abdominal pain, epigastric 05/09/2022 Assessment & Plan (08/07/2023 2:13 PM EST): Exacerbated when she was taking high doses of NSAIDs. She is currently managing with omeprazole and famotidine. She has follow up with GI. Assessment & Plan (05/09/2022 10:42 AM EDT): Geovanna presents for extreme epigastric pain and she informs me that she has been taking omeprazole on empty stomach for some time now and at high doses secondary to her facial pain. I suspect the stomach ulcer. She is already on omeprazole 40 in the morning and I added Pepcid 40 at night and referral to GI for an endoscopy to confirm the suspicion of an ulcer. I advised her to not drink caffeine-she does not drink alcohol nor eat spicy foods. I advised her to take ibuprofen with food and if this is impossible secondary to her facial pain then to drink milk with this. I gave her guidance to call if she has bright red blood in the stool or dark tarry stool as this is a sign of a GI bleed. She was appreciative the referral to GI sent today. She will call if there is any other issues or concerns. She understands and agrees. Facial pain 01/27/2022 Overview (10/15/2023): Left cheek started around December 2019 after dental procedures Normal brain MRI spring 2021 [employer] r/o odontogenic source Neurologist thinks it is trigeminal neuralgia She wanted to see oromaxillofacial specialist [facility] but they do not take her insurance. Could look into ENT at [facility]. Being managed by [facility] [place] and pain management. Assessment & Plan (04/14/2024 9:09 PM EDT): She continues to experience facial pain primarily left-sided. Following with [facility] [place] and pain management. Despite improvement on Tegretol and Celebrex, this is very much affecting her quality of life. I have recommended she seek a second opinion to discuss diagnosis and management. We discussed different options for this neurology, ENT, pain management. She will consider this and let me know if she would like a referral. Assessment & Plan (10/15/2023 4:26 PM EST): Stable, continues to follow with [facility] [place] management and neurology. Symptoms are improved on Tegretol 200mg AM and 400mg PM, Celebrex 200mg twice daily, and loratadine 10mg. She reports feeling better then she has in a while, has been able to increase her diet intake. Will continue to monitor. Assessment & Plan (08/07/2023 2:11 PM EST): Suspected to be trigeminal neuralgia, pain is improved signficantly with recent Tegretol increase 200mg AM and 300mg PM, Celebrex 200mg twice daily, and loratadine 10mg. She still notices some pain with chewing but notes this is much better controlled then in the past. She will continue to follow with neurology. Assessment & Plan (05/09/2022 10:32 AM EDT): She will be seeing a specialist for this on 06/04. Assessment & Plan (01/27/2022 12:09 PM EDT): She does have TMJ which can refer into the area she is having pain. I recommend she restart mouth guard. She just started gabapentin. She is following w neuro for this issue. Benign essential hypertension 08/05/2021 Assessment & Plan (08/07/2023 2:06 PM EST): Normotensive today, will continue to monitor. Assessment & Plan (01/27/2022 11:58 AM EDT): Her BP was elevated on recheck. She doesn't have a home monitor. She will return in 4 weeks for BP recheck. Assessment & Plan (08/05/2021 10:41 AM EST): Start lisinopril. FU 3 mos JASMINE (generalized anxiety disorder) 08/05/2021 Assessment & Plan (08/05/2021 10:44 AM EST): continue Duloxetine Urinary hesitancy 11/30/2019 Assessment & Plan (03/07/2025 4:32 PM EDT): No prolapse May be due to difficulty with relaxation Consider pelvic floor PT Assessment & Plan (08/05/2021 10:43 AM EST): Q/o OAB but needs exam to evaluate for prolapse, fibroids etc. She will schedule w her public information coordinator Assessment & Plan (11/30/2019 5:24 PM EDT): Q/o incomplete emptying, possibly prolapse. She declines public information coordinator exam here. I ordered UL to check PVR. UA was normal Cold sore 11/04/2018 Assessment & Plan (11/04/2018 1:06 PM EST): Prescription of Valtrex sent, instructions given Body dysmorphic disorder 11/04/2018 Assessment & Plan (11/30/2019 4:15 PM EDT): Encouraged therapy Assessment & Plan (11/04/2018 1:08 PM EST): Long discussion about this today. I encouraged her to talk to her therapist and psychiatric nurse practitioner about it. Attention deficit hyperactivity disorder (ADHD) 07/29/2018 Overview (07/29/2018): Dx by Holly Silveira Np in fall 2017 Assessment & Plan (06/27/2020 1:01 PM EDT): I encouraged her to establish with psychiatry to review treatment recommendations Assessment & Plan (08/24/2019 3:10 PM EST): She asked if I would take over ritalin rx. I do not feel comfortable w this given risks associated w stimulant use. She is OK remaining off it. We discussed Strattera, but she is concerned it will aggravate bipolar. Assessment & Plan (07/29/2018 9:23 AM EST): Normal EKG today. She plans to start stimulant for management of her psychiatric nurse practitioner Family history of breast cancer 01/20/2018 Overview (06/23/2022): Mother and 2 sisters. 1 Sister with negative BRCA testing, the other hasnt been tested yet Pts lifetime risk is 27% based on NIH BRCAT Annual MRI and mammo recommended Assessment & Plan (10/15/2023 11:54 AM EST): Continues mammograms, UTD- last 09/2022- awaiting results. Assessment & Plan (01/27/2022 12:05 PM EDT): Due for mammo in March. She is aware. Assessment & Plan (08/24/2019 3:07 PM EST): Pt will book mammo. She has annual CBEs w [employer] Pain of right hip joint 08/31/2017 Overview (08/31/2017): Fractured right femur falling downstairs in 2009. Intramedullary nail inserted. Assessment & Plan (06/23/2022 10:28 AM EDT): Sx again sound like bursitis. She declines referral to ortho for injection. Given HEP. Pt advised to follow up if sx worsen or fail to improve. Assessment & Plan (12/20/2020 4:50 PM EDT): Suspect bursitis based on hx. Explained difficulty diagnosing over the phone. She has xray orders in. She will get these done. He will ice. Sent stretches to do over MyChart Pt advised to follow up if sx worsen or fail to improve. Hyperlipidemia 08/06/2017 Assessment & Plan (04/14/2024 9:10 PM EDT): Managed on atorvastatin 40mg, due for lab work. I have reminded her she needs to go for lab work for further refills. Assessment & Plan (10/15/2023 4:21 PM EST): Managed on atorvastatin 40mg, due for lab work. She had recent lab work done [place] [facility] and will request these records. Assessment & Plan (08/07/2023 2:08 PM EST): Managed on atorvastatin 40mg, denies side effects. Will recheck lipid panel. Assessment & Plan (08/05/2021 10:42 AM EST): Taking statin at bedtime. Reviewed dietary changes. FU 3 mos, repeat lab before visit Assessment & Plan (11/30/2019 4:11 PM EDT): Recent lipid panel results were very good. Continue statin Bipolar 2 disorder 08/06/2017 Overview (08/05/2021): Following w Dr Cage Assessment & Plan (04/14/2024 9:11 PM EDT): Stable, continues to follow with Dr. Cage. Managed on lamotrigine 200mg, duloextine 30mg, buspar 5mg,and clonazepam as needed (rare). Moods are stable and she reports feeling very well at this time. She is working with a new therapist at this time and excited about it. Will continue to monitor. Assessment & Plan (10/15/2023 4:24 PM EST): Stable, continues to follow with Dr. Cage. Managed on lamotrigine 200mg, duloextine 30mg, buspar 5mg,and clonazepam as needed (rare). Moods are stable and she reports feeling very well at this time. More energy and doing more activities she enjoys. Will continue to monitor. Assessment & Plan (08/07/2023 2:20 PM EST): Continues to follow with Dr. Cage, manages on lamotrigine 200mg, duloextine 30mg, and clonazepam as needed (rare). Patient reports moods are stable. Denies SI/HI. Will continue to monitor. Assessment & Plan (01/27/2022 12:02 PM EDT): Doing well Assessment & Plan (11/30/2019 4:15 PM EDT): Discussed finding psychiatrist at [facility], [facility] or [facility]. Also given phone numbers for self pay psychiatrists in the area if this is an option. Also recommend she see therapist Assessment & Plan (08/24/2019 3:09 PM EST): Continue Lamictal & Lexapro. Start exercising daily again. Recommend she see Dr Dov Deng Migraines 08/06/2017 Overview (01/27/2022): frequent Assessment & Plan (04/14/2024 9:10 PM EDT): Rex. Followed by neurology, Dinah Carnes managed on verapamil 180mg. Uses sumatriptan as needed. Assessment & Plan (10/15/2023 4:23 PM EST): Rex. Followed by neurology, Dinah Carnes managed on verapamil 180mg. Uses sumatriptan as needed. Assessment & Plan (01/27/2022 12:02 PM EDT): Working w neuro. Hoping to get botox soon Assessment & Plan (06/27/2020 1:00 PM EDT): Following w Dr Carnes. Doing well on Ajovy Assessment & Plan (08/24/2019 3:08 PM EST): On Aimovig now since 06/2019 Assessment & Plan (07/29/2018 9:24 AM EST): Rex, follows with neurology Assessment & Plan (08/06/2017 9:39 PM EST): Given toradol in office in hopes of aborting oncoming migraine. Need to break the cycle w the triptan overuse. She will hold it completely now. She asked to try prednisone taper, we discussed limited data on efficacy of oral steroid monotherapy for migraine, but she wanted to try it anyway.She will restart nortriptyline. If she has another severe migraine she will try fioricet instead of imitrex. Goal is to have her use imitrex no more than a few times per month. CELIO (obstructive sleep apnea) 08/06/2017 Assessment & Plan (08/07/2023 2:06 PM EST): Without CPAP due to recall, she has new insurance and has submitted for a new one. Assessment & Plan (01/27/2022 12:00 PM EDT): Her CPAP was recalled so she has been off it since October 2021. She is waiting for new equipment. Assessment & Plan (08/05/2021 10:41 AM EST): Her CPAP was recalled. She is waiting for new one Assessment & Plan (11/30/2019 4:11 PM EDT): Seeing sleep med. On CPAP Assessment & Plan (08/24/2019 3:07 PM EST): Has CPAP, managed by her neurologist Seizure disorder 08/06/2017 Overview (10/15/2023): Pastora Carnes, [facility] [facility] Assessment & Plan (04/14/2024 9:10 PM EDT): Managed on Tegretol. Denies any recent seizures. Will continue to monitor. Assessment & Plan (10/15/2023 4:22 PM EST): Managed on Tegretol. Denies any recent seizures. Will continue to monitor. Assessment & Plan (08/07/2023 2:19 PM EST): Continues on tegretol without recent seizure. Assessment & Plan (01/27/2022 12:01 PM EDT): No recent seizures Assessment & Plan (08/05/2021 10:43 AM EST): Continue Tegretol Assessment & Plan (11/30/2019 4:11 PM EDT): Stable, following w neuro Assessment & Plan (08/24/2019 3:08 PM EST): Stable, following w neuro. Was cleared to drive again Assessment & Plan (03/15/2019 4:04 PM EDT): These episodes may be seizures. Asked her to take her meds every day as prescribed. Since she can;t see Dr Stephens due to insurance issue I have referred her to Dr Segura. Should sx recur in meantime she should go to ER Age-related osteoporosis wit dion current pathological fracture Assessment & Plan (10/06/2024 5:27 PM EST): 64 yo post-menopausal woman with osteoporosis on bone density. She has had a hip fracture (falling down stairs), her mother had osteoporosis w/ hip fracture, she has been on anticonvulsant rx. She has had several falls, some of which related to seizures & is not unsteady, she is fairly sedentary but hoping to get more active. She gets a good amount of calcium in via diet & is on vitamin D supplementation. She had one prolia injection on May 17 w/o issues tolerating. She has been seeing rheumatology who has started her on medication & at present her insurance is affiliated w/ [facility] and the medication did not cost her anything, but her insurance is likely changing. She will have her next injection @ [facility] & then I am happy to assume her care if the new insurance makes it preferable to come here. We will obtain records from [facility] & see if any further evaluation of secondary causes is warranted. She is seeing her dentist. Reviewed normal bone physiology across the lifespan. Reviewed role of adequate calcium & vitamin D, weight-bearing exercise, avoiding falls and pharmacologic rx with risks/benefits. Advised her to refer to UpToDate patient information @ calcium & vitamin D & prevention and treatment of osteoporosis, beyond the basics for additional information. Assessment & Plan (04/14/2024 9:12 PM EDT): Severe, was recommended she begin Prolia but she remains very hesitant. Educated on benefits, risks, and side effects. Discussed risks of not treating the severe osteoporosis. She is scheduled to see endocrinology in September. Assessment & Plan (10/15/2023 4:19 PM EST): DXA 09/2023- severe osteoporosis. She is very hesitant to begin any medications. She is interested in endocrinology referral. Resolved Problems Problem Noted Date Diagnosed Date Resolved Date Weight loss 08/07/2023 10/15/2023 Assessment & Plan (08/07/2023 2:23 PM EST): Patient expresses frustrations surrounding weight loss and reduction in what she can eat due to facial pain. She is working with a command post craftsman and working on implementing higher protein soft foods into her diet. Given that she is feeling improvement in the pain she will try and eat more foods that require chewing as she tolerates. She will monitor her weight and follow up if she continues to lose. TMJ arthralgia 08/06/2017 08/07/2023 Assessment & Plan (08/06/2017 3:24 PM EST): Not wearing mouth guard since she started CPAP Encounters Date Type Department Care Team Description 08/28/2025 Refill [facility] [address] [place] [address] Julianne Meza CNP Medication Refill 08/28/2025 Refill [facility] [address] [place] [address] Deanrda Gray CNP Medication Refill 07/18/2025 9:47 AM EDT - 07/18/2025 11:59 PM EDT Hospital Encounter [facility] [address] [place] [address] Ro Pulido CNP Discharge Disposition: Home or Self Care 06/27/2025 1:53 PM EDT - 06/27/2025 11:59 PM EDT Hospital Encounter Non-Invasive Cardiology [address] [place] [address] Ro Pulido CNP Discharge Disposition: Home or Self Care 06/09/2025 10:50 AM EDT Office Visit [facility] at [address] [address] Malena Modi CNP Acute nasopharyngitis (common cold) (Primary Dx) 05/31/[address] [address] Kimmie Samano PA-C Medication Refill 05/31/[address] [address] Radha Reza PA-C Medication Refill 12/26/2024 Procedure Pass [address] [address] from Last 3 Months Immunizations Immunization Administration Dates Next Due COVID-19 (Pre-07/13) Pfizer Vaccine, mRNA, PF 01/05/2021,12/13/2020 Influenza High-Dose Trivalen t Preservative Free IM 07/13/2024 Influenza Quadrivalent Adjuv anted Preservative Free IM 07/25/2023 Influenza Quadrivalent Prese rvative Free IM 10/29/2022,08/05/2021,06/15/2018,2016,07/29/2016,07/09/2015 Influenza Recombinant Manish valent Preservative Free IM 08/24/2019 Pneumococcal conjugate PCV20 08/06/2023 Tdap 03/10/2014 Family History Medical History Relation Comments Breast cancer Mother 1992 Cancer Mother Hip fracture Mother Osteoporosis Mother Breast cancer Sister 1 Diagnosed 2016 Breast cancer Sister 2 Diagnosed 2022 Nephrolithiasis Sister 3 Relation Status Comments Mother Sister 1 Sister 2 Sister 3 Social History Tobacco Use Types Packs/Day Years Used Date Smoking Tobacco: Never Smokeless Tobacco: Never Tobacco Cessation:Counseling Given: Not Answered Alcohol Use Standard Drinks/Week Comments Yes 0 [...] high school, GED, job training, learning the [place]ian language, technical skills, or developing parenting skills)? 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[employer] Not on file Not on file Not on file Last Filed Vital Signs Vital Sign Reading Time Taken Comments Blood Pressure 140/82 06/27/2025 2:16 PM EDT Pulse 83 06/09/2025 11:24 AM EDT Temperature 36.7 C (98.1 F) 06/09/2025 11:24 AM EDT Respiratory Rate 17 06/09/2025 11:24 AM EDT Oxygen Saturation 97% 06/27/2025 1:00 PM EDT Inhaled Oxygen Concentration - - Weight 51.3 kg (113 lb) 03/07/2025 3:57 PM EDT Height 159 cm (5' 2.6 ) 10/06/2024 2:20 PM EST Body Mass Index 20.27 10/06/2024 2:20 PM EST Plan of Treatment Upcoming Encounters Date Type Department Care Team (Late st Contact Info) Description 10/11/2025 12:00 PM EST Office Visit [facility] [address] [place] [phone] Karis Salgado MD [address] [place] [phone] [email or web address] Health Maintenance Due Date Last Done Comments HEPATITIS C SCREENING 1976 COLOGUARD 2003 FIT TEST 2003 FOBT 2003 SIGMOIDOSCOPY 2003 VIRTUAL COLONOSCOPY 2003 ZOSTER VACCINES (1 of 2) 2008 Adult Td,Tdap Booster 03/10/2024 03/10/2014 DEPRESSION SCREENING 10/14/2024 10/14/2023 INFLUENZA VACCINE (#1) 2025 4, 07/25/2023, 10/29/2022, Additional history exists COVID-19 VACCINE ( season) 2025 08/21/2023, 02/05/2022, 07/31/2021, Additional history exists CARBAMAZEPINE (TEGRETOL) LEVEL 07/27/2025 07/27/2024, 03/17/2019, 03/15/2019 COLONOSCOPY 12/06/2025 05/13/2022, 12/07/2015 COLORECTAL CANCER SCREENING 12/06/2025 BLOOD PRESSURE 12/07/2025 06/09/2025 MAMMOGRAM 07/18/2026 07/18/2025, 09/21, 06/20/2022, Additional history exists LIPID PANEL 03/11/2027 03/11/2022, 02/20, 08/01/2021, Additional history exists PAP SMEAR 03/07/2030 03/07/2025, 0510/2017, 09/23/2011 RSV VACCINE (1 - 1-dose 75+ series) 2033 PNEUMOCOCCAL VACCINES (50+ years) Completed 08/06/2023 OSTEOPOROSIS SCREENING INITIAL (ONE-TIME) Completed 10/14/2023 SMOKING STATUS SCREENING (Once After 26 Yrs) Completed 07/18/2025 HEPATITIS A VACCINES Aged Out No long er eligible based on patient's age to complete this topic HIB VACCINES Aged Out No longer eligi ble based on patient's age to complete this topic MENINGOCOCCAL VACCINES (ACWY) Aged Out No longer eligible based on patient's age to complete this topic MENINGOCOCCAL VACCINES (B) Aged Out N o longer eligible based on patient's age to complete this topic Medical Devices Not on file Procedures Procedure Name Priority Date/Time Associated Diagnosis Comments BI MAMMOGRAM SCREENING WITH TOMOSYNTHESIS WITH CAD (BILATERAL) Routine 07/18/2025 10:09 AM EDT Breast screening STRESS TEST EXERCISE Routine 06/27/2025 2:20 PM EDT Chest pressure POCT RAPID STREP A Routine 06/09/2025 11 :32 AM EDT POCT COVID-19 RT-PCR/INFLUENZA A & B/RSV CEPHEID Routine 06/09/2025 11:30 AM EDT PAP TEST Routine 03/07/2025 12:00 AM EDT CARBAMAZEPINE (TEGRETOL) LEVEL Routine 07/27/2024 3:04 PM EST Seizure disorder BD DXA SCREENING Routine 10/14/2023 9:09 AM EST Post-menopausal HM COLONOSCOPY FOR RESULT ENTRY ONLY Routine 05/13/2022 LIPID PANEL Routine 03/11/2022 10:22 AM EDT Mixed hyperlipidemia from Last 3 Months or Most Recently Relevant to Health Maintenance Results * BI MAMMOGRAM SCREENING WITH TOMOSYNTHESIS [...] of the results and recommendations. Ro Pulido [facility] IMG MG EXAMS Final Result * STRESS TEST EXERCISE (06/27/2025 2:20 PM EDT) Max Predicted Heart Rate 153 bpm Anatomical Region Laterality Modality Heart Ultrasound Narrative 07/04/2025 1:28 PM EDT ECG Report Pt exercised for 6: 43 min on a HEATHER protocol achieving 9 METS. Test terminated due to fatigue. Baseline resting HR was 82 bpm. Max heart rate achieved was 139 bpm (90% MPHR). 1. ECG: Baseline ECG showed sinus rhythm without significant ST or T wave abnormality. With exercise there were no ECG changes meeting criteria for ischemia. 2. SYMPTOMS: No chest pain or symptoms concerning for angina 3. EXERCISE PHYSIOLOGY: Good functional capacity for age. Blood pressure: 148/82 at rest, 204/90 with exercise, and 140/82 on discharge from stress lab. 4. ARRHYTHMIAS: Rare isolated PVCs Conclusion: Normal exercise stress test. There were no EKG changes meeting criteria for ischemia. There were no symptoms concerning for angina. See attached stress report for full details. Mohan Braga NP Ro Pulido BAILEE CV STRESS ORDERABLES Final R esult * POCT Rapid Strep A (06/09/2025 11:32 AM EDT) Pathologist [facility] Strep A, PCR Not Detected Not Detected [facility] 06/09/2025 11:3 2 AM EDT 06/09/2025 12:00 PM EDT Malena Modi [facility] LAB POCT ENTER/EDIT ORD ERABLES Final Result [facility] [address] [address] [phone] * POCT COVID-19 RT-PCR/Influenza A & B/RSV (Cepheid) (06/09/2025 11:30 AM EDT) RSV PCR Negative Negative [facility] SARS-CoV-2 (COVID-19) Negative Negative [facility] POC Influenza A PCR Negative Negative [facility] Influenza B PCR Negative Negative [facility] 06/09/2025 11:3 0 AM EDT 06/09/2025 12:12 PM EDT Malena Modi [facility] POCT ENTER/EDIT ORD ERABLES Final Result [facility] [address] [address] [phone] * Pap Test (03/07/2025 12:00 AM EDT) Report [address] [address] Machine Fixer: Andrew Owens MD MEDICAL POLICY SPECIALIST Cytology Report FINAL DIAGNOSIS A. PAP SMEAR (THIN PREP) CE: SPECIMEN ADEQUACY: Unsatisfactory for evaluation. Specimen processed and examined, but unsatisfactory due to insufficient squamous component. INTERPRETATION: UNSATISFACTORY FOR EVALUATION. A diagnosis cannot be rendered on an unsatisfactory specimen. This specimen was analyzed by the automated ThinPrep Imaging System (Selvz.) and manually rescreened by a return to factory clerk and/or pathologist. Electronically Signed Out By: MD Nadine Victoria CT(ASCP) YOLANDA Oviedo(ASCP) By his/her signature above, the pathologist listed as making the Final Diagnosis certifies that he/she has personally reviewed this case and confirmed or corrected the diagnosis. The Pap test is a screening test primarily for squamous cancers and precursors and has associated false-negative and false-positive results. New technologies such as liquid-based preparations may decrease but will not eliminate all false-negative results. Regular sampling and follow-up of unexplained clinical signs and symptoms are recommended to minimize false negative results. PROCEDURES/ADDENDA HPV Testing (Requested) Ordered Date: 03/08/2025 A. PAP SMEAR (THIN PREP) CE: High-risk HPV Panel w/ extended genotyping NEG HPV 16-NEG HPV 18-NEG HPV 45-NEG HPV 33/58-NEG HPV 31-NEG HPV 56/59/66-NEG HPV 51-NEG HPV 52-NEG HPV 35/39/68-NEG Performed by real-time polymerase chain reaction (PCR) at [facility], [address] [place] [address] using the FDA-approved [employer] Onclarity HPV Assay with extended genotyping. Uses of the assay in scenarios other than those approved by the FDA should be considered off-label use. The accuracy and precision of this test for all other off-label specimen sources has been verified in the Cytopathology Laboratory of the [facility] and has not been cleared or approved by the U.S. Food and Drug Administration. Clinical correlation is advised. The assay assesses the E6/E7 DNA target and utilizes human beta globin as an internal control. Cytology and HPV testing are screening assays and should not be used as the sole means of detecting cancer. False-positives and false-negatives can occur. CLINICAL HISTORY Date of Last Menstrual Period: Not Provided Menstrual History: Post Menopausal Other Clinical Conditions: Screening Pap SPECIMEN SOURCE A: PAP SMEAR (THIN PREP) CE Patient Name: GEOVANNA SILVA : 1960 (Age: 64) Sex: F Institution: [facility] Location: [facility] Date of Collection: 03/07/2025 Date of Reported: 03/22/2025 10:27 Results to: Berenice Garcia MD [facility] Final Diagnosis A. PAP SMEAR (THIN PREP) CE: SPECIMEN ADEQUACY: Unsatisfactory for evaluation. Specimen processed and examined, but unsatisfactory due to insufficient squamous component. INTERPRETATION: UNSATISFACTORY FOR EVALUATION. A diagnosis cannot be rendered on an unsatisfactory specimen. This specimen was analyzed by the automated ThinPrep Imaging System (Selvz.) and manually rescreened by a return to factory clerk and/or pathologist. [facility] Results\Inte rpretation A. PAP SMEAR (THIN PREP) CE: High-risk HPV Panel w/ extended genotyping NEG HPV 16-NEG HPV 18-NEG HPV 45-NEG HPV 33/58-NEG HPV 31-NEG HPV 56/59/66-NEG HPV 51-NEG HPV 52-NEG HPV 35/39/68-NEG Performed by real-time polymerase chain reaction (PCR) at [facility], [address] [place] [address] using the FDA-approved [employer] Onclarity HPV Assay with extended genotyping. Uses of the assay in scenarios other than those approved by the FDA should be considered off-label use. The accuracy and precision of this test for all other off-label specimen sources has been verified in the Cytopathology Laboratory of the [facility] and has not been cleared or approved by the U.S. Food and Drug Administration. Clinical correlation is advised. The assay assesses the E6/E7 DNA target and utilizes human beta globin as an internal control. Cytology and HPV testing are screening assays and should not be used as the sole means of detecting cancer. False-positives and false-negatives can occur. [facility] Conversion Type (Conversion Source) 03/07/2025 03/08/2025 9:26 AM EDT Berenice Garcia MD CYTOLOGY ORDERABLES Edited Result - Final Performing Organization Address [facility]/ZIP Co de Phone Number [address] [address] * CARBAMAZEPINE (TEGRETOL) LEVEL (07/27/2024 3:04 PM EST) Blood Ro Pulido CNP LAB BLOOD ORDERABLES Final R esult Performing Organization Address [facility]/ZIP Co de Phone Number [address] [address] * DXA Screening (10/14/2023 9:09 AM EST) Anatomical Region Laterality Modality Bone Density Bone Density Ro [place] CATEGORY MANAGER IMG BD BONE DENSITY DEXA Fin al Result * COLONOSCOPY FOR RESULT ENTRY ONLY (05/13/2022) Colonoscopy External us Historical Provider MD HEALTH MAINTENANCE Final Result * (ABNORMAL) Lipid panel (03/11/2022 10:22 AM EDT) HDL 70 mg/dL [facility] Comment: Interpretation <40 mg/dL: Low HDL cholesterol (major risk factor for CHD) Greater than or equal to 60 mg/dL: High HDL cholesterol ( negative risk factor for CHD) HDL - cholesterol is affected by a number of factors, e.g. smoking, excerise, hormones, sex and age. CHOLESTEROL 202 0 - 240 mg/dL [facility] TRIGLYCERIDES 79 30 - 160 mg/dL [facility] LDL 116 50 - 129 mg/dL [facility] Comment: LDL levels in terms of risk for coronary heart disease: <100 mg/dL: Optimal 100-129 mg/dL: Near or above optimal 130-159 mg/dL: Borderline high 160-189 mg/dL: High >190 mg/dL: Very High CARDIAC RISK RATIO 2.9(L) 3.3 - 4.4 C [facility] Blood 03/11/2022 10:2 2 AM EDT 03/11/2022 10:25 AM EDT Jayleen Preston CATEGORY MANAGER LAB BLOOD BKR ORDERABLES F inal Result Performing Organization Address City/State/[facility] Co de Phone Number [address] [address] from Last 3 Months or Most Recently Relevant to Health Maintenance Insurance MEDICARE A [place] [employer] ADMINISTRATORS MEDICARE A [facility] [employer] ADMINISTRATORS MEDICARE A [employer] ADMINISTRATORS MEDICARE A [employer] ADMINISTRATORS MEDICARE A [facility] ADMINISTRATORS MEDICARE A [facility] BLUE BENEFITS ADMINISTRATORS Care Teams Documentation Clerk Relationship Specialty Start Date End Date Ro Pulido CNP [address] [place] [address], [facility] 7 [place] [address] [email or web address] PCP - General Nurse Practitioner 07/13/23 Jayleen Preston CNP [address] [facility], 2nd [place] [address] [email or web address] Historical LMR Provider 07/07/17 Haley Ybarra MD [address] [place] [address] [address] [place] [address] [email or web address] Historical LMR Provider 07/07/17 Andrew Courtney MD [address] [place] [address] [address] [place] [address] [email or web address] Historical LMR Provider 07/07/17 Additional Source Comments The information contained in this document represents components of the legal health record. It is not the complete legal health record.[facility]
--- OUTSIDE RECORDS SUMMARY | 2025-08-29 22:41 | XMS_ITS | Encounter Summary ---
Author Organization [facility] Address [address] [place] [address] Phone Care Team Providers Care Pattern Designer Name Role Phone Diane Diza NP Unavailable [phone] Timi Otoole DO Unavailable [place] COTTON MACHINE OPERATOR Unavailable Jayleen Preston PROGRAM MANAGEMENT MANAGER Unavailable [phone] Yusuf Day DO Unavailable [phone] Jose Courtney MD Unavailable Candida Ryan MD Unavailable [phone] Haley Ybarra MD Unavailable Andrew Courtney MD Unavailable Jayleen Preston PROGRAM MANAGEMENT MANAGER Primary Care Provider [phone] Timi Otoole DO Unavailable Melanie Cortez RN Unavailable Ro Pulido PROGRAM MANAGEMENT MANAGER Primary Care Provider Encounter Details Date Type Department Care Team (Late st Contact Info) Description 11/21/2020 Procedure Pass [address] [place] [address] Social History Tobacco Use Types Packs/Day Years [...] 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 documented as of this encounter Visit Diagnoses Not on filedocumented in this encounter Additional Health Concerns Infection Onset Date Last Indicated Resolved Time CoV-Risk 12/13/2021 12/13/2021 12/24/2021 1:23 AM EDT CoV-Risk Comment:Per Ambulatory Triage Form 11/18/2022 11/18/202211/18 9:29 AM EST CoV-Presumed 11/18/2022 11/18/2022 12/09/2022 1:22 AM EDT documented as of this encounter Care Teams Pattern Designer Relationship Specialty Start Date End Date Jayleen Preston CNP 15 [facility] 2nd [place] [address] [email or web address] PCP - General Family Medicine 04/17/19 07/12/23 Ro Pulido CNP [address] [place] [address], [address] [place] [address] PCP - General Nurse Practitioner 07/13/23 Diane Diaz NP 1 [place] [address] Historical LMR Provider 07/07/17 2 Timi Otoole DO [address] [place] [address] 7 [place] [address] [email or web address] Historical LMR Provider 07/07/17 09/28/21 Som[place] Hill NP [address] [place] [address] Historical LMR Provider 07/07/17 2 Jayleen Preston CNP 15 [facility], [address] [place] [address] [email or web address] Historical LMR Provider 07/07/17 Yusuf Day DO [address] [place] [address] Orthopedics & Sports Medicine, [facility] [place] [address] Historical LMR Provider 07/07/17 09/28/21 Jose Courtney MD [address] [place] [address] 7 [place] [address] [email or web address] Historical LMR Provider 07/07/17 09/28/21 Candida Ryan MD [address] [place] [address] 7 [place] [address] [email or web address] Historical LMR Provider 07/07/17 09/28/21 Haley Ybarra MD [address] [facility], [facility] 7 [place] [address] [email or web address] Historical LMR Provider 07/07/17 Andrew Courtney MD [address] [place], [place] [address] [place] [address] [email or web address] Historical LMR Provider 07/07/17 Timi Otoole DO [address] [place] [address], [address] [place] [address] [email or web address] Insurance Assigned Provider 07/27/22 05/30/23 Melanie Cortez, RN [address] [place] [address] [email or web address] PHCM Apprentice Painter [employer]ck[employer]keeper [employer] 02/19/23 03/19/23 documented as of this encounter Additional Source Comments The information contained in this document represents components of the legal health record. It is not the complete legal health record.[facility]
--- OUTSIDE RECORDS SUMMARY | 2025-08-29 22:41 | XMS_ITS | Encounter Summary ---
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 Not on file Not on file documented as of this encounter Plan of Treatment Upcoming Encounters Date Type Department Care Team (Late st Contact Info) Description 10/11/2025 12:00 PM EST Office Visit [facility] 22 [place] [address] Karis Salgado MD [address] [address] [email or web address] documented as of this encounter Visit Diagnoses Not on filedocumented in this encounter Additional Health Concerns Assessment Noted Time PHQ-2 Depression Total Score: 0 10/07/19 24 8:00 AM EST documented as of this encounter Care Teams Management Manager Relationship Specialty Start Date End Date Ro Pulido CNP [address] [place] [address], [address] [place] [address] PCP - General Nurse Practitioner 07/13/23 Jayleen Preston CNP [address] [address] Historical LMR Provider 07/07/17 Haley Ybarra MD [address] [place] [address] [address] [place] [address] [email or web address] Historical LMR Provider 07/07/17 Andrew Courtney MD [address] [place] [address] [address] [place] [address] [email or web address] Historical LMR Provider 07/07/17 documented as of this encounter Additional Source Comments The information contained in this document represents components of the legal health record. It is not the complete legal health record.[facility]
--- OUTSIDE RECORDS SUMMARY | 2025-08-29 22:42 | XMS_ITS | Encounter Summary ---
Author Organization [facility] Address [address] [facility] [address] [place] [address] Phone Care Team Providers Care Heel Molder Name Role Phone Jayleen Preston CNP Unavailable [phone] Haley Ybarra MD Unavailable Andrew Courtney MD Unavailable Ro Pulido CNP Primary Care Provider [phone] Reason for Visit * Reason Comments Medication Refill Encounter Details Date Type Department Care Team (Late st Contact Info) Description 08/28/2025 Refill [facility] [address] [place] [address] Deandra Gray, CLASSIFIED COPY CONTROL CLERK [address] [place] [address] [address] [place] [id number] [email or web address] Medication Refill Social History Tobacco Use Types Packs/Day Years [...] high school, GED, job training, learning the [place] language, technical skills, or developing parenting skills)? 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 Specifics below. > No future appt: Please schedule if appropriate. > Labs due: Please remind patient. > No new orders needed. Labs due for pended Rx Requests: Lipid panel Other labs due based on Medication List: CBC LFTs Carbamazepine level - Needs order * Lamotrigine level Visit Info Last visit: 02/10/2025 Ro Pulido CNP - Family Medicine [facility] > Requested f/u: Not specified Upcoming visit: None ACTIONS TAKEN BY Mehreen DavisMAC - Labs needed - Teed up orders and/or reminded pt. - Updated rx duration per protocol. Cholesterol Medication Rx Protocol - atorvastatin calcium Criteria not met; renew for up to 3 months. (unless patient is on high intensity statin, in which case LDL level may not be needed at provider discretion) Visit in the past 14 months: Yes Clinical criteria: - Lipid panel within past year: None (has active order) Health Maintenance Labs Due / Due Soon Topic Date Due CARBAMAZEPINE (TEGRETOL) LEVEL 07/27/2025 documented in this encounter Plan of Treatment Upcoming Encounters Date Type Department Care Team (Late st Contact Info) Description 10/11/2025 12:00 PM EST Office Visit [facility] [address] [place] [address] [place] [address] Karis Salgado MD [address] [place] [address] [email or web address] documented as of this encounter Visit Diagnoses Diagnosis Mixed hyperlipidemia documented in this encounter Additional Health Concerns Assessment Noted Time PHQ-2 Depression Total Score: 0 10/14/19 24 7:41 PM EST documented as of this encounter Care Teams Heel Molder Relationship Specialty Start Date End Date Ashok Ro, CNP [address] [facility], [address] [place] [address] [email or web address] PCP - General Nurse Practitioner 07/13/23 Jayleen Preston CNP [address] [facility], 2nd [place] [address] Historical LMR Provider 07/07/17 Haley Ybarra MD [address] [place] [address] 7 [place] [address] [email or web address] Historical LMR Provider 07/07/17 Andrew Courtney MD [address] [place] [address] [address] [place] [address] [email or web address] Historical LMR Provider 07/07/17 documented as of this encounter Additional Source Comments The information contained in this document represents components of the legal health record. It is not the complete legal health record.[facility]
--- OUTSIDE RECORDS SUMMARY | 2025-08-29 22:42 | XMS_ITS | Encounter Summary ---
Author Organization [facility] Address [address] [place] [address] Phone Care Team Providers Care Pharmacy Operations Coordinator Name Role Phone Jayleen Preston CNP Unavailable [phone] Haley Ybarra MD Unavailable [phone] Andrew Courtney MD Unavailable Ro Pulido CLINICAL REHABILITATION SPECIALIST Primary Care Provider Reason for Visit * Reason Comments Medication Refill Encounter Details Date Type Department Care Team (Late st Contact Info) Description 08/28/2025 Refill [facility] [address] [place] [address] Julianne Meza CLINICAL REHABILITATION SPECIALIST [address] [facility] [address] [place] [address] [email or web address] Medication Refill Social History Tobacco Use Types [...] high school, GED, job training, learning the [place] language, technical skills, or developing parenting skills)? 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 Specifics below. > No future appt: Please schedule if appropriate. > Labs due: Please remind patient. > No new orders needed. Labs due for pended Rx Requests: CBC LFTs BMP Other labs due based on Medication List: Carbamazepine level - Needs order * Lamotrigine level Lipid panel Visit Info Last visit: 02/10/2025 Ro Pulido CNP - Family Medicine [facility] > Requested f/u: Not specified Upcoming visit: None ACTIONS TAKEN BY Mehreen DavisMAC - Labs needed - Teed up orders and/or reminded pt. - Updated rx duration per protocol. NSAID Rx Protocol - Daily treatment for inflammatory arthritis/rheumatology use - celecoxib Criteria not met; renew for up to 3 months. Visit in the past 14 months: Yes Clinical criteria: - BMP within past year: None (has active order) - LFTs within past year: None (has active order) - CBC within past year: None (has active order) Lab Results Component Value Date SODIUM 141 03/11/2022 POTASSIUM 4.4 03/11/2022 CHLORIDE 104 03/11/2022 CO2 29 03/11/2022 BUN 18 03/11/2022 CREATININE 0.60 03/11/2022 EGFR 101 03/11/2022 Lab Results Component Value Date WBC 4.61 03/17/2019 HCT 40.3 03/17/2019 HGB 13.6 03/17/2019 PLT 272 03/17/2019 Lab Results Component Value Date AST 20 08/01/2021 ALT 21 08/01/2021 ALKALINE PHOSPHATASE 88 08/01/2021 TOTAL BILIRUBIN 0.3 08/01/2021 DIRECT BILIRUBIN <0.2 03/17/2019 Health Maintenance Labs Due / Due Soon Topic Date Due CARBAMAZEPINE (TEGRETOL) LEVEL 07/27/2025 documented in this encounter Plan of Treatment Upcoming Encounters Date Type Department Care Team (Late st Contact Info) Description 10/11/2025 12:00 PM EST Office Visit [facility] [address] [place] [address] Karis Salgado MD [address] [address] [email or web address] documented as of this encounter Visit Diagnoses Not on filedocumented in this encounter Additional Health Concerns Assessment Noted Time PHQ-2 Depression Total Score: 0 10/14/19 24 7:41 PM EST documented as of this encounter Care Teams Pharmacy Operations Coordinator Relationship Specialty Start Date End Date Ro Pulido CNP [address] [facility] 7 [place] [address] [email or web address] PCP - General Nurse Practitioner 07/13/23 Jayleen Preston CNP [address] [facility] [address]nd [place] [address] Historical LMR Provider 07/07/17 Haley Ybarra MD [address] [place] [address] 7 [place] [address] [email or web address] Historical LMR Provider 07/07/17 Andrew Courtney MD [address] [facility] [place] [address] [email or web address] Historical LMR Provider 07/07/17 documented as of this encounter Additional Source Comments The information contained in this document represents components of the legal health record. It is not the complete legal health record.[facility]
--- OUTSIDE RECORDS SUMMARY | 2025-08-29 22:42 | XMS_ITS | Encounter Summary ---
Author Organization [facility] Address [address] [place] [address] Phone Care Team Providers Care Liquid Loader Name Role Phone Diane Diaz THERAPEUTIC PROGRAM WORKER Unavailable [phone] Timi Otoole DO Unavailable Sommer Hill THERAPEUTIC PROGRAM WORKER Unavailable Jayleen Preston TELESALES AGENT Unavailable [phone] Yusuf Day DO Unavailable Jose Courtney MD Unavailable Candida Ryan MD Unavailable Haley Ybarra MD Unavailable Andrew Courtney MD Unavailable Jayleen Preston TELESALES AGENT Primary Care Provider [phone] Andrew Courtney MD Primary Care Provider [phone] Jayleen Preston TELESALES AGENT Primary Care Provider [phone] Adnrew Courtney MD Primary Care Provider [phone] Jayleen Preston CNP Primary Care Provider [phone] Sahd, Timi F DO Unavailable Melanie Cortez RN Unavailable Ro Pulido TELESALES AGENT Primary Care Provider Encounter Details Date Type Department Care Team (Late st Contact Info) Description 11/09/2017 Ancillary Orders [facility] [address] [place] [address] Jayleen Preston, TELESALES AGENT [address] [address] Breast screening Social History Tobacco Use Types Packs/Day Years Used Date Smoking Tobacco: Never Smokeless Tobacco: Never Comments Unknown Sex and Gender Information Value Date Recorded Sex Assigned at Female 01/02/2019 12:06 PM EDT Legal Sex Female 4:30 PM EST Gender Identity Female 01/02/2019 12:06 PM EDT Sexual Orientation Straight 02/09/2020 12 :44 AM EDT documented as of this encounter Plan of Treatment Upcoming Encounters Date Type Department Care Team (Late st Contact Info) Description 10/11/2025 12:00 PM EST Office Visit [facility] 22 [place] [address] Karis Salgado MD [address] [address] documented as of this encounter Results * BI MAMMOGRAM SCREENING WITH TOMOSYNTHESIS WITH CAD (BILATERAL) (11/10/2017 10:12 AM EST) Anatomical Region Laterality Modality Breast Left, Breast Right, Breast Bilateral Bila teral Mammography 11/10/2017 11:0 9 AM EST Impressions 11/10/2017 11:16 AM EST No mammographic evidence of malignancy. Recommend routine annual surveillance. BI-RADS CATEGORY: 2 - Benign finding. DENSITY: The breast tissue is heterogeneously dense, an appearance which lowers the sensitivity of mammography. POS - CDHMAM2 Narrative 11/10/2017 11:16 AM EST 57-year-old female with no current breast symptoms. Comparison made to previous on 09/30/2016 and 06/30/2014. Interpretation made in conjunction with computer-aided detection and tomosynthesis. The breasts are heterogeneously dense, which may obscure small masses. Stable scattered bilateral micro and macrocalcifications. There are no suspicious masses, areas of architectural distortion, or suspicious clusters of microcalcifications. Procedure Note Raiza Bledsoe MD - 11/10/2017 57-year-old female with no current breast symptoms. Comparison made toprevious on 09/30/2016 and 06/30/2014. Interpretation made in conjunctionwith computer-aided detection and tomosynthesis. The breasts are heterogeneously dense, which may obscure small masses.Stable scattered bilateral micro and macrocalcifications. There are no suspicious masses, areas of architectural distortion, orsuspicious clusters of microcalcifications. IMPRESSION: No mammographic evidence of malignancy. Recommend routine annualsurveillance. BI-RADS CATEGORY: 2 - Benign finding. DENSITY: The breast tissue is heterogeneously dense, an appearance whichlowers the sensitivity of mammography. POS - CDHMAM2 Jayleen Preston CNP IMG MG EXAMS Final [...] documented as of this encounter Care Teams Liquid Loader Relationship Specialty Start Date End Date Jayleen Preston CNP [address] [facility], 2nd [place] [address] [email or web address] PCP - General 08/11/17 03/08/19 Andrew Courtney MD [address] [place] [address] [address] [place] [phone] [email or web address] PCP - General Family Medicine 03/09/19 03/13/19 Jayleen Preston, TELESALES AGENT [address] [place] [address] [email or web address] PCP - General Family Medicine 03/14/19 03/14/19 Andrew Courtney MD [address] [place] [address] [address] [place] [phone] [email or web address] PCP - General Family Medicine 03/15/19 04/16/19 Jayleen Preston, TELESALES AGENT [address] [place] [address] [email or web address] PCP - General Family Medicine 04/17/19 07/12/23 Ro Pulido CNP [address] [place] [address] [address] [place] [address] [email or web address] PCP - General Nurse Practitioner 07/13/23 Diane Diaz THERAPEUTIC PROGRAM WORKER [address] [place] [address] Historical LMR Provider 07/07/17 2 Timi Otoole DO [address] [place] [address], [facility] 7 [place] [address] [email or web address] Historical LMR Provider 07/07/17 09/28/21 Sommer Hill, ELLA [address] [place] [address] Historical LMR Provider 07/07/17 2 Jayleen Preston, BAILEE [address] [facility], 2nd [place] [address] Historical LMR Provider 07/07/17 Yusuf Day DO [address] [place] [address] [facility], [place] [address] Historical LMR Provider 07/07/17 09/28/21 Jose Courtney MD [address] [place] [address] 7 [place] [phone] [email or web address] Historical LMR Provider 07/07/17 09/28/21 Candida Ryan MD [address] [place] [address] 7 [place] [address] [email or web address] Historical LMR Provider 07/07/17 09/28/21 Haley Ybarra MD [address] [place] [address] 7 [place] [address] [email or web address] Historical LMR Provider 07/07/17 Andrew Courtney MD [address] [place], [place] [address] [place] [phone] [email or web address] Historical LMR Provider 07/07/17 Timi Otoole DO [address] [place] [address], [address] [place] [address] [email or web address] Insurance Assigned Provider 07/27/22 05/30/23 Melanie Cortez, RN [address] [place] [address] [email or web address] PHCM Vehicle Damage AppraiserChurn Operator 02/19/23 03/19/23 documented as of this encounter Additional Source Comments The information contained in this document represents components of the legal health record. It is not the complete legal health record.[facility]
--- OUTSIDE RECORDS SUMMARY | 2025-08-29 22:42 | XMS_ITS | Encounter Summary ---
Author Organization [facility] Address [address] [place] [address] Phone Care Team Providers Care Equipment Maintenance Superintendent Name Role Phone Diane Diaz POP SINGER Unavailable Timi Otoole DO Unavailable Sommer Hill POP SINGER Unavailable Jayleen Preston DIELECTRIC EMBOSSING MACHINE OPERATOR Unavailable [phone] Yusuf Day DO Unavailable Jose Courtney MD Unavailable [phone] Candida Ryan MD Unavailable Haley Ybarra MD Unavailable Andrew Courtney MD Unavailable Jayleen Preston DIELECTRIC EMBOSSING MACHINE OPERATOR Primary Care Provider [phone] Andrew Courtney MD Primary Care Provider [phone] Jayleen Preston DIELECTRIC EMBOSSING MACHINE OPERATOR Primary Care Provider [phone] Andrew Courtney MD Primary Care Provider [phone] Jayleen Preston CNP Primary Care Provider [phone] Sahd, Timi F DO Unavailable Melanie Cortez RN Unavailable Ro Pulido CNP Primary Care Provider Encounter Details Date Type Department Care Team (Late st Contact Info) Description 11/19/2017 Procedure Pass [facility], [facility] - [address] [address] Social History Tobacco Use Types Packs/Day Years Used Date Smoking Tobacco: Never Smokeless Tobacco: Never Comments No Sex and Gender Information Value [...] PM EST Office Visit [facility] 22 [place] [address] Karis Salgado MD [address] [address] documented as of this encounter Visit Diagnoses Not on filedocumented in this encounter Additional Health Concerns Infection Onset Date Last Indicated Resolved Time CoV-Risk 12/13/2021 12/13/2021 12/24/2021 1:23 AM EDT CoV-Risk Comment:Per Ambulatory Triage Form 11/18/2022 11/18/202211/18 9:29 AM EST CoV-Presumed 11/18/2022 11/18/2022 12/09/2022 1:22 AM EDT documented as of this encounter Care Teams Equipment Maintenance Superintendent Relationship Specialty Start Date End Date Jayleen Preston CNP [address] [address] PCP - General 08/11/17 03/08/19 Andrew Courtney MD [address] [place] [address] [address] [place] [phone] [email or web address] PCP - General Family Medicine 03/09/19 03/13/19 Jayleen Preston, DIELECTRIC EMBOSSING MACHINE OPERATOR [address] [place] [address] [email or web address] PCP - General Family Medicine 03/14/19 03/14/19 Andrew Courtney MD [address] [place] [address] [address] [place] [phone] [email or web address] PCP - General Family Medicine 03/15/19 04/16/19 Jayleen Preston, DIELECTRIC EMBOSSING MACHINE OPERATOR [address] [place] [address] [email or web address] PCP - General Family Medicine 04/17/19 07/12/23 Ro Pulido CNP [address] [place] [address], [address] [place] [address] [email or web address] PCP - General Nurse Practitioner 07/13/23 Diane Diaz, POP SINGER 1 [place] [address] Historical LMR Provider 07/07/17 2 Timi Otoole DO [address] [place] [address], [address] [place] [address] [email or web address] Historical LMR Provider 07/07/17 09/28/21 Sommer Hill NP [address] [place] [address] Historical LMR Provider 07/07/17 2 Jayleen Preston, BAILEE 15 [facility], 2nd [place] [address] [email or web address] Historical LMR Provider 07/07/17 Yusuf Day DO [address] [place] [address] [facility], [place] [address] [email or web address] Historical LMR Provider 07/07/17 09/28/21 Jose Courtney MD [address] [place] [address] 7 [place] [phone] [email or web address] Historical LMR Provider 07/07/17 09/28/21 Candida Ryan MD [address] [place] [address] 7 [place] [address] [email or web address] Historical LMR Provider 07/07/17 09/28/21 Haley Ybarra MD [address] [place] [address] 7 [place] [address] [email or web address] Historical LMR Provider 07/07/17 Andrew Courtney MD [address] [place], [place] [address] [place] [phone] [email or web address] Historical LMR Provider 07/07/17 Timi Otoole DO [address] [place] [address], [address] [place] [address] [email or web address] Insurance Assigned Provider 07/27/22 05/30/23 Melanie Cortez, RN [address] [place] [address] [email or web address] PHCM Roller Bearing [email or web address] Dba 02/19/23 03/19/23 documented as of this encounter Additional Source Comments The information contained in this document represents components of the legal health record. It is not the complete legal health record.[facility]
== END 2025-08-29 16:15 | disposition home or self-care (01) ==
PROVIDERS: PCP Nurse Practitioner Family; Visit Provider Psychiatry & Neurology Neurology
DX: G43.719 Chronic migraine without aura, intractable, without status migrainosus (principal)
CPT/HCPCS: 64615; 99499

== ENCOUNTER → 2025-08-29 15:55 | Outpatient (BNVA) | payer OTHER, SELFPAY | PROVIDERS: PCP Nurse Practitioner Family; Visit Provider Psychiatry & Neurology Neurology | DX: G43.719 Chronic migraine without aura, intractable, without status migrainosus (principal); G43.119 Migraine with aura, intractable, without status migrainosus; M43.6 Torticollis; G50.1 Atypical facial pain; G47.33 Obstructive sleep apnea (adult) (pediatric) | CPT/HCPCS: 64615; J0585 ==